=== PATIENT | female | born 1980 | race Caucasian/White ===

== ENCOUNTER 2023-01-28 22:36 | Emergency (ER) | payer MEDICAID, SELFPAY ==
[2023-01-28 22:51] VITALS: BP 166/84; PULSE 79; RESP 16; TEMP 36.8; O2SAT 98; BMI 25.0
--- NOTE | 2023-01-28 22:58 | PC.NURSE ---
Pt presents to ER for UTI like symptoms Pt states she has been taking Azo over the counter because she knows she has a UTI Pt states these symptoms have been going on for 4 days and she now has pain into her kidneys on both sides and blood in her urine Urine sample obtained
--- NOTE | 2023-01-28 23:14 | ED.FEMALEGU1 ---
HPI - Female Genitourinary General Chief complaint: Urogenital-Female Stated complaint: flank pain Time Seen by Provider: 01/28/23 22:58 Source: patient Mode of arrival: walk-in Limitations: no limitations History of Present Illness HPI Narrative: This 42-year-old female with a history of type 1 diabetes presents for evaluation of 2 days of bilateral flank pain with urinary frequency urgency and dysuria. She has been nauseated but has not vomited. She has been taking Tylenol and Motrin and is not certain if she has had any chills or fever. She states she has passed some small kidney stones in the past. Yesterday she noted some blood in her urine. She denies the possibility of because she has an IUD and is not sexually active. She denies any chest pain or shortness of breath. She states her glucose has been in normal range and is currently 126. Related Data Home Medications Medication Instructions Recorded Confirmed atorvastatin 10 mg tablet mg 01/28/23 ibuprofen 800 mg tablet mg 01/28/23 insulin pump cart,automated,BT 01/28/23 01/28/23 (Omnipod 5 G6 Pods (Gen 5) subcutaneous cartridge) lisinopril 5 mg tablet mg 01/28/23 pregabalin 300 mg capsule (Lyrica) 300 mg PO BID 01/28/23 01/28/23 Allergies Allergy/AdvReac Type Severity Reaction Status Date / Time clarithromycin [From Biaxin] Allergy Severe Verified 01/28/23 22:55 Sulfa (Sulfonamide Allergy Severe Verified 01/28/23 22:55 Antibiotics) azithromycin Allergy Verified 01/28/23 22:55 Penicillins Allergy Verified 01/28/23 22:55 Review of Systems ROS Status of ROS 10 or more systems reviewed and unremarkable except as noted in history and below [facility] Social History Smoking status: Current every day smoker Exam Narrative Exam Narrative: Nurses note and vital signs reviewed and patient is not hypoxic. Blood pressure is noted to be elevated at 166/84 General: The patient appears well and in no apparent distress. Patient is resting comfortably on cart. Skin: Warm, dry, no pallor noted. There is no rash noted. Head: Normocephalic, atraumatic Eye: Normal conjunctiva, no drainage, EOMI. PERRL Ears, Nose, Mouth, and Throat: oral mucosa is moist. Nares patent. Mouth without vesicles. Ear canals patent. Tm's without Erythema Cardiovascular: Regular Rate and Rhythm, no murmurs, rubs or gallops, Pulses are brisk and equal bilaterally Respiratory: Patient is in no distress, no accessory muscle use, lungs are clear to auscultation, no wheezing, rales or rhonchi Back: non-tender, no CVA tenderness bilaterally to percussion. GI: Normal bowel sounds, tenderness and fullness over urinary bladder, no rebound, guarding or rigidity Musculoskeletal: The patient has no evidence of calf tenderness, no pitting edema, symmetrical pulses noted bilaterally Neurological: A&O x4, normal speech Psychiatric: Cooperative Constitutional Vital Signs, click to edit/add: Last Vital Signs Temp 98.3 F 01/28/23 22:51 Pulse 79 01/28/23 22:51 Resp 16 01/28/23 22:51 BP 166/84 H 01/28/23 22:51 Pulse Ox 98 01/28/23 22:51 O2 Del Method Room Air 01/28/23 22:51 Course Vital Signs Vital signs: Vital Signs Temperature 98.3 F 01/28/23 22:51 Pulse Rate 79 01/28/23 22:51 Respiratory Rate 16 01/28/23 22:51 Blood Pressure 166/84 H 01/28/23 22:51 Pulse Oximetry 98 01/28/23 22:51 Oxygen Delivery Method Room Air 01/28/23 22:51 Temperature 98.3 F 01/28/23 22:51 Pulse Rate 79 01/28/23 22:51 Respiratory Rate 16 01/28/23 22:51 Blood Pressure 166/84 H 01/28/23 22:51 Pulse Oximetry 98 01/28/23 22:51 Oxygen Delivery Method Room Air 01/28/23 22:51 MDM - Female Genitourinary MDM Narrative Medical decision making narrative: This 42-year-old female who is a type II diabetic presents for evaluation of 2 days of bilateral flank pain with nausea and urinary frequency, urgency dysuria and hematuria yesterday. She states that her sugars have been in the normal range. She is uncertain if she has had a fever because she has been taking Tylenol and Motrin. She has also been taking Azo. Her physical exam is benign. She is afebrile. Her blood pressure was noted to be mildly elevated upon arrival. An IV was placed and she was medicated with IV fluids, Zofran and Cipro. Routine labs are reviewed. She has a normal white count hemoglobin. She has a normal lactic acid. Her urine is orange due to the Azo but does show 10-20 white blood cells per high-power field. She has a normal BUN and creatinine and was given a dose of Toradol for the pain. CT scan of the abdomen and pelvis which is included the body of this report does not show any kidney stones or local inflammation around the kidneys concerning for pyelonephritis. On reevaluation her symptoms are improving and she is tolerating clear liquids without nausea or vomiting. She is clinically nontoxic in appearance and will be discharged home with a prescription for Cipro to use as needed for her urinary tract infection. Due to the fact that she is diabetic and will treat her for a full 7 days. Medical Records Medical records narrative: [place] [address] CT Scan Report Signed Patient: CONNER MACKEY MR#: [id number] : 1980 Acct:[id number] Age/Sex: 42 / F ADM Date: 01/28/23 Loc: ER Attending Dr: Ordering Physician: Blake Nicholson Date of Service: 01/28/23 Procedure(s): CT abdomen pelvis wo con Accession Number(s): [id number] cc: IRENE HUERTA ~ [facility] [place] [address] Patient Name: CONNER MACKEY MRN: [id number] date: 1980 Sex: F Assigned Patient Location: ER Current Patient Location: ER Accession/Order Number: [id number] Exam Date: 01/28/2023 23:59 Report Date: 01/29/2023 00:30 At the request of: BLAKE NICHOLSON Procedure: CT abdomen pelvis wo con EXAMINATION: CT abdomen pelvis wo con HISTORY: kidney stone , bilateral flank pain, abdominal pain, blood in urine COMPARISON: No relevant comparison available. TECHNIQUE: Axial, Coronal, and Sagittal images were obtained without and/or with IV contrast as indicated by examination type. Dose reduction techniques were achieved by using automated exposure control and/or adjustment of mA and/or kV according to patient size and/or use of iterative reconstruction technique. FINDINGS: LUNG BASES: No visible pulmonary or pleural disease. LIVER: No enlargement, atrophy, suspicious density, or significant focal lesion. BILIARY: No dilatation or calcification. PANCREAS: No lesion, fluid collection, or abnormal duct dilatation. SPLEEN: No enlargement or focal lesion. ADRENALS: No mass or enlargement. KIDNEYS: No mass, obstruction, or calcification. BOWEL/MESENTERY: No visible mass, obstruction, or bowel wall thickening. Normal appendix. AORTA/VASCULAR: No aneurysm or dissection. RETROPERITONEUM: No mass or adenopathy. LYMPH NODES: No adenopathy. URINARY BLADDER: No visible focal wall thickening, lesion, or calculus. PELVIC ORGANS: IUD within endometrial cavity. No visible mass. Pelvic organs appropriate for patient age. ABDOMINAL WALL: No mass or hernia. BONES: L2-L3 moderate marked degenerative disc disease with suspected moderate or greater central canal narrowing. OTHER: Negative. CT/CT abdomen pelvis wo con IMPRESSION: 1. No urinary tract calculi or obstructive uropathy. 2. No acute or suspicious abdominal or pelvic findings to account for patient's symptoms. 3. L2-L3 marked degenerative disc disease. Lab Data Labs: Lab Results 01/28/23 01/28/23 01/29/23 Range/Units 23:00 23:23 00:00 WBC 9.2 (4.0-11.0) 10^3/uL RBC 4.03 L (4.20-5.40) 10^6/uL Hgb 13.2 (12.0-16.0) g/dL Hct 40.0 (36.0-48.0) % MCV 99.3 H (81.0-99.0) fL MCH 32.8 (26.7-34.0) pg MCHC 33.0 (29.9-35.2) g/dL RDW 12.1 (11.0-15.0) % Plt Count 262 (150-450) 10^3/uL MPV 11.0 (9.5-13.5) fL Neut % (Auto) 65.7 (43.0-75.0) % Lymph % (Auto) 24.2 (20.5-60.0) % [place] % (Auto) 7.5 (1.7-12.0) % Eos % (Auto) 1.1 (0.9-7.0) % Baso % (Auto) 1.2 (0.2-2.0) % Neut # (Auto) 6.1 (1.4-6.5) 10^3/uL Lymph # (Auto) 2.2 (1.2-3.8) 10^3/uL [place] # (Auto) 0.7 (0.3-0.8) 10^3/uL Eos # (Auto) 0.1 (0.0-0.7) 10^3/uL Baso # (Auto) 0.1 (0.0-0.1) 10^3/uL Abs Immat Gran (auto) 0.03 (0.00-0.03) 10^3/uL Imm/Tot Granulo (auto) 0.3 (0.0-0.5) % Sodium 137 (136-145) mmol/L Potassium 3.3 L (3.5-5.1) mmol/L Chloride 98 (98-107) mmol/L Carbon Dioxide 28.9 (21.0-32.0) mmol/L Anion Gap 13.4 BUN 13.0 (7.0-18.0) mg/dL Creatinine 0.78 (0.55-1.02) mg/dL Est GFR ( Amer) >60 (>=60) Est GFR (Non-Af Amer) >60 (>=60) BUN/Creatinine Ratio 16.7 Glucose 93 (74-106) mg/dL Lactate 1.4 (0.4-2.0) mmol/L Calcium 9.1 (8.5-10.1) mg/dL Total Bilirubin 0.7 (0.2-1.0) mg/dL AST 19 (15-37) U/L ALT 21 (14-59) U/L Alkaline Phosphatase 94 (46-116) U/L Total Protein 8.6 H (6.4-8.2) g/dL Albumin 4.5 (3.4-5.0) g/dL Globulin 4.1 g/dL Albumin/Globulin Ratio 1.1 Urine Color Dk. orange (YELLOW) Urine Clarity Slightly cloudy A (CLEAR) Urine pH 5.0 (5.0-9.0) Ur Specific [place] 1.020 (1.005-1.025) Urine Protein Color interference A (NEG/TRACE) mg/dL Urine Glucose (UA) Color interference A (NEGATIVE) mg/dL Urine Ketones Color interference A (NEGATIVE) mg/dL Urine Occult Blood Color interference A (NEGATIVE) Urine Nitrite Color interference A (NEGATIVE) Urine Bilirubin Color interference A (NEGATIVE) Urine Urobilinogen Color interference A (0.2-1.0) EU/dL Ur Leukocyte Esterase Color interference A (NEGATIVE) Urine RBC 0-2 (0-2) #/HPF Urine WBC 10-20 A (NONE SEEN) #/HPF Ur Squamous Epith Cells Few A (NONE/RARE) #/LPF Urine Crystals None seen (None Seen) #/HPF Urine Bacteria Trace A (NONE SEEN) #/HPF Urine Casts None seen (NONE SEEN) #/LPF Urine Mucus None seen (NONE SEEN) Ur Culture Indicated? Yes Discharge Plan Discharge Chief Complaint: Urogenital-Female Clinical Impression: Urinary tract infection, Bilateral flank pain Patient Disposition: Home, Self-Care Time of Disposition Decision: 00:57 Condition: Good Prescriptions / Home Meds: No Action atorvastatin 10 mg tablet ibuprofen 800 mg tablet lisinopril 5 mg tablet (DME) Omnipod 5 G6 Pods (Gen 5) Cartridge SUBCUT pregabalin [Lyrica] 300 mg capsule 300 mg PO BID Instructions: Urinary Tract Infection in Women (ED), Flank Pain (ED) Stand Alone Forms: Portal Instructions Referrals: IRENE HUERTA [Primary Care Provider] - 1 week Discharge Date/Time: 01/29/23 01:34
[2023-01-28 23:18] LABS: Color Urine DK. ORANGE (YELLOW)
[2023-01-28 23:19] LABS: Bilirubin Urine COLOR INTERFERENCE (NEGATIVE); Glucose Urine UA COLOR INTERFERENCE mg/dL (NEGATIVE); Ketones Urine COLOR INTERFERENCE mg/dL (NEGATIVE); Protein Urine COLOR INTERFERENCE mg/dL (NEG/TRACE)
[2023-01-28 23:20] LABS: Blood Urine COLOR INTERFERENCE (NEGATIVE); Leukocyte Esterase Urine COLOR INTERFERENCE (NEGATIVE); Nitrite Urine COLOR INTERFERENCE (NEGATIVE); Urine Microscopic Indicated YES; Urobilinogen Urine COLOR INTERFERENCE EU/dL (0.2-1.0)
[2023-01-28 23:25] LABS: Bacteria Urine TRACE #/HPF (NONE SEEN); Clarity Urine SLIGHTLY CLOUDY (CLEAR); Crystals Seen? None Seen #/HPF (None Seen); Mucus Urine NONE SEEN (NONE SEEN); RBC Urine 0-2 #/HPF (0-2); Squamous Epithelial Cell Urine FEW #/LPF (NONE/RARE)
[2023-01-28 23:26] LABS: Cast Seen? NONE SEEN #/LPF (NONE SEEN); Urine Culture Indicated YES
[2023-01-28] MEDS: 0.9 % SODIUM CHLORIDE 1,000 ML 1000 ML IV (23:46)
[2023-01-28] MEDS: ONDANSETRON PF 4 MG/2 ML VIAL IV (23:47)
[2023-01-28] MEDS: CIPROFLOXACIN IN 5 % DEXTROSE 400 MG/200 ML PIGGYBACK IV (23:47)
[2023-01-29 00:10] LABS: Alanine Aminotransferase 21 U/L (14-59); Albumin Globulin Ratio 1.1; Albumin Level 4.5 g/dL (3.4-5.0); Alkaline Phosphatase 94 U/L (46-116); Anion Gap 13.4; Aspartate Amino Transferase 19 U/L (15-37); BUN Creatinine Ratio 16.7; Bilirubin Total 0.7 mg/dL (0.2-1.0); Calcium 9.1 mg/dL (8.5-10.1); Carbon Dioxide 28.9 mmol/L (21.0-32.0); Chloride 98 mmol/L (98-107); Estimated GFR (African America >60 (>=60); Estimated GFR (Non-African Ame >60 (>=60); Globulin 4.1 g/dL; Glucose 93 mg/dL (74-106); Potassium 3.3 mmol/L (3.5-5.1); Sodium 137 mmol/L (136-145); Total Protein 8.6 g/dL (6.4-8.2)
[2023-01-29 00:13] LABS: Lactate/Lactic Acid 1.4 mmol/L (0.4-2.0)
[2023-01-29 00:31] LABS: Basophils Absolute Auto 0.1 10^3/uL (0.0-0.1); Basophils Percent Auto 1.2 % (0.2-2.0); Eosinophils Absolute Auto 0.1 10^3/uL (0.0-0.7); Eosinophils Percent Auto 1.1 % (0.9-7.0); Hemoglobin 13.2 g/dL (12.0-16.0); Immature Granulocytes Abs Auto 0.03 10^3/uL (0.00-0.03); Immature Granulocytes Pct Auto 0.3 % (0.0-0.5); Lymphocytes Absolute Auto 2.2 10^3/uL (1.2-3.8); Lymphocytes Percent Auto 24.2 % (20.5-60.0); Mean Corpuscular Hemoglobin 32.8 pg (26.7-34.0); Mean Corpuscular Volume 99.3 fL (81.0-99.0); Monocytes Absolute Auto 0.7 10^3/uL (0.3-0.8); Monocytes Percent Auto 7.5 % (1.7-12.0); Neutrophils Absolute Auto 6.1 10^3/uL (1.4-6.5); Neutrophils Percent Auto 65.7 % (43.0-75.0); Platelet Count 262 10^3/uL (150-450); Red Blood Count 4.03 10^6/uL (4.20-5.40); Red Cell Distribution Width 12.1 % (11.0-15.0); White Blood Count 9.2 10^3/uL (4.0-11.0)
[2023-01-29] MEDS: KETOROLAC TROMETHAMINE 30 MG/ML VIAL IVP (01:23)
== END 2023-01-29 01:34 | disposition home or self-care (01) ==
PROVIDERS: Emergency Provider Emergency Medicine; PCP Internal Medicine
DX: N39.0 Urinary tract infection, site not specified (principal); R10.9 Unspecified abdominal pain; Z87.442 Personal history of urinary calculi; Z97.5 Presence of (intrauterine) contraceptive device; Z79.4 Long term (current) use of insulin; F17.200 Nicotine dependence, unspecified, uncomplicated; M51.36 Other intervertebral disc degeneration, lumbar region; E11.9 Type 2 diabetes mellitus without complications
CPT/HCPCS: 36415; 74176; 80053; 81001; 83605; 85025; 87040; 87086; 87150; 87186; 96374; 96375; 99284

== ENCOUNTER 2023-09-12 14:50 | Emergency (ER) | payer MEDICAID, SELFPAY ==
[2023-09-12 14:55] VITALS: BP 134/76; PULSE 95; TEMP 36.4; O2SAT 98; BMI 26.5
--- NOTE | 2023-09-12 14:59 | XR_ITS ---
The [address] [address] Patient Name: CONNER MACKEY MRN: [id number] date: 1980 Sex: F Assigned Patient Location: ER Current Patient Location: ED.MAIN Accession/Order Number: [id number] Exam Date: 09/12/2023 15:12 Report Date: 09/12/2023 15:31 At the request of: DENNIS MARTINES Procedure: XR foot LT min 3V PROCEDURE: XR foot LT min 3V HISTORY: pain and swelling ; left foot dorsal pain and swelling; no known injury COMPARISON: None. FINDINGS: BONES:No fracture, acute abnormality, or significant arthropathy. SOFT TISSUES:Mild dorsal soft tissue swelling. No radiopaque foreign body. EFFUSION:None visible. OTHER: Negative. XR/XR foot LT min 3V IMPRESSION: 1. Mild soft tissue swelling of uncertain etiology. 2. No acute or suspicious bone abnormality. Electronically authenticated by: VIC YANG Date: 09/12/2023 15:31
--- OUTSIDE RECORDS SUMMARY | 2023-09-12 15:22 | XMS_ITS | CCD ---
Author Organization [facility] Care Team Providers Care Steam Box Tender Name Role Phone SUZI CONNOR Admitting Unavailable SUZI CONNOR Attending Unavailable JEOVANNY GRIFFIN Primary Care Unavailable SUZI CONNOR Consulting Unavailable TAMMI, LILI Admitting Unavailable LILI CADENA Attending Unavailable TAMMI, LILI Consulting Unavailable LILI CADENA Admitting Unavailable LILI CADENA Attending Unavailable JEOVANNY GRIFFIN Primary Care Unavailable ANNE COLEMAN V Consulting Unavailable TAMMI, LILI Consulting Unavailable JEOVANNY GRIFFIN Primary Care Physician [phone] MD Johnnie Sharpe Attending Unavailab le Provider, None Primary Care Unavailable MD Johnnie Sharpe Admitting UnavailMD Johnnie Mullins Admitting Unavailab MD Johnnie Lockwood Attending Unavailab elizabeth Provider, None Primary Care Unavailable SHELLEY Griffin Primary Care Provider BRANDON Fisher Emergency Provider Selvin Fisher Attending Unavailable Selvin Fisher Admitting Unavailable Jeovanny Griffin Primary Care Unavailable Jeovanny Griffin II Primary Care Provider [phone] MAULIK STARR Attending UnavailJEOVANNY Snyder II Primary Care Unavailable Elias ROSA MD, Daniel B Primary Care Provider JEOVANNY GRIFFIN II Primary Care Unavailable JEOVANNY GRIFFIN II Primary Care Unavailable JEOVANNY GRIFFIN II Primary Care Unavailable CINTHIA WALLS Attending Unavailable JEOVANNY GRIFFIN II Primary Care Unavailable JEOVANNY GRIFFIN II Primary Care Unavailable JIMMY PAUL Referring Unavailable VIK CANADA Attending Unavailable TITI CINTHIATONI FRANKS Referring Unavailable GRIFFIN II, JEOVANNY B Primary Care Unavailable DG NAVA Attending Unavailable SELF Referring Unavailable GRIFFIN II, JEOVANNY B Primary Care Unavailable GRIFFIN II, JEOVANNY B Primary Care Unavailable JIMMY PAUL Attending Unavailable Justice, Shadi Attending Unavailable Justice, Shadi Attending Unavailable DO Alma Gallegos Attending Unavailable Justice, Shadi Attending Unavailable Josse Delgado Attending Unavailable Roe Isbell Attending Unavailable Doreece, DO Marquez A Attending Unavailable Allergies Allergy Classification Reported Allergen(s) Allergy Type Date of Onset Reaction(s) Facility (2 sources) Clarithromycin; Translations: [Biaxin] Drug Allergy 07-18-19 13 [facility] Repository (2 sources) Erythromycin Drug Allergy 07-18-19 13 Anaphylaxis [facility] Repository (14 sources) Penicillins; Translations: [penicillins] Drug allergy (disorder) 03-21-19 10 Unknown, Anaphylaxis [facility] Repository (1 source) Sulfonamides (Antibiotic) Drug allergy (disorder) 07-18-19 13 [facility] Repository (20 sources) Clarithromycin; Translations: [clarithromycin] Drug Allergy 03-21-19 10 Anaphylaxis [facility] (20 sources) Erythromycin; Translations: [erythromycin] Drug Allergy 03-21-19 10 Unknown (qualifier value), Vomiting [facility] (9 sources) Sulfonamides (Antibiotic); Translations: [sulfa drugs] Drug allergy Unknown (qualifier value) [facility] (1 source) sulfa drug; Translations: [sulfa drug] Propensity to adverse reactions to drug (disorder) [facility] Repository (20 sources) Sulfonamides (Antibiotic); Translations: [Sulfa (Sulfonamide Antibiotics)] Allergy to substance 03-21-19 10 Anaphylaxis [facility] (1 source) Clarithromycin Drug Allergy 03-16-19 23 [facility] Repository (1 source) Erythromycin Drug Allergy 03-16-19 23 [facility] Repository (1 source) Penicillins Drug allergy (disorder) 03-16-19 23 [facility] Repository (16 sources) Penicillins Propensity to adverse reactions 03-21-19 10 [facility] Medications Current Medications Medication Drug Class(es) Dates Sig (Normalized) Sig (Original) acetaminophen 325 mg / HYDROcodone bitartrate 5 mg oral tablet (8 sources) Opioid Agonist Start: 10-13-2013 [place] 325 mg-5 mg oral tablet 1 tab(s), Oral, q4hr for pain, 15 tab(s), Refill(s) 0 Start Date: 10/13/13 Status: Ordered acetaminophen 325 mg / oxyCODONE hydrochloride 5 mg oral tablet (7 sources) Opioid Agonist Start: 11-25-2022 End: 11-28-2022 Percocet 5 mg-325 mg oral tablet 1 tab(s), Oral, q6hr for 3 day(s), 10 tab(s), Refill(s) 0, [id number], 167.6, cm, 11/25/22 10:15:00 EDT, Height/Length Dosing, 63.5, kg, 11/25/22 10:15:00 EDT, Weight Dosing Start Date: 11/25/22 Stop Date: 11/28/22 Status: Ordered Start: 10-04-2022 acetaminophen- oxycodone 325 mg-5 mg Tab 1 tab(s), Oral, q4hr for pain, 6 tab(s), Refill(s) 0, [id number], 167.6, cm, 10/04/22 22:54:00 EDT, Height/Length Dosing, 63.5, kg, 10/04/22 22:54:00 EDT, Weight Dosing Start Date: 10/04/22 Status: Ordered cephalexin 500 mg oral capsule (2 sources) Cephalosporin Antibacterial Start: 09-25-2021 End: 10-02-2021 take 1 capsule by mouth every twelve hours Keflex 500 mg Cap 500 mg = 1 cap(s), Oral, q12hr, X 7 day(s), # 14 cap(s), Refills(s) 0, Pharmacy: [facility] #[id number], 164, cm, 09/25/21 20:01:00 EDT, Height/Length Dosing, 70, kg, 09/25/21 20:01:00 EDT, Weight Dosing Start Date: 09/25/21 Stop Date: 10/02/21 Status: Ordered clindamycin 300 mg oral capsule (3 sources) Lincosamide Antibacterial Start: 05-20-2023 End: 05-27-2023 take 1 capsule by mouth every eight hours clindamycin 300 mg oral cap 300 mg = 1 cap(s), Oral, q8hr, X 7 day(s), # 21 cap(s), Refills(s) 0, [id number], cm, 05/20/23 21:36:00 EDT, Height/Length Dosing, 78.8, kg, 05/20/23 21:36:00 EDT, Weight Dosing Start Date: 05/20/23 Stop Date: 05/27/23 Status: Ordered Start: 11-25-2022 End: 12-02-2022 clindamycin 150 mg Cap 300 m g = 2 cap(s), Oral, QID, Take two tabs by mouth four times a day for seven days, X 7 day(s), # 56 cap(s), Refills(s) 0, [id number] 167.6, cm, 10/04/22 22:54:00 EDT, Height/Length Dosing, 63.5, kg, 10/04/22 22:54:00 EDT, Weight Dosing Start Date: 11/25/22 Stop Date: 12/02/22 Status: Ordered Start: 09-28-2022 End: 10-05-2022 take 3 capsules by mouth three times daily clindamycin 150 mg Cap 450 mg = 3 cap(s), Oral, TID, X 7 day(s), # 63 cap(s), Refills(s) 0, [id number] 165, cm, 09/28/22 14:31:00 EDT, Height/Length Dosing, 70.8, kg, 09/28/22 14:31:00 EDT, Weight Dosing Start Date: 09/28/22 Stop Date: 10/05/22 Status: Ordered cyclobenzaprine hydrochloride 10 mg oral tablet (9 sources) Muscle Relaxant Start: 02-21-2020 End: 03-16-2022 take 1 tablet by mouth three times daily as needed for muscle spasms cyclobenzaprine 10 mg Tab 10 mg = 1 tab(s), Oral, TID, PRN for spasm, # 30 tab(s), Refills(s) 0, Pharmacy: [facility] #[id number], 165, cm, 02/10/22 12:09:00 EST, Height/Length Dosing, 62, kg, 02/10/22 12:09:00 EST, Weight Dosing Start Date: 02/10/22 Status: Ordered Start: 09-18-2017 End: 11-18-2017 take 10 mg by mouth three times daily Cyclobenzaprine Discontinued 10 MG PO Three times daily September 17, 2017 11:00pm November 18, 2017 9:25pm ethinyl estradiol 0.02 mg / ferrous fumarate 75 mg / norethindrone 1 mg oral tablet (8 sources) Estrogen Start: 10-13-2013 Fe 03/15 oral tablet Refill(s) 0 Start Date: 10/13/13 Status: Ordered folic acid 1 mg oral tablet (8 sources) Start: 10-13-2013 folic acid 1 m g oral tablet Refills(s) 0 Start Date: 10/13/13 Status: Ordered homatropine methylbromide 0.3 mg/ml / HYDROcodone bitartrate 1 mg/ml oral solution (7 sources) Opioid Agonist, Cholinergic Muscarinic Agonist Start: 05-12-2022 take 5 mL by mouth every six hours homatropine-hydr ocodone 1.5 mg-5 mg/5 mL oral syrup 5 mL, Oral, q6hr, 120 mL, Refill(s) 0, [facility] #[id number], 165, cm, 05/12/22 15:13:00 EDT, Height/Length Dosing, 62, kg, 05/12/22 15:13:00 EDT, Weight Dosing Start Date: 05/12/22 Status: Ordered ibuprofen 800 mg oral tablet (20 sources) Nonsteroidal Anti-inflammatory Drug Start: 03-16-2022 take 800 mg by mouth three times daily Ibuprofen Active 800 MG PO Three times daily March 16, 2022 4:31pm Start: 02-10-2022 take 1 tablet by juana th every six hours ibuprofen 600 mg Tab 600 mg = 1 tab(s), Oral, q6hr, # 40 tab(s), Refills(s) 0, Pharmacy: [id number], 165, cm, 02/10/22 12:09:00 EST, Height/Length Dosing, 62, kg, 02/10/22 12:09:00 EST, Weight Dosing Start Date: 02/10/22 Status: Ordered Start: 09-11-2017 End: 03-16-2022 take 600 mg by mouth three times daily Ibuprofen Discontinued 600 MG PO Three times daily September 11, 2017 5:25pm March 16, 2022 3:55pm Start: 04-06-2017 take 1 tablet by juana th every eight hours as needed ibuprofen (MOTRIN) 600 mg tablet Take 1 tablet by mouth every 8 hours as needed for Pain. 12 tablet 0 04/06/2017 Active Comment on above: Take 1 tablet by juana th every 8 hours as needed for Pain. insulin aspart, human 100 unt/ml injectable solution (8 sources) Insulin Analog Start: 10-14-19 NovoLog 100 units/mL subcutaneous solution Refills(s) 0 Start Date: 10/13/13 Status: Ordered Insulin Glargine (Lantus U-100 Insulin) 100 unit/mL solution (1 source) Start: 03-16-19 inject 30 [IU] by subcutaneous injection at bedtime Insulin Glargine (Lantus U-100 Insulin) 100 unit/mL solution Active 30 UNIT SUBCUT Bedtime March 16, 2022 12:00am methocarbamol 750 mg oral tablet (9 sources) Muscle Relaxant Start: 12-22-19 End: 12-25-19 take 1 tablet by mouth three times daily Robaxin-750 oral tablet 1,500 mg = 2 tab(s), Oral, TID, X 3 day(s), # 18 tab(s), Refills(s) 0, Pharmacy: [facility] #[id number], 167.6, cm, 12/21/22 8:05:00 EDT, Height/Length Dosing, 63, kg, 12/21/22 8:05:00 EDT, Weight Dosing Start Date: 12/21/22 Stop Date: 12/24/22 Status: Ordered Start: 08-24-2019 take 1 tablet by juana th at bedtime as needed for pain Robaxin 500 mg Tab See Instructions, PRN Muscle pain, Take i-ii tabs by mouth at bedtime, # 60 tab(s), Refills(s) 0, Pharmacy: [facility]/pharm[facility] #[id number], 165, cm, 08/10/19 13:07:00 EDT, Height/Length Measured, 78, kg, 08/10/19 13:07:00 EDT, Weight Measured Start Date: 08/24/19 Status: Ordered methotrexate 2.5 mg oral tablet (8 sources) Folate Analog Metabolic Inhibitor Start: 10-13-2013 methotrexate 2.5 mg oral tablet Refills(s) 0 Start Date: 10/13/13 Status: Ordered nitrofurantoin, macrocrystals 25 mg / nitrofurantoin, monohydrate 75 mg oral capsule (1 source) Nitrofuran Antibacterial Start: 07-03-2023 End: 07-08-2023 take 1 capsule by mouth twice daily Macrobid 100 mg Cap 100 mg = 1 cap(s), Oral, BID, X 5 day(s), # 10 cap(s), Refills(s) 0, Pharmacy: [facility]/pharm[facility] #[id number], 168, cm, 07/03/23 10:56:00 EDT, Height/Length Dosing, 77.6, kg, 07/03/23 10:56:00 EDT, Weight Dosing Start Date: 07/03/23 Stop Date: 07/08/23 Status: Ordered pregabalin 300 mg oral capsule (20 sources) Start: 09-09-2017 End: 08-07-2023 take 1 capsule by mouth twice daily pregabalin (LYRICA) 300 mg capsule Indications: Diabetic autonomic neuropathy associated with type 1 diabetes mellitus (HCC) Take 1 capsule by mouth two times a day for 90 days. 60 capsule 2 05/09/2023 08/07/2023 Active Start: 10-13-2013 take 1 capsule by mouth once L yrica 300 mg oral capsule 300 mg, Oral, Once, Refills(s) 0 Start Date: 10/13/13 Status: Ordered Comment on above: Take 1 capsule by mo ut twice daily for 360 days. Take 1 capsule by mo uth two times a day for 90 days. Zofran ODT 4 mg Tab-Dis (8 sources) Start: 10-13-2013 take 1 tablet by mouth every eight hours as needed for nausea Zofran ODT 4 mg Tab-Dis 4 mg = 1 tab(s), Oral, q8hr, PRN as needed for nausea/vomiting, # 3 tab(s), Refills(s) 0 Start Date: 10/13/13 Status: Ordered Completed/Discontinued Medications Medication Drug Class(es) Dates Sig (Normalized) Sig (Original) acetaminophen 300 mg / codeine phosphate 30 mg oral tablet (16 sources) Opioid Agonist Start: 04-15-2017 acetaminophen-codein e (TYLENOL-COD #3) 300-30 mg per tablet per Dr. Ramsey, inspection engineer 1 04/15/2017 Active Comment on above: per Dr. Ramsey, podi atrist atorvastatin 10 mg oral tablet (13 sources) HMG-CoA Reductase Inhibitor Start: 07-02-2022 End: 09-30-2022 take 1 tablet by mouth once daily atorvastatin (LIPITOR) 10 mg tablet Indications: Poorly controlled type 1 diabetes mellitus (HCC) Take 1 tablet by mouth once daily. 90 tablet 3 07/02/2022 Active Comment on above: Take 1 tablet by juana th once daily. Blood Glucose Control, Normal soln (13 sources) Start: 07-12-2022 Blood Glucose Control, Normal soln Indications: Poorly controlled type 1 diabetes mellitus (HCC) Use to calibrate meter as directed. 1 Each 2 07/12/2022 Active Comment on above: Use to calibrate met er as directed. Blood-Glucose Meter (13 sources) Start: 07-12-2022 Blood-Glucose Meter Indications: Poorly controlled type 1 diabetes mellitus (HCC) Test Four times a day. Insulin Dep? Yes E10.9 DM 1, E10.65 1 Each 0 07/12/2022 Active Comment on above: Test Four times a da y. Insulin Dep? Yes E10.9 DM 1, E10.65 Blood-Glucose Sensor (DEXCOM G6 SENSOR) candido (12 sources) Start: 10-24-2022 Blood-Glucose Sensor (DEXCOM G6 SENSOR) candido Indications: Type 1 diabetes mellitus with diabetic polyneuropathy (HCC) Use to monitor glucose as directed every 10 days 9 Each 3 10/24/2022 Active Comment on above: Use to monitor gluco se as directed every 10 days Blood-Glucose Transmitter (DEXCOM G6 TRANSMITTER) candido (12 sources) Start: 10-24-2022 Blood-Glucose Transmitter (DEXCOM G6 TRANSMITTER) candido Indications: Type 1 diabetes mellitus with diabetic polyneuropathy (HCC) Use to monitor glucose as directed every 90 days 1 Each 3 10/24/2022 Active Comment on above: Use to monitor gluco se as directed every 90 days cholecalciferol 0.125 mg oral tablet (17 sources) Vitamin D Start: 09-09-2017 End: 03-16-2022 take 1 tablet by mouth once daily Cholecalciferol (Vitamin D3) (Vitamin D3) 5,000 unit Tablet Discontinued 5000 UNIT PO Daily September 08, 2017 11:00pm March 16, 2022 3:55pm Start: 11-11-2012 take 1 capsule by [facility] twice daily at mealtime Cholecalciferol, Vitamin D3, 5,000 unit cap Take 1 capsule by mouth twice daily with meals. 10,000 int. units daily with a meal for 3 months, then 5000 int. units daily. 60 capsule 11 11/11/2012 Active Comment on above: Take 1 capsule by [facility] twice daily with meals. 10,000 int. units daily with a meal for 3 months, then 5000 int. units daily. Cranberry preparation (16 sources) Non-Standardized Food Allergenic Extract, Non-Standardized Plant Allergenic Extract CRANBERRY EXTRACT (CRANBERRY CONCENTRATE ORAL) Take by mouth. 0 Active Comment on above: Take by mouth. Diclofenac (2 sources) Nonsteroidal Anti-inflammatory Drug Start: 8 End: 8 take 75 mg by mouth twice daily Diclofenac Sodium Discontinued 75 MG PO Twice daily September 17, 2017 11:00pm November 18, 2017 9:25pm Start: 09-18-2017 End: 10-06-2018 apply 2 g topically four times daily Diclofenac Sodium Discontinued 2 GM TOPICAL Four times daily September 17, 2017 11:00pm October 06, 2018 8:24pm apply to single elbow, wrist or hand; for hand includes palm/fingers/back of hand fexofenadine hydrochloride 180 mg oral tablet (16 sources) Histamine-1 Receptor Antagonist Start: 06-04-2017 take 1 tablet by mouth once daily fexofenadine (KORIN) 180 mg tablet TAKE 1 TABLET BY MOUTH ONCE DAILY. 30 tablet 06/04/2017 Active Comment on above: TAKE 1 TABLET BY [facility] ONCE DAILY. FLUoxetine 20 mg oral capsule (17 sources) Serotonin Reuptake Inhibitor Start: 09-09-2017 End: 03-16-2022 FLUoxetine (PROZAC) 20 mg capsule fluticasone propionate 0.05 mg/actuat metered dose nasal spray (16 sources) Corticosteroid Start: 03-11-2017 take 2 spray(s) nasal route once daily fluticasone (FLONASE) 50 mcg/actuation nasal spray Use 2 Sprays in each nostril once daily. 1 Bottle 6 03/11/2017 Active Comment on above: Use 2 Sprays in each nostril once daily. glucagon 3 mg nasal powder (13 sources) Antihypoglycemic Agent Start: 10-08-2022 glucagon 3 mg/actuation nasal spray (BAQSIMI) Indications: Poorly controlled type 1 diabetes mellitus (HCC) Use 1 [place] in the nose as needed for low blood sugar. May repeat after 15 minutes using a new device if there is no response. 1 Each 3 10/08/2022 Active Comment on above: Use 1 [place] in the n ose as needed for low blood sugar. May repeat after 15 minutes using a new device if there is no response. glucagon (GLUCAGON EMERGENCY KIT, HUMAN,) 1 mg solr (3 sources) Start: 10-20-2018 glucagon (GLUCAGON EMERGENCY KIT, HUMAN,) 1 mg solr Inject (1)one mg for insulin shock. 3 Each 3 10/20/2018 Active Comment on above: Inject (1)one mg for insulin shock. hydroxychloroquine sulfate 200 mg oral tablet (6 sources) Antimalarial, Antirheumatic Agent Start: 01-01-2017 End: 11-05-2022 take 1 tablet by mouth twice daily, then take 1 tablet by mouth once daily hydroxychloroquine (PLAQUENIL) 200 mg tablet Indications: Rheumatoid arthritis with negative rheumatoid factor, involving unspecified site (HCC) Take 1 tablet by mouth twice daily. except on Sundays, take one tablet (200mg) once daily 60 tablet 5 01/01/2017 11/05/2022 Discontinued Comment on above: Take 1 tablet by juana th twice daily. except on Sundays, take one tablet (200mg) once daily insulin glargine 100 unt/ml injectable solution (17 sources) Insulin Analog Start: 07-02-2022 End: 09-30-2022 insulin glargine (LANTUS) 100 unit/mL injection Indications: Poorly controlled type 1 diabetes mellitus (HCC) , Type 1 diabetes mellitus with diabetic polyneuropathy (HCC) Inject 36 Units subcutaneously daily at bedtime. 33 mL 0 07/02/2022 Active Start: 08-09-2021 End: 07-02-2022 inject 30 [IU] by subcutaneous injection once daily at bedtime insulin glargine (LANTUS) 100 unit/mL injection Indications: Type 1 diabetes mellitus with diabetic polyneuropathy (HCC) Inject 30 Units subcutaneously daily at bedtime. 30 mL 1 06/05/2022 07/02/2022 Discontinued Comment on above: Inject 30 Units subc utaneously daily at bedtime. Inject 36 Units subc utaneously daily at bedtime. insulin lispro 100 unt/ml injectable solution (20 sources) Insulin Analog Start: 11-12-2022 End: 04-28-2023 insulin lispro (HUMALOG U-100 INSULIN) 100 unit/mL injection Uses 66 units daily via insulin pump 60 mL 3 04/28/2023 Active Start: 03-16-2022 inject 1 [IU] by sub cutaneous injection four times daily Insulin Lispro (Humalog U-100 Insulin) 100 unit/mL solution Active 1 UNIT SUBCUT Four times daily March 16, 2022 12:00am sliding scale Start: 08-09-2021 End: 11-12-2022 insulin lispro (HUMALOG U-10 0 INSULIN) 100 unit/mL injection Indications: Type 1 diabetes mellitus with diabetic polyneuropathy (HCC) Uses 60 units daily via insulin pump 30 mL 3 06/05/2022 11/12/2022 Discontinued Comment on above: Uses 60 units daily via insulin pump Uses 66 units daily via insulin pump insulin pump cart,automated,BT (OMNIPOD 5 G6 PODS, GEN 5,) crtg (13 sources) Start: 04-28-2023 insulin pump cart,automated,BT (OMNIPOD 5 G6 PODS, GEN 5,) crtg Indications: Type 1 diabetes mellitus with diabetic polyneuropathy (HCC) APPLY 1 EVERY 72 HOURS 10 Each 5 04/28/2023 Active Start: 02-13-2023 End: 04-28-2023 insulin pump cart,automated, BT (OMNIPOD 5 G6 PODS, GEN 5,) crtg Indications: Type 1 diabetes mellitus with diabetic polyneuropathy (HCC) APPLY ONE ONCE EVERY 3 DAYS 10 Each 1 02/13/2023 04/28/2023 Discontinued Start: 10-24-2022 insulin pump c art,automated,BT (OMNIPOD 5 G6 PODS, GEN 5,) crtg Indications: Type 1 diabetes mellitus with diabetic polyneuropathy (HCC) Use one every 3 days 6 Each 3 10/24/2022 Active Comment on above: Use one every 3 days APPLY ONE ONCE EVERY 3 DAYS APPLY 1 EVERY 72 [address] Insulin Pump-Infus. Set-Meter (1 source) Start: 018 End: 023 Insulin Pump-Infus. Set-Meter Discontinued KIT September 08, 2017 11:00pm March 16, 2022 3:55pm isopropyl alcohol 0.7 ml/ml medicated pad (13 sources) Start: 023 alcohol swabs Indications: Poorly controlled type 1 diabetes mellitus (HCC) Use with blood glucose test 3 times daily. Insulin Dep? Yes. E10.65 400 Each 5 07/12/2022 Active Comment on above: Use with blood gluco se test 3 times daily. Insulin Dep? Yes. E10.65 levothyroxine sodium 0.025 mg oral tablet (8 sources) l-Thyroxine Start: 014 take 1 tablet by mouth once daily levothyroxine 25 mcg (0.025 mg) Tab 25 microgram = 1 tab(s), Oral, Daily, Refills(s) 0 Start Date: 10/13/13 Status: Ordered lisinopril 5 mg oral tablet (13 sources) Angiotensin Converting Enzyme Inhibitor Start: 023 End: 023 take 1 tablet by mouth once daily lisinopril (ZESTRIL) 5 mg tablet Indications: Poorly controlled type 1 diabetes mellitus (HCC) Take 1 tablet by mouth once daily. 90 tablet 3 07/02/2022 Active Comment on above: Take 1 tablet by juana once daily. MULTIVITAMIN CAP (16 sources) Start: 010 MULTIVITAMIN CAP Indications: Joint pain , Diabetes mellitus out of control , Type I (juvenile type) diabetes mellitus with neurological manifestations, uncontrolled(250.63) , Other and unspecified hyperlipidemia Take one(1) capsule daily. 0 03/21/2009 Active Comment on above: Take one(1) capsule daily. naproxen 500 mg oral tablet (20 sources) Nonsteroidal Anti-inflammatory Drug Start: 020 take 1 tablet by mouth twice daily naproxen 500 mg Tab 500 mg = 1 tab(s), Oral, BID, Take one tab by mouth two times a day, # 14 tab(s), Refills(s) 0, Pharmacy: [facility] #[id number], 167.6, cm, 10/04/22 22:54:00 EDT, Height/Length Dosing, 63.5, kg, 10/04/22 22:54:00 EDT, Weight Dosing Start Date: 11/25/22 Status: Ordered omeprazole 20 mg delayed release oral capsule (20 sources) Proton Pump Inhibitor Start: 018 take 1 capsule by mouth once daily omeprazole (PRILOSEC) 20 mg capsule TAKE 1 CAPSULE BY MOUTH ONCE DAILY. 30 capsule 5 06/04/2017 Active Comment on above: Take 1 capsule by mo [facility] once daily. OMNIPOD 5 G6 INTRO KIT, GEN 5, crtg (12 sources) Start: 023 OMNIPOD 5 G6 INTRO KIT, GEN 5, crtg Indications: Type 1 diabetes mellitus with diabetic polyneuropathy (HCC) Inject 1 Each subcutaneously as directed. 1 Each 0 10/24/2022 Active Comment on above: Inject 1 Each subcut aneously as directed. ondansetron 4 mg oral tablet (8 sources) Serotonin-3 Receptor Antagonist Start: 024 take 1 tablet by mouth every six hours as needed for nausea Zofran 4 mg Tab 4 mg = 1 tab(s), Oral, q6hr, PRN Nausea, Take one tab by mouth every six hours as needed for nausea, # 10 tab(s), Refills(s) 0, Pharmacy: [facility]/pharm[facility] #[id number], 167, cm, 06/09/23 11:18:00 EDT, Height/Length Dosing, 80.6, kg, 06/09/23 11:18:00 EDT, Weight Dosing Start Date: 06/09/23 Status: Ordered Start: 09-28-2022 take 1 tablet by juana every six hours ondansetron 4 mg Dis Tab 4 mg = 1 tab(s), Oral, q6hr, # 12 tab(s), Refills(s) 0, Pharmacy: [facility]/pharmacy #[id number], 165, cm, 09/28/22 14:31:00 EDT, Height/Length Dosing, 70.8, kg, 09/28/22 14:31:00 EDT, Weight Dosing Start Date: 09/28/22 Status: Ordered Subcutaneous Insulin Pump (PARADIGM INSULIN PUMP) misc (16 sources) Start: 04-06-2017 Subcutaneous I nsulin Pump (PARADIGM INSULIN PUMP) misc BASAL Pattern 2 - 30.7 T basal q24 BOLUS Midnight 13 2PM 10 ISF Midnight 50 Goal 120-140 1 Each 0 04/06/2017 Active Comment on above: BASAL Pattern 2 - 30.7 T basal q24 BOLUS Midnight 13 2PM 10 ISF Midnight 50 Goal 120-140 thyroid (custodial) 60 mg oral tablet (4 sources) Start: 01-05-2020 End: 07-02-2022 take 1 tablet by mouth once daily ARMOUR THYROID 60 mg Indications: Acquired hypothyroidism Take 1 tablet by mouth once daily. 30 tablet 2 01/05/2020 07/02/2022 Discontinued Start: 09-09-2017 End: 03-16-2022 take 1 tablet by mouth once daily Thyroid (Pork) ([place] Thyroid) 30 mg tablet Discontinued 30 MG PO Daily September 08, 2017 11:00pm March 16, 2022 3:55pm Comment on above: Take 1 tablet by juana once daily. traMADol hydrochloride 50 mg oral tablet (1 source) Opioid Agonist Start: 06-09-2023 End: 06-12-2023 take 1 tablet by mouth every four hours Ultram 50 mg Tab 50 mg, Oral, q4hr, Take one by mouth every four hours, X 3 day(s), # 10 tab(s), Refills(s) 0, Pharmacy: [facility]/pharmacy #[id number], 167, cm, 06/09/23 11:18:00 EDT, Height/Length Dosing, 80.6, kg, 06/09/23 11:18:00 EDT, Weight Dosing Start Date: 06/09/23 Stop Date: 06/12/23 Status: Ordered Problems Active Problems Problem Classification Problem Date Documented Date Episodic/Chronic Abdominal pain (4 sources) Pelvic and perineal pain; Translations: [PELVIC AND PERINEAL PAIN] Onset: 02-21-2020 Diabetes mellitus with complications (20 sources) Type 1 diabetes mellitus; Translations: [Type 1 diabetes mellitus with diabetic polyneuropathy] Onset: 04-05-2017 Chronic Diabetes mellitus without complication (20 sources) Type 2 diabetes mellitus without complications; Translations: [Type 1 diabetes mellitus] Onset: 04-26-2010 10-13-2013 Chronic Diabetes mellitus without complication (2 sources) Presence of insulin pump (external) (internal); Translations: [Hyperglycemia] Onset: 12-31-2019 05-08-2019 Episodic Diseases of mouth; excluding dental (1 source) Lesion of oral mucosa; Translations: [Other lesions of oral mucosa] Onset: 05-20-2023 Episodic Disorders of teeth and jaw (2 sources) Dental caries; Translations: [Dental caries, unspecified] Onset: 10-04-2022 Episodic Headache; including migraine (1 source) Headache; including migraine; Translations: [HEADACHE UNSPECIFIED] Onset: 12-31-2019 Immunizations and screening for infectious disease (1 source) Encounter for screening for human papillomavirus (HPV); Translations: [ENC SCREENING HUMAN PAPILLOMAVIRUS] Onset: 02-21-2020 Episodic Mood disorders (16 sources) Depressive disorder; Translations: [Depression] Onset: 04-26-2010 04-26-2010 Chronic Noninfectious gastroenteritis (1 source) Noninfectious enteritis; Translations: [Noninfective gastroenteritis and colitis, unspecified] Onset: 06-09-2023 Episodic Nutritional deficiencies (16 sources) Vitamin D deficiency; Translations: [Vitamin D deficiency, unspecified] Onset: 04-26-2010 04-26-2010 Chronic Other aftercare (1 source) sizer machine (current) use of insulin; Translations: [FCI CURRENT USE OF INSULIN] Onset: 12-31-2019 Episodic Other connective tissue disease (8 sources) Fibromyositis 10-13-2013 Episodic Other connective tissue disease (1 source) Foot pain; Translations: [Pain in unspecified foot] 10-06-2018 Episodic Other connective tissue disease (1 source) Spasm; Translations: [Other muscle spasm] 02-21-2020 Episodic Other connective tissue disease (1 source) Plantar fascial fibromatosis; Translations: [Plantar fascial fibromatosis] Onset: 06-09-2023 Episodic Other endocrine disorders (17 sources) Hypoglycemia; Translations: [Hypoglycemia, unspecified] Onset: 04-05-2017 02-21-2020 Chronic Other nervous system disorders (16 sources) Bilateral carpal tunnel syndrome; Translations: [Carpal tunnel syndrome, bilateral upper limbs] Onset: 04-17-2011 04-17-2011 Chronic Other non-traumatic joint disorders (1 source) Pain in elbow; Translations: [Pain in unspecified elbow] Onset: 12-21-2022 Episodic Rheumatoid arthritis and related disease (20 sources) Rheumatoid arthritis; Translations: [Rheumatoid arthritis, unspecified] Onset: 11-02-2009 10-13-2013 Chronic Sprains and strains (1 source) Sprain of wrist; Translations: [Unspecified sprain of unspecified wrist, initial encounter] 03-16-2022 Episodic Substance-related disorders (17 sources) Nicotine dependence, cigarettes, uncomplicated; Translations: [Smoker] Onset: 12-31-2019 11-08-2020 Chronic Comment on above: Added secondary to d ocumentation in Social History. Thyroid disorders (20 sources) Hypothyroidism; Translations: [Acquired hypothyroidism] Onset: 02-11-2013 10-13-2013 Chronic Unclassified (1 source) Other specified sprain of right wrist, initial encounter; Translations: [Other specified sprain of right wrist, initial encounter] Onset: 03-16-2022 Unclassified (16 sources) Type 1 diabetes mellitus without complication; Translations: [Diabetes mellitus type 1, uncontrolled, without complications] Onset: 04-10-2015 04-10-2015 Urinary tract infections (2 sources) Urinary tract infectious disease; Translations: [Urinary tract infection, site not specified] Onset: 09-25-2021 Episodic Past or Other Problems Problem Classification Problem Date Documented Date Episodic/Chronic Administrative/social admission (16 sources) Counseling, unspecified; Translations: [Counseling NOS] Onset: 06-11-2012 06-11-2012 Episodic Alcohol-related disorders (17 sources) Alcohol intoxication; Translations: [Alcohol use, unspecified with intoxication, unspecified] Onset: 04-05-2017 05-08-2019 Episodic Blindness and vision defects (20 sources) Other visual disturbances; Translations: [Hypermetropia] Onset: 02-28-2014 02-28-2014 Episodic Fracture of lower limb (16 sources) Stress fracture of left foot; Translations: [Stress fracture, left foot, initial encounter for fracture] Onset: 04-05-2017 04-05-2017 Episodic Fracture of neck of femur (hip) (16 sources) Fracture of bone of hip region; Translations: [Fracture of unspecified part of neck of unspecified femur, initial encounter for closed fracture] Onset: 08-15-2011 02-19-2021 Episodic Other aftercare (16 sources) Patient encounter status; Translations: [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] Onset: 11-02-2009 11-02-2009 Episodic Other aftercare (16 sources) Drug therapy finding; Translations: [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] Onset: 02-28-2014 02-28-2014 Episodic Other aftercare (1 source) Other senior care (current) drug therapy; Translations: [Encounter for long-term (current) use of high-risk medication] Onset: 11-02-2009 Episodic Other connective tissue disease (16 sources) Fibromyalgia; Translations: [Fibromyalgia] Onset: 04-26-2010 04-05-2017 Episodic Other skin disorders (16 sources) Decorative tattoo; Translations: [Other specified disorders of pigmentation] Onset: 04-26-2010 04-26-2010 Episodic Other upper respiratory infections (17 sources) Acute upper respiratory infection; Translations: [Acute upper respiratory infection, unspecified] Onset: 02-04-2011 Episodic Residual codes; unclassified (16 sources) FH: Thyroid disorder; Translations: [Family history of other endocrine, nutritional and metabolic diseases] Onset: 04-26-2010 04-26-2010 Episodic Residual codes; unclassified (16 sources) Postoperative state; Translations: [Other specified postprocedural states] Onset: 11-14-2011 11-14-2011 Episodic Unclassified (1 source) Ankle sprain and strain 12-24-2018 Results Test Name Value Interpretation Reference Range Facility ED Note-Nursingon 07-06-2023 ED Note-Nursing Patient's mother called back regarding prescription sent for strep. She asked that the script be sent to [facility] since it is a 24hr pharmacy. Dr. Gallegos sent script to [facility]. [facility] Comment on above: Other Comment: wrong pt ED Note-Nursing Patient called back regarding urine culture. Advised to stop macrobid and start cipro, which was sent to [facility]. She understood. Normal [facility] C Urineon 07-05-2023 Bacteria identified Cx Nom (U) Microbiology PROCEDURE: Urine Culture [R1] SOURCE: U CleanCatch BODY SITE: COLLECTED DATE/TIME: 07/03/2023 11:29 EDT RECEIVED DATE/TIME: 07/03/2023 12:13 EDT START DATE/TIME: 07/03/2023 12:13 EDT FREE TEXT SOURCE: Danny GIBBS, Josse Delgado DO, Josse Graf FINAL REPORTS Final Report [] Verified Date/Time: 07/05/2023 11:16 EDT >100,000 cfu/ml Klebsiella pneumoniae SUSCEPTIBILITY RESULTS __ LEGEND: S=Susceptible, N/R=Not Reported, Blank=Data not available, or drug not advisable or tested, I=Intermediate, ESBL=Extended spectrum beta-lactamase, R=Resistant, TFG=Thymidine-dependen t strain, CHRISTEN=Beta-lactamase positive, MARCIA=mcg/m;(mg/L), S*=Predicted susceptible interp, R*=Predicted resistant interp Klepne Antibiotic MARCIA Dilutn MARCIA Interp Amikacin <=16 S Ampicillin >16 R Ampicillin/ <=8/4 S Sulbactam Aztreonam <=4 S Cefazolin <=2 S Cefepime <=2 S Cefoxitin 16 I Ceftazidime <=1 S Ceftazidime/ <=8 S Avibactam Ceftriaxone <=1 S Ciprofloxacin <=1 S Ertapenem <=0.5 S Gentamicin <=4 S Levofloxacin <=2 S Meropenem <=1 S Nitrofurantoin 64 I Piperacillin/ <=16 S Tazobactam Tetracycline <=4 S Tigecycline <=2 S Tobramycin <=4 S Trimethoprim/ <=2/38 S Sulfa Performing Locations R1: This test was performed at: [facility], [address] [place] [address], [id number] , [place], [facility] Comment on above: Performed By: #### 2 [id number], [id number], [id number] #### [facility] [address] [place] [id number] Consent for Treatmenton Consent for Treatment [id number] [facility] Discharge Instructionson Discharge Instructions [id number] [facility] ED Clinical Summaryon 2023 ED Clinical Summary [address] [address] ED Clinical Summary Person Information Name: MERY RILEY Reji/[facility] Age: 42 Years : 1980 Sex: Female Language: Nigerien PCP: JEOVANNY GRIFFIN MD Marital Status: Visit Id: Visit Reason: Dysuria; Back pain; POS. UTI Speciality: Acuity: 4 Enc Type: Emergency Med Service: Emergency Arrival: 07/03/2023 10:51:41 Discharge: 07/03/2023 12:05:22 LOS: 000 01:14 Checkin: 07/03/2023 10:51:41 Checkout: 07/03/2023 12:05:22 Dispo Type: Home (Routine DC) EVENTS: Event Name Event Status Request Date/Time Start Date/Time Complete Date/Time Arrive Complete 07/03/2023 10:51:41 07/03/2023 10:51:41 07/03/2023 10:51:41 Document Home Meds Request 07/03/2023 10:51:41 Triage Complete 07/03/2023 10:51:41 07/03/2023 10:56:47 07/03/2023 10:56:47 Bed Assign Complete 07/03/2023 10:52:50 07/03/2023 10:52:50 07/03/2023 10:52:50 Dr Exam Complete 07/03/2023 10:52:50 07/03/2023 11:02:32 07/03/2023 11:02:32 RN Exam Complete 07/03/2023 10:52:50 07/03/2023 11:30:34 07/03/2023 11:30:34 Registration Complete 07/03/2023 10:54:35 07/03/2023 10:54:35 07/03/2023 10:54:35 Reg Complete Request 07/03/2023 10:54:35 Reg Bed Request Complete 07/03/2023 10:54:35 07/03/2023 10:54:35 07/03/2023 10:54:35 Pending Labs Complete 07/03/2023 11:02:12 07/03/2023 11:50:49 Lab Complete 07/03/2023 11:02:12 07/03/2023 11:43:12 Urine Collect Complete 07/03/2023 11:02:12 07/03/2023 11:43:12 Registration Request 07/03/2023 11:02:32 Dr Exam Complete 07/03/2023 11:02:32 07/03/2023 11:02:32 07/03/2023 11:02:32 Pending Labs Collected 07/03/2023 11:50:49 07/03/2023 11:50:49 Lab Collected 07/03/2023 11:50:49 07/03/2023 11:50:49 Discharge Complete 07/03/2023 12:01:17 07/03/2023 12:05:26 07/03/2023 12:05:26 Transfer Complete 07/03/2023 12:05:26 07/03/2023 12:05:26 07/03/2023 12:05:26 ADDRESS: [facility] [address] [facility] [id number] PHYS DOC NOTES: MEDICAL INFORMATION: Prescriptions Given: New Medications [id number], [address] [place], [place] [id number], [phone] nitrofurantoin (Macrobid 100 mg Cap) 1 Capsules By Mouth 2 times a day for 5 Days. Refills: 0. Medications to Continue with No Changes Other Medications acetaminophen-hydrocod one ([place] 325 mg-5 mg oral tablet) 1 Tablets By Mouth every 4 hours as needed for pain. Refills: 0. acetaminophen-oxycodon e (acetaminophen-oxycodo ne 325 mg-5 mg Tab) 1 Tablets By Mouth every 4 hours as needed for pain. Refills: 0. cyclobenzaprine (cyclobenzaprine 10 mg Tab) 1 Tablets By Mouth 3 times a day as needed for spasm. Refills: 0. ethinyl estradiol-norethindron e (Junel Fe 03/15 oral tablet) folic acid (folic acid 1 mg oral tablet) homatropine-hydrocodon e (homatropine-hydrocodo ne 1.5 mg-5 mg/5 mL oral syrup) 5 Milliliter By Mouth every 6 hours. Refills: 0. ibuprofen (ibuprofen 600 mg Tab) 1 Tablets By Mouth every 6 hours. Refills: 0. insulin aspart (NovoLog 100 units/mL subcutaneous solution) levothyroxine (levothyroxine 25 mcg (0.025 mg) Tab) 1 Tablets By Mouth every day. methocarbamol (Robaxin 500 mg Tab) Take i-ii tabs by mouth at bedtime; as needed Muscle pain. Refills: 0. methotrexate (methotrexate 2.5 mg oral tablet) naproxen (Naprosyn 500 mg Tab) 1 Tablets By Mouth 2 times a day as needed for pain. Refills: 0. naproxen (Naprosyn 500 mg Tab) 1 Tablets By Mouth 2 times a day as needed for pain. Refills: 0. naproxen (naproxen 500 mg Tab) 1 Tablets By Mouth 2 times a day. Take one tab by mouth two times a day. Refills: 0. naproxen (naproxen 500 mg Tab) 1 Tablets By Mouth 2 times a day. Take one tab by mouth two times a day. Refills: 0. naproxen (naproxen 500 mg Tab) 1 Tablets By Mouth 2 times a day. Take one tab by mouth two times a day. Refills: 0. ondansetron (ondansetron 4 mg Dis Tab) 1 Tablets By Mouth every 6 hours. Refills: 0. ondansetron (Zofran 4 mg Tab) 1 Tablets By Mouth every 6 hours as needed Nausea. Take one tab by mouth every six hours as needed for nausea. Refills: 0. ondansetron (Zofran ODT 4 mg Tab-Dis) 1 Tablets By Mouth every 8 hours as needed as needed for nausea/vomiting. Refills: 0. pregabalin (Lyrica 300 mg oral capsule) 300 Milligram By Mouth Once. PATIENT EDUCATION INFORMATION: Instructions: Urinary Tract Infection, Adult, [id number] Follow up: With: Address: When: ELIAS JAMES, JEOVANNY Elizabeth, [address] [address] In 3 days 07/06/2023 DIAGNOSIS: 1:Acute cystitis Normal [facility] ED Note-Physicianon 07-03-19 ED Note-Physician Basic Information Time Seen: Jelena LOERA, Imelda Oneil ; Josse Delgado DO 07/03/2023 11:02 Chief Complaint Pt reports bilateral back pain and dysuria. Dysuria and cloudy urine started friday. Strong odor to urine. denies fevers/chills/n/v. History of Present Illness 42-year-old female presents with suprapubic and bilateral lower back pain and dysuria that started 5 days ago. She states that her urine has a strong odor. Denies radiation of pain. Denies fever, n/v/d Review of Systems Review of systems negative unless otherwise stated in HPI Physical Exam Vitals & Measurements T: 36.5 ?C(Oral) HR: 91(Peripheral) RR: 16 BP: 141/85 SpO2: 99% HT: 168 cm WT: 77.6 kg BMI: 27.49 GENERAL: ALERT, NO ACUTE DISTRESS SKIN: WARM, DRY, INTACT; NO CYANOSIS, NO RASH HEAD: NORMOCEPHALIC, ATRAUMATIC ENT: EYE: PERRL, EOMI, NORMAL CONJUNCTIVA, NO DISCHARGE NOSE: NARES PATENT MOUTH: ORAL MUCOSA MOIST THROAT: NO STRIDOR NECK: SUPPLE, TRACHEA MIDLINE, FROM RESPIRATORY: NON-LABORED RESPIRATIONS, SYMMETRICAL EXPANSION ABDOMEN: SOFT, suprapubic tenderness, NORMAL BS, NO ORGANOMEGALY, NON DISTENDED, NO REBOUND TENDERNESS,GUARDING OR PERITONEAL SIGNS EXTREMITIES: FROM X 4 NEUROLOGICAL: A&OX3 SPINE: No CVA tenderness PSYCHIATRIC: COOPERATIVE, APPROPRIATE MOOD AND AFFECT Medical Decision Making UA positive for blood, leukocytes, RBCs, WBCs and bacteria and will be treated for UTI with Macrobid and follow-up family doctor. Previous urine culture reviewed. Afebrile, not tachycardic, not tachypneic, nontoxic-appearing, tolerating p.o. and ambulating at baseline and hemodynamically stable to be discharged home. Educated side effect of medications. Patient is instructed to return for any new or worsening symptoms. Answered all questions. Patient in agreement with treatment. Assessment/Plan 1. Acute cystitis (N30.00: Acute cystitis without hematuria) Ordered: nitrofurantoin, 100 mg = 1 cap(s), Oral, BID, X 5 day(s), # 10 cap(s), Refills(s) 0, Pharmacy: [facility]/pharmacy #[id number], 168, cm, 07/03/23 10:56:00 EDT, Height/Length Dosing, 77.6, kg, 07/03/23 10:56:00 EDT, Weight Dosing Disposition Plan Patient Discharge Condition Stable Discharge Disposition Home Discharge Prescription List Prescriptions Macrobid 100 mg Cap, 100 mg= 1 cap(s), Oral, BID Follow-up With When Contact Information ELIAS JAMES, JEOVANNY Elizabeth, KEREN In 3 days 07/06/2023 EDT [address] [place] [address]- Additional Instructions: Patient Education Urinary Tract Infection, Adult, [id number] Attestation I performed a substantive part of the MDM during the patient?s E/M visit. I personally made or approved the documented management plan and acknowledge its risk of complications. (Independent Interpretation) My (EKG/X-Ray/US/CT) interpretation as above. (Discussion) Management/test interpretation discussed with APC. Problem List/Past Medical History Ongoing Smoker Smoker 26-AUG-2013 12:37:00<$> Historical Adult hypothyroidism Arthritis, rheumatoid DM type 1 (diabetes mellitus, type 1) Fibromyalgia Procedure/Surgical History Internal fixation of femur. Medications Inpatient No active inpatient medications Home acetaminophen-oxycodon e 325 mg-5 mg Tab, 1 tab(s), Oral, q4hr, PRN cyclobenzaprine 10 mg Tab, 10 mg= 1 tab(s), Oral, TID, PRN folic acid 1 mg oral tablet homatropine-hydrocodon e 1.5 mg-5 mg/5 mL oral syrup, 5 mL, Oral, q6hr ibuprofen 600 mg Tab, 600 mg= 1 tab(s), Oral, q6hr Junel Fe 03/15 oral tablet levothyroxine 25 mcg (0.025 mg) Tab, 25 mcg= 1 tab(s), Oral, Daily Lyrica 300 mg oral capsule, 300 mg, Oral, Once Macrobid 100 mg Cap, 100 mg= 1 cap(s), Oral, BID methotrexate 2.5 mg oral tablet Naprosyn 500 mg Tab, 500 mg= 1 tab(s), Oral, BID, PRN Naprosyn 500 mg Tab, 500 mg= 1 tab(s), Oral, BID, PRN naproxen 500 mg Tab, 500 mg= 1 tab(s), Oral, BID naproxen 500 mg Tab, 500 mg= 1 tab(s), Oral, BID naproxen 500 mg Tab, 500 mg= 1 tab(s), Oral, BID [place]fork 325 mg-5 mg oral tablet, 1 tab(s), Oral, q4hr, PRN NovoLog 100 units/mL subcutaneous solution ondansetron 4 mg Dis Tab, 4 mg= 1 tab(s), Oral, q6hr Robaxin 500 mg Tab, See Instructions, PRN Zofran 4 mg Tab, 4 mg= 1 tab(s), Oral, q6hr, PRN Zofran ODT 4 mg Tab-Dis, 4 mg= 1 tab(s), Oral, q8hr, PRN Allergies Biaxin erythromycin (Unknown) penicillins (Unknown) sulfa drugs (Unknown) Social History Alcohol - Denies Alcohol Use, 05/20/2023 Substance Abuse - Denies Substance Abuse, 07/04/2020 Tobacco - Medium Risk, 06/09/2023 Former smoker, quit more than 30 days ago Tobacco Use:., 06/09/2023 Former smoker, quit more than 30 days ago Tobacco Use:. Current vaping or e-cigarette use Smokeless Tobacco Use:. Cigarettes, Vaping, 05/20/2023 10 or more cigarettes (1/2 pack or more)/day in last 30 days Tobacco Use:. Cigarettes, 07/04/2020 4 or less cigarettes(less than 1/4 pack)/day in last 30 days Tobacco Use:., 08/10/2019 Lab Results UA Spe (more content not included)... [facility] Comment on above: Result Comment: Elec tronically Signed By: Imelda Bowles PA-C\.br\Date and Time Signed: 07/03/23 16:03 EDT\.br\Electronically Co-Signed By: Josse Delgado DO\.br\Date and Time Co-Signed: 07/03/23 17:19 EDT ED Patient Education Noteon 07-03-2023 ED Patient Education Note Obstetrics and Gynecology Urinary Tract Infection, Adult A urinary tract infection (UTI) is an infection of any part of the urinary tract. The urinary tract includes: ? The kidneys. ? The ureters. ? The bladder. ? The urethra. These organs make, store, and get rid of pee (urine) in the body. What are the causes? This infection is caused by germs (bacteria) in your genital area. These germs grow and cause swelling (inflammation) of your urinary tract. What increases the risk? The following factors may make you more likely to develop this condition: ? Using a small, thin tube (catheter) to drain pee. ? Not being able to control when you pee or poop (incontinence). ? Being female. If you are female, these things can increase the risk: ? Using these methods to prevent : ? A medicine that kills sperm (spermicide). ? A device that blocks sperm (diaphragm). ? Having low levels of a female hormone (estrogen). ? Being . You are more likely to develop this condition if: ? You have genes that add to your risk. ? You are sexually active. ? You take antibiotic medicines. ? You have trouble peeing because of: ? A prostate that is bigger than normal, if you are male. ? A blockage in the part of your body that drains pee from the bladder. ? A kidney stone. ? A nerve condition that affects your bladder. ? Not getting enough to drink. ? Not peeing often enough. ? You have other conditions, such as: ? Diabetes. ? A weak disease-fighting system (immune system). ? Sickle cell disease. ? Gout. ? Injury of the spine. What are the signs or symptoms? Symptoms of this condition include: ? Needing to pee right away. ? Peeing small amounts often. ? Pain or burning when peeing. ? Blood in the pee. ? Pee that smells bad or not like normal. ? Trouble peeing. ? Pee that is cloudy. ? Fluid coming from the vagina, if you are female. ? Pain in the belly or lower back. Other symptoms include: ? Vomiting. ? Not feeling hungry. ? Feeling mixed up (confused). This may be the first symptom in older adults. ? Being tired and grouchy (irritable). ? A fever. ? Watery poop (diarrhea). How is this treated? ? Taking antibiotic medicine. ? Taking other medicines. ? Drinking enough water. In some cases, you may need to see a specialist. Follow these instructions at home: Medicines ? Take muzy-hkq-axecqhh and prescription medicines only as told by your doctor. ? If you were prescribed an antibiotic medicine, take it as told by your doctor. Do not stop taking it even if you start to feel better. General instructions ? Make sure you: ? Pee until your bladder is empty. ? Do not hold pee for a long time. ? Empty your bladder after sex. ? Wipe from front to back after peeing or pooping if you are a female. Use each tissue one time when you wipe. ? Drink enough fluid to keep your pee pale yellow. ? Keep all follow-up visits. Contact a doctor if: ? You do not get better after 1?2 days. ? Your symptoms go away and then come back. Get help right away if: ? You have very bad back pain. ? You have very bad pain in your lower belly. ? You have a fever. ? You have chills. ? You feeling like you will vomit or you vomit. Summary ? A urinary tract infection (UTI) is an infection of any part of the urinary tract. ? This condition is caused by germs in your genital area. ? There are many risk factors for a UTI. ? Treatment includes antibiotic medicines. ? Drink enough fluid to keep your pee pale yellow. This information is not intended to replace advice given to you by your health care provider. Make sure you discuss any questions you have with your health care provider. Document Revised: 09/22/2020 Document Reviewed: 09/22/2020 Elsevier Patient Education ? 2022 [email or web address] [facility] ED Patient Summaryon 024 ED Patient Summary [place] [id number] Patient Discharge Instructions Person Information Name: MERY RILEY Age: 42 Years Arrival Date: 07/03/2023 10:51:41 Discharge Diagnosis: 1:Acute cystitis Primary Care Physician: JEOVANNY GRIFFIN MD Provider Information Primary Provider: Josse Delgado DO Advanced Surveillance Sensor Officer:None The exam and treatment you received in the Emergency Department were for an urgent problem and are not intended as complete care. It is important that you follow up with a doctor, nurse practitioner, or physician?s quality assistant for ongoing care. If your symptoms become worse or you do not improve as expected and you are unable to reach your usual health care provider, you should return to the Emergency Department. We are available 24 hours a day. MERY RILEY has been given the following list of patient education materials, prescriptions and follow-up instructions: Follow-up Instructions: With: Address: When: JEOVANNY GRIFFIN MD, [address] [address] In 3 days 07/06/2023 In the event that this physician does not participate in your insurance network, please consult with your insurance company to find a nearby participating provider. Patient Education Materials: Urinary Tract Infection, Adult, Deyq-hr-Mkzp A MESSAGE TO ALL PATIENTS REGARDING OPIOIDS PRESCRIPTION OPIOIDS: WHAT YOU NEED TO KNOW Prescription opioids can be used to help relieve azylgmbi-kw-zrqowt pain and are often prescribed following a surgery or injury, or for certain health conditions. These medications can be an important part of the treatment but also come with serious risks. It is important to work with your healthcare provider to make sure you are getting the safest, most effective care. WHAT ARE THE RISKS AND SIDE EFFECTS OF OPIOID USE? Prescription opioids carry serious risks of addiction and overdose, especially with prolonged use. An opioid overdose, often marked by slowed breathing, can cause sudden . The use of prescription opioids can have a number of side effects as well, even when taken as directed: ? Tolerance?meaning you might need to take more of the medication for the same pain relief ? Physical dependence?meaning you have symptoms of withdrawal when a medication is stopped ? Increased sensitivity to pain ? Constipation ? Nausea, vomiting, and dry mouth ? Sleepiness and dizziness ? Confusion ? Depression ? Low levels of testosterone that can result in lower sex drive, energy, and strength ? Itching and sweating RISKS ARE GREATER WITH: ? History of drug misuse, substance use disorder, or overdose ? Mental health conditions (such as depression or anxiety) ? Sleep apnea ? Older age (65 years and older) ? Avoid alcohol while taking prescription opioids. Also, unless specifically advised by your health care provider, medications to avoid include: ? Benzodiazepines (such as Xanax or Valium) ? Muscle relaxants (such as Soma or Flexeril) ? Hypnotics (such as Ambien or Lunesta) ? Other prescription opioids KNOW YOUR OPTIONS Talk to your health care provider about ways to manage your pain that don?t involve prescription opioids. Some of these options may actually work better and have fewer risks and side effects. Options may include: ? Pain relievers such as acetaminophen, ibuprofen, and naproxen ? Some medication that are also used for depression or seizures ? Physical therapy and exercise ? Cognitive behavioral therapy, a psychological, goal-directed approach, in which patients learn how to modify physical, behavioral, and emotional triggers of pain and stress. IF YOU ARE PRESCRIBED OPIOIDS FOR PAIN: ? Never take opioids in greater amounts or more often than prescribed. ? Follow up with your primary health care provider. o Work together to create a plan on how to manage your pain. o Talk about ways to help manage your pain that don?t involve prescription opioids. o Talk about any and all concerns and side effects. ? Help prevent misuse and abuse o Never sell or share prescription opioids. o Never use another person?s prescription opioids. ? Store prescription opioids in a secure place and out of reach of others (this may include visitors, children, friends, and family). ? Safely dispose of unused prescription opioids: Find your community drug take-back program or your pharmacy mail-back program, or flush them down the toilet, following guidance from the Food and Drug Administration (www.fda.gov/Drugs/Res ourcesForYou). ? Visit www.cdc.gov/drugoverdo se to learn about the risks of opioids abuse and overdose. ? If you believe you may be struggling with addiction, tell your health acute care registered nurse and ask for guidance or call [facility]?S National Helpline at 7-386-360-HELP. v Source: [place] Depart (more content not included)... Normal [facility] SEROLOGYOrdered By: Randi Dos Santos on 07-03-2023 HCG.beta subunit (U) [Moles/Vol] Negative Normal [facility] Man Sero U BetaHcg Qualon 07-03-2023 HCG.beta subunit (U) [Moles/Vol] Negative Normal [facility] Comment on above: Performed By: #### 2 979415, [id number], [id number] #### [facility] [address] [place] [address] UA with Cult Rflxon 07-03-19 24 Bacteria Auto Ql (U) 4+ /HPF Abnormal Trace Fish er [facility] Comment on above: Performed By: #### 2 422378, [id number], [id number] #### [facility] [address] [place] [address] Bilirubin Ql (U) Negative Normal Negative [facility] Comment on above: Performed By: #### 2 098206, [id number], 57926661 #### [facility] [address] [place] [address] Clarity (U) Ex.Turbid Abnormal Clear [facility] Comment on above: Performed By: #### 2 140643, [id number], [id number] #### [facility] [address] [place] [address] Color (U) Yellow Normal Yellow [facility] Comment on above: Result Comment: Micr oscopic readings are only performed on those samples that meet specific criteria set forth by [facility]. Performed By: #### 2 934008, [id number], [id number] #### [facility] [address] [place] [address] Epithelial cells.squamous Auto (Urine sed) [#/Area] 3-4 Abnormal 0-2 [facility] Comment on above: Performed By: #### 2 941906, [id number], [id number] #### [facility] [address] [place] [address] Glucose Ql (U) 1+ mg/dL Abnormal Negative [facility] Comment on above: Performed By: #### 2 545890, [id number], [id number] #### [facility] [address] [place] [address] Hemoglobin Auto test strip (U) [Mass/Vol] 1+ mg/dL Abnormal Negative [facility] Comment on above: Performed By: #### 2 722002, [id number], 59562508 #### [facility] [address] [place] [address] Ketones Auto test strip Ql (U) Negative Normal Negative [facility] Comment on above: Performed By: #### 2 405308, [id number], 42195358 #### [facility] [address] [place] [address] Leukocyte clumps Auto (Urine sed) [#/Area] 11-20 Abnormal [facility] Comment on above: Performed By: #### 2 657071, [id number], [id number] #### [facility] [address] [place] [address] Leukocyte esterase Auto test strip Ql (U) 500 Eleanor/uL Abnormal Negative [facility] Comment on above: Performed By: #### 2 603088, [id number], 99411547 #### [facility] [address] [place] [address] Mucus Auto Ql (U) Trace Normal Negative [facility] Comment on above: Performed By: #### 2 043944, [id number], [id number] #### [facility] [address] [place] [address] Nitrite Auto test strip Ql (U) Negative Normal Negative [facility] Comment on above: Performed By: #### 2 989770, [id number], [id number] #### [facility] [address] [place] [address] pH (U) 5.5 [pH] Invalid Interpretation Code 5.0-9.0 [facility] Comment on above: Performed By: #### 2 492332, [id number], 91864782 #### [facility] [address] [place] [address] Protein Ql (U) Trace Abnormal Negative [facility] Comment on above: Performed By: #### 2 037814, [id number], [id number] #### [facility] [address] [place] [address] RBC Ql (U) 4-20 Abnormal 0-3 [facility] Comment on above: Performed By: #### 2 287245, [id number], 90972699 #### [facility] [address] [place], [place] [address] Specific gravity (U) [Rel density] 1.017 Invalid Interpretation Code 1.005-1.030 [facility] Comment on above: Performed By: #### 2 357215, [id number], 70662849 #### [facility] [address] [place] [address] Urobilinogen (U) [Mass/Vol] Negative Normal Negative [facility] Comment on above: Performed By: #### 2 800647, [id number], 61216528 #### [facility] [address] [place] [address] WBC Auto (Urine sed) [#/Area] >75 Abnormal 0-5 [facility] Comment on above: Performed By: #### 2 426602, [id number], 87560982 #### [facility] [address] [place] [address] Type of Urine collection method Clean Catch Normal [facility] Comment on above: Performed By: #### 2 616538, [id number], 35484743 #### [facility] [address] [place] [address] URINALYSISOrdered By: SYSTEM SYSTEM on 07-03-2023 Bacteria Auto Ql (U) 4+ /HPF Invalid Interpretation Code Trace/HPF [facility] UA Auto SS Bilirubin Ql (U) Negative Normal Negativemg/ d L [facility] UA Auto SS Clarity (U) Ex.Turbid *ABN* (07/03/23 11:29 AM) Invalid Interpretation Code Clear [facility] UA Auto SS Color (U) Yellow 1 (07/03/23 11:29 AM) Normal Yellow [facility] UA Auto SS Comment on above: Interpretive Data: M icroscopic readings are only performed on those samples that meet specific criteria set forth by [facility]. Epithelial cells.squamous Auto (Urine sed) [#/Area] 3-4 graded/HPF Invalid Interpretation Code 0-2graded/HP F [facility] UA Auto SS Glucose Ql (U) 1+ mg/dL Invalid Interpretation Code Negativemg/d L [facility] UA Auto SS Hemoglobin Auto test strip (U) [Mass/Vol] 1+ mg/dL Invalid Interpretation Code Negativemg/d L [facility] UA Auto SS Ketones Auto test strip Ql (U) Negative Normal Negativemg/d L [facility] UA Auto SS Leukocyte clumps Auto (Urine sed) [#/Area] 11-20 graded/HPF Invalid Interpretation Code [facility] UA Auto SS Leukocyte esterase Auto test strip Ql (U) 500 Eleanor/uL Eleanor/uL Invalid Interpretation Code NegativeLeu/ uL [facility] UA Auto SS Mucus Auto Ql (U) Trace graded/LPF Normal Negati vegrad ed/LPF [facility] UA Auto SS Nitrite Auto test strip Ql (U) Negative Normal Negativemg/d L [facility] UA Auto SS pH (U) 5.5 *NA* (07/03/23 11:29 AM) Invalid Interpretation Code 5.0 - 9.0 [facility] UA Auto SS Protein Ql (U) Trace mg/dL Invalid Interpretation Code Negativemg/d L [facility] UA Auto SS RBC Ql (U) 4-20 graded/HPF Invalid Interpretation Code 0-3graded/HP F [facility] UA Auto SS Specific gravity (U) [Rel density] 1.017 *NA* (07/03/23 11:29 AM) Invalid Interpretation Code 1.005 - 1.030 [facility] UA Auto SS Urobilinogen (U) [Mass/Vol] Negative Normal Negativemg/d L [facility] UA Auto SS WBC Auto (Urine sed) [#/Area] >75 graded/HPF Invalid Interpretation Code 0-5graded/HP F [facility] UA Auto SS URINALYSISOrdered By: Josse Delgado on 07-03-2023 UA Spec Desc Clean Catch (07/03/23 11:29 AM) Normal [facility] UA Auto SS B hCG Qualon 06-09-2023 Beta HCG ( test) Ql Negative Normal [facility] Comment on above: Performed By: #### 1 6784351, 0384768, 8691212, 01494999, 0599039, 7457787 ####[facility] [address] [place] [address] BMPon 06-09-2023 Anion gap [Moles/Vol] 10 mmol/L Normal 6-16 [facility] Comment on above: Order Comment: Jovi nunez IV and will pull and send labs.. Rn has labels chandler Rojas . [facility] 06/09/2023 11:54:06 EDT Performed By: #### 1 0349252, 2388692, 0875636, 90454642, 5589322, 2484864 ####[facility] [address] [place] [address] Calcium [Mass/Vol] 8.5 mg/dL Low 8.9-11.1 [facility] Comment on above: Order Comment: Jovi nunez IV and will pull and send labs.. Rn has labels chandler Rojas . [facility] 06/09/2023 11:54:06 EDT Performed By: #### 1 5905300, 2663985, 8505034, 15501569, 3058990, 0954674 ####[facility] [address] [place] [address] Chloride [Moles/Vol] 107 mmol/L Normal 101-111 [facility] Comment on above: Order Comment: Jovi nunez IV and will pull and send labs.. Rn has labels chandler Rojas . [facility] 06/09/2023 11:54:06 EDT Performed By: #### 1 6531671, 6290300, 6094575, 73306314, 7565898, 9393797 ####[facility] [address] [place] [address] CO2 [Moles/Vol] 25 mmol/L Normal 21-31 [facility] Comment on above: Order Comment: Rn st arting IV and will pull and send labs.. Rn has labels perb Crystal . [facility] 06/09/2023 11:54:06 EDT Performed By: #### 1 3981243, 0536648, 4538518, 77664356, 4132677, 4926884 ####[facility] [address] [place] [address] Creatinine [Mass/Vol] 0.6 mg/dL Normal 0.5-1.3 [facility] Comment on above: Order Comment: Rn st arting IV and will pull and send labs.. Rn has labels perb [facility] . [facility] 06/09/2023 11:54:06 EDT Performed By: #### 1 2676657, 7551622, 7296399, 45367581, 4338656, 6405204 ####[facility] [address] [place] [address] Glucose [Mass/Vol] 142 mg/dL Normal 55-199 [facility] Comment on above: Order Comment: Rn st arting IV and will pull and send labs.. Rn has labels perb Crystal . [facility] 06/09/2023 11:54:06 EDT Performed By: #### 1 3223956, 1138331, 4814768, 43893715, 7655965, 8134589 ####[facility] [address] [place] [address] Potassium [Moles/Vol] 4.0 mmol/L Normal 3.5-5.3 [facility] Comment on above: Order Comment: Rn st arting IV and will pull and send labs.. Rn has labels perb [facility] . [facility] 06/09/2023 11:54:06 EDT Performed By: #### 1 0535590, 5271431, 5421909, 11720723, 3544327, 9820523 ####[facility] [address] [place] [address] Sodium [Moles/Vol] 138 mmol/L Normal 135-145 [facility] Comment on above: Order Comment: Rn st lilian PLUNKETT and will pull and send labs.. Rn has labels perb [facility] . [facility] 06/09/2023 11:54:06 EDT Performed By: #### 1 3338851, 2958811, 0377602, 65782621, 4725159, 7399739 ####[facility] [address] [place] [address] Urea nitrogen [Mass/Vol] 12 mg/dL Normal 5-21 [facility] Comment on above: Order Comment: Rn st lilian PLUNKETT and will pull and send labs.. Rn has labels perb [facility] . [facility] 06/09/2023 11:54:06 EDT Performed By: #### 1 9456644, 9732062, 5710023, 29701031, 6187591, 0451388 ####[facility] [address] [place] [address] Urea nitrogen/Creatinine [Mass ratio] 20 No Units Normal 10-20 [facility] Comment on above: Order Comment: Rn st lilian PLUNKETT and will pull and send labs.. Rn has labels perb [facility] . [facility] 06/09/2023 11:54:06 EDT Performed By: #### 1 4279863, 1439253, 7796386, 18909398, 1084069, 2552424 ####[facility] [address] [place] [address] CBC w/ Auto Diffon 4 Basophils/100 WBC (Bld) 0.7 % Normal 0.0-2.0 [facility] Comment on above: Performed By: #### 1 7076929, 1089483, 3128242, 91306895, 4302793, 6008271 ####[facility] [address] [place] [address] Basophils/Leukocytes Auto (Bld) [Pure # fraction] 0.0 E9/L Normal 0.0-0.2 [facility] Comment on above: Performed By: #### 1 2578713, 2218782, 5787708, 87531651, 6172530, 8993521 ####[place] [address] [place] [address] Eosinophils (Bld) [#/Vol] 0.2 E9/L Normal 0.0-0.5 [facility] Comment on above: Performed By: #### 1 1502212, 9458162, 2352535, 22009289, 4314961, 9742399 ####[place] [address] [place] [address]657 Eosinophils/100 WBC (Bld) 3.0 % Normal 0.0-8.0 [facility] Comment on above: Performed By: #### 1 5326676, 6397871, 4913353, 14048399, 2020412, 4468596 ####[place] [address] Erythrocyte distribution width (RBC) [Ratio] 13.1 % Normal 10.9-14.2 [facility] Comment on above: Performed By: #### 1 3179140, 1169116, 0296681, 42342645, 6066450, 8788689 ####[place] [address] Hematocrit (Bld) [Volume fraction] 36.9 % Normal 34.0-46.0 [facility] Comment on above: Performed By: #### 1 2505203, 3249195, 8534899, 10482843, 2598416, 4806081 ####[address] [address] Hemoglobin (Bld) [Mass/Vol] 12.4 g/dL Normal 12.0-16.0 [facility] Comment on above: Performed By: #### 1 2687938, 0324028, 7235513, 75576404, 3946352, 2056186 ####[place] [address] Lymphocytes (Bld) [#/Vol] 1.3 E9/L Normal 1.0-4.0 [facility] Comment on above: Performed By: #### 1 2639432, 3461290, 9072975, 99699908, 6863889, 8308632 ####[address] [place] [address] Lymphocytes/100 WBC (Bld) 25.8 % Normal 14.0-50.0 [facility] Comment on above: Performed By: #### 1 3727289, 1258960, 8496727, 09731825, 0648387, 1413533 ####[place] [place] [address] MCH (RBC) [Entitic mass] 31.5 pg Normal 27.0-34.0 [facility] Comment on above: Performed By: #### 1 9006968, 4647841, 4474733, 61705134, 0662083, 0114602 ####[address] [address] MCHC (RBC) [Mass/Vol] 33.5 g/dL Normal 31.4-36.0 [facility] Comment on above: Performed By: #### 1 0845552, 1219336, 4076837, 06297840, 0846353, 8987095 ####[address] [address] MCV (RBC) [Entitic vol] 94.0 fL Normal 80.0-100.0 [facility] Comment on above: Performed By: #### 1 7518886, 3903812, 6012683, 00440587, 9421637, 9712502 ####[address] [place] [address] Monocytes (Bld) [#/Vol] 0.5 E9/L Normal 0.2-1.0 [facility] Comment on above: Performed By: #### 1 9042001, 0765575, 0013579, 12514456, 0489253, 9761977 ####[address] [address] Neutrophils (Bld) [#/Vol] 3.1 E9/L Normal 2.0-7.5 [facility] Comment on above: Performed By: #### 1 4034713, 2125931, 9386377, 52870059, 7486639, 8325468 ####[address] [address] Neutrophils/100 WBC (Bld) 61.4 % Normal 36.0-75.0 [facility] Comment on above: Performed By: #### 1 5453311, 8546986, 3918427, 84377799, 9326655, 9487182 ####[address] [address] Platelet mean volume (Bld) [Entitic vol] 8.8 fL Normal 6.4-10.8 [facility] Comment on above: Performed By: #### 1 6572380, 1967738, 1814619, 86161271, 7406460, 0702117 ####[address] [address] Platelets (Bld) [#/Vol] 238.0 E9/L Normal 150.0-500.0 [facility] Comment on above: Performed By: #### 1 4323373, 1714298, 4577391, 82330072, 1449238, 3883090 ####[address] [address] RBC (Bld) [#/Vol] 3.9 E12/L Low 4.3-5.9 [facility] Comment on above: Performed By: #### 1 5100445, 8595014, 4120341, 16490456, 7138986, 6462764 ####[address] [address] WBC corrected for nucl RBC Auto (Bld) [#/Vol] 5.1 E9/L Normal 4.0-11.0 [facility] Comment on above: Performed By: #### 1 8475852, 0728121, 6084269, 02111077, 9993820, 0044834 ####[facility] [address] [place] [address] CHEMISTRYOrdered By: SYSTEM SYSTEM on 06-09-2023 Albumin [Mass/Vol] 3.9 g/dL Normal 3.3 - 5.0 gm/dL [facility] Albumin/Globulin [Mass ratio] 1.6 {ratio} Normal 1.1 - 2.2 [facility] ALP [Catalytic activity/Vol] 51 [iU]/d Normal 21 - 98 Int._Unit/L [facility] ALT No additional P-5'-P [Catalytic activity/Vol] 10 [iU]/d Normal 6 - 46 Int._Unit/L [facility] Anion gap [Moles/Vol] 10 mmol/L Normal 6 - 16 mEq/L R emisol Chem AST [Catalytic activity/Vol] 11 [iU]/d Normal 5 - 43 Int._Unit/L [facility] Bilirubin [Mass/Vol] 1.0 mg/dL Normal 0.0 - 1 .1 mg/dL [facility] Bilirubin.direct [Mass/Vol] 0.1 mg/dL Normal 0.0 - 0.4 mg/dL [facility] Bilirubin.indirect [Mass or moles/Vol] 0.9 mg/dL Normal 0.1 - 0.9 mg/dL [facility] Calcium [Mass/Vol] 8.5 mg/dL Low 8.9 - 11. 1 mg/dL [facility] Chloride [Moles/Vol] 107 mmol/L Normal 101 - 1 11 mmol/L [facility] CO2 [Moles/Vol] 25 mmol/L Normal 21 - 31 mmol/L [facility] Creatinine [Mass/Vol] 0.6 mg/dL Normal 0.5 - 1.3 mg/dL [facility] eGFR 116 mL/min/1.73 m2 Normal >=59mL/mi n/1 .73 m2 [facility] Globulin (S) [Mass/Vol] 2.4 g/dL Normal 1.4 - 4.0 gm/dL [facility] Glucose [Mass/Vol] 142 mg/dL Normal 55 - 199 mg/dL [facility] Lipase [Catalytic activity/Vol] unit/L Low 13 - 58 unit/L [facility] Potassium [Moles/Vol] 4.0 mmol/L Normal 3.5 - 5.3 mmol/L [facility] Protein [Mass/Vol] 6.3 g/dL Normal 6.0 - 7.8 gm/dL [facility] Sodium [Moles/Vol] 138 mmol/L Normal 135 - 145 mmol/L [facility] Urea nitrogen [Mass/Vol] 12 mg/dL Normal 5 - 21 mg/dL [facility] Urea nitrogen/Creatinine [Mass ratio] 20 mg/mg Normal 10 - 20 [facility] Consent for Treatmenton 05-25 Consent for Treatment [id number] [facility] Discharge Instructionson Discharge Instructions [id number] Normal [facility] ED Clinical Summaryon 2023 ED Clinical Summary [place] [id number] ED Clinical Summary Person Information Name: MERY RILEY Reji/[facility] Age: 42 Years : 1980 Sex: Female Language: Nigerien PCP: JEOVANNY GRIFFIN MD Marital Status: Visit Id: Visit Reason: Foot pain-swelling; Abdominal pain; Vomiting; Diarrhea; VOMITING, HEADACHE, CHILLS, RIGHT FT PAIN Speciality: Acuity: 3 Enc Type: Emergency Med Service: Emergency Arrival: 06/09/2023 11:10:29 Discharge: 06/09/2023 14:16:07 LOS: 000 03:06 Checkin: 06/09/2023 11:10:29 Checkout: 06/09/2023 14:16:07 Dispo Type: Home (Routine DC) EVENTS: Event Name Event Status Request Date/Time Start Date/Time Complete Date/Time Arrive Complete 06/09/2023 11:10:29 06/09/2023 11:10:29 06/09/2023 11:10:29 Document Home Meds Request 06/09/2023 11:10:29 Triage Complete 06/09/2023 11:10:29 06/09/2023 11:18:24 06/09/2023 11:18:24 Bed Assign Complete 06/09/2023 11:23:22 06/09/2023 11:23:22 06/09/2023 11:23:22 Dr Exam Complete 06/09/2023 11:23:22 06/09/2023 11:26:22 06/09/2023 11:26:22 RN Exam Complete 06/09/2023 11:23:22 06/09/2023 12:05:16 06/09/2023 12:05:16 Registration Complete 06/09/2023 11:26:22 06/09/2023 11:38:36 06/09/2023 11:38:36 Reg Complete Request 06/09/2023 11:38:36 Reg Bed Request Complete 06/09/2023 11:38:36 06/09/2023 11:38:36 06/09/2023 11:38:36 Meds Admin Complete 06/09/2023 11:39:17 06/09/2023 12:00:47 Pending Labs Complete 06/09/2023 11:39:17 06/09/2023 13:31:09 Lab Complete 06/09/2023 11:39:17 06/09/2023 12:22:18 X-Ray Complete 06/09/2023 11:39:17 06/09/2023 11:41:52 06/09/2023 12:20:43 Pending Labs Complete 06/09/2023 12:04:20 06/09/2023 12:04:20 06/09/2023 12:22:18 Lab Complete 06/09/2023 12:04:20 06/09/2023 12:04:20 06/09/2023 12:22:18 Pending Labs Complete 06/09/2023 12:06:38 06/09/2023 12:06:38 06/09/2023 12:06:38 Wet Read Complete 06/09/2023 12:20:43 06/09/2023 12:31:20 06/09/2023 12:31:20 Patient Care Complete 06/09/2023 13:38:54 06/09/2023 14:07:50 Discharge Complete 06/09/2023 13:38:56 06/09/2023 14:16:11 06/09/2023 14:16:11 Transfer Complete 06/09/2023 14:16:11 06/09/2023 14:16:11 06/09/2023 14:16:11 ADDRESS: [address] [facility] [id number] PHYS DOC NOTES: MEDICAL INFORMATION: Prescriptions Given: New Medications [facility]/pharmacy #[id number], [address] [place], [place] [id number], [phone] tramadol (Ultram 50 mg Tab) 50 Milligram By Mouth every 4 hours for 3 Days. Take one by mouth every four hours. Refills: 0. Medications to Continue Taking That Have Changed [facility]/pharmacy #[id number], [address] [place], [place] [id number], [phone] START: naproxen (naproxen 500 mg Tab) 1 Tablets By Mouth 2 times a day. Take one tab by mouth two times a day. Refills: 0. START: ondansetron (Zofran 4 mg Tab) 1 Tablets By Mouth every 6 hours as needed Nausea. Take one tab by mouth every six hours as needed for nausea. Refills: 0. Other Medications START: naproxen (Naprosyn 500 mg Tab) 1 Tablets By Mouth 2 times a day as needed for pain. Refills: 0. START: naproxen (Naprosyn 500 mg Tab) 1 Tablets By Mouth 2 times a day as needed for pain. Refills: 0. START: naproxen (naproxen 500 mg Tab) 1 Tablets By Mouth 2 times a day. Take one tab by mouth two times a day. Refills: 0. START: naproxen (naproxen 500 mg Tab) 1 Tablets By Mouth 2 times a day. Take one tab by mouth two times a day. Refills: 0. START: ondansetron (ondansetron 4 mg Dis Tab) 1 Tablets By Mouth every 6 hours. Refills: 0. START: ondansetron (Zofran ODT 4 mg Tab-Dis) 1 Tablets By Mouth every 8 hours as needed as needed for nausea/vomiting. Refills: 0. Medications to Continue with No Changes Other Medications acetaminophen-hydrocod one ([place] 325 mg-5 mg oral tablet) 1 Tablets By Mouth every 4 hours as needed for pain. Refills: 0. acetaminophen-oxycodon e (acetaminophen-oxycodo ne 325 mg-5 mg Tab) 1 Tablets By Mouth every 4 hours as needed for pain. Refills: 0. cyclobenzaprine (cyclobenzaprine 10 mg Tab) 1 Tablets By Mouth 3 times a day as needed for spasm. Refills: 0. ethinyl estradiol-norethindron e (Junel Fe 03/15 oral tablet) folic acid (folic acid 1 mg oral tablet) homatropine-hydrocodon e (homatropine-hydrocodo ne 1.5 mg-5 mg/5 mL oral syrup) 5 Milliliter By Mouth every 6 hours. Refills: 0. ibuprofen (ibuprofen 600 mg Tab) 1 Tablets By Mouth every 6 hours. Refills: 0. insulin aspart (NovoLog 100 units/mL subcutaneous solution) levothyroxine (levothyroxine 25 mcg (0.025 mg) Tab) 1 Tablets By Mouth every day. methocarbamol (Robaxin 500 mg Tab) Take i-ii tabs by mouth at bedtime; as needed Muscle pain. Refills: 0. methotrexate (methotrexate 2.5 mg oral tablet) pregabalin (Lyrica 300 mg oral capsule) 300 Milligram By Mouth Once. PATIENT EDUCATION INFORMATION: Instructions: Follow up: With: Address: When: JEOVANNY GRIFFIN [address] [place] [address] [facility] () In 3 days DIAGNO (more content not included)... Normal [facility] ED Note-Physicianon 06-09-19 ED Note-Physician Basic Information Time Seen: Shadi Rendon DO 06/09/2023 11:26 Chief Complaint c/o diarrhea, vomiting, cough, lower abdominal pain, chills, headache for the past 3 days. pt also complaining of right foot pain that started yesterday morning. has been taking ibuprofen and dayquil with no relief History of Present Illness 42 female presents emergency department with numerous complaints. Patient states over the last 2 to 3 days she has had nausea vomiting diarrhea abdominal pain chills headache and cough. She states that she has tried multiple vpgd-qez-pgeguij medications including DayQuil and Pepto-Bismol without relief of symptoms. She denies any known sick contacts but does state that there was somebody at work that mention that they may have been sick as well. Patient denies any prior abdominal surgeries. She has no urinary symptoms. Secondary complaint is that she has right foot pain. She denies any known injuries but states ever since yesterday morning she cannot put any pressure on the bottom of her right foot. She denies any known injuries has never had this before denies any major injuries or surgeries to that area. No other aggravating or relieving factors no other associated symptoms no other prior treatments or complaints. Family: Reviewed and noncontributory Social: lives at home Review of systems negative unless otherwise specified in the HPI. Physical Exam Vitals & Measurements T: 37.0 ?C(Oral) HR: 81(Peripheral) RR: 18 BP: 146/81 SpO2: 98% HT: 167 cm WT: 80.6 kg BMI: 28.9 General: The patient appears well and in no apparent distress. Patient is resting comfortably on cart. Skin: Warm, dry, no pallor noted. Head: Normocephalic, atraumatic Neck: No JVD Eye: PERRLA, EOMI ENT: Moist mucus membranes Cardiovascular: Regular rate normal peripheral perfusion Respiratory: No respiratory distress no accessory muscle use no obvious audible wheezing Abdominal: No focal tenderness palpation soft nondistended no guarding rebounding or rigidity Musculoskeletal: normal ROM, no deformity, no swelling right lower extremity: I no focal tenderness palpation to the knee tibia fibula ankle or foot. Patient does have some generalized tenderness over the plantar fascia on that right side. Neurological: A&O moves all extremities equal strength and symmetry Psychiatric: Cooperative and appropriate Medical Decision Making Workup in the ER has been reviewed and noted. Workup here is essentially benign. Patient does feel much better after IV fluids and Zofran. She is able to tolerate p.o. challenge discharged home on Zofran for nausea. She does have x-ray of the right foot which was negative as well. Patient does have tenderness at the base of her plantar fascia likely has plantar fasciitis that she is treated with naproxen in addition to Zofran provided with a note for work discharged home and follow-up in the outpatient setting. Assessment/Plan Gastroenteritis (K52.9: Noninfective gastroenteritis and colitis, unspecified) Plantar fasciitis (M72.2: Plantar fascial fibromatosis) Orders: naproxen, 500 mg = 1 tab(s), Oral, BID, Take one tab by mouth two times a day, # 14 tab(s), Refills(s) 0, Pharmacy: [facility]/pharmacy #[id number], 167, cm, 06/09/23 11:18:00 EDT, Height/Length Dosing, 80.6, kg, 06/09/23 11:18:00 EDT, Weight Dosing ondansetron, 4 mg = 2 mL, Injection, IV Push, Once, Stop date 06/09/23 11:38:00 EDT, STAT, Start date 06/09/23 11:38:00 EDT, 06/09/23 11:38:00 EDT ondansetron, 4 mg = 1 tab(s), Oral, q6hr, PRN Nausea, Take one tab by mouth every six hours as needed for nausea, # 10 tab(s), Refills(s) 0, [id number] 167, cm, 06/09/23 11:18:00 EDT, Height/Length Dosing, 80.6, kg, 06/09/23 11:18:00 EDT, Weight... Sodium Chloride 0.9% intravenous solution, 1,000 mL, Soln-IV, IV, Once, Stop date 06/09/23 11:38:00 EDT, STAT, Start date 06/09/23 11:38:00 EDT, Infuse over 61, minute(s) Basic Metabolic Panel Beta hCG Qual CBC w/ Auto Diff eGFR Extra Blue Tube Hepatic Function Panel Lipase Level Post-op Shoe UA with Cult Rflx XR Foot 3+ Views Right Medications Administered Given NS 1000 ml Bolus, 1000 mL, IV ondansetron 4 mg/2 mL Inj, 4 mg, IV Push Disposition Plan Discharge Prescription List Prescriptions naproxen 500 mg Tab, 500 mg= 1 tab(s), Oral, BID Zofran 4 mg Tab, 4 mg= 1 tab(s), Oral, q6hr, PRN Follow-up With When Contact Information JEOVANNY GRIFFIN In [address] [place] [address]- Business (1) Additional Instructions: Problem List/Past Medical History Ongoing Smoker Smoker 26-AUG-2013 12:37:00<$> Historical Adult hypothyroidism Arthritis, rheumatoid DM type 1 (diabetes mellitus, type 1) Fibromyalgia Procedure/Surgical History Internal fixation of femur. Medications Inpatient NS 1000 ml Bolus, 1000 mL, IV, Once ondansetron 4 mg/2 mL Inj, 4 mg= 2 mL, IV Push, Once Home acetaminophen-oxycodon e 325 mg-5 mg Tab, 1 tab(s), Oral, q4hr, PRN (more content not included)... Normal [facility] Comment on above: Result Comment: Elec tronically Signed By: Shadi Rendon DO\.br\Date and Time Signed: 06/09/23 13:39 EDT ED Patient Education Noteon 06-09-2023 ED Patient Education Note Normal [facility] ED Patient Summaryon 024 ED Patient Summary [address] [address] Patient Discharge Instructions Person Information Name: MERY RILEY Age: 42 Years Arrival Date: 06/09/2023 11:10:29 Discharge Diagnosis: Gastroenteritis; Plantar fasciitis Primary Care Physician: JEOVANNY GRIFFIN MD Provider Information Primary Provider: Shadi Rendon DO Advanced Surveillance Sensor Officer:None The exam and treatment you received in the Emergency Department were for an urgent problem and are not intended as complete care. It is important that you follow up with a doctor, nurse practitioner, or physician?s quality assistant for ongoing care. If your symptoms become worse or you do not improve as expected and you are unable to reach your usual health care provider, you should return to the Emergency Department. We are available 24 hours a day. MERY RILEY has been given the following list of patient education materials, prescriptions and follow-up instructions: Follow-up Instructions: With: Address: When: JEOVANNY Vasquez [place], [place] [id number] Business (1) In 3 days In the event that this physician does not participate in your insurance network, please consult with your insurance company to find a nearby participating provider. Patient Education Materials: A MESSAGE TO ALL PATIENTS REGARDING OPIOIDS PRESCRIPTION OPIOIDS: WHAT YOU NEED TO KNOW Prescription opioids can be used to help relieve akanuebw-fe-jcgskf pain and are often prescribed following a surgery or injury, or for certain health conditions. These medications can be an important part of the treatment but also come with serious risks. It is important to work with your healthcare provider to make sure you are getting the safest, most effective care. WHAT ARE THE RISKS AND SIDE EFFECTS OF OPIOID USE? Prescription opioids carry serious risks of addiction and overdose, especially with prolonged use. An opioid overdose, often marked by slowed breathing, can cause sudden . The use of prescription opioids can have a number of side effects as well, even when taken as directed: ? Tolerance?meaning you might need to take more of the medication for the same pain relief ? Physical dependence?meaning you have symptoms of withdrawal when a medication is stopped ? Increased sensitivity to pain ? Constipation ? Nausea, vomiting, and dry mouth ? Sleepiness and dizziness ? Confusion ? Depression ? Low levels of testosterone that can result in lower sex drive, energy, and strength ? Itching and sweating RISKS ARE GREATER WITH: ? History of drug misuse, substance use disorder, or overdose ? Mental health conditions (such as depression or anxiety) ? Sleep apnea ? Older age (65 years and older) ? Avoid alcohol while taking prescription opioids. Also, unless specifically advised by your health care provider, medications to avoid include: ? Benzodiazepines (such as Xanax or Valium) ? Muscle relaxants (such as Soma or Flexeril) ? Hypnotics (such as Ambien or Lunesta) ? Other prescription opioids KNOW YOUR OPTIONS Talk to your health care provider about ways to manage your pain that don?t involve prescription opioids. Some of these options may actually work better and have fewer risks and side effects. Options may include: ? Pain relievers such as acetaminophen, ibuprofen, and naproxen ? Some medication that are also used for depression or seizures ? Physical therapy and exercise ? Cognitive behavioral therapy, a psychological, goal-directed approach, in which patients learn how to modify physical, behavioral, and emotional triggers of pain and stress. IF YOU ARE PRESCRIBED OPIOIDS FOR PAIN: ? Never take opioids in greater amounts or more often than prescribed. ? Follow up with your primary health care provider. o Work together to create a plan on how to manage your pain. o Talk about ways to help manage your pain that don?t involve prescription opioids. o Talk about any and all concerns and side effects. ? Help prevent misuse and abuse o Never sell or share prescription opioids. o Never use another person?s prescription opioids. ? Store prescription opioids in a secure place and out of reach of others (this may include visitors, children, friends, and family). ? Safely dispose of unused prescription opioids: Find your community drug take-back program or your pharmacy mail-back program, or flush them down the toilet, following guidance from the Food and Drug Administration (www.fda.gov/Drugs/Res ourcesForYou). ? Visit www.cdc.gov/drugoverdo se to learn about the risks of opioids abuse and overdose. ? If you believe you may be struggling with addiction, tell your health acute care registered nurse and ask for guidance or call [facility]?S CYBRA Helpline at 4-046-501-CTQW. l Source: US Department of Health and Human Services/Attend.com (more content not included)... Normal [facility] HEMATOLOGYOrdered By: SYSTEM SYSTEM on 06-09-2023 Basophils/100 WBC (Bld) 0.7 % Normal 0.0 - 2.0 % Remisol Heme Basophils/Leukocytes Auto (Bld) [Pure # fraction] 0.0 E9/L Normal 0.0 - 0.2 E9/L Remisol Heme Eosinophils (Bld) [#/Vol] 0.2 E9/L Normal 0.0 - 0.5 E9/L Remisol Heme Eosinophils/100 WBC (Bld) 3.0 % Normal 0.0 - 8.0 % Remisol Heme Erythrocyte distribution width (RBC) [Ratio] 13.1 % Normal 10.9 - 14.2 % Remisol Heme Hematocrit (Bld) [Volume fraction] 36.9 % Normal 34.0 - 46.0 % Remisol Heme Hemoglobin (Bld) [Mass/Vol] 12.4 g/dL Normal 12.0 - 16.0 gm/dL Remisol Heme Lymphocytes (Bld) [#/Vol] 1.3 E9/L Normal 1.0 - 4.0 E9/L Remisol Heme Lymphocytes/100 WBC (Bld) 25.8 % Normal 14.0 - 50.0 % Remisol Heme MCH (RBC) [Entitic mass] 31.5 pg Normal 27.0 - 34.0 pg Remisol Heme MCHC (RBC) [Mass/Vol] 33.5 g/dL Normal 31.4 - 36.0 gm/dL Remisol Heme MCV (RBC) [Entitic vol] 94.0 fL Normal 80.0 - 100.0 fL Remisol Heme Monocytes (Bld) [#/Vol] 0.5 E9/L Normal 0.2 - 1.0 E9/L Remisol Heme Monocytes/100 WBC (Bld) 9.1 % Normal 4.0 - 14.0 % Remisol Heme Neutrophils (Bld) [#/Vol] 3.1 E9/L Normal 2.0 - 7.5 E9/L Remisol Heme Neutrophils/100 WBC (Bld) 61.4 % Normal 36.0 - 75.0 % Remisol Heme Platelet mean volume (Bld) [Entitic vol] 8.8 fL Normal 6.4 - 10.8 fL Remisol Heme Platelets (Bld) [#/Vol] 238.0 E9/L Normal 150.0 - 500.0 E9/L Remisol Heme RBC (Bld) [#/Vol] 3.9 E12/L Low 4.3 - 5.9 E12/L Remisol Heme WBC corrected for nucl RBC Auto (Bld) [#/Vol] 5.1 E9/L Normal 4.0 - 11.0 E9/L Remisol Heme Hep Func Panelon 06-09-2023 Albumin [Mass/Vol] 3.9 g/dL Normal 3.3-5.0 [facility] Comment on above: Performed By: #### 1 [id number], 9444374, 7963167, 81349778, 4920565, 7142116 ####[facility] [address] [place] [address] Albumin/Globulin (S) [Mass conc ratio] 1.6 Normal 1.1-2.2 [facility] Comment on above: Performed By: #### 1 [id number], 6917869, 2151018, 72451509, 9889378, 7657890 ####[facility] [address] [place] [address] ALP [Catalytic activity/Vol] 51 Int._Unit/L Normal 21-98 [facility] Comment on above: Performed By: #### 1 [id number], 8277516, 7365577, 12447343, 1404814, 3214148 ####[address] [place] [address] ALT No additional P-5'-P [Catalytic activity/Vol] 10 Int._Unit/L Normal 6-46 [facility] Comment on above: Performed By: #### 1 5260496, 4692645, 5772995, 27106627, 9109156, 0108379 ####[facility] [address] [place] [address] AST [Catalytic activity/Vol] 11 Int._Unit/L Normal 5-43 [facility] Comment on above: Performed By: #### 1 8923960, 5546959, 9040037, 55051521, 8644166, 4381806 ####[address] [address] Bilirubin [Mass/Vol] 1.0 mg/dL Normal 0.0-1.1 [place] Comment on above: Performed By: #### 1 1715323, 2208313, 0072049, 70443906, 9840131, 3079689 ####[address] [address] Bilirubin.direct [Mass/Vol] 0.1 mg/dL Normal 0.0-0.4 [facility] Comment on above: Performed By: #### 1 4611865, 4551720, 0617492, 69269393, 5807659, 3515852 ####[address] [address] Bilirubin.indirect [Mass or moles/Vol] 0.9 mg/dL Normal 0.1-0.9 [facility] Comment on above: Performed By: #### 1 0709009, 0254002, 7816426, 11141670, 6857522, 7639832 ####[facility] [address] [place] [address] Globulin (S) [Mass/Vol] 2.4 g/dL Normal 1.4-4.0 [facility] Comment on above: Performed By: #### 1 7924011, 0360516, 6057265, 33064843, 6584136, 2407912 ####[facility] [address] [place] [address] Protein [Mass/Vol] 6.3 g/dL Normal 6.0-7.8 [facility] Comment on above: Performed By: #### 1 3635650, 4701838, 1421592, 66809496, 5932747, 3612932 ####[facility] [address] [place] [address] Lipase Levelon 06-09-2023 Lipase [Catalytic activity/Vol] U/L Low 13-58 [facility] Comment on above: Performed By: #### 1 7366377, 1964389, 4476864, 05043299, 2264727, 2893881 ####[facility] [address] [place] [address] Prescriptions/Work Noteson 0 06-09-2023 Prescriptions/Work Notes [id number]. 00TIFF Normal [facility] SEROLOGYOrdered By: Otoniel Wasserman on 06-09-2023 Beta HCG ( test) Ql Negative (06/09/23 12:01 PM) Normal [facility] Man Sero UA with Cult Rflxon 06-09-19 24 Bilirubin Ql (U) Negative Normal Negative [facility] Comment on above: Performed By: #### 4 [id number] ####[facility] [address] [place] [address] Clarity (U) Clear Normal Clear [facility] Comment on above: Performed By: #### 4 [id number] ####[facility] [address] [place] [address] Color (U) Yellow Normal Yellow [facility] Comment on above: Result Comment: Micr oscopic readings are only performed on those samples that meet specific criteria set forth by [facility]. Performed By: #### 4 [id number] ####[facility] [address] [place] [address] Glucose Ql (U) 1+ mg/dL Abnormal Negative [facility] Comment on above: Performed By: #### 4 [id number] ####[address] [address] Hemoglobin Auto test strip (U) [Mass/Vol] Negative Normal Negative [facility] Comment on above: Performed By: #### 4 [id number] ####[address] [address] Ketones Auto test strip Ql (U) Negative Normal Negative [facility] Comment on above: Performed By: #### 4 [id number] ####[address] [address] Leukocyte esterase Auto test strip Ql (U) Negative Normal Negative [facility] Comment on above: Performed By: #### 4 [id number] ####[address] [address] Nitrite Auto test strip Ql (U) Negative Normal Negative [facility] Comment on above: Performed By: #### 4 [id number] ####[address] [address] pH (U) 5.5 [pH] Invalid Interpretation Code 5.0-9.0 [facility] Comment on above: Performed By: #### 4 [id number] ####[address] [address] Protein Ql (U) Negative Normal Negative [facility] Comment on above: Performed By: #### 4 [id number] ####[address] [address] Specific gravity (U) [Rel density] 1.030 Invalid Interpretation Code 1.005-1.030 [facility] Comment on above: Performed By: #### 4 [id number] ####[address] [address] Urobilinogen (U) [Mass/Vol] Negative Normal Negative [facility] Comment on above: Performed By: #### 4 [id number] ####[facility] [address] [place] [address] Type of Urine collection method Clean Catch Normal [facility] Comment on above: Performed By: #### 4 [id number] ####[facility] [address] [place] [address] URINALYSISOrdered By: SYSTEM SYSTEM on 06-09-2023 Bilirubin Ql (U) Negative Normal Negativemg/ d L [facility] UA Auto SS Clarity (U) Clear (06/09/23 12:01 PM) Normal Clear [facility] UA Auto SS Color (U) Yellow 1 (06/09/23 12:01 PM) Normal Yellow [facility] UA Auto SS Comment on above: Interpretive Data: M icroscopic readings are only performed on those samples that meet specific criteria set forth by [facility]. Glucose Ql (U) 1+ mg/dL Invalid Interpretation Code Negativemg/d L [facility] UA Auto SS Hemoglobin Auto test strip (U) [Mass/Vol] Negative Normal Negativemg/d L [facility] UA Auto SS Ketones Auto test strip Ql (U) Negative Normal Negativemg/d L [facility] UA Auto SS Leukocyte esterase Auto test strip Ql (U) Negative Normal NegativeLeu/ uL [facility] UA Auto SS Nitrite Auto test strip Ql (U) Negative Normal Negativemg/d L [facility] UA Auto SS pH (U) 5.5 *NA* (06/09/23 12:01 PM) Invalid Interpretation Code 5.0 - 9.0 [facility] UA Auto SS Protein Ql (U) Negative Normal Negativemg/d L [facility] UA Auto SS Specific gravity (U) [Rel density] 1.030 *NA* (06/09/23 12:01 PM) Invalid Interpretation Code 1.005 - 1.030 [facility] UA Auto SS Urobilinogen (U) [Mass/Vol] Negative Normal Negativemg/d L [facility] UA Auto SS URINALYSISOrdered By: Shadi muller on 06-09-2023 UA Spec Desc Clean Catch (06/09/23 12:01 PM) Normal [facility] UA Auto SS XR Foot 3+ Views Righton XR Foot 3+ Views Right Exam Date/Time: 06/09/2023 12:20 EDT Reason for Exam: Pain, Traumatic Report IMPRESSION: NO DISPLACED FRACTURE OR ACUTE OSSEOUS PROCESS IDENTIFIED. EXAM: XR Foot 3+ Views Right DATE: 06/09/2023 11:56 AM CLINICAL HISTORY: Pain, Traumatic. COMPARISON: None available. TECHNIQUE: AP, lateral, and oblique radiographs of the right foot were obtained. FINDINGS: Mild to moderate osteophytosis of the dorsal talonavicular joint are present. There is no fracture, other significant degenerative changes, dislocation, worrisome bone destruction, radiodense foreign bodies, or other posttraumatic complication identified. Ordering Provider: Shadi Rendon FINAL REPORT Dictated: 06/09/2023 1:01 pm Hugo Lopez MD Signed (Electronic Signature): 06/09/2023 1:01 pm Signed by: Hugo Lopez MD Transcribed by: NIMCO Technologist: MAZIN Technical Comments Radiation Dose: Ka,r in mGy = . DAP = . Normal [facility] eGFRon 06-09-2023 eGFR 116 mL/min/1.73 m2 Normal >=59 [facility] Comment on above: Order Comment: Order added by Discern Expert. Performed By: #### 1 [id number], 9055968, 4423943, 11673414, 7211540, 8879805 ####[facility] [address] [place] [address] Discharge Instructionson Discharge Instructions [id number] [facility] ED Note-Physicianon 05-21-19 24 ED Note-Physician Basic Information Time Seen: Imelda Bowles PA-C 05/20/2023 21:22 Chief Complaint Pt. reports dental pain and headache.. got her teeth removed last march. History of Present Illness 42-year-old female presents with upper gum pain that started yesterday. She had her teeth removed a year ago. Denies fever, difficulty swallowing, drooling, voice change Review of Systems Review of systems negative unless otherwise stated in HPI Physical Exam Vitals & Measurements T: 36.4 ?C(Oral) HR: 71(Peripheral) RR: 21 BP: 160/91 SpO2: 100% HT: 167 cm WT: 78.8 kg BMI: 28.25 GENERAL: ALERT, NO ACUTE DISTRESS SKIN: WARM, DRY, INTACT; NO CYANOSIS, NO RASH HEAD: NORMOCEPHALIC, ATRAUMATIC ENT: EYE: PERRL, EOMI, NORMAL CONJUNCTIVA, NO DISCHARGE, NO NYSTAGMUS NOSE: NARES PATENT MOUTH: ORAL MUCOSA MOIST, no gum swelling or discharge, irritation to the right upper gum, no teeth THROAT: NO STRIDOR NECK: SUPPLE, TRACHEA MIDLINE, FROM RESPIRATORY: NON-LABORED RESPIRATIONS EXTREMITIES: FROM X 4 NEUROLOGICAL: A&OX3 PSYCHIATRIC: COOPERATIVE, APPROPRIATE MOOD AND AFFECT Medical Decision Making Patient be medicated with Toradol and given her first dose of clindamycin here and provided prescription and follow-up with a dentist. Afebrile, not tachycardic, not tachypneic, nontoxic-appearing, tolerating p.o. and ambulating at baseline and hemodynamically stable to be discharged home. Educated side effect of medications. Answered all questions. Patient in agreement with treatment. Assessment/Plan 1. Mouth pain (K13.79: Other lesions of oral mucosa) Ordered: clindamycin, 300 mg = 1 cap(s), Oral, q8hr, X 7 day(s), # 21 cap(s), Refills(s) 0, Pharmacy: [facility]/pharmacy #[id number], 167, cm, 05/20/23 21:36:00 EDT, Height/Length Dosing, 78.8, kg, 05/20/23 21:36:00 EDT, Weight Dosing Orders: clindamycin, 300 mg = 2 cap(s), Cap, Oral, Once, Stop date 05/20/23 21:48:00 EDT, STAT, Start date 05/20/23 21:48:00 EDT, 05/20/23 21:48:00 EDT ketorolac, 15 mg = 1 mL, Injection, IntraMuscular, Once, Stop date 05/20/23 21:48:00 EDT, STAT, Start date 05/20/23 21:48:00 EDT, 05/20/23 21:48:00 EDT Disposition Plan Patient Discharge Condition Stable Discharge Disposition Home Discharge Prescription List Prescriptions clindamycin 300 mg oral cap, 300 mg= 1 cap(s), Oral, q8hr Follow-up With When Contact Information Dental: Jef LOAG [phone] In 3 days 05/23/2023 EDT Additional Instructions: Patient Education Dental Pain, Rpwk-xa-Yduu Attestation I performed a substantive part of the MDM during the patient?s E/M visit. I personally made or approved the documented management plan and acknowledge its risk of complications. (Independent Interpretation) My (EKG/X-Ray/US/CT) interpretation as above. (Discussion) Management/test interpretation discussed with APC. Problem List/Past Medical History Ongoing Smoker Smoker 26-AUG-2013 12:37:00<$> Historical Adult hypothyroidism Arthritis, rheumatoid DM type 1 (diabetes mellitus, type 1) Fibromyalgia Procedure/Surgical History Internal fixation of femur. Medications Inpatient clindamycin 150 mg Cap, 300 mg= 2 cap(s), Oral, Once ketorolac 15 mg/mL Inj, 15 mg= 1 mL, IntraMuscular, Once Home acetaminophen-oxycodon e 325 mg-5 mg Tab, 1 tab(s), Oral, q4hr, PRN clindamycin 300 mg oral cap, 300 mg= 1 cap(s), Oral, q8hr cyclobenzaprine 10 mg Tab, 10 mg= 1 tab(s), Oral, TID, PRN folic acid 1 mg oral tablet homatropine-hydrocodon e 1.5 mg-5 mg/5 mL oral syrup, 5 mL, Oral, q6hr ibuprofen 600 mg Tab, 600 mg= 1 tab(s), Oral, q6hr 03/15 oral tablet levothyroxine 25 mcg (0.025 mg) Tab, 25 mcg= 1 tab(s), Oral, Daily Lyrica 300 mg oral capsule, 300 mg, Oral, Once methotrexate 2.5 mg oral tablet Naprosyn 500 mg Tab, 500 mg= 1 tab(s), Oral, BID, PRN Naprosyn 500 mg Tab, 500 mg= 1 tab(s), Oral, BID, PRN naproxen 500 mg Tab, 500 mg= 1 tab(s), Oral, BID naproxen 500 mg Tab, 500 mg= 1 tab(s), Oral, BID Linefork 325 mg-5 mg oral tablet, 1 tab(s), Oral, q4hr, PRN NovoLog 100 units/mL subcutaneous solution ondansetron 4 mg Dis Tab, 4 mg= 1 tab(s), Oral, q6hr Robaxin 500 mg Tab, See Instructions, PRN Zofran ODT 4 mg Tab-Dis, 4 mg= 1 tab(s), Oral, q8hr, PRN Allergies Biaxin erythromycin (Unknown) penicillins (Unknown) sulfa drugs (Unknown) Social History Alcohol - Denies Alcohol Use, 07/04/2020 Substance Abuse - Denies Substance Abuse, 07/04/2020 Tobacco - High Risk, 10/13/2013 10 or more cigarettes (1/2 pack or more)/day in last 30 days Tobacco Use:. Cigarettes, 07/04/2020 4 or less cigarettes(less than 1/4 pack)/day in last 30 days Tobacco Use:., 08/10/2019 Lab Results No qualifying data available. Diagnostic Results No qualifying data available. [facility] Comment on above: Result Comment: Elec tronically Signed By: Imelda Bowles PA-C\.br\Date and Time Signed: 05/20/23 21:51 EDT\.br\Electronically Co-Signed By: Alma Gallegos DO\.br\Date and Time Co-Signed: 05/20/23 22:15 EDT Consent for Treatmenton 04-25 Consent for Treatment [id number]#[id number] 0TIFF [facility] ED Clinical Summaryon 2023 ED Clinical Summary [address] [address] ED Clinical Summary Person Information Name: MERY RILEY [place] Age: 42 Years : 1980 Sex: Female Language: Nigerien PCP: JEOVANNY GRIFFIN MD Marital Status: Visit Id: Visit Reason: Headache; Dental pain; HEADACHE DENTAL PAIN Speciality: Acuity: 4 Enc Type: Emergency Med Service: Emergency Arrival: 05/20/2023 21:19:58 Discharge: 05/20/2023 21:59:32 LOS: 000 00:40 Checkin: 05/20/2023 21:19:58 Checkout: 05/20/2023 21:59:32 Dispo Type: Home (Routine DC) EVENTS: Event Name Event Status Request Date/Time Start Date/Time Complete Date/Time Arrive Complete 05/20/2023 21:19:58 05/20/2023 21:19:58 05/20/2023 21:19:58 Document Home Meds Request 05/20/2023 21:19:58 Triage Complete 05/20/2023 21:19:58 05/20/2023 21:36:30 05/20/2023 21:36:30 Dr Exam Complete 05/20/2023 21:22:31 05/20/2023 21:22:31 05/20/2023 21:22:31 Registration Complete 05/20/2023 21:22:31 05/20/2023 21:23:34 05/20/2023 21:23:34 Dr Exam Complete 05/20/2023 21:22:53 05/20/2023 21:22:53 05/20/2023 21:22:53 Reg Complete Request 05/20/2023 21:23:34 Reg Bed Request Complete 05/20/2023 21:23:34 05/20/2023 21:23:34 05/20/2023 21:23:34 Bed Assign Complete 05/20/2023 21:39:46 05/20/2023 21:39:46 05/20/2023 21:39:46 RN Exam Complete 05/20/2023 21:39:46 05/20/2023 21:57:10 05/20/2023 21:57:10 Meds Admin Complete 05/20/2023 21:49:05 05/20/2023 21:54:46 Discharge Complete 05/20/2023 21:49:49 05/20/2023 21:59:35 05/20/2023 21:59:35 Transfer Complete 05/20/2023 21:59:35 05/20/2023 21:59:35 05/20/2023 21:59:35 ADDRESS: [facility] [address] [facility] [phone] PHYS DOC NOTES: MEDICAL INFORMATION: Prescriptions Given: New Medications [facility]/pharm[facility] #[id number], [address] [place], [place] [id number], [phone] clindamycin (clindamycin 300 mg oral cap) 1 Capsules By Mouth every 8 hours for 7 Days. Refills: 0. Medications to Continue with No Changes Other Medications acetaminophen-hydrocod one (Linefork 325 mg-5 mg oral tablet) 1 Tablets By Mouth every 4 hours as needed for pain. Refills: 0. acetaminophen-oxycodon e (acetaminophen-oxycodo ne 325 mg-5 mg Tab) 1 Tablets By Mouth every 4 hours as needed for pain. Refills: 0. cyclobenzaprine (cyclobenzaprine 10 mg Tab) 1 Tablets By Mouth 3 times a day as needed for spasm. Refills: 0. ethinyl estradiol-norethindron e (Junel Fe 03/15 oral tablet) folic acid (folic acid 1 mg oral tablet) homatropine-hydrocodon e (homatropine-hydrocodo ne 1.5 mg-5 mg/5 mL oral syrup) 5 Milliliter By Mouth every 6 hours. Refills: 0. ibuprofen (ibuprofen 600 mg Tab) 1 Tablets By Mouth every 6 hours. Refills: 0. insulin aspart (NovoLog 100 units/mL subcutaneous solution) levothyroxine (levothyroxine 25 mcg (0.025 mg) Tab) 1 Tablets By Mouth every day. methocarbamol (Robaxin 500 mg Tab) Take i-ii tabs by mouth at bedtime; as needed Muscle pain. Refills: 0. methotrexate (methotrexate 2.5 mg oral tablet) naproxen (Naprosyn 500 mg Tab) 1 Tablets By Mouth 2 times a day as needed for pain. Refills: 0. naproxen (Naprosyn 500 mg Tab) 1 Tablets By Mouth 2 times a day as needed for pain. Refills: 0. naproxen (naproxen 500 mg Tab) 1 Tablets By Mouth 2 times a day. Take one tab by mouth two times a day. Refills: 0. naproxen (naproxen 500 mg Tab) 1 Tablets By Mouth 2 times a day. Take one tab by mouth two times a day. Refills: 0. ondansetron (ondansetron 4 mg Dis Tab) 1 Tablets By Mouth every 6 hours. Refills: 0. ondansetron (Zofran ODT 4 mg Tab-Dis) 1 Tablets By Mouth every 8 hours as needed as needed for nausea/vomiting. Refills: 0. pregabalin (Lyrica 300 mg oral capsule) 300 Milligram By Mouth Once. PATIENT EDUCATION INFORMATION: Instructions: Dental Pain, Ojsu-rr-Smjy Follow up: With: Address: When: Dental: [facility] [phone] In 3 days 05/23/2023 DIAGNOSIS: 1:Mouth pain Normal [facility] ED Patient Education Noteon 05-20-2023 ED Patient Education Note Dentistry Dental Pain Dental pain is often a sign that something is wrong with your teeth or gums. You can also have pain after a dental treatment. If you have dental pain, it is important to contact your dentist, especially if the cause of the pain is not known. Dental pain may hurt a lot or a little and can be caused by many things, including: ? Tooth decay (cavities or caries). ? Infection. ? The inner part of the tooth being filled with pus (an abscess). ? Injury. ? A crack in the tooth. ? Gums that move back and expose the root of a tooth. ? Gum disease. ? Abnormal grinding or clenching of teeth. ? Not taking good care of your teeth. Sometimes the cause of pain is not known. You may have pain all the time, or it may happen only when you are: ? Chewing. ? Exposed to hot or cold temperatures. ? Eating or drinking foods or drinks that have a lot of sugar in them, such as soda or candy. Follow these instructions at home: Medicines ? Take xzuk-lzr-qsyouly and prescription medicines only as told by your dentist. ? If you were prescribed an antibiotic medicine, take it as told by your dentist. Do not stop taking it even if you start to feel better. Eating and drinking Do not eat foods or drinks that cause you pain. These include: ? Very hot or very cold foods or drinks. ? Sweet or sugary foods or drinks. Managing pain and swelling ? If told, put ice on the painful area of your face. To do this: ? Put ice in a plastic bag. ? Place a towel between your skin and the bag. ? Leave the ice on for 20 minutes, 2?3 times a day. ? Take off the ice if your skin turns bright red. This is very important. If you cannot feel pain, heat, or cold, you have a greater risk of damage to the area. Brushing your teeth ? [place] your teeth twice a day using a fluoride toothpaste. ? Use a toothpaste made for sensitive teeth as told by your dentist. ? Use a soft toothbrush. General instructions ? Floss your teeth at least once a day. ? Do not put heat on the outside of your face. ? Rinse your mouth often with salt water. To make salt water, dissolve ??1 tsp (3?6 g) of salt in 1 cup (237 mL) of warm water. ? Watch your dental pain. Let your dentist know if there are any changes. ? Keep all follow-up visits. Contact a dentist if: ? You have dental pain and you do not know why. ? Medicine does not help your pain. ? Your symptoms get worse. ? You have new symptoms. Get help right away if: ? You cannot open your mouth. ? You are having trouble breathing or swallowing. ? You have a fever. ? Your face, neck, or jaw is swollen. These symptoms may be an emergency. Get help right away. Call your local emergency services (911 in the [place] ? Do not wait to see if the symptoms will go away. ? Do not drive yourself to the hospital. Summary ? Dental pain may be caused by many things, including tooth decay, injury, or infection. In some cases, the cause is not known. ? Dental pain may hurt a lot or very little. You may have pain all the time, or you may have it only when you eat or drink. ? Take cecw-euc-yuiltuv and prescription medicines only as told by your dentist. ? Watch your dental pain for any changes. Let your dentist know if symptoms get worse. This information is not intended to replace advice given to you by your health care provider. Make sure you discuss any questions you have with your health care provider. Document Revised: 11/15/2020 Document Reviewed: 11/15/2020 Elsevier Patient Education ? 2022 [employer] Normal [facility] ED Patient Summaryon 024 ED Patient Summary [place] [id number] Patient Discharge Instructions Person Information Name: MERY RILEY Age: 42 Years Arrival Date: 05/20/2023 21:19:58 Discharge Diagnosis: 1:Mouth pain Primary Care Physician: JEOVANNY GRIFFIN MD Provider Information Primary Provider: Alma Gallegos DO Advanced Surveillance Sensor Officer:None The exam and treatment you received in the Emergency Department were for an urgent problem and are not intended as complete care. It is important that you follow up with a doctor, nurse practitioner, or physician?s quality assistant for ongoing care. If your symptoms become worse or you do not improve as expected and you are unable to reach your usual health care provider, you should return to the Emergency Department. We are available 24 hours a day. MERY RILEY has been given the following list of patient education materials, prescriptions and follow-up instructions: Follow-up Instructions: With: Address: When: Dental: [employer] [phone] In 3 days 05/23/2023 In the event that this physician does not participate in your insurance network, please consult with your insurance company to find a nearby participating provider. Patient Education Materials: Dental Pain, Bkog-tv-Kvdn A MESSAGE TO ALL PATIENTS REGARDING OPIOIDS PRESCRIPTION OPIOIDS: WHAT YOU NEED TO KNOW Prescription opioids can be used to help relieve neueeucp-nt-rxcsie pain and are often prescribed following a surgery or injury, or for certain health conditions. These medications can be an important part of the treatment but also come with serious risks. It is important to work with your healthcare provider to make sure you are getting the safest, most effective care. WHAT ARE THE RISKS AND SIDE EFFECTS OF OPIOID USE? Prescription opioids carry serious risks of addiction and overdose, especially with prolonged use. An opioid overdose, often marked by slowed breathing, can cause sudden . The use of prescription opioids can have a number of side effects as well, even when taken as directed: ? Tolerance?meaning you might need to take more of the medication for the same pain relief ? Physical dependence?meaning you have symptoms of withdrawal when a medication is stopped ? Increased sensitivity to pain ? Constipation ? Nausea, vomiting, and dry mouth ? Sleepiness and dizziness ? Confusion ? Depression ? Low levels of testosterone that can result in lower sex drive, energy, and strength ? Itching and sweating RISKS ARE GREATER WITH: ? History of drug misuse, substance use disorder, or overdose ? Mental health conditions (such as depression or anxiety) ? Sleep apnea ? Older age (65 years and older) ? Avoid alcohol while taking prescription opioids. Also, unless specifically advised by your health care provider, medications to avoid include: ? Benzodiazepines (such as Xanax or Valium) ? Muscle relaxants (such as Soma or Flexeril) ? Hypnotics (such as Ambien or Lunesta) ? Other prescription opioids KNOW YOUR OPTIONS Talk to your health care provider about ways to manage your pain that don?t involve prescription opioids. Some of these options may actually work better and have fewer risks and side effects. Options may include: ? Pain relievers such as acetaminophen, ibuprofen, and naproxen ? Some medication that are also used for depression or seizures ? Physical therapy and exercise ? Cognitive behavioral therapy, a psychological, goal-directed approach, in which patients learn how to modify physical, behavioral, and emotional triggers of pain and stress. IF YOU ARE PRESCRIBED OPIOIDS FOR PAIN: ? Never take opioids in greater amounts or more often than prescribed. ? Follow up with your primary health care provider. o Work together to create a plan on how to manage your pain. o Talk about ways to help manage your pain that don?t involve prescription opioids. o Talk about any and all concerns and side effects. ? Help prevent misuse and abuse o Never sell or share prescription opioids. o Never use another person?s prescription opioids. ? Store prescription opioids in a secure place and out of reach of others (this may include visitors, children, friends, and family). ? Safely dispose of unused prescription opioids: Find your community drug take-back program or your pharmacy mail-back program, or flush them down the toilet, following guidance from the Food and Drug Administration (www.fda.gov/Drugs/Res ourcesForYou). ? Visit www.cdc.gov/drugoverdo se to learn about the risks of opioids abuse and overdose. ? If you believe you may be struggling with addiction, tell your health acute care registered nurse and ask for guidance or call [employer] National Helpline at 3-353-143-HAVF. k Source: [place] Department of Health and Human Services/Center for Disease Contr (more content not included)... Normal [facility] ALBUMIN/CREAT RATIO RND URon 05-08-2023 Albumin DL <= 20 mg/L (U) [Mass/Vol] mg/dL Normal [facility] Comment on above: Order Comment: Speci men Type: URINE SPECIMENOrdering Facility: [facility] Address: [address] [place] [address] Performed By: #### U ACR ####[facility] LABCLIA [id number] [place] [address] [place] Albumin/Creatinine (U) [Mass ratio] <9 Normal <30 [facility] Comment on above: Order Comment: Speci men Type: URINE SPECIMENOrdering Facility: [facility] Address: [address] [place] [address] Result Comment: Adul t Male and Female Nephrotic Criteria: <30 mg/g is considered normal to mildly increased 30-300 mg/g is considered moderately increased >300 mg/g is considered severely increased KDIGO. (2013). KDIGO 2012 Clinical Practice Guideline for the Evaluation and Management of Chronic Kidney Disease. Official Journal of the International Society of Nephrology, 3(1), 1-150. Performed By: #### U ACR ####[facility] LABCLIA [id number] [place] [address] [place] Creatinine (U) [Mass/Vol] 136.8 mg/dL Normal 20.0-300.0 [facility] Comment on above: Order Comment: Speci men Type: URINE SPECIMENOrdering Facility: [facility] Address: [address] [id number] Performed By: #### U ACR ####[facility] LABCLIA [id number] [place] [id number] [place] Comprehensive metabolic 2000 panelon 05-08-2023 Albumin [Mass/Vol] 4.8 g/dL Normal 3.9-4.9 [facility] Comment on above: Order Comment: Speci men Type: BLOOD SPECIMENOrdering Facility: [facility] Address: [address] [place], [place] [id number] Performed By: #### 2 4323-8 ####[facility] LABCLIA [id number] [place] [address] ALP [Catalytic activity/Vol] 70 U/L Normal 34-123 [facility] Comment on above: Order Comment: Speci men Type: BLOOD SPECIMENOrdering Facility: [facility] Address: [address] [place] [address] Performed By: #### 2 4323-8 ####[facility] LABCLIA [id number] [place] [address] ALT [Catalytic activity/Vol] 10 U/L Normal 7-38 [facility] Comment on above: Order Comment: Speci men Type: BLOOD SPECIMENOrdering Facility: [facility] Address: [address] [place] [address] Performed By: #### 2 4323-8 ####[facility] LABCLIA [id number] [place] [address] Anion gap [Moles/Vol] 10 mmol/L Normal 9-18 [facility] Comment on above: Order Comment: Speci men Type: BLOOD SPECIMENOrdering Facility: [facility] Address: [address] [place] [address] Performed By: #### 2 4323-8 ####[facility] LABCLIA [id number] [place] [address] AST [Catalytic activity/Vol] 16 U/L Normal 13-35 [facility] Comment on above: Order Comment: Speci men Type: BLOOD SPECIMENOrdering Facility: [facility] Address: [address] [place], [place] [id number] Performed By: #### 2 4323-8 ####[facility] LABCLIA [id number] [place] [address] Bilirubin [Mass/Vol] 1.7 mg/dL High 0.2-1.3 [facility] Comment on above: Order Comment: Speci men Type: BLOOD SPECIMENOrdering Facility: [facility] Address: [address] [id number] Performed By: #### 2 4323-8 ####[facility] LABCLIA [id number] [place] [address] Calcium [Mass/Vol] 9.7 mg/dL Normal 8.5-10.2 [facility] Comment on above: Order Comment: Speci men Type: BLOOD SPECIMENOrdering Facility: [facility] Address: [address] [place] [address] Performed By: #### 2 4323-8 ####[facility] LABCLIA [id number] [place] [address] Chloride [Moles/Vol] 99 mmol/L Normal 97-105 [facility] Comment on above: Order Comment: Speci men Type: BLOOD SPECIMENOrdering Facility: [facility] Address: [address] [place] [address] Performed By: #### 2 4323-8 ####[facility] LABCLIA [id number] [place] [address] CO2 [Moles/Vol] 26 mmol/L Normal 22-30 [facility] Comment on above: Order Comment: Speci men Type: BLOOD SPECIMENOrdering Facility: [facility] Address: [address] [place], [place] [address] Performed By: #### 2 4323-8 ####[facility] LABCLIA [id number] [place] [address] Creatinine [Mass/Vol] 0.75 mg/dL Normal 0.58-0.96 [facility] Comment on above: Order Comment: Speci men Type: BLOOD SPECIMENOrdering Facility: [facility] Address: [address] [place] [address] Performed By: #### 2 4323-8 ####[facility] LABCLIA [id number] [place] [address] Creatinine and Glomerular filtration rate.predicted panel (S/P/Bld) 103 mL/min/1.73m??? Normal >=60 [facility] Comment on above: Order Comment: Jefry barroso Type: BLOOD SPECIMENOrdering Facility: [facility] Address: [address] [place] [address] Result Comment: Gely mated Glomerular Filtration Rate (eGFR) is calculated using the 2020 CKD-EPI creatinine equation. This equation utilizes serum creatinine, sex, and age as parameters. The creatinine assay has traceable calibration to isotope dilution-mass spectrometry. Refer to KDIGO guidelines for clinical interpretation. In patients with unstable renal function, e.g. those with acute kidney injury, the eGFR may not accurately reflect actual GFR. Performed By: #### 2 4323-8 ####[facility] LABCLIA [id number] [place] [address] Glucose [Mass/Vol] 139 mg/dL High 74-99 [facility] Comment on above: Order Comment: Jefry barroso Type: BLOOD SPECIMENOrdering Facility: [facility] Address: [address] [place] [address] Result Comment: The [place] Diabetes Association (ADA) provides guidance for cutoff values for fasting glucose and random glucose. The ADA defines fasting as no caloric intake for at least 8 hours. Fasting plasma glucose results between 100 to 125 mg/dL indicate increased risk for diabetes (prediabetes). Fasting plasma glucose results greater than or equal to 126 mg/dL meet the criteria for diagnosis of diabetes. In the absence of unequivocal hyperglycemia, results should be confirmed by repeat testing. In a patient with classic symptoms of hyperglycemia or hyperglycemic crisis, random plasma glucose results greater than or equal to 200 mg/dL meet the criteria for diagnosis of diabetes. Reference: Standards of Medical Care in Diabetes 2016, Australian Diabetes Association. Diabetes Care. 2016.39(Suppl 1). Performed By: #### 2 4323-8 ####[facility] LABCLIA [id number] [place] [address] Potassium [Moles/Vol] 4.0 mmol/L Normal 3.7-5.1 [facility] Comment on above: Order Comment: Speci men Type: BLOOD SPECIMENOrdering Facility: [facility] Address: [address] [place] [address] Performed By: #### 2 4323-8 ####[facility] LABCLIA [id number] [place] [address] Protein [Mass/Vol] 7.9 g/dL Normal 6.3-8.0 [facility] Comment on above: Order Comment: Speci men Type: BLOOD SPECIMENOrdering Facility: [facility] Address: [address] [place] [address] Performed By: #### 2 4323-8 ####[facility] LABCLIA [id number] [place] [address] Sodium [Moles/Vol] 135 mmol/L Low 136-144 [facility] Comment on above: Order Comment: Speci men Type: BLOOD SPECIMENOrdering Facility: [facility] Address: [address] [place] [address] Performed By: #### 2 4323-8 ####[facility] LABCLIA [id number] [place] [address] Urea nitrogen [Mass/Vol] 13 mg/dL Normal 7-21 [facility] Comment on above: Order Comment: Speci men Type: BLOOD SPECIMENOrdering Facility: [facility] Address: [address] [place] [address] Performed By: #### 2 4323-8 ####[facility] LABCLIA [id number] [place] [address] Lipid 1996 panelon 4 Cholesterol [Mass/Vol] 171 mg/dL Normal <200 [facility] Comment on above: Order Comment: Speci men Type: BLOOD SPECIMENOrdering Facility: [facility] Address: [address] [place] [address] Result Comment: <200 mg/dL, Desirable 200-239 mg/dL, Borderline high >239 mg/dL, High Performed By: #### 2 4331-1 ####[facility] LABCLIA [id number] [address] [address] [facility] LABCLIA [id number] [place] [address]#### 3016-3 ####[facility] LABCLIA [id number] [address] [address] [place] Cholesterol in HDL [Mass/Vol] 64 mg/dL Normal >39 [facility] Comment on above: Order Comment: Speci men Type: BLOOD SPECIMENOrdering Facility: [facility] Address: [address] [place] [address] Result Comment: 40-5 9 mg/dL, Acceptable >59 mg/dL, High: Negative risk factor for coronary heart disease <40 mg/dL, Low: Positive risk factor for coronary heart disease Performed By: #### 2 4331-1 ####[facility] LABCLIA [id number] [address] LABCLIA [id number] [place] [address]#### 3016-3 ####[facility] LABCLIA [id number] [address] [place] [facility] Cholesterol in LDL [Mass/Vol] 80 mg/dL Normal <100 [facility] Comment on above: Order Comment: Speci men Type: BLOOD SPECIMENOrdering Facility: [facility] Address: [address] [place] [address] Result Comment: <100 mg/dL, Optimal 100-129 mg/dL, Near optimal/above optimal 130-159 mg/dL, Borderline high 160-189 mg/dL, High >189 mg/dL, Very high Secondary prevention optimal LDL Cholesterol levels are recommended to be < 70 mg/dL Performed By: #### 2 4331-1 ####[facility] LABCLIA [id number] [place] [id number] [facility] LABCLIA [id number] [place] [address]#### 3016-3 ####[facility] LABCLIA [id number] [place] [address] [place] Cholesterol in LDL/Cholesterol in HDL [Mass ratio] 1.25 {ratio} Normal <2.54 [facility] Comment on above: Order Comment: Speci men Type: BLOOD SPECIMENOrdering Facility: [facility] Address: [address] [place] [address] Result Comment: Refe randolph: 1. National Cholesterol Education Program ATP III Guideline At-A-Glance Quick Desk Reference: National Heart, Lung, and Blood Allen. National Institutes of Health. 2001: NIH Publication No. 01-3305. 2. An International Atherosclerosis Society position paper: global recommendations for the management of dyslipidemia: executive summary, Atherosclerosis. 2014: 232(2):410-413. Performed By: #### 2 4331-1 ####[facility] LABCLIA [id number] [address] LABCLIA [id number] [place] [id number]#### 3016-3 ####[facility] LABCLIA [id number] [place] [address] [place] Cholesterol in VLDL [Mass/Vol] 27 mg/dL Normal <30 [facility] Comment on above: Order Comment: Speci men Type: BLOOD SPECIMENOrdering Facility: [facility] Address: [address] [place] [address] Performed By: #### 2 4331-1 ####[facility] LABCLIA [id number] [address] LABCLIA [id number] [place] [id number]#### 3016-3 ####[facility] LABCLIA [id number] [place] [address] [place] Cholesterol non HDL [Mass/Vol] 107 mg/dL Normal <130 [facility] Comment on above: Order Comment: Speci men Type: BLOOD SPECIMENOrdering Facility: [facility] Address: [address] [place] [address] Result Comment: <130 mg/dL, Optimal 130-159 mg/dL, Near optimal/above optimal 160-189 mg/dL, Borderline high 190-219 mg/dL, High >219 mg/dL, Very high Secondary prevention optimal non HDL Cholesterol levels are recommended to be <100 mg/dL Performed By: #### 2 4331-1 ####[facility] LABCLIA [id number] [address] LABCLIA [id number] [place] [address]#### 3016-3 ####[facility] LABCLIA [id number] [place] [address] [place] Cholesterol.total/Cho lesterol in HDL [Mass ratio] 2.67 {ratio} Normal <5.10 [facility] Comment on above: Order Comment: Speci men Type: BLOOD SPECIMENOrdering Facility: [facility] Address: [address] [place] [address] Performed By: #### 2 4331-1 ####[facility] LABCLIA [id number] [address] LABCLIA [id number] [place] [address]#### 3016-3 ####[facility] LABCLIA [id number] [place] [id number] [place] FASTING TIME 16 hrs Normal [facility] Comment on above: Order Comment: Speci men Type: BLOOD SPECIMENOrdering Facility: [facility] Address: [address] [place] [address] Performed By: #### 2 4331-1 ####[facility] LABCLIA [id number] [address] LABCLIA [id number] [place] [address]#### 3016-3 ####[facility] LABCLIA [id number] [place] [address] [place] Triglyceride [Mass/Vol] 134 mg/dL Normal <150 [facility] Comment on above: Order Comment: Speci men Type: BLOOD SPECIMENOrdering Facility: [facility] Address: [address] [place] [address] Result Comment: <150 mg/dL, Normal 150-199 mg/dL, Borderline high 200-499 mg/dL, High >499 mg/dL, Very high Performed By: #### 2 4331-1 ####[facility] LABCLIA [id number] [address] LABCLIA [id number] [place] [id number]#### 3016-3 ####[facility] LABCLIA [id number] [place] [address] [place] TSH SerPl-aCncon 05-08-2023 TSH Qn 3.440 m[IU]/L Normal 0.270-4.200 [facility] Comment on above: Order Comment: Speci men Type: BLOOD SPECIMENOrdering Facility: [facility] Address: [address] [place] [address] Result Comment: If t he patient is , TSH reference range varies by gestational period: First Trimester (weeks 9-12): 0.180-2.990 mIU/L Second Trimester: 0.110-3.980 mIU/L Third Trimester: 0.480-4.710 mIU/L Geovanny Upton et al. A Practical Approach for the Verifications and Determination of Site- and Trimester-Specific Reference Intervals for Thyroid Function tests in . Thyroid, 2019:29:3:412-420. Israel E, et al. 2017 Guidelines of the [place] Thyroid Association for the Diagnosis and Management of Thyroid Disease during and the . Thyroid, 2017:27:3:315-389. 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 PMH significant for neuropathy, hypothyroidism (euthyroid without treatment, previously on [place] thyroid). [facility] Last endocrinology visit was with Dr. Walls on 10/08/22. Last HbA1c was 10.1% on 10/08/22. Her carb ratio was changed to Humalog 1 unit per 10 grams of carbs plus correction factor 40 over target 120. She was started on Omnipod 5 insulin pump on 12/03/22. POC HbA1c in office today is 6.0%. She is doing well with the Omnipod 5 pump. Was unable to get insulin pump supplies but could not due to some issue with her insurance, but she is not sure exactly why. Has been off of it since last fall. Last hypoglycemia where someone else had to treat her was in middle of night a couple years ago. Has glucagon injection kit at home. Omnipod 5 Basal 0000 1.05 units/hr Bolus 0000 1 to 11 ISF 34 Target Range 110 Date of Diagnosis: age 9 Last HbA1c: Hemoglobin A1C (%) Date Value 12/24/2019 8.4 07/09/2018 7.8 04/05/2017 7.7 12/19/2016 7.7 01/12/2016 Unable to assay. No specimen received. Hemoglobin A1C (POCT) (%) Date Value 10/08/2022 10.1 06/05/2022 10.4 04/18/2020 8.5 12/21/2019 8.5 04/05/2019 9.7 Complications Microvascular: neuropathy Macrovascular: denies Diabetic Foot and Retinal Eye Exam not Overdue Physical Activity: Regular Diet: Counts Carbs SMBG Summary of Personal CGM Findings: Dates worn: 04/15/23- 04/28/23 CGM Type: Dexcom G6 1- CGM recording is adequate for interpretation. Worn 93.6% of time. 2- Average glucose is 167 mg/dl. 3. 64% time in range 70-180mg/dL 4. Coefficient of variation: 5. Total frequency of hypoglycemia: 2%% with BG<70 * Hypoglycemia patterns: between meals if skipped meal *Nocturnal hypoglycemia was not noted 6- Hyperglycemic episodes 64% with BG>180 * Hyperglycemia Patterns: post prandial Basal/day: 64% Bolus/day: 36% Current DM Related Medications: Current Medications 04/28/2023 DIABETES THERAPIES Medication Dosage Pharm Subclass insulin glargine (LANTUS) 100 unit/mL injection Inject 36 Units subcutaneously daily at bedtime. Insulin Analogs - Long Acting insulin lispro (HUMALOG U-100 INSULIN) 100 unit/mL injection Uses 66 units daily via insulin pump Insulin Analogs - Rapid Acting CARDIOVASCULAR Medication Dosage Pharm Subclass atorvastatin (LIPITOR) 10 mg tablet Take 1 tablet by mouth once daily. Antihyperlipidemic - HMG CoA Reductase Inhibitors (statins) lisinopril (ZESTRIL) 5 mg tablet Take 1 tablet by mouth once daily. GUEVARA Inhibitors OTHER Medication Dosage Pharm Subclass acetaminophen-codeine (TYLENOL-COD #3) 300-30 mg per tablet per Dr. Ramsey, inspection engineer Analgesic Opioid Codeine Combinations alcohol swabs Use with blood glucose test 3 times daily. Insulin Dep? Yes. E10.65 Antiseptic - Alcohols Blood Glucose Control, Normal soln Use to calibrate meter as directed. Medical Supplies and DME - Glucose Monitoring Test Supplies blood sugar diagnostic (ACCU-CHEK GUIDE TEST STRIPS) test strip Use as instructed check glucose at least 4 times daily. Medical Supplies and DME - Blood Glucose Tests blood sugar diagnostic test strip Use with blood glucose test 4 times daily, Insulin Dep? Yes. E10.65 Medical Supplies and DME - Blood Glucose Tests Blood-Glucose Meter Test Four times a day. Insulin Dep? Yes E10.9 DM 1, E10.65 Medical Supplies and DME - Glucose Monitoring Test Supplies Blood-Glucose Sensor (DEXCOM G6 SENSOR) candido Use to monitor glucose as directed every 10 days Medical Supplies and DME - Glucose Monitoring Test Supplies Blood-Glucose Transmitter (DEXCOM G6 TRANSMITTER) candido Use to monitor glucose as directed every 90 days Medical Supplies and DME - Glucose Monitoring Test Supplies Cholecalciferol, Vitamin D3, 5,000 unit cap Take 1 capsule by mouth twice daily with meals. 10,000 int. units daily with a meal for 3 months, then 5000 int. units daily. Vitamins - D Derivatives CRANBERRY EXTRACT (CRANBERRY CONCENTRATE ORAL) Take by mouth. Alternative Therapy - Unclassified fexofenadine (KORIN) 180 mg tablet TAKE 1 TABLET BY MOUTH ONCE DAILY. Antihistamines - 2nd Generation FLUoxetine (PROZAC) 20 mg capsule Antidepressant - Selective Serotonin Reuptake Inhibitors (SSRIs) fluticasone (FLONASE) 50 mcg/actuation nasal spray Use 2 Sprays in each nostril once daily. Nasal Corticosteroids glucagon 3 mg/actuation nasal spray (BAQSIMI) Use 1 [place]lin in (more content not included)... Normal [facility] HEMOGLOBIN A1C (POC)on 04-27 HbA1c (Bld) [Mass fraction] 6.0 % Abnormal 4.3 - 5.6 % [facility] CNPNon 12-23-2022 CNPN Telephone ([facility]) MERY RILEY ([id number]) 1980 F Date Time Provider Department 12/23/22 SERAFIN MICHELLE [facility] During your visit today, we recorded the following information about you: Serafin Michelle, RN 12/23/2022 1:53 PM Signed Insulin Pump Training Post Follow Up Pt started on Omnipod 5 pump on December 03, 2022 Pt able to change infusion site yes Able to verify current pump settings yes Trouble shooting: none Patient concerns: none Comments: pt doing well, has f/u with endo in one week Next follow up scheduled: none Provider follow up scheduled: 12/30/22 Basal rate adjustments- none Leqvsvs-krbs-cfoik adjustments- none Insulin sensitivity factor adjustments- none Allergies As of Date: 12/23/2022 Noted Allergy Reaction BIAXIN (CLARITHROMYCIN) 03/21/2009 Comments: shock ERYTHROMYCIN 03/21/2009 11 - Vomiting PENICILLINS 03/21/2009 Comments: shock SULFA (SULFONAMIDE ANTIBIOTICS) 03/21/2009 Comments: shock Date Reviewed: 11/05/2022 Reviewed by: Vik Canada OD - Fully Assessed Reason for Visit: insulin pump start ffollow up [Other] Prescriptions as of 12/23/2022 - insulin lispro (HUMALOG U-100 INSULIN) 100 unit/mL injection Uses 66 units daily via insulin pump - insulin pump cart,automated,BT (OMNIPOD 5 G6 PODS, GEN 5,) crtg Use one every 3 days - OMNIPOD 5 G6 INTRO KIT, GEN 5, crtg Inject 1 Each subcutaneously as directed. - Blood-Glucose Sensor (DEXCOM G6 SENSOR) candido Use to monitor glucose as directed every 10 days - Blood-Glucose Transmitter (DEXCOM G6 TRANSMITTER) candido Use to monitor glucose as directed every 90 days - glucagon 3 mg/actuation nasal spray (BAQSIMI) Use 1 Hamlin in the nose as needed for low blood sugar. May repeat after 15 minutes using a new device if there is no response. - Blood-Glucose Meter Test Four times a day. Insulin Dep? Yes E10.9 DM 1, E10.65 - blood sugar diagnostic test strip Use with blood glucose test 4 times daily, Insulin Dep? Yes. E10.65 - Lancets lancets Use with blood glucose test 4 times daily. Insulin Dep? Yes. E10.65 - alcohol swabs Use with blood glucose test 3 times daily. Insulin Dep? Yes. E10.65 - Blood Glucose Control, Normal soln Use to calibrate meter as directed. - blood sugar diagnostic (ACCU-CHEK GUIDE TEST STRIPS) test strip Use as instructed check glucose at least 4 times daily. - lisinopril (ZESTRIL) 5 mg tablet Take 1 tablet by mouth once daily. - atorvastatin (LIPITOR) 10 mg tablet Take 1 tablet by mouth once daily. - insulin glargine (LANTUS) 100 unit/mL injection Inject 36 Units subcutaneously daily at bedtime. - insulin syr/ndl U100 half alex (BD INSULIN SYRINGE, HALF UNIT,) 0.3 mL 31 gauge x 5/16 syrg Use 4-6 times daily - pregabalin (LYRICA) 300 mg capsule Take 1 capsule by mouth twice daily for 360 days. - FLUoxetine (PROZAC) 20 mg capsule - fexofenadine (KORIN) 180 mg tablet TAKE 1 TABLET BY MOUTH ONCE DAILY. - omeprazole (PRILOSEC) 20 mg capsule TAKE 1 CAPSULE BY MOUTH ONCE DAILY. - acetaminophen-codeine (TYLENOL-COD #3) 300-30 mg per tablet per Dr. Ramsey, inspection engineer - Subcutaneous Insulin Pump (PARADIGM INSULIN PUMP) misc BASAL Pattern 2 - 30.7 T basal q24 BOLUS Midnight?13 2PM?10 ISF Midnight?50 ??Goal 120-140 - ibuprofen (MOTRIN) 600 mg tablet Take 1 tablet by mouth every 8 hours as needed for Pain. - fluticasone (FLONASE) 50 mcg/actuation nasal spray Use 2 Sprays in each nostril once daily. - omeprazole (PRILOSEC) 20 mg capsule Take 1 capsule by mouth once daily. - CRANBERRY EXTRACT (CRANBERRY CONCENTRATE ORAL) Take by mouth. - Cholecalciferol, Vitamin D3, 5,000 unit cap Take 1 capsule by mouth twice daily with meals. 10,000 int. units daily with a meal for 3 months, then 5000 int. units daily. - MULTIVITAMIN CAP Take one(1) capsule daily. Problem List As Of Date 12/23/2022 Noted Resolved Encounter for Long-Term (Current) Use of High-R*11/02/2009 Rheumatoid arthritis (HCC) [M06.9] 11/02/2009 Fibromyalgia syndrome [M79.7] 04/26/2010 Depression [F32.A] 04/26/2010 Tattoo [L81.8] 04/26/2010 Diabetes mellitus type 1 (HCC) [E10.9] 04/26/2010 Family history of thyroid disease [Z83.49] 04/26/2010 Unspecified vitamin D deficiency [E55.9] 04/26/2010 URI (upper respiratory infection) [J06.9] 02/04/2011 Carpal tunnel syndrome on both sides [G56.03] 04/17/2011 Hip fracture [S72.009A] 08/15/2011 11/26/2011 Post-operative state [Z98.890] 11/14/2011 Hip fracture, right, s/p surgical repair [S72.0*08/15/2011 Counseling NOS [Z71.9] 06/11/2012 Other specified acquired hypothyroidism [E03.8] 02/11/2013 Type 1 diabetes mellitus without retinopathy (H*02/28/2014 Long-term use of Plaquenil [Z79.899] 02/28/2014 Hyperopia with astigmatism - Both Eyes [H52.00,*02/28/2014 Acquired hypothyroid (more content not included)... Normal [facility] Consent for Treatmenton 11-25 Consent for Treatment [id number] 0TIFF [facility] Discharge Instructionson Discharge Instructions [id number] IFF Normal [facility] ED Clinical Summaryon 2022 ED Clinical Summary [address] [address] ED Clinical Summary Person Information Name: MERY RILEY/New_Sky Age: 42 Years : 1980 Sex: Female Language: Nigerien PCP: JEOVANNY GRIFFIN MD Marital Status: Visit Id: Visit Reason: Elbow pain-swelling; LT ELBOW PAIN Speciality: Acuity: 4 Enc Type: Emergency Med Service: Emergency Arrival: 12/21/2022 08:00:06 Discharge: 12/21/2022 08:57:04 LOS: 000 00:57 Checkin: 12/21/2022 08:00:06 Checkout: 12/21/2022 08:57:04 Dispo Type: Home (Routine DC) EVENTS: Event Name Event Status Request Date/Time Start Date/Time Complete Date/Time Arrive Complete 12/21/2022 08:00:06 12/21/2022 08:00:06 12/21/2022 08:00:06 Document Home Meds Request 12/21/2022 08:00:06 Triage Complete 12/21/2022 08:00:06 12/21/2022 08:05:50 12/21/2022 08:05:50 Bed Assign Complete 12/21/2022 08:01:41 12/21/2022 08:01:41 12/21/2022 08:01:41 Dr Exam Complete 12/21/2022 08:01:41 12/21/2022 08:05:37 12/21/2022 08:05:37 RN Exam Complete 12/21/2022 08:01:41 12/21/2022 08:07:05 12/21/2022 08:07:05 Registration Complete 12/21/2022 08:05:37 12/21/2022 08:09:03 12/21/2022 08:09:03 Dr Exam Complete 12/21/2022 08:08:22 12/21/2022 08:08:22 12/21/2022 08:08:22 Reg Complete Request 12/21/2022 08:09:03 Reg Bed Request Complete 12/21/2022 08:09:03 12/21/2022 08:09:03 12/21/2022 08:09:03 X-Ray Complete 12/21/2022 08:12:13 12/21/2022 08:14:15 12/21/2022 08:30:16 Meds Admin Complete 12/21/2022 08:12:13 12/21/2022 08:17:45 Wet Read Complete 12/21/2022 08:30:16 12/21/2022 08:30:48 12/21/2022 08:30:48 Patient Care Complete 12/21/2022 08:46:43 12/21/2022 08:54:56 Discharge Complete 12/21/2022 08:46:54 12/21/2022 08:57:10 12/21/2022 08:57:10 Transfer Complete 12/21/2022 08:57:10 12/21/2022 08:57:10 12/21/2022 08:57:10 ADDRESS: [address] [facility] [id number] PHYS DOC NOTES: MEDICAL INFORMATION: Prescriptions Given: Medications to Continue Taking That Have Changed [facility]/pharmacy #[id number], [address] [place], [place] [id number], [phone] START: methocarbamol (Robaxin-750 oral tablet) 2 Tablets By Mouth 3 times a day for 3 Days. Refills: 0. START: naproxen (Naprosyn 500 mg Tab) 1 Tablets By Mouth 2 times a day as needed for pain. Refills: 0. Other Medications START: methocarbamol (Robaxin 500 mg Tab) Take i-ii tabs by mouth at bedtime; as needed Muscle pain. Refills: 0. START: naproxen (Naprosyn 500 mg Tab) 1 Tablets By Mouth 2 times a day as needed for pain. Refills: 0. START: naproxen (naproxen 500 mg Tab) 1 Tablets By Mouth 2 times a day. Take one tab by mouth two times a day. Refills: 0. START: naproxen (naproxen 500 mg Tab) 1 Tablets By Mouth 2 times a day. Take one tab by mouth two times a day. Refills: 0. Medications to Continue with No Changes Other Medications acetaminophen-hydrocod one ([place] 325 mg-5 mg oral tablet) 1 Tablets By Mouth every 4 hours as needed for pain. Refills: 0. acetaminophen-oxycodon e (acetaminophen-oxycodo ne 325 mg-5 mg Tab) 1 Tablets By Mouth every 4 hours as needed for pain. Refills: 0. cyclobenzaprine (cyclobenzaprine 10 mg Tab) 1 Tablets By Mouth 3 times a day as needed for spasm. Refills: 0. ethinyl estradiol-norethindron e (Junel Fe 03/15 oral tablet) folic acid (folic acid 1 mg oral tablet) homatropine-hydrocodon e (homatropine-hydrocodo ne 1.5 mg-5 mg/5 mL oral syrup) 5 Milliliter By Mouth every 6 hours. Refills: 0. ibuprofen (ibuprofen 600 mg Tab) 1 Tablets By Mouth every 6 hours. Refills: 0. insulin aspart (NovoLog 100 units/mL subcutaneous solution) levothyroxine (levothyroxine 25 mcg (0.025 mg) Tab) 1 Tablets By Mouth every day. methotrexate (methotrexate 2.5 mg oral tablet) ondansetron (ondansetron 4 mg Dis Tab) 1 Tablets By Mouth every 6 hours. Refills: 0. ondansetron (Zofran ODT 4 mg Tab-Dis) 1 Tablets By Mouth every 8 hours as needed as needed for nausea/vomiting. Refills: 0. pregabalin (Lyrica 300 mg oral capsule) 300 Milligram By Mouth Once. PATIENT EDUCATION INFORMATION: Instructions: Musculoskeletal Pain Follow up: With: Address: When: JEOVANNY GRIFFIN [address] [place] [id number] [facility] () In 3 days 12/24/2022 DIAGNOSIS: Pain in elbow Normal [facility] ED Note-Physicianon 12-22-19 ED Note-Physician Basic Information Time Seen: Ross Puga PA-C 12/21/2022 08:05 Chief Complaint Pt states that she thinks she hyperextended her left elbow while she was sleeping last night. History of Present Illness 42-year-old female comes into the ED for evaluation of left elbow pain. The patient states she believes she hyperextended her left elbow as she awoke with severe pain to the area. She points to the lateral aspect as the area of maximal tenderness. She has poor range of motion due to pain. She took some lrzs-src-srqqpea pain medication prior to arrival without much relief. No acute weakness. No paresthesias. No history of problems with his elbow in the past. She does have underlying arthritis and fibromyalgia. Denies any concern for . Review of Systems A 10 point review of systems is negative except as noted above. Medical and Surgical History: Reviewed and noted Social history: Lives at home Tobacco: Denies Physical Exam Vitals & Measurements T: 36.5 ?C(Oral) HR: 85(Peripheral) RR: 19 BP: 118/77 SpO2: 99% HT: 167.64 cm WT: 63 kg BMI: 22.42 Nurses notes and vital signs reviewed and patient is not hypoxic. General: Patient is tearful and appears uncomfortable Skin: Warm, dry. Head: Atraumatic. Neck: No JVD. Eye: Normal conjunctiva. Ears, Nose, Mouth, and Throat: Moist mucous membranes. Cardiovascular: Strong distal pulses. Chest wall: Respiratory: Respirations are nonlabored. Back: Normal range of motion. Musculoskeletal: Diffuse tenderness over the left elbow with poor range of motion. No soft tissue swelling ecchymosis or erythema. Tenderness appears to be maximal along the lateral epicondyle. Gastrointestinal: Urological: Neurological: Awake and alert. No focal deficits. Follows commands. Psychiatric: Cooperative. Medical Decision Making Patient is overall well-appearing on examination. His cardiac work-up is negative. EKG without ischemic changes. Chest x-ray shows no acute findings. PERC 0. Heart 0. He was given Ativan here with some improvement. He is discharged home to follow-up with his PCP. Patient was encouraged to return to the ED if symptoms worsen or change. Assessment/Plan Pain in elbow (M25.529: Pain in unspecified elbow) Orders: acetaminophen-oxycodon e, 1 tab(s), Tab, Oral, Once, Stop date 12/21/22 8:11:00 EDT, STAT, Start date 12/21/22 8:11:00 EDT methocarbamol, 1,500 mg = 2 tab(s), Oral, TID, X 3 day(s), # 18 tab(s), Refills(s) 0, Pharmacy: [facility]/pharmacy #[id number], 167.6, cm, 12/21/22 8:05:00 EDT, Height/Length Dosing, 63, kg, 12/21/22 8:05:00 EDT, Weight Dosing naproxen, 500 mg = 1 tab(s), Oral, BID, PRN for pain, # 20 tab(s), Refills(s) 0, Pharmacy: [facility]/pharmacy #[id number], 167.6, cm, 12/21/22 8:05:00 EDT, Height/Length Dosing, 63, kg, 12/21/22 8:05:00 EDT, Weight Dosing Apply Sling XR Elbow 3+ Views Left Medications Administered Given Percocet 5 mg-325 mg oral tablet, 1 tab(s), Oral Disposition Plan Patient Discharge Condition Disposition: Discharged home Condition: Improved and stable Counseled: Patient and/or family were counseled to workup, results, treatment plan and follow-up recommendations Discharge Prescription List Prescriptions Naprosyn 500 mg Tab, 500 mg= 1 tab(s), Oral, BID, PRN Robaxin-750 oral tablet, 1500 mg= 2 tab(s), Oral, TID Follow-up With When Contact Information JEOVANNY ELIAS In 3 days 12/24/[address] [place] [id number]- [facility] (1) Additional Instructions: Patient Education Musculoskeletal Pain Attestation Patient seen and evaluated by the physician quality assistant. Attending physician was present in the emergency department and supervised care. This visit was performed by both the physician and an APC. I performed all aspects of the MDM as documented. This report was transcribed using voice recognition software. Every effort was made to ensure accuracy, however, inadvertently computerized alkylation operator mistakes may be present. Appropriate healthcare PPE was used in evaluating this patient. The patient was placed in a mask. The healthcare provider was wearing mask, gloves, and utilizing proper hand hygiene. All equipment was properly cleansed. Problem List/Past Medical History Ongoing Smoker Smoker 26-AUG-2013 12:37:00<$> Historical Adult hypothyroidism Arthritis, rheumatoid DM type 1 (diabetes mellitus, type 1) Fibromyalgia Procedure/Surgical History Internal fixation of femur. Medications Inpatient No active inpatient medications Home acetaminophen-oxycodon e 325 mg-5 mg Tab, 1 tab(s), Oral, q4hr, PRN cyclobenzaprine 10 mg Tab, 10 mg= 1 tab(s), Oral, TID, PRN folic acid 1 mg oral tablet homatropine-hydrocodon e 1.5 mg-5 mg/5 mL oral syrup, 5 mL, Oral, q6hr ibuprofen 600 mg Tab, 600 mg= 1 tab(s), Oral, q6hr June03/15 oral tablet levothyroxine 25 mcg (0.025 mg) Tab, 25 mcg= 1 tab(s), Oral, Daily Lyrica 300 mg oral capsule, 300 mg, Oral, Once methotrexate 2.5 mg oral (more content not included)... Normal [facility] Comment on above: Result Comment: Elec tronically Signed By: Ross Puga PA-C\.br\Date and Time Signed: 12/21/22 09:42 EDT\.br\Electronically Co-Signed By: Shadi Rendon DO\.br\Date and Time Co-Signed: 12/21/22 18:35 EDT ED Patient Education Noteon 12-21-2022 ED Patient Education Note Orthopedics Musculoskeletal Pain Musculoskeletal pain refers to aches and pains in your bones, joints, muscles, and the tissues that surround them. This pain can occur in any part of the body. It can last for a short time (acute) or a long time (chronic). A physical exam, lab tests, and imaging studies may be done to find the cause of your musculoskeletal pain. Follow these instructions at home: Lifestyle ? Try to control or lower your stress levels. Stress increases muscle tension and can worsen musculoskeletal pain. It is important to recognize when you are anxious or stressed and learn ways to manage it. This may include: ? Meditation or yoga. ? Cognitive or behavioral therapy. ? Acupuncture or massage therapy. ? You may continue all activities unless the activities cause more pain. When the pain gets better, slowly resume your normal activities. Gradually increase the intensity and duration of your activities or exercise. Managing pain, stiffness, and swelling ? Treatment may include medicines for pain and inflammation that are taken by mouth or applied to the skin. Take oqqq-oxz-qbnlpyb and prescription medicines only as told by your health care provider. ? When your pain is severe, bed rest may be helpful. Lie or sit in any position that is comfortable, but get out of bed and walk around at least every couple of hours. ? If directed, apply heat to the affected area as often as told by your health care provider. Use the heat source that your health care provider recommends, such as a moist heat pack or a heating pad. ? Place a towel between your skin and the heat source. ? Leave the heat on for 20?30 minutes. ? Remove the heat if your skin turns bright red. This is especially important if you are unable to feel pain, heat, or cold. You may have a greater risk of getting burned. ? If directed, put ice on the painful area. To do this: ? Put ice in a plastic bag. ? Place a towel between your skin and the bag. ? Leave the ice on for 20 minutes, 2?3 times a day. ? Remove the ice if your skin turns bright red. This is very important. If you cannot feel pain, heat, or cold, you have a greater risk of damage to the area. General instructions ? Your health care provider may recommend that you see a physical therapist. This person can help you come up with a safe exercise program. ? If told by your health care provider, do physical therapy exercises to improve movement and strength in the affected area. ? Keep all follow-up visits. This is important. This includes any physical therapy visits. Contact a health care provider if: ? Your pain gets worse. ? Medicines do not help ease your pain. ? You cannot use the part of your body that hurts, such as your arm, leg, or neck. ? You have trouble sleeping. ? You have trouble doing your normal activities. Get help right away if: ? You have a new injury and your pain is worse or different. ? You feel numb or you have tingling in the painful area. Summary ? Musculoskeletal pain refers to aches and pains in your bones, joints, muscles, and the tissues that surround them. ? This pain can occur in any part of the body. ? Your health care provider may recommend that you see a physical therapist. This person can help you come up with a safe exercise program. Do any exercises as told by your physical therapist. ? Lower your stress level. Stress can worsen musculoskeletal pain. Ways to lower stress may include meditation, yoga, cognitive or behavioral therapy, acupuncture, and massage therapy. This information is not intended to replace advice given to you by your health care provider. Make sure you discuss any questions you have with your health care provider. Document Revised: 06/15/2020 Document Reviewed: 05/24/2020 Elsevier Patient Education ? [address] [employer] [facility] ED Patient Summaryon 023 ED Patient Summary [place] [id number] Patient Discharge Instructions Person Information Name: MERY RILEY Age: 42 Years Arrival Date: 12/21/2022 08:00:06 Discharge Diagnosis: Pain in elbow Primary Care Physician: ELIAS JAMES, JEOVANNY Elizabeth Provider Information Primary Provider: Shadi Rendon DO Advanced Surveillance Sensor Officer:Ross Puga PA-C The exam and treatment you received in the Emergency Department were for an urgent problem and are not intended as complete care. It is important that you follow up with a doctor, nurse practitioner, or physician?s quality assistant for ongoing care. If your symptoms become worse or you do not improve as expected and you are unable to reach your usual health care provider, you should return to the Emergency Department. We are available 24 hours a day. MERY RILEY has been given the following list of patient education materials, prescriptions and follow-up instructions: Follow-up Instructions: With: Address: When: JEOVANNY GRIFFIN [address] [place] [id number] Business (1) In 3 days 12/24/2022 In the event that this physician does not participate in your insurance network, please consult with your insurance company to find a nearby participating provider. Patient Education Materials: Musculoskeletal Pain A MESSAGE TO ALL PATIENTS REGARDING OPIOIDS PRESCRIPTION OPIOIDS: WHAT YOU NEED TO KNOW Prescription opioids can be used to help relieve kpocncoj-wj-pswrel pain and are often prescribed following a surgery or injury, or for certain health conditions. These medications can be an important part of the treatment but also come with serious risks. It is important to work with your healthcare provider to make sure you are getting the safest, most effective care. WHAT ARE THE RISKS AND SIDE EFFECTS OF OPIOID USE? Prescription opioids carry serious risks of addiction and overdose, especially with prolonged use. An opioid overdose, often marked by slowed breathing, can cause sudden . The use of prescription opioids can have a number of side effects as well, even when taken as directed: ? Tolerance?meaning you might need to take more of the medication for the same pain relief ? Physical dependence?meaning you have symptoms of withdrawal when a medication is stopped ? Increased sensitivity to pain ? Constipation ? Nausea, vomiting, and dry mouth ? Sleepiness and dizziness ? Confusion ? Depression ? Low levels of testosterone that can result in lower sex drive, energy, and strength ? Itching and sweating RISKS ARE GREATER WITH: ? History of drug misuse, substance use disorder, or overdose ? Mental health conditions (such as depression or anxiety) ? Sleep apnea ? Older age (65 years and older) ? Avoid alcohol while taking prescription opioids. Also, unless specifically advised by your health care provider, medications to avoid include: ? Benzodiazepines (such as Xanax or Valium) ? Muscle relaxants (such as Soma or Flexeril) ? Hypnotics (such as Ambien or Lunesta) ? Other prescription opioids KNOW YOUR OPTIONS Talk to your health care provider about ways to manage your pain that don?t involve prescription opioids. Some of these options may actually work better and have fewer risks and side effects. Options may include: ? Pain relievers such as acetaminophen, ibuprofen, and naproxen ? Some medication that are also used for depression or seizures ? Physical therapy and exercise ? Cognitive behavioral therapy, a psychological, goal-directed approach, in which patients learn how to modify physical, behavioral, and emotional triggers of pain and stress. IF YOU ARE PRESCRIBED OPIOIDS FOR PAIN: ? Never take opioids in greater amounts or more often than prescribed. ? Follow up with your primary health care provider. o Work together to create a plan on how to manage your pain. o Talk about ways to help manage your pain that don?t involve prescription opioids. o Talk about any and all concerns and side effects. ? Help prevent misuse and abuse o Never sell or share prescription opioids. o Never use another person?s prescription opioids. ? Store prescription opioids in a secure place and out of reach of others (this may include visitors, children, friends, and family). ? Safely dispose of unused prescription opioids: Find your community drug take-back program or your pharmacy mail-back program, or flush them down the toilet, following guidance from the Food and Drug Administration (www.fda.gov/Drugs/Res ourcesForYou). ? Visit www.cdc.gov/drugoverdo se to learn about the risks of opioids abuse and overdose. ? If you believe you may be struggling with addiction, tell your health acute care registered nurse and ask for guidance or call [facility]?S National Helpline at 6-693-511-EDEK. a Source: [place] Department o (more content not included)... [facility] Prescriptions/Work Noteson 1 Prescriptions/Work Notes [id number] IFF [facility] XR Elbow 3+ Views Lefton XR Elbow 3+ Views Left Exam Date/Time: 12/21/2022 08:30 EDT Reason for Exam: Pain, Non Traumatic Report IMPRESSION: No acute osseous findings. Possible olecranon bursitis. EXAMINATION/TECHNIQUE: XR Elbow 3+ Views Left HISTORY: Hyperextension injury of the left elbow. COMPARISON: None RESULT: No distinct acute fracture. No dislocation. No joint effusion. Joint spaces grossly maintained. Mild soft tissue edema posteriorly, can be seen with olecranon bursitis. No other significant abnormality. Ordering Provider: Ross Puga FINAL REPORT Dictated: 12/21/2022 10:22 am Jeovanny Adam MD Signed (Electronic Signature): 12/21/2022 10:22 am Signed by: Jeovanny Adam MD Transcribed by: DP Technologist: DPR Technical Comments Radiation Dose: Ka,r in mGy = na DAP = na [facility] C[facility] Tele[facility] (SAMEERENED) MERY RILEY ([id number]) 1980 F Date Time Provider Department 12/17/22 SERAFIN MICHELLE During your visit today, we recorded the following information about you: Serafin Michelle, RN 12/17/2022 2:24 PM Signed Insulin Pump Training Post Follow Up Pt started on Omnipod 5 pump on December 03, 2022 Pt able to change infusion site yes Able to verify current pump settings yes Trouble shooting: none Patient concerns: pt states she is getting too much insulin for CHOs so she has not been entering them recently Comments: will lessen CHO ratio Next follow up scheduled: this week Provider follow up scheduled: 12/30/22 Basal rate adjustments- none Exrnkep-nayp-dbbuh adjustments- 12am to 12am from 9 to 11 Insulin sensitivity factor adjustments- none Allergies As of Date: 12/17/2022 Noted Allergy Reaction BIAXIN (CLARITHROMYCIN) 03/21/2009 Comments: shock ERYTHROMYCIN 03/21/2009 11 - Vomiting PENICILLINS 03/21/2009 Comments: shock SULFA (SULFONAMIDE ANTIBIOTICS) 03/21/2009 Comments: shock Date Reviewed: 11/05/2022 Reviewed by: Vik Canada OD - Fully Assessed Reason for Visit: Insulin pump follow up [Other] Prescriptions as of 12/17/2022 - insulin lispro (HUMALOG U-100 INSULIN) 100 unit/mL injection Uses 66 units daily via insulin pump - insulin pump cart,automated,BT (OMNIPOD 5 G6 PODS, GEN 5,) crtg Use one every 3 days - OMNIPOD 5 G6 INTRO KIT, GEN 5, crtg Inject 1 Each subcutaneously as directed. - Blood-Glucose Sensor (DEXCOM G6 SENSOR) candido Use to monitor glucose as directed every 10 days - Blood-Glucose Transmitter (DEXCOM G6 TRANSMITTER) candido Use to monitor glucose as directed every 90 days - glucagon 3 mg/actuation nasal spray (BAQSIMI) Use 1 Hamlin in the nose as needed for low blood sugar. May repeat after 15 minutes using a new device if there is no response. - Blood-Glucose Meter Test Four times a day. Insulin Dep? Yes E10.9 DM 1, E10.65 - blood sugar diagnostic test strip Use with blood glucose test 4 times daily, Insulin Dep? Yes. E10.65 - Lancets lancets Use with blood glucose test 4 times daily. Insulin Dep? Yes. E10.65 - alcohol swabs Use with blood glucose test 3 times daily. Insulin Dep? Yes. E10.65 - Blood Glucose Control, Normal soln Use to calibrate meter as directed. - blood sugar diagnostic (ACCU-CHEK GUIDE TEST STRIPS) test strip Use as instructed check glucose at least 4 times daily. - lisinopril (ZESTRIL) 5 mg tablet Take 1 tablet by mouth once daily. - atorvastatin (LIPITOR) 10 mg tablet Take 1 tablet by mouth once daily. - insulin glargine (LANTUS) 100 unit/mL injection Inject 36 Units subcutaneously daily at bedtime. - insulin syr/ndl U100 half alex (BD INSULIN SYRINGE, HALF UNIT,) 0.3 mL 31 gauge x 5/16 syrg Use 4-6 times daily - pregabalin (LYRICA) 300 mg capsule Take 1 capsule by mouth twice daily for 360 days. - FLUoxetine (PROZAC) 20 mg capsule - fexofenadine (KORIN) 180 mg tablet TAKE 1 TABLET BY MOUTH ONCE DAILY. - omeprazole (PRILOSEC) 20 mg capsule TAKE 1 CAPSULE BY MOUTH ONCE DAILY. - acetaminophen-codeine (TYLENOL-COD #3) 300-30 mg per tablet per Dr. Ramsey, inspection engineer - Subcutaneous Insulin Pump (PARADIGM INSULIN PUMP) misc BASAL Pattern 2 - 30.7 T basal q24 BOLUS Midnight?13 2PM?10 ISF Midnight?50 ??Goal 120-140 - ibuprofen (MOTRIN) 600 mg tablet Take 1 tablet by mouth every 8 hours as needed for Pain. - fluticasone (FLONASE) 50 mcg/actuation nasal spray Use 2 Sprays in each nostril once daily. - omeprazole (PRILOSEC) 20 mg capsule Take 1 capsule by mouth once daily. - CRANBERRY EXTRACT (CRANBERRY CONCENTRATE ORAL) Take by mouth. - Cholecalciferol, Vitamin D3, 5,000 unit cap Take 1 capsule by mouth twice daily with meals. 10,000 int. units daily with a meal for 3 months, then 5000 int. units daily. - MULTIVITAMIN CAP Take one(1) capsule daily. Problem List As Of Date 12/17/2022 Noted Resolved Encounter for Long-Term (Current) Use of High-R*11/02/2009 Rheumatoid arthritis (HCC) [M06.9] 11/02/2009 Fibromyalgia syndrome [M79.7] 04/26/2010 Depression [F32.A] 04/26/2010 Tattoo [L81.8] 04/26/2010 Diabetes mellitus type 1 (HCC) [E10.9] 04/26/2010 Family history of thyroid disease [Z83.49] 04/26/2010 Unspecified vitamin D deficiency [E55.9] 04/26/2010 URI (upper respiratory infection) [J06.9] 02/04/2011 Carpal tunnel syndrome on both sides [G56.03] 04/17/2011 Hip fracture [S72.009A] 08/15/2011 11/26/2011 Post-operative state [Z98.890] 11/14/2011 Hip fracture, right, s/p surgical repair [S72.0*08/15/2011 Counseling NOS [Z71.9] 06/11/2012 Other specified acquired hypothyroidism [E03.8] 02/11/2013 Type 1 diabetes mellitus without retinopathy (H*02/28/2014 Long-term use of Plaquenil [Z79.899] (more content not included)... [facility] ([id number]) 1980 F Date Time Provider Department 12/10/22 SERAFIN MICHELLE During your visit today, we recorded the following information about you: Serafin Michelle, RN 12/10/2022 1:24 PM Signed Insulin Pump Training Post Follow Up Pt started on Omnipod 5 pump on December 03, 2022 Pt able to change infusion site yes Able to verify current pump settings yes Trouble shooting: having trouble with adhesive sticking. Has used pod pals and will be ordering skin tac Patient concerns: none Comments: pt will decrease target BGs from 130 to 110 Next follow up scheduled: this week Provider follow up scheduled: 12/30/22 Basal rate adjustments- none Nwadwuy-ttjn-hosjj adjustments- none Insulin sensitivity factor adjustments- non Allergies As of Date: 12/10/2022 Noted Allergy Reaction BIAXIN (CLARITHROMYCIN) 03/21/2009 Comments: shock ERYTHROMYCIN 03/21/2009 11 - Vomiting PENICILLINS 03/21/2009 Comments: shock SULFA (SULFONAMIDE ANTIBIOTICS) 03/21/2009 Comments: shock Date Reviewed: 11/05/2022 Reviewed by: Vik Canada OD - Fully Assessed Reason for Visit: insulin pump start follow up [Other] Prescriptions as of 12/10/2022 - insulin lispro (HUMALOG U-100 INSULIN) 100 unit/mL injection Uses 66 units daily via insulin pump - insulin pump cart,automated,BT (OMNIPOD 5 G6 PODS, GEN 5,) crtg Use one every 3 days - OMNIPOD 5 G6 INTRO KIT, GEN 5, crtg Inject 1 Each subcutaneously as directed. - Blood-Glucose Sensor (DEXCOM G6 SENSOR) candido Use to monitor glucose as directed every 10 days - Blood-Glucose Transmitter (DEXCOM G6 TRANSMITTER) candido Use to monitor glucose as directed every 90 days - glucagon 3 mg/actuation nasal spray (BAQSIMI) Use 1 Hamlin in the nose as needed for low blood sugar. May repeat after 15 minutes using a new device if there is no response. - Blood-Glucose Meter Test Four times a day. Insulin Dep? Yes E10.9 DM 1, E10.65 - blood sugar diagnostic test strip Use with blood glucose test 4 times daily, Insulin Dep? Yes. E10.65 - Lancets lancets Use with blood glucose test 4 times daily. Insulin Dep? Yes. E10.65 - alcohol swabs Use with blood glucose test 3 times daily. Insulin Dep? Yes. E10.65 - Blood Glucose Control, Normal soln Use to calibrate meter as directed. - blood sugar diagnostic (ACCU-CHEK GUIDE TEST STRIPS) test strip Use as instructed check glucose at least 4 times daily. - lisinopril (ZESTRIL) 5 mg tablet Take 1 tablet by mouth once daily. - atorvastatin (LIPITOR) 10 mg tablet Take 1 tablet by mouth once daily. - insulin glargine (LANTUS) 100 unit/mL injection Inject 36 Units subcutaneously daily at bedtime. - insulin syr/ndl U100 half alex (BD INSULIN SYRINGE, HALF UNIT,) 0.3 mL 31 gauge x 5/16 syrg Use 4-6 times daily - pregabalin (LYRICA) 300 mg capsule Take 1 capsule by mouth twice daily for 360 days. - FLUoxetine (PROZAC) 20 mg capsule - fexofenadine (KORIN) 180 mg tablet TAKE 1 TABLET BY MOUTH ONCE DAILY. - omeprazole (PRILOSEC) 20 mg capsule TAKE 1 CAPSULE BY MOUTH ONCE DAILY. - acetaminophen-codeine (TYLENOL-COD #3) 300-30 mg per tablet per Dr. Ramsey, inspection engineer - Subcutaneous Insulin Pump (PARADIGM INSULIN PUMP) misc BASAL Pattern 2 - 30.7 T basal q24 BOLUS Midnight?13 2PM?10 ISF Midnight?50 ??Goal 120-140 - ibuprofen (MOTRIN) 600 mg tablet Take 1 tablet by mouth every 8 hours as needed for Pain. - fluticasone (FLONASE) 50 mcg/actuation nasal spray Use 2 Sprays in each nostril once daily. - omeprazole (PRILOSEC) 20 mg capsule Take 1 capsule by mouth once daily. - CRANBERRY EXTRACT (CRANBERRY CONCENTRATE ORAL) Take by mouth. - Cholecalciferol, Vitamin D3, 5,000 unit cap Take 1 capsule by mouth twice daily with meals. 10,000 int. units daily with a meal for 3 months, then 5000 int. units daily. - MULTIVITAMIN CAP Take one(1) capsule daily. Problem List As Of Date 12/10/2022 Noted Resolved Encounter for Long-Term (Current) Use of High-R*11/02/2009 Rheumatoid arthritis (HCC) [M06.9] 11/02/2009 Fibromyalgia syndrome [M79.7] 04/26/2010 Depression [F32.A] 04/26/2010 Tattoo [L81.8] 04/26/2010 Diabetes mellitus type 1 (HCC) [E10.9] 04/26/2010 Family history of thyroid disease [Z83.49] 04/26/2010 Unspecified vitamin D deficiency [E55.9] 04/26/2010 URI (upper respiratory infection) [J06.9] 02/04/2011 Carpal tunnel syndrome on both sides [G56.03] 04/17/2011 Hip fracture [S72.009A] 08/15/2011 11/26/2011 Post-operative state [Z98.890] 11/14/2011 Hip fracture, right, s/p surgical repair [S72.0*08/15/2011 Counseling NOS [Z71.9] 06/11/2012 Other specified acquired hypothyroidism [E03.8] 02/11/2013 Type 1 diabetes mellitus without retinopathy (H*02/28/2014 Long-term use of Plaquenil [Z79.899] 02/28/19 (more content not included)... Normal [facility] CNPNon 12-04-2022 CNPN Telephone (ENDOAL) MERY RILEY ([id number]) 1980 F Date Time Provider Department 12/04/22 SERAFIN MICHELLE ENDOPAULA During your visit today, we recorded the following information about you: Serafin Michelle, RN 12/04/2022 11:41 AM Signed Pt calls and states that her Omni Pod fell off even with the pod pal Send pt MyChart message with further information. Allergies As of Date: 12/04/2022 Noted Allergy Reaction BIAXIN (CLARITHROMYCIN) 03/21/2009 Comments: shock ERYTHROMYCIN 03/21/2009 11 - Vomiting PENICILLINS 03/21/2009 Comments: shock SULFA (SULFONAMIDE ANTIBIOTICS) 03/21/2009 Comments: shock Date Reviewed: 11/05/2022 Reviewed by: Vik Canada OD - Fully Assessed Reason for Visit: Insulin pump start follow up [Other] Prescriptions as of 12/04/2022 - acetaminophen-codeine (TYLENOL-COD #3) 300-30 mg per tablet per Dr. Ramsey, inspection engineer - alcohol swabs Use with blood glucose test 3 times daily. Insulin Dep? Yes. E10.65 - atorvastatin (LIPITOR) 10 mg tablet Take 1 tablet by mouth once daily. - Blood Glucose Control, Normal soln Use to calibrate meter as directed. - blood sugar diagnostic (ACCU-CHEK GUIDE TEST STRIPS) test strip Use as instructed check glucose at least 4 times daily. - blood sugar diagnostic test strip Use with blood glucose test 4 times daily, Insulin Dep? Yes. E10.65 - Blood-Glucose Meter Test Four times a day. Insulin Dep? Yes E10.9 DM 1, E10.65 - Blood-Glucose Sensor (DEXCOM G6 SENSOR) candido Use to monitor glucose as directed every 10 days - Blood-Glucose Transmitter (DEXCOM G6 TRANSMITTER) candido Use to monitor glucose as directed every 90 days - Cholecalciferol, Vitamin D3, 5,000 unit cap Take 1 capsule by mouth twice daily with meals. 10,000 int. units daily with a meal for 3 months, then 5000 int. units daily. - CRANBERRY EXTRACT (CRANBERRY CONCENTRATE ORAL) Take by mouth. - fexofenadine (KORIN) 180 mg tablet TAKE 1 TABLET BY MOUTH ONCE DAILY. - FLUoxetine (PROZAC) 20 mg capsule - fluticasone (FLONASE) 50 mcg/actuation nasal spray Use 2 Sprays in each nostril once daily. - glucagon 3 mg/actuation nasal spray (BAQSIMI) Use 1 Hamlin in the nose as needed for low blood sugar. May repeat after 15 minutes using a new device if there is no response. - ibuprofen (MOTRIN) 600 mg tablet Take 1 tablet by mouth every 8 hours as needed for Pain. - insulin glargine (LANTUS) 100 unit/mL injection Inject 36 Units subcutaneously daily at bedtime. - insulin lispro (HUMALOG U-100 INSULIN) 100 unit/mL injection Uses 66 units daily via insulin pump - insulin pump cart,automated,BT (OMNIPOD 5 G6 PODS, GEN 5,) crtg Use one every 3 days - insulin syr/ndl U100 half alex (BD INSULIN SYRINGE, HALF UNIT,) 0.3 mL 31 gauge x 5/16 syrg Use 4-6 times daily - Lancets lancets Use with blood glucose test 4 times daily. Insulin Dep? Yes. E10.65 - lisinopril (ZESTRIL) 5 mg tablet Take 1 tablet by mouth once daily. - MULTIVITAMIN CAP Take one(1) capsule daily. - omeprazole (PRILOSEC) 20 mg capsule Take 1 capsule by mouth once daily. - omeprazole (PRILOSEC) 20 mg capsule TAKE 1 CAPSULE BY MOUTH ONCE DAILY. - OMNIPOD 5 G6 INTRO KIT, GEN 5, crtg Inject 1 Each subcutaneously as directed. - pregabalin (LYRICA) 300 mg capsule Take 1 capsule by mouth twice daily for 360 days. - Subcutaneous Insulin Pump (PARADIGM INSULIN PUMP) misc BASAL Pattern 2 - 30.7 T basal q24 BOLUS Midnight?13 2PM?10 ISF Midnight?50 ??Goal 120-140 Problem List As Of Date 12/04/2022 Noted Resolved Encounter for Long-Term (Current) Use of High-R*11/02/2009 Rheumatoid arthritis (HCC) [M06.9] 11/02/2009 Fibromyalgia syndrome [M79.7] 04/26/2010 Depression [F32.A] 04/26/2010 Tattoo [L81.8] 04/26/2010 Diabetes mellitus type 1 (HCC) [E10.9] 04/26/2010 Family history of thyroid disease [Z83.49] 04/26/2010 Unspecified vitamin D deficiency [E55.9] 04/26/2010 URI (upper respiratory infection) [J06.9] 02/04/2011 Carpal tunnel syndrome on both sides [G56.03] 04/17/2011 Hip fracture [S72.009A] 08/15/2011 11/26/2011 Post-operative state [Z98.890] 11/14/2011 Hip fracture, right, s/p surgical repair [S72.0*08/15/2011 Counseling NOS [Z71.9] 06/11/2012 Other specified acquired hypothyroidism [E03.8] 02/11/2013 Type 1 diabetes mellitus without retinopathy (H*02/28/2014 Long-term use of Plaquenil [Z79.899] 02/28/2014 Hyperopia with astigmatism - Both Eyes [H52.00,*02/28/2014 Acquired hypothyroidism [E03.9] 02/01/2015 Diabetes mellitus type 1, uncontrolled, without*04/10/2015 Hypoglycemia [E16.2] 04/05/2017 Insulin pump titration [Z46.81] 04/05/2017 Alcohol intoxication (HCC) [F10.929] 04/05/2017 Stress fracture of left foot [M84.375A] 04/05/2017 Diabetic autonomic neuropathy associated with t*12/22/2019 Encounter Numb (more content not included)... Normal [facility] CNNURSEon 12-03-2022 CNNURSE Nurse Visit (RIANA) MERY RILEY ([id number]) 1980 F Date Time Provider Department 12/03/22 10:00 AM SERAFIN MICHELLE During your visit today, we recorded the following information about you: Serafin Michelle RN 12/03/2022 11:09 AM Signed Type of visit: In person individual Patient started today on Omnipod 5 insulin pump. Type of training:new to pump If upgrade, patient was previously on the following pump:patient is new to pump Pump programming done today by: patient with educator supervision Insulin information: Last long-acting insulin type, dose, and time: Lantus 32 units 12/02/22 at 10:30 pm Temp basal rate set today:no temp basal set today Temp basal duration set today:no temp basal set today Rapid-acting insulin loaded into pump today: Humalog See phone encounter dated 11/12/22 for pump settings approved by provider and programmed into pump today. Infusion set information: Infusion set insertion done today by:patient with educator supervision Infusion set inserted in right flank Pre-pump training and pump safety information: Patient can demonstrate correct use of a carb ratio:Yes Patient Verbalizes rules regarding when to change infusion set due to hyperglycemia: Yes Patient verbalizes importance of carrying a pump emergency kit:Yes Patient verbalizes back-up plan for pump failure:Yes Handouts provided: Resource Guide Follow-up plan for glucose management given to patient: patient will upload pump for educator review in 24 hours to 3 days day(s) Follow-up plan for education: Follow-up training needed:no follow-up training needed This is a non-billable encounter through [employer] but will be billed to the following pump company: [employer]. This visit note will be communicated to the healthcare provider via access to shared medical record. I spent 60 minutes with this patient today. Serafin Michelle RN Allergies As of Date: 12/03/2022 Noted Allergy Reaction BIAXIN (CLARITHROMYCIN) 03/21/2009 Comments: shock ERYTHROMYCIN 03/21/2009 11 - Vomiting PENICILLINS 03/21/2009 Comments: shock SULFA (SULFONAMIDE ANTIBIOTICS) 03/21/2009 Comments: shock Date Reviewed: 11/05/2022 Reviewed by: Vik Canada OD - Fully Assessed Reason for Visit: Diabetes Self Management Education [1998] Primary Visit Diagnosis:Type 1 diabetes mellitus without retinopathy (HCC) - Both Eyes [E10.9] Prescriptions as of 12/03/2022 - insulin lispro (HUMALOG U-100 INSULIN) 100 unit/mL injection Uses 66 units daily via insulin pump - insulin pump cart,automated,BT (OMNIPOD 5 G6 PODS, GEN 5,) crtg Use one every 3 days - OMNIPOD 5 G6 INTRO KIT, GEN 5, crtg Inject 1 Each subcutaneously as directed. - Blood-Glucose Sensor (DEXCOM G6 SENSOR) candido Use to monitor glucose as directed every 10 days - Blood-Glucose Transmitter (DEXCOM G6 TRANSMITTER) candido Use to monitor glucose as directed every 90 days - glucagon 3 mg/actuation nasal spray (BAQSIMI) Use 1 [place] in the nose as needed for low blood sugar. May repeat after 15 minutes using a new device if there is no response. - Blood-Glucose Meter Test Four times a day. Insulin Dep? Yes E10.9 DM 1, E10.65 - blood sugar diagnostic test strip Use with blood glucose test 4 times daily, Insulin Dep? Yes. E10.65 - Lancets lancets Use with blood glucose test 4 times daily. Insulin Dep? Yes. E10.65 - alcohol swabs Use with blood glucose test 3 times daily. Insulin Dep? Yes. E10.65 - Blood Glucose Control, Normal soln Use to calibrate meter as directed. - blood sugar diagnostic (ACCU-CHEK GUIDE TEST STRIPS) test strip Use as instructed check glucose at least 4 times daily. - lisinopril (ZESTRIL) 5 mg tablet Take 1 tablet by mouth once daily. - atorvastatin (LIPITOR) 10 mg tablet Take 1 tablet by mouth once daily. - insulin glargine (LANTUS) 100 unit/mL injection Inject 36 Units subcutaneously daily at bedtime. - insulin syr/ndl U100 half alex (BD INSULIN SYRINGE, HALF UNIT,) 0.3 mL 31 gauge x 5/16 syrg Use 4-6 times daily - pregabalin (LYRICA) 300 mg capsule Take 1 capsule by mouth twice daily for 360 days. - FLUoxetine (PROZAC) 20 mg capsule - fexofenadine (KORIN) 180 mg tablet TAKE 1 TABLET BY MOUTH ONCE DAILY. - omeprazole (PRILOSEC) 20 mg capsule TAKE 1 CAPSULE BY MOUTH ONCE DAILY. - acetaminophen-codeine (TYLENOL-COD #3) 300-30 mg per tablet per Dr. Ramsey, inspection engineer - Subcutaneous Insulin Pump (PARADIGM INSULIN PUMP) misc BASAL Pattern 2 - 30.7 T basal q24 BOLUS Midnight?13 2PM?10 ISF Midnight?50 ??Goal 120-140 - ibuprofen (MOTRIN) 600 mg tablet Take 1 tablet by mouth every 8 hours as needed for Pain. - fluticasone (FLONASE) 50 mcg/actuation nasal spray Use 2 Sprays in each nostril once daily. - omeprazole (PRILOSEC) 20 mg capsule Take 1 caps (more content not included)... Normal [facility] Consent for Treatmenton 10-0 Consent for Treatment [id number] 0CD:[address] [facility] Discharge Instructionson Discharge Instructions [id number] 00CD:[address] [facility] ED Clinical Summaryon 2022 ED Clinical Summary [address] [address] ED Clinical Summary Person Information Name: MERY RILEY/[place] Age: 42 Years : 1980 Sex: Female Language: Nigerien PCP: JEOVANNY GRIFFIN MD Marital Status: Visit Id: Visit Reason: Dental pain; RIGHT FACIAL AND TEETH PAIN Speciality: Acuity: 4 Enc Type: Emergency Med Service: Emergency Arrival: 11/25/2022 09:58:41 Discharge: 11/25/2022 10:28:35 LOS: 000 00:30 Checkin: 11/25/2022 09:58:41 Checkout: 11/25/2022 10:28:35 Dispo Type: Home (Routine DC) EVENTS: Event Name Event Status Request Date/Time Start Date/Time Complete Date/Time Arrive Complete 11/25/2022 09:58:41 11/25/2022 09:58:41 11/25/2022 09:58:41 Document Home Meds Request 11/25/2022 09:58:41 Triage Complete 11/25/2022 09:58:41 11/25/2022 10:15:40 11/25/2022 10:15:40 Bed Assign Complete 11/25/2022 10:06:25 11/25/2022 10:06:25 11/25/2022 10:06:25 Dr Exam Complete 11/25/2022 10:06:25 11/25/2022 10:06:44 11/25/2022 10:06:44 RN Exam Complete 11/25/2022 10:06:25 11/25/2022 10:32:01 11/25/2022 10:32:01 Registration Complete 11/25/2022 10:06:44 11/25/2022 10:08:44 11/25/2022 10:08:44 Reg Complete Request 11/25/2022 10:08:44 Reg Bed Request Complete 11/25/2022 10:08:45 11/25/2022 10:08:45 11/25/2022 10:08:45 Meds Admin Complete 11/25/2022 10:14:50 11/25/2022 10:29:11 Discharge Complete 11/25/2022 10:15:17 11/25/2022 10:33:48 11/25/2022 10:33:48 Transfer Complete 11/25/2022 10:33:48 11/25/2022 10:33:48 11/25/2022 10:33:48 ADDRESS: [address] [facility] [id number] PHYS DOC NOTES: MEDICAL INFORMATION: Prescriptions Given: New Medications [facility]/pharmacy #[id number], [address], [place] [id number], [phone] clindamycin (clindamycin 150 mg Cap) 2 Capsules By Mouth 4 times a day for 7 Days. Take two tabs by mouth four times a day for seven days. Refills: 0. Medications to Continue Taking That Have Changed [facility]/pharmacy #[id number], [address], [place] [id number], [phone] START: acetaminophen-hydrocod one (Linefork 325 mg-5 mg oral tablet) 1 Tablets By Mouth every 6 hours as needed for pain for 3 Days. Refills: 0. START: naproxen (naproxen 500 mg Tab) 1 Tablets By Mouth 2 times a day. Take one tab by mouth two times a day. Refills: 0. Other Medications START: acetaminophen-hydrocod one (Linefork 325 mg-5 mg oral tablet) 1 Tablets By Mouth every 4 hours as needed for pain. Refills: 0. START: naproxen (Naprosyn 500 mg Tab) 1 Tablets By Mouth 2 times a day as needed for pain. Refills: 0. START: naproxen (naproxen 500 mg Tab) 1 Tablets By Mouth 2 times a day. Take one tab by mouth two times a day. Refills: 0. Medications to Continue with No Changes Other Medications acetaminophen-oxycodon e (acetaminophen-oxycodo ne 325 mg-5 mg Tab) 1 Tablets By Mouth every 4 hours as needed for pain. Refills: 0. cyclobenzaprine (cyclobenzaprine 10 mg Tab) 1 Tablets By Mouth 3 times a day as needed for spasm. Refills: 0. ethinyl estradiol-norethindron e (Junel Fe 03/15 oral tablet) folic acid (folic acid 1 mg oral tablet) homatropine-hydrocodon e (homatropine-hydrocodo ne 1.5 mg-5 mg/5 mL oral syrup) 5 Milliliter By Mouth every 6 hours. Refills: 0. ibuprofen (ibuprofen 600 mg Tab) 1 Tablets By Mouth every 6 hours. Refills: 0. insulin aspart (NovoLog 100 units/mL subcutaneous solution) levothyroxine (levothyroxine 25 mcg (0.025 mg) Tab) 1 Tablets By Mouth every day. methocarbamol (Robaxin 500 mg Tab) Take i-ii tabs by mouth at bedtime; as needed Muscle pain. Refills: 0. methotrexate (methotrexate 2.5 mg oral tablet) ondansetron (ondansetron 4 mg Dis Tab) 1 Tablets By Mouth every 6 hours. Refills: 0. ondansetron (Zofran ODT 4 mg Tab-Dis) 1 Tablets By Mouth every 8 hours as needed as needed for nausea/vomiting. Refills: 0. pregabalin (Lyrica 300 mg oral capsule) 300 Milligram By Mouth Once. PATIENT EDUCATION INFORMATION: Instructions: Follow up: With: Address: When: [place] [address] [facility] () In 3 days 11/28/2022 With: Address: When: Dental: [facility] [phone] In 3 days 11/28/2022 With: Address: When: Dental: [facility] [phone] In 3 days 11/28/2022 DIAGNOSIS: Dental abscess Normal [facility] ED Note-Physicianon 11-26-19 ED Note-Physician Basic Information Time Seen: Shadi Rendon DO 11/25/2022 10:06 Chief Complaint Pt has rt side facial pain. dental pain as well. dentist appointment wed History of Present Illness 42 female presents with right-sided maxillary dental pain. Patient states is developed over the last 24 hours. She was supposed to see the dentist today but there was some type of issue with her scheduling system so she cannot be seen until Friday. Patient has taken ibuprofen and Tylenol about 6 hours prior to arrival. She is tearful in the room due to her pain. She denies any other associated symptoms or complaints. She does complain of some swelling to her face on that side. Physical Exam Vitals & Measurements T: 36.9 ?C(Oral) HR: 110(Peripheral) RR: 20 BP: 162/96 SpO2: 99% HT: 167.64 cm WT: 63.5 kg BMI: 22.6 Vital Signs reviewed and noted. General: Alert, no acute distress, patient resting comfortably Skin: warm, intact, no pallor noted Head: Normocephalic, atraumatic Eye: Normal conjunctiva ENT: Patient does have right-sided maxillary gumline tenderness and swelling just to the lateral side of the midline likely dental abscess. Cardiac: Normal peripheral perfusion Respiratory: No acute distress Musculoskeletal: No deformity, full ROM. Neurological: alert and oriented, normal sensory and motor observed. Psychiatric: Cooperative Medical Decision Making Patient is treated here with medication for pain started on clindamycin given topical analgesia and given additional dental resources to follow-up with in the outpatient setting. Assessment/Plan Dental abscess (K04.7: Periapical abscess without sinus) Ordered: acetaminophen-hydrocod one, 1 tab(s), Oral, q6hr for pain for 3 day(s), 10 tab(s), Refill(s) 0, [id number], 167.6, cm, 10/04/22 22:54:00 EDT, Height/Length Dosing, 63.5, kg, 10/04/22 22:54:00 EDT, Weight Dosing Orders: benzocaine topical, 1 erika, Gel, Topical, Once, Stop date 11/25/22 10:12:00 EDT, STAT, Start date 11/25/22 10:12:00 EDT clindamycin, 300 mg = 2 cap(s), Oral, QID, Take two tabs by mouth four times a day for seven days, X 7 day(s), # 56 cap(s), Refills(s) 0, Pharmacy: [facility]/pharmacy #[id number], 167.6, cm, 10/04/22 22:54:00 EDT, Height/Length Dosing, 63.5, kg, 10/04/22 22:54:00 EDT, Weight... ibuprofen, 600 mg = 1 tab(s), Tab, Oral, Once, Stop date 11/25/22 10:13:00 EDT, STAT, Start date 11/25/22 10:13:00 EDT, 11/25/22 10:13:00 EDT lidocaine topical, 1 erika, Soln-Oral, Topical, Once, Stop date 11/25/22 10:12:00 EDT, STAT, Start date 11/25/22 10:12:00 EDT naproxen, 500 mg = 1 tab(s), Oral, BID, Take one tab by mouth two times a day, # 14 tab(s), Refills(s) 0, Pharmacy: [facility]/pharmacy #[id number], 167.6, cm, 10/04/22 22:54:00 EDT, Height/Length Dosing, 63.5, kg, 10/04/22 22:54:00 EDT, Weight Dosing Disposition Plan Discharge Prescription List Prescriptions clindamycin 150 mg Cap, 300 mg= 2 cap(s), Oral, QID naproxen 500 mg Tab, 500 mg= 1 tab(s), Oral, BID Linefork 325 mg-5 mg oral tablet, 1 tab(s), Oral, q6hr, PRN Follow-up With When Contact Information [facility] [facility] In 3 days 11/28/[address] [place] [id number] [facility] (1) Additional Instructions: Dental: [facility] [phone] In 3 days 11/28/2022 EDT Additional Instructions: Dental: [employer] [phone] In 3 days 11/28/2022 EDT Additional Instructions: Problem List/Past Medical History Ongoing Smoker Smoker 26-AUG-2013 12:37:00<$> Historical Adult hypothyroidism Arthritis, rheumatoid DM type 1 (diabetes mellitus, type 1) Fibromyalgia Procedure/Surgical History Internal fixation of femur. Medications Inpatient Hurricaine 20% mucous membrane gel, 1 erika, Topical, Once ibuprofen 600 mg Tab, 600 mg= 1 tab(s), Oral, Once lidocaine Viscous Top 2% Karina 15 mL, 1 erika, Topical, Once Home acetaminophen-oxycodon e 325 mg-5 mg Tab, 1 tab(s), Oral, q4hr, PRN clindamycin 150 mg Cap, 300 mg= 2 cap(s), Oral, QID cyclobenzaprine 10 mg Tab, 10 mg= 1 tab(s), Oral, TID, PRN folic acid 1 mg oral tablet homatropine-hydrocodon e 1.5 mg-5 mg/5 mL oral syrup, 5 mL, Oral, q6hr ibuprofen 600 mg Tab, 600 mg= 1 tab(s), Oral, q6hr Junel Fe 03/15 oral tablet levothyroxine 25 mcg (0.025 mg) Tab, 25 mcg= 1 tab(s), Oral, Daily Lyrica 300 mg oral capsule, 300 mg, Oral, Once methotrexate 2.5 mg oral tablet Naprosyn 500 mg Tab, 500 mg= 1 tab(s), Oral, BID, PRN naproxen 500 mg Tab, 500 mg= 1 tab(s), Oral, BID naproxen 500 mg Tab, 500 mg= 1 tab(s), Oral, BID Linefork 325 mg-5 mg oral tablet, 1 tab(s), Oral, q4hr, PRN [place] 325 mg-5 mg oral tablet, 1 tab(s), Oral, q6hr, PRN NovoLog 100 units/mL subcutaneous solution ondansetron 4 mg Dis Tab, 4 mg= 1 tab(s), Oral, q6hr Robaxin 500 mg Tab, See Instructions, PRN Zofran ODT 4 mg Tab-Dis, 4 mg= 1 tab(s), Oral, q8hr, PRN Allergies Biaxin erythromycin (Unknown) penicillins (Unknown) sulfa drugs (Unknown) Social History Alcohol - Denie (more content not included)... Normal [facility] Comment on above: Result Comment: Elec tronically Signed By: Shadi Rendon DO\.br\Date and Time Signed: 11/25/22 10:17 EDT ED Patient Education Noteon 11-25-2022 ED Patient Education Note Normal [facility] ED Patient Summaryon 023 ED Patient Summary [address] [place] [address] Patient Discharge Instructions Person Information Name: MERY RILEY Age: 42 Years Arrival Date: 11/25/2022 09:58:41 Discharge Diagnosis: Dental abscess Primary Care Physician: JEOVANNY GRIFFIN MD Provider Information Primary Provider: Shadi Rendon DO Advanced Surveillance Sensor Officer:None The exam and treatment you received in the Emergency Department were for an urgent problem and are not intended as complete care. It is important that you follow up with a doctor, nurse practitioner, or physician?s quality assistant for ongoing care. If your symptoms become worse or you do not improve as expected and you are unable to reach your usual health care provider, you should return to the Emergency Department. We are available 24 hours a day. MERY RILEY has been given the following list of patient education materials, prescriptions and follow-up instructions: Follow-up Instructions: With: Address: When: [facility] [place] [id number] [facility] () In 3 days 11/28/2022 With: Address: When: Dental: [facility] [phone] In 3 days 11/28/2022 With: Address: When: Dental: [facility] [phone] In 3 days 11/28/2022 In the event that this physician does not participate in your insurance network, please consult with your insurance company to find a nearby participating provider. Patient Education Materials: A MESSAGE TO ALL PATIENTS REGARDING OPIOIDS PRESCRIPTION OPIOIDS: WHAT YOU NEED TO KNOW Prescription opioids can be used to help relieve [id number]-[id number] pain and are often prescribed following a surgery or injury, or for certain health conditions. These medications can be an important part of the treatment but also come with serious risks. It is important to work with your healthcare provider to make sure you are getting the safest, most effective care. WHAT ARE THE RISKS AND SIDE EFFECTS OF OPIOID USE? Prescription opioids carry serious risks of addiction and overdose, especially with prolonged use. An opioid overdose, often marked by slowed breathing, can cause sudden . The use of prescription opioids can have a number of side effects as well, even when taken as directed: ? Tolerance?meaning you might need to take more of the medication for the same pain relief ? Physical dependence?meaning you have symptoms of withdrawal when a medication is stopped ? Increased sensitivity to pain ? Constipation ? Nausea, vomiting, and dry mouth ? Sleepiness and dizziness ? Confusion ? Depression ? Low levels of testosterone that can result in lower sex drive, energy, and strength ? Itching and sweating RISKS ARE GREATER WITH: ? History of drug misuse, substance use disorder, or overdose ? Mental health conditions (such as depression or anxiety) ? Sleep apnea ? Older age (65 years and older) ? Avoid alcohol while taking prescription opioids. Also, unless specifically advised by your health care provider, medications to avoid include: ? Benzodiazepines (such as Xanax or Valium) ? Muscle relaxants (such as Soma or Flexeril) ? Hypnotics (such as Ambien or Lunesta) ? Other prescription opioids KNOW YOUR OPTIONS Talk to your health care provider about ways to manage your pain that don?t involve prescription opioids. Some of these options may actually work better and have fewer risks and side effects. Options may include: ? Pain relievers such as acetaminophen, ibuprofen, and naproxen ? Some medication that are also used for depression or seizures ? Physical therapy and exercise ? Cognitive behavioral therapy, a psychological, goal-directed approach, in which patients learn how to modify physical, behavioral, and emotional triggers of pain and stress. IF YOU ARE PRESCRIBED OPIOIDS FOR PAIN: ? Never take opioids in greater amounts or more often than prescribed. ? Follow up with your primary health care provider. o Work together to create a plan on how to manage your pain. o Talk about ways to help manage your pain that don?t involve prescription opioids. o Talk about any and all concerns and side effects. ? Help prevent misuse and abuse o Never sell or share prescription opioids. o Never use another person?s prescription opioids. ? Store prescription opioids in a secure place and out of reach of others (this may include visitors, children, friends, and family). ? Safely dispose of unused prescription opioids: Find your community drug take-back program or your pharmacy mail-back program, or flush them down the toilet, following guidance from the Food and Drug Administration (www.fda.gov/Drugs/Res ourcesForYou). ? Visit www.cdc.gov/drugoverdo se to learn about the risks of opioids abuse and overdose. ? If you believe you may be struggling with addiction, (more content not included)... Normal [facility] CNPNon 11-12-2022 [facility] Telephone (LOENED) MERY RILEY ([id number]) 1980 F Date Time Provider Department 11/12/22 SERAFIN MICHELLE LOENED During your visit today, we recorded the following information about you: Serafin Michelle, RN 11/12/2022 12:16 PM Signed Pre-pump Training Assessment Type of insulin pump to be started: Omnipod 5 Type of training:new to pump If upgrade, previous pump :patient is new to pump Current CGM: No In need of training for CGM: No If Omni Pod 5, Dexcom on Smart Phone: Yes Current insulin therapy : Injection Type/brand of insulin to be used in pump:Humalog Estimated total daily dose (TDD): 66 units Current use of I:C ratio: YES/NO: Yes Current use of correction scale (sliding scale): YES/NO: Yes Current use of Insulin Sensitivity Factor: YES/NO: No Current self-reported weight: 154 lbs Instructed on adjusting insulin prior to pump start: YES/NO: No Do you have trouble identifying symptoms of low blood sugars below 70?: YES/NO: No Have you been diagnosed with hypoglycemia unawareness: YES/NO: No Do you have a prescription for Glucagon: YES/NO: Yes Able to explain pump therapy concepts: Basal/bolus, IOB, I:C ratio, correction factor, duration of insulin action? YES/NO: Yes Able to explain troubleshooting: hypo/hyperglycemia, DKA, site issues, back up supplies? YES/NO: Yes Understanding of AID systems: CGM,automated mode and manual mode? YES/NO: Yes Pre-pump training recommendations/instru ctions: none Orders sent to provider: YES/NO: Yes Orders obtained: YES/NO: No Scheduled insulin pump training date:12/03/22 Serafin Michelle, RN 11/12/2022 12:16 PM Signed This patient has received or will receive an insulin pump. PLEASE RESPOND TO THIS PHONE ENCOUNTER TO CONFIRM THE FOLLOWIN. That the suggested insulin pump start doses below are approved (or make changes as needed). 2. That you authorize the Diabetes Educators to do pump adjustments per the instructions listed after the rates (duration of educator providing adjustments: up to 2 weeks for upgrades, up to 4 weeks for new-to-pump). Helpful reminders to provider: 1. Order vials of insulin (type below) to be used in pump and update quantity per TDD below. 2. Update basal insulin in med list with instructions to be used prn when pump is not functional. 3. Add Insulin Pump Status to problem list. 4. Order the following test strips to be used with the new pump:will continue using current test strips Details: Scheduled insulin pump training date:12/03/22 Pump brand and model being started:Omnipod 5 Type of training:new to pump Type/brand of insulin to be used in pump:Humalog Estimated total daily dose (TDD): 66 units, pre pump 50 units Initial pump settings: Max basal rates: 2 units/hr Basal Rates: 12am-12am 1.05 units/hr Target Glucose: 130 mg/dl Correct Above: 130 mg/dl Insulin to Carb Ratio: 12am-12am 9 g/unit Correction Factor: 12am-12am 34 mg/dl/unit Duration of Active Insulin: 3 hrs Max Bolus: 25 units Insulin pump adjustment instructions for the cider press operator: Basal rate adjustments: If the glucose readings during a fasting state (no food or bolus during testing period or in the 4 hours prior) increase by 30mg/dl during the time segment being tested, then increase the basal rate for that segment by 10%. If the glucose readings during a fasting state (no food or bolus during testing period or in the 4 hours prior) decrease by 30mg/dl during the time segment being tested, then decrease the basal rate for that segment by 10%. Tayvptu-aj-pplv ratio (ICR) adjustments: If the 2-hour postprandial glucose level is >60mg/dl above the pre-meal glucose level (no correction dose at pre-meal), increase the ICR for that meal by 1 gram/unit (for example: an ICR of 1:15 would change to 1:14). If the 2-hour postprandial glucose level is <30mg/dl above the pre-meal glucose level (no correction dose at pre-meal), decrease the ICR for that meal by 2 grams/unit (for example: an ICR of 1:15 would change to 1:17). Insulin sensitivity factor (ISF) adjustments: If the 4-hour post-correction glucose level is above the pre-meal target range (no prandial dose given or food eaten with or after correction dose), increase the ISF used during that time of day by 10% (for example: an ISF of 1:50 would change to 1:45). If the 4-hour post-correction glucose level is below the pre-meal target range (no prandial dose given or food eaten with or after correction dose), decrease the ISF used during that time of day by 20% (for example: an ISF of 1:50 would change to 1:60). BG targets for adjustments are as follows unless otherwise specified: Fasting/pre-meal: 70-130 1-2 hour Post-meal: 100-180 Bedtime: 100-150 Cinthia Walls MD 11/12/2022 12:24 PM Signed I confirm the statements. Humalog vials ordered. Thanks Kishan (more content not included)... Normal [facility] [facility] MERY RI[facility] ([id number]) 1980 F Date Time Provider Department 11/11/22 CINTHIA WALLS ENDOMICHAEL During your visit today, we recorded the following information about you: Xochilt Martin RN 11/11/2022 10:30 AM Signed Serafin This patient has received the Omnipod 5 pump and needs training. Patient is currently on MDI but has been on pump in the past. You are being assigned the training. Please contact patient to schedule training or instruct your PSS team on how to schedule. Please advise patient to bring the following to the pump start once scheduled: 1. Omnipod pump controller/PDM 2. Vial of rapid-acting insulin with at least 200 units in it 3. At least 2 of each of the following items: Omnipod pods Please coordinate the followin. Pre-pump education at your discretion 2. Order for rapid-acting insulin vials 3. Orders for pump rate settings Patient has been added to the pump training spreadsheet, so update as needed. Please respond RANDI if you would prefer this training gets reassigned. Xochilt Cooper Allergies As of Date: 11/11/2022 Noted Allergy Reaction BIAXIN (CLARITHROMYCIN) 03/21/2009 Comments: shock ERYTHROMYCIN 03/21/2009 11 - Vomiting PENICILLINS 03/21/2009 Comments: shock SULFA (SULFONAMIDE ANTIBIOTICS) 03/21/2009 Comments: shock Date Reviewed: 11/05/2022 Reviewed by: Vik Canada OD - Fully Assessed Reason for Visit: Insulin pump start training [Other] Prescriptions as of 11/11/2022 - insulin pump cart,automated,BT (OMNIPOD 5 G6 PODS, GEN 5,) crtg Use one every 3 days - OMNIPOD 5 G6 INTRO KIT, GEN 5, crtg Inject 1 Each subcutaneously as directed. - Blood-Glucose Sensor (DEXCOM G6 SENSOR) candido Use to monitor glucose as directed every 10 days - Blood-Glucose Transmitter (DEXCOM G6 TRANSMITTER) candido Use to monitor glucose as directed every 90 days - glucagon 3 mg/actuation nasal spray (BAQSIMI) Use 1 Hamlin in the nose as needed for low blood sugar. May repeat after 15 minutes using a new device if there is no response. - Blood-Glucose Meter Test Four times a day. Insulin Dep? Yes E10.9 DM 1, E10.65 - blood sugar diagnostic test strip Use with blood glucose test 4 times daily, Insulin Dep? Yes. E10.65 - Lancets lancets Use with blood glucose test 4 times daily. Insulin Dep? Yes. E10.65 - alcohol swabs Use with blood glucose test 3 times daily. Insulin Dep? Yes. E10.65 - Blood Glucose Control, Normal soln Use to calibrate meter as directed. - blood sugar diagnostic (ACCU-CHEK GUIDE TEST STRIPS) test strip Use as instructed check glucose at least 4 times daily. - lisinopril (ZESTRIL) 5 mg tablet Take 1 tablet by mouth once daily. - atorvastatin (LIPITOR) 10 mg tablet Take 1 tablet by mouth once daily. - insulin glargine (LANTUS) 100 unit/mL injection Inject 36 Units subcutaneously daily at bedtime. - insulin syr/ndl U100 half alex (BD INSULIN SYRINGE, HALF UNIT,) 0.3 mL 31 gauge x 5/16 syrg Use 4-6 times daily - insulin lispro (HUMALOG U-100 INSULIN) 100 unit/mL injection Uses 60 units daily via insulin pump - pregabalin (LYRICA) 300 mg capsule Take 1 capsule by mouth twice daily for 360 days. - FLUoxetine (PROZAC) 20 mg capsule - fexofenadine (KORIN) 180 mg tablet TAKE 1 TABLET BY MOUTH ONCE DAILY. - omeprazole (PRILOSEC) 20 mg capsule TAKE 1 CAPSULE BY MOUTH ONCE DAILY. - acetaminophen-codeine (TYLENOL-COD #3) 300-30 mg per tablet per Dr[address] Ramsey, inspection engineer - Subcutaneous Insulin Pump (PARADIGM INSULIN PUMP) misc BASAL Pattern 2 - 30.7 T basal q24 BOLUS Midnight?13 2PM?10 ISF Midnight?50 ??Goal 120-140 - ibuprofen (MOTRIN) 600 mg tablet Take 1 tablet by mouth every 8 hours as needed for Pain. - fluticasone (FLONASE) 50 mcg/actuation nasal spray Use 2 Sprays in each nostril once daily. - omeprazole (PRILOSEC) 20 mg capsule Take 1 capsule by mouth once daily. - CRANBERRY EXTRACT (CRANBERRY CONCENTRATE ORAL) Take by mouth. - Cholecalciferol, Vitamin D3, 5,000 unit cap Take 1 capsule by mouth twice daily with meals. 10,000 int. units daily with a meal for 3 months, then 5000 int. units daily. - MULTIVITAMIN CAP Take one(1) capsule daily. Problem List As Of Date 11/11/2022 Noted Resolved Encounter for Long-Term (Current) Use of High-R*11/02/2009 Rheumatoid arthritis (HCC) [M06.9] 11/02/2009 Fibromyalgia syndrome [M79.7] 04/26/2010 Depression [F32.A] 04/26/2010 Tattoo [L81.8] 04/26/2010 Diabetes mellitus type 1 (HCC) [E10.9] 04/26/2010 Family history of thyroid disease [Z83.49] 04/26/2010 Unspecified vitamin D deficiency [E55.9] 04/26/2010 URI (upper respiratory infection) [J06.9] 02/04/2011 Carpal tunnel syndrome on both sides [G56.03] 04/17/2011 Hip fracture [S72.009A] 08/15/2011 11/26/2011 Post-operative stat (more content not included)... Normal [facility] CNNURSEon 10-24-2022 CNNURSE Nurse Visit (RIANA) MERY RILEY ([id number]) 1980 F Date Time Provider Department 10/24/22 10:00 AM SERAFIN MICHELLE During your visit today, we recorded the following information about you: Serafin Michelle, RN 10/24/2022 12:12 PM Signed DIABETES SELF-MANAGEMENT EDUCATION AND SUPPORT Location: [place] Type of visit: In person individual Types of DSMES: Initial/Comprehensive (add to or update ADA spreadsheet) PATIENT'S MAIN CONCERN TODAY: none Support person present for education today: none Cognitive ability: Alert and oriented Motivation to learn: Interested Learning barriers identified by educator: none Method of instruction: written, verbal, and demonstration INTERVENTIONS/TOPICS COVERED: -Diabetes Pathophysiology: diabetes disease process -Monitoring: CGM type: Dexcom G6, CGM basics AND daily use, and CGM insertion steps -Medications: pt toyerikavalery has the Medtronic 770g and was wearing in auto mode until she started having problems getting supplies. Pt asking for information on Omni Pod 5. Also discussed Tandem. Discussed site selection/rotation and insulin pump instruction: closed loop mode vs manual mode, infusion set types, infusion set rotation, activity mode, and insulin pump terminology: basal, bolus, sensitivity/correction factor, carb ratio, BG target, and ofnisqw-ao-mwkrk/durat ion. Discussed Omni Pod 5 in detail -Physical Activity: impact of exercise on BG -Acute Complications: hypoglycemia s/sx/tx and hyperglycemia s/sx/tx DIABETES ASSESSMENT: Referring Physician: Previous Diabetes Education? Yes, if so when? What are you hoping to gain from this visit? Discuss Omni Pod 5 In your words, what is diabetes? asked/not answered What concerns you about having diabetes? asked/not answered Diabetes History: Type of Diabetes: Type 1 What year were you diagnosed? 1989 Does anyone in your family have diabetes? yes grandmother How do you learn best? listening, observing , and reading Demographics: Highest level of education: asked/not answered Race/Ethnic Origin: asked/not answered Does your culture or buddhism require any of the following: Asked/not answered Do you have problems with: No difficulty seeing/hearing/reading /writing/speaking Occupation: asked/not answered Work hours: asked/not answered Support System: How often does someone help you read hospital materials? never How often does someone help you read your pill bottles? never How often does someone have to help you take care of your diabetes? never Major stressors:asked/not answered How do you manage stress? asked/not answered Do any of the following things get in the way of managing your diabetes? Asked/not answered Health History: Most recent eye exam: Asked/not answered Most recent dental exam:Asked/not answered Most recent foot exam:Asked/not answered How often do you inspect your feet at home? Asked/Not answered Do you use tobacco? No Do you use alcohol? Yes, How much? occasionally In the past 12 months have you had any: Hospital Admissions: Asked/not answered ER Visits: Asked/not answered Primary Care Visits: Asked/not answered What are your general feelings about you overall health? Asked/not answered Medical Issues/Complications: None PAST MEDICAL HISTORY Diagnosis Date Depression Diabetes (HCC) age 9 Fibromyalgia Fracture 06/06/2011 right hip Most recent A1C Lab Results Component Value Date HBA1C 10.1 10/08/2022 HBA1C 10.4 06/05/2022 HBA1C 8.5 04/18/2020 HBA1C 8.4 12/24/2019 HBA1C 7.8 07/09/2018 HBA1C 7.7 04/05/2017 Physical Activity: Do you do a regular exercise? Yes; runs with dog frequently Sick Days: How do you manage your diabetes when you are sick? Asked/not answered Sleep: Do you get at least 7 hrs of sleep most nights? asked/not answered Current Outpatient Medications Medication Sig glucagon 3 mg/actuation nasal spray (BAQSIMI) Use 1 Hamlin in the nose as needed for low blood sugar. May repeat after 15 minutes using a new device if there is no response. Blood-Glucose Meter Test Four times a day. Insulin Dep? Yes E10.9 DM 1, E10.65 blood sugar diagnostic test strip Use with blood glucose test 4 times daily, Insulin Dep? Yes. E10.65 Lancets lancets Use with blood glucose test 4 times daily. Insulin Dep? Yes. E10.65 alcohol swabs Use with blood glucose test 3 times daily. Insulin Dep? Yes. E10.65 Blood Glucose Control, Normal soln Use to calibrate meter as directed. blood sugar diagnostic (ACCU-CHEK GUIDE TEST STRIPS) test strip Use as instructed check glucose at least 4 times daily. lisinopril (ZESTRIL) 5 mg tablet Take 1 tablet by mouth once daily. atorvastatin (LIPITOR) 10 mg tablet Take 1 tablet by mouth once daily. insulin glargine (LANTUS) 100 unit/mL injection Inject 36 Units subcutaneously daily at bedtime. insulin s (more content not included)... Normal [facility] Pam 10-24-2022 LETYN Telephone (LOENED) MERY RILEY ([id number]) 1980 F Date Time Provider Department 10/24/22 CINTHIA WALLS During your visit today, we recorded the following information about you: Serafin Michelle RN 10/24/2022 12:23 PM Signed Pt would like to move forward with Omni Pod 5 Email sent to Lulu Painter Pt will need Dexcom G6 Patient phones requesting refills as follows: Requested Prescriptions Pending Prescriptions Disp Refills insulin pump cart,automated,BT (OMNIPOD 5 G6 PODS, GEN 5,) crtg 6 Each 3 Sig: Use one every 3 days OMNIPOD 5 G6 INTRO KIT, GEN 5, crtg 1 Each 0 Sig: Inject 1 Each subcutaneously as directed. Blood-Glucose Sensor (DEXCOM G6 SENSOR) candido 9 Each 3 Sig: Use to monitor glucose as directed every 10 days Blood-Glucose Transmitter (DEXCOM G6 TRANSMITTER) candido 1 Each 3 Sig: Use to monitor glucose as directed every 90 days Please review and advise. Serafin Michelle, Candice Bear LPN 10/30/2022 6:04 AM Signed Prior Authorization initiated for OmniPod 5 System Augustus Mckenna MA 11/29/2022 2:29 PM Signed Allergies As of Date: 10/24/2022 Noted Allergy Reaction BIAXIN (CLARITHROMYCIN) 03/21/2009 Comments: shock ERYTHROMYCIN 03/21/2009 11 - Vomiting PENICILLINS 03/21/2009 Comments: shock SULFA (SULFONAMIDE ANTIBIOTICS) 03/21/2009 Comments: shock Date Reviewed: 10/08/2022 Reviewed by: Augustus Mckenna MA - Fully Assessed Reason for Visit: omni pod 5 [Other] Primary Visit Diagnosis:Type 1 diabetes mellitus with diabetic polyneuropathy (HCC) [E10.42] Order(s):insulin pump cart,automated,BT (OMNIPOD 5 G6 PODS, GEN 5,) crtgUse one every 3 daysDisp: 6 EachRfl: 3 OMNIPOD 5 G6 INTRO KIT, GEN 5, crtgInject 1 Each subcutaneously as directed.Disp: 1 EachRfl: 0 Blood-Glucose Sensor (DEXCOM G6 SENSOR) deviUse to monitor glucose as directed every 10 daysDisp: 9 EachRfl: 3 Blood-Glucose Transmitter (DEXCOM G6 TRANSMITTER) deviUse to monitor glucose as directed every 90 daysDisp: 1 EachRfl: 3 Prescriptions as of 11/29/2022 - insulin lispro (HUMALOG U-100 INSULIN) 100 unit/mL injection Uses 66 units daily via insulin pump - insulin pump cart,automated,BT (OMNIPOD 5 G6 PODS, GEN 5,) crtg Use one every 3 days - OMNIPOD 5 G6 INTRO KIT, GEN 5, crtg Inject 1 Each subcutaneously as directed. - Blood-Glucose Sensor (DEXCOM G6 SENSOR) candido Use to monitor glucose as directed every 10 days - Blood-Glucose Transmitter (DEXCOM G6 TRANSMITTER) candido Use to monitor glucose as directed every 90 days - glucagon 3 mg/actuation nasal spray (BAQSIMI) Use 1 Hamlin in the nose as needed for low blood sugar. May repeat after 15 minutes using a new device if there is no response. - Blood-Glucose Meter Test Four times a day. Insulin Dep? Yes E10.9 DM 1, E10.65 - blood sugar diagnostic test strip Use with blood glucose test 4 times daily, Insulin Dep? Yes. E10.65 - Lancets lancets Use with blood glucose test 4 times daily. Insulin Dep? Yes. E10.65 - alcohol swabs Use with blood glucose test 3 times daily. Insulin Dep? Yes. E10.65 - Blood Glucose Control, Normal soln Use to calibrate meter as directed. - blood sugar diagnostic (ACCU-CHEK GUIDE TEST STRIPS) test strip Use as instructed check glucose at least 4 times daily. - lisinopril (ZESTRIL) 5 mg tablet Take 1 tablet by mouth once daily. - atorvastatin (LIPITOR) 10 mg tablet Take 1 tablet by mouth once daily. - insulin glargine (LANTUS) 100 unit/mL injection Inject 36 Units subcutaneously daily at bedtime. - insulin syr/ndl U100 half alex (BD INSULIN SYRINGE, HALF UNIT,) 0.3 mL 31 gauge x 5/16 syrg Use 4-6 times daily - pregabalin (LYRICA) 300 mg capsule Take 1 capsule by mouth twice daily for 360 days. - FLUoxetine (PROZAC) 20 mg capsule - fexofenadine (KORIN) 180 mg tablet TAKE 1 TABLET BY MOUTH ONCE DAILY. - omeprazole (PRILOSEC) 20 mg capsule TAKE 1 CAPSULE BY MOUTH ONCE DAILY. - acetaminophen-codeine (TYLENOL-COD #3) 300-[address] mg [address] tablet per [address] Ramsey, inspection engineer - Subcutaneous Insulin Pump (PARADIGM INSULIN PUMP) misc BASAL Pattern 2 - 30.7 T basal q24 BOLUS Midnight?13 2PM?10 ISF Midnight?50 ??Goal 120-140 - ibuprofen (MOTRIN) 600 mg tablet Take 1 tablet by mouth every 8 hours as needed for Pain. - fluticasone (FLONASE) 50 mcg/actuation nasal spray Use 2 Sprays in each nostril once daily. - omeprazole (PRILOSEC) 20 mg capsule Take 1 capsule by mouth once daily. - CRANBERRY EXTRACT (CRANBERRY CONCENTRATE ORAL) Take by mouth. - Cholecalciferol, Vitamin D3, 5,000 unit cap Take 1 capsule by mouth twice daily with meals. 10,000 int. units daily with a meal for 3 months, then 5000 int. units daily. - MULTIVITAMIN CAP Take one(1) capsule daily. Problem List As Of Date 10/24/2022 Noted Resolved Encounter for Flo (more content not included)... Normal [facility] CNOVon 10-08-2022 CNOV Office Visit (ENDOLN ) MERY RILEY ([id number]) 1980 F Date Time Provider Department 10/08/22 10:00 AM CINTHIA WALLS ENDOLN During your visit today, we recorded the following information about you: Pulse Blood pressure Weight Last Period 60/minute 110/60 69.9 kg 09/17/22 Cinthia Walls MD 10/08/2022 10:19 AM Signed 42yo WF with DM1 since age 9, was on Medtronic 770G until 12/15, neuropathy, hypothyroidism (euthyroid without treatment, previously on [place] thyroid), here for f/u Patient checks blood sugar 1-2 times per day due to fluctuating readings. Average BG 274. Range is 32-593 with 7 episodes of hypoglycemia in last 30 days that occur during the morning or night, including severe hypoglycemia of 32 twice (morning and before lunch) and 3 episodes in 40s (morning or afternoon. POC A1C in clinic today (fingerstick) = 10.1% Was unable to get insulin pump supplies but could not due to some issue with her insurance, but she is not sure exactly why. Has been off of it since last fall. Last hypoglycemia where someone else had to treat her was in middle of night a couple years ago. Has glucagon injection kit at home. Started on atorvastatin 10mg daily on 07/02/22. Other significant DM comorbidities: peripheral neuropathy Last saw ophthalmology: 02/12 Current Diabetes Medications, Dosage, Frequency: Lantus 36 units at night Humalog 1 unit per 10 grams carbohydrate, plus correction factor of 40 over target 120 compliance with diet has been ok, counts carbs but misses a meal once every couple weeks exercise: runs with dog frequently Patient has not had hypoglycemia episodes; and was able to treat hypoglycemia by self. The patient experiences hypoglycemia at the following times: see HPI Report of Self Monitoring of Blood Glucose: See HPI Patient reports pain and numbness in the feet. Patient denies chest pain Patient denies sob Patient denies symptoms of a TIA , or claudication All other Review of Systems reviewed and are negative. PAST MEDICAL HISTORY Diagnosis Date Depression Diabetes (HCC) age 9 Fibromyalgia Fracture 06/06/2011 right hip Past Family and Social History reviewed and updated, as needed. Blood-Glucose Meter, Test Four times a day. Insulin Dep? Yes E10.9 DM 1, E10.65, Disp: 1 Each, Rfl: 0 blood sugar diagnostic test strip, Use with blood glucose test 4 times daily, Insulin Dep? Yes. E10.65, Disp: 400 Strip, Rfl: 5 alcohol swabs, Use with blood glucose test 3 times daily. Insulin Dep? Yes. E10.65, Disp: 400 Each, Rfl: 5 Blood Glucose Control, Normal soln, Use to calibrate meter as directed., Disp: 1 Each, Rfl: 2 lisinopril (ZESTRIL) 5 mg tablet, Take 1 tablet by mouth once daily., Disp: 90 tablet, Rfl: 3 atorvastatin (LIPITOR) 10 mg tablet, Take 1 tablet by mouth once daily., Disp: 90 tablet, Rfl: 3 insulin glargine (LANTUS) 100 unit/mL injection, Inject 36 Units subcutaneously daily at bedtime., Disp: 33 mL, Rfl: 0 insulin lispro (HUMALOG U-100 INSULIN) 100 unit/mL injection, Uses 60 units daily via insulin pump, Disp: 30 mL, Rfl: 3 pregabalin (LYRICA) 300 mg capsule, Take 1 capsule by mouth twice daily for 360 days., Disp: 180 capsule, Rfl: 3 Cholecalciferol, Vitamin D3, 5,000 unit cap, Take 1 capsule by mouth twice daily with meals. 10,000 int. units daily with a meal for 3 months, then 5000 int. units daily., Disp: 60 capsule, Rfl: 11 MULTIVITAMIN CAP, Take one(1) capsule daily., Disp: , Rfl: 0 OBJECTIVE: BP 110/60 Pulse 60 Wt 69.9 kg (154 lb) LMP 09/17/2022 BMI 24.86 kg/m? Last 3 Encounter Wt Readings: Date: Wt: 10/08/2022 69.9 kg (154 lb) 06/05/2022 68.7 kg (151 lb 6.4 oz) 05/18/2020 76.2 kg (168 lb) Gen - NAD, comfortable, pleasant, appears anxious HEENT - no acanthosis, no SC/DC fat pads CVS - tachycardic/regular, no murmurs, DP pulses present 2+ b/l Lung - CTAB, no rales Abd - no obese, +BS, no lipohypertrophy, non-tender Derm - no skin breaks or ulcers in feet noted, no foot callus, no dry feet Neuro - plantar surface of feet with intact sensation to monofilament b/l, alert/oriented, no tremor, +brisk UE reflexes MSK - no loss of arch from feet, no LE edema Component Latest Ref Rng AND Units 06/05/2022 06/18/2022 Glucose 74 - 99 mg/dL 118 (H) BUN 7 - 21 mg/dL 7 Creatinine 0.58 - 0.96 mg/dL 0.66 Sodium 136 - 144 mmol/L 142 Potassium 3.7 - 5.1 mmol/L 4.1 Chloride 97 - 105 mmol/L 103 CO2 22 - 30 mmol/L 31 (H) Anion Gap 9 - 18 mmol/L 8 (L) Calcium 8.5 - 10.2 mg/dL 9.3 eGFR >=60 mL/min/1.73mA? 115 Cholesterol, Total <200 mg/dL 200 (H) Triglyceride <150 mg/dL 124 HDL Cholesterol >39 mg/dL 56 Non HDL Cholesterol <130 mg/dL 144 (H) Fasting Time hrs 12 VLDL Cholesterol <30 mg/dL 25 TC:HDL Ratio <5.10 3.57 LDL Cholesterol <100 mg/dL 119 (H) LDL:HDL Ratio <2.54 2.13 Creatinine, Ur Random (more content not included)... Normal [facility] Consent for Treatmenton 09-24 Consent for Treatment [id number] 0CD:[address] [facility] Discharge Instructionson Discharge Instructions [id number] 00CD:[address] [facility] ED Clinical Summaryon 2022 ED Clinical Summary [place] [id number] ED Clinical Summary Person Information Name: MERY RILEY Reji/[facility] Age: 42 Years : 1980 Sex: Female Language: Nigerien PCP: JEOVANNY GRIFFIN MD Marital Status: Visit Id: Visit Reason: Medical screening exam; Dental pain; DENTAL PAIN, HARD TO SWALLOW Speciality: Acuity: 3 Enc Type: Emergency Med Service: Emergency Arrival: 10/04/2022 22:45:42 Discharge: 10/04/2022 23:39:23 LOS: 000 00:54 Checkin: 10/04/2022 22:45:42 Checkout: 10/04/2022 23:39:23 Dispo Type: Home (Routine DC) EVENTS: Event Name Event Status Request Date/Time Start Date/Time Complete Date/Time Arrive Complete 10/04/2022 22:45:42 10/04/2022 22:45:42 10/04/2022 22:45:42 Document Home Meds Request 10/04/2022 22:45:42 Triage Complete 10/04/2022 22:45:42 10/04/2022 22:54:58 10/04/2022 22:54:58 Bed Assign Complete 10/04/2022 22:49:06 10/04/2022 22:49:06 10/04/2022 22:49:06 Dr Exam Complete 10/04/2022 22:49:06 10/04/2022 22:50:38 10/04/2022 22:50:38 RN Exam Complete 10/04/2022 22:49:07 10/04/2022 22:56:58 10/04/2022 22:56:58 Registration Complete 10/04/2022 22:49:22 10/04/2022 22:49:22 10/04/2022 22:49:22 Reg Complete Request 10/04/2022 22:49:22 Reg Bed Request Complete 10/04/2022 22:49:22 10/04/2022 22:49:22 10/04/2022 22:49:22 Registration Request 10/04/2022 22:50:38 Dr Exam Complete 10/04/2022 22:59:40 10/04/2022 22:59:40 10/04/2022 22:59:40 Meds Admin Complete 10/04/2022 23:05:33 10/04/2022 23:23:37 Discharge Complete 10/04/2022 23:07:11 10/04/2022 23:39:33 10/04/2022 23:39:33 Transfer Complete 10/04/2022 23:39:33 10/04/2022 23:39:33 10/04/2022 23:39:33 ADDRESS: [address] [place] [address] [phone] PHYS DOC NOTES: MEDICAL INFORMATION: Prescriptions Given: New Medications [facility]/pharmacy #[id number], [address], [place] [id number], [phone] acetaminophen-oxycodon e (acetaminophen-oxycodo ne 325 mg-5 mg Tab) 1 Tablets By Mouth every 4 hours as needed for pain. Refills: 0. Medications to Continue with No Changes Other Medications acetaminophen-hydrocod one ([place] 325 mg-5 mg oral tablet) 1 Tablets By Mouth every 4 hours as needed for pain. Refills: 0. clindamycin (clindamycin 150 mg Cap) 3 Capsules By Mouth 3 times a day for 7 Days. Refills: 0. cyclobenzaprine (cyclobenzaprine 10 mg Tab) 1 Tablets By Mouth 3 times a day as needed for spasm. Refills: 0. ethinyl estradiol-norethindron e (Junel Fe 03/15 oral tablet) folic acid (folic acid 1 mg oral tablet) homatropine-hydrocodon e (homatropine-hydrocodo ne 1.5 mg-5 mg/5 mL oral syrup) 5 Milliliter By Mouth every 6 hours. Refills: 0. ibuprofen (ibuprofen 600 mg Tab) 1 Tablets By Mouth every 6 hours. Refills: 0. insulin aspart (NovoLog 100 units/mL subcutaneous solution) levothyroxine (levothyroxine 25 mcg (0.025 mg) Tab) 1 Tablets By Mouth every day. methocarbamol (Robaxin 500 mg Tab) Take i-ii tabs by mouth at bedtime; as needed Muscle pain. Refills: 0. methotrexate (methotrexate 2.5 mg oral tablet) naproxen (Naprosyn 500 mg Tab) 1 Tablets By Mouth 2 times a day as needed for pain. Refills: 0. naproxen (naproxen 500 mg Tab) 1 Tablets By Mouth 2 times a day. Take one tab by mouth two times a day. Refills: 0. ondansetron (ondansetron 4 mg Dis Tab) 1 Tablets By Mouth every 6 hours. Refills: 0. ondansetron (Zofran ODT 4 mg Tab-Dis) 1 Tablets By Mouth every 8 hours as needed as needed for nausea/vomiting. Refills: 0. pregabalin (Lyrica 300 mg oral capsule) 300 Milligram By Mouth Once. PATIENT EDUCATION INFORMATION: Instructions: Dental Pain; Dental Caries, Adult Follow up: With: Address: When: JEOVANNY GRIFFIN [address] [place], [place] [id number] [facility] ([employer] In 3 days 10/07/2022 Comments: Call the office of your primary care doctor to arrange for follow-up within the above-stated timeframe. Follow-up with your primary care doctor about this ED visit. You should review your labs, imaging, and diagnoses from this ED visit with your primary care physician. If you were prescribed medications you should discuss possible side-effects and drug interactions with your pharmacist. Call 911 or go to the nearest Emergency Department if you develop any new or worsening symptoms. DIAGNOSIS: Dental caries Normal [facility] ED Note-Physicianon 10-06-19 ED Note-Physician Basic Information Time Seen: Alma Gallegos DO 10/04/2022 22:50 Chief Complaint Pt. presents to the ed with c/o right upper dental pain that started a week and a half ago. pt. was seen and treated on friday and states it's not getting better. Pt. able to swallow secretions and appears to be in no distress at this time. History of Present Illness 42-year-old female presents ED with complaint of ongoing dental pain. Patient was last seen in the ED a week ago by myself at which time she was diagnosed with a dental abscess. Patient has been on clindamycin since that time. Patient does report has been compliant with the clindamycin. Patient is complaining of ongoing pain in the area of her right upper incisor. Patient is denying any ongoing swelling of her gums. Denies any drainage. Patient is able to swallow food and liquids. Patient is complaining of pain which is unbearable, which is keeping her from sleeping. Patient denies any fevers or chills. Patient's been using the topical medication that was given to her in the ED when she was last here without relief. Patient does report that she has follow-up with dentist on Friday. Patient presented to ED requesting something for pain. Review of Systems Full 10 system ROS performed. Pt denies symptoms except as noted above in the HPI. Physical Exam Vitals & Measurements T: 36.6 ?C(Oral) HR: 87(Peripheral) RR: 18 BP: 161/95 SpO2: 99% HT: 167.64 cm WT: 63.5 kg BMI: 22.6 General: Pt is in NAD, nontoxic appearing Skin: Pt skin is warm and dry, no rashes or lesions appreciated HEENT: Atraumatic, normocephalic. Patient with generally poor dentition. Pulmonary: Breathing normally, no respiratory distress Cardiovascular: Peripheral perfusion intact Musculoskeletal: Pt has full ROM Neurological: Pt is alert and oriented. Psychiatric: Pt is cooperative, communicative, appropriately reactive Medical Decision Making Number and Complexity of Problems Differential Diagnosis: [] [facility] Data External documents reviewed: Not applicable My EKG interpretation: Not applicable My CT interpretation: Not applicable My X-ray interpretation: Not applicable My Ultrasound interpretation: Not applicable Decision rules/scores evaluated: Not applicable Discussed with: Not applicable Treatment and Disposition ED Course: Patient resents ED with complaint of ongoing dental pain. I did see this patient last week at which time I diagnosed her with a dental abscess. This does appear to have resolved. Patient does have ongoing poor dentition including multiple dental caries. I did review patient OARRS report, no recent prescriptions for opioid pain medication. Given fact the patient has follow-up at the end of this weekend with a dentist, has a clean OARRS report, has failed with other pain control medications, I do not think is unreasonable to give her a short course of opioid pain medication to see her through until her dental appointment. Patient was instructed that she would not be given any further pain medication from the ED for this complaint. Patient stated understanding. Return precautions discussed. Patient questions answered. Patient discharged home. Shared decision making: As above Code status: Not addressed during this visit Assessment/Plan Dental caries (K02.9: Dental caries, unspecified) Orders: acetaminophen-oxycodon e, 1 EA, Tab, Oral, Once, Stop date 10/04/22 23:05:00 EDT, STAT, Start date 10/04/22 23:05:00 EDT acetaminophen-oxycodon e, 1 tab(s), Oral, q4hr for pain, 6 tab(s), Refill(s) 0, [id number], 167.6, cm, 10/04/22 22:54:00 EDT, Height/Length Dosing, 63.5, kg, 10/04/22 22:54:00 EDT, Weight Dosing Disposition Plan Patient Discharge Condition Stable Discharge Disposition To home Discharge Prescription List Prescriptions acetaminophen-oxycodon e 325 mg-5 mg Tab, 1 tab(s), Oral, q4hr, PRN Follow-up With When Contact Information JEOVANNY GRIFFIN In 3 days 10/07/2022 EDT [address] [place] [address]- Business (1) Additional Instructions: Call the office of your primary care doctor to arrange for follow-up within the above-stated timeframe. Follow-up with your primary care doctor about this ED visit. You should review your labs, imaging, and diagnoses from this ED visit with your primary care physician. If you were prescribed medications you should discuss possible side-effects and drug interactions with your pharmacist. Call 911 or go to the nearest Emergency Department if you develop any new or worsening symptoms. Patient Education Dental Pain Dental Caries, Adult Attestation Patient seen and evaluated by the physician quality assistant. Attending physician was present in the emergency department and supervised care. This visit was performed by both the physician and an APC. I performed all aspects of the MDM as documented. This report was transcribed using voice recognition software. Every effort was made to ensure accuracy, however, inadverte (more content not included)... [facility] Comment on above: Result Comment: Elec tronically Signed By: Eldon Jovel PA-C\.br\Date and Time Signed: 10/04/22 23:19 EDT\.br\Electronically Co-Signed By: Alma Gallegos DO\.br\Date and Time Co-Signed: 10/05/22 00:47 EDT ED Patient Education Noteon 10-05-2022 ED Patient Education Note Dentistry Dental Pain Dental pain is often a sign that something is wrong with your teeth or gums. It is also something that can occur following dental treatment. If you have dental pain, it is important to contact your dental care provider, especially if the cause of the pain has not been determined. Dental pain may be of varying intensity and can be caused by many things, including: ? Tooth decay (cavities or caries). Cavities are caused by bacteria that produce acids that irritate the nerve of your tooth, making it sensitive to air and hot or cold temperatures. This eventually causes discomfort or pain. ? Abscess or infection. Once the bacteria reach the inner part of the tooth (pulp), a bacterial infection (dental abscess) can occur. Pus typically collects at the end of the root of a tooth. ? Injury. ? A crack in the tooth. ? Gum recession exposing the root, and possibly the nerves, of a tooth. ? Gum (periodontal)disease. ? Abnormal grinding or clenching. ? Poor or improper home care. ? An unknown reason (idiopathic). Your pain may be mild or severe. It may occur when you are: ? Chewing. ? Exposed to hot or cold temperatures. ? Eating or drinking sugary foods or beverages, such as soda or candy. Your pain may be constant, or it may come and go without cause. Follow these instructions at home: The following actions may help to lessen any discomfort that you are feeling before or after getting dental care. Medicines ? Take crhi-rkw-fhppaqi and prescription medicines only as told by your dental care provider. ? If you were prescribed an antibiotic medicine, take it as told by your dental care provider. Do not stop taking the antibiotic even if you start to feel better. Eating and drinking Avoid foods or drinks that cause you pain, such as: ? Very hot or very cold foods or drinks. ? Sweet or sugary foods or drinks. Managing pain and swelling ? Ice can sometimes be used to reduce pain and swelling, especially if the pain is following dental treatment. ? If directed, put ice on the painful area of your face. To do this: ? Put ice in a plastic bag. ? Place a towel between your skin and the bag. ? Leave the ice on for 20 minutes, 2?3 times a day. ? Remove the ice if your skin turns bright red. This is very important. If you cannot feel pain, heat, or cold, you have a greater risk of damage to the area. Brushing your teeth ? To keep your mouth and gums healthy, brush your teeth twice a day using a fluoride toothpaste. ? Use a toothpaste made for sensitive teeth as directed by your dental care provider, especially if the root is exposed. ? Always brush your teeth with a soft-bristled toothbrush. This will help prevent irritation to your gums. General instructions ? Floss at least once a day. ? Do not apply heat to the outside of the face. ? Gargle with a mixture of salt and water 3?4 times a day or as needed. To make salt water, completely dissolve ??1 tsp (3?6 g) of salt in 1 cup (237 mL) of warm water. ? Keep all follow-up visits. This is important. Contact a dental care provider if: ? You have any unexplained dental pain. ? Your pain is not controlled with medicines. ? Your symptoms get worse. ? You have new symptoms. Get help right away if: ? You are unable to open your mouth. ? You are having trouble breathing or swallowing. ? You have a fever. ? You notice that your face, neck, or jaw is swollen. These symptoms may represent a serious problem that is an emergency. Do not wait to see if the symptoms will go away. Get medical help right away. Call your local emergency services (911 in the [place] Do not drive yourself to the hospital. Summary ? Dental pain may be caused by many things, including tooth decay and infection. ? Your pain may be mild or severe. ? Take spef-lzh-nzmjoqp and prescription medicines only as told by your dental care provider. ? Watch your dental pain for any changes. Let your dental care provider know if your symptoms get worse. This information is not intended to replace advice given to you by your health care provider. Make sure you discuss any questions you have with your health care provider. Document Revised: 11/15/2020 Document Reviewed: 11/15/2020 [email or web address] Patient Education ? 2022 [employer]. Dental Caries, Adult Dental caries or cavities are areas of decay in the outer layers (enamel and dentin) of your tooth. When you eat or drink sugary foods and liquids, the natural bacteria in your mouth break down those sugars and produce a lot of acids. The acids destroy the protective layer of your tooth, leading to tooth decay. It is important to treat your tooth decay as soon as possible. Untreated dental caries can spread decay and may lead to a painful infection. Keeping your mouth clean (good oral hygiene) by brushing regularly with fluoride toothpa (more content not included)... [facility] ED Patient Summaryon 023 ED Patient Summary [place] [id number] Patient Discharge Instructions Person Information Name: MERY RILEY Age: 42 Years Arrival Date: 10/04/2022 22:45:42 Discharge Diagnosis: Dental caries Primary Care Physician: JEOVANNY GRIFFIN MD Provider Information Primary Provider: Alma Gallegos DO Advanced Surveillance Sensor Officer:Eldon Jovel PA-C The exam and treatment you received in the Emergency Department were for an urgent problem and are not intended as complete care. It is important that you follow up with a doctor, nurse practitioner, or physician?s quality assistant for ongoing care. If your symptoms become worse or you do not improve as expected and you are unable to reach your usual health care provider, you should return to the Emergency Department. We are available 24 hours a day. MERY RILEY has been given the following list of patient education materials, prescriptions and follow-up instructions: Follow-up Instructions: With: Address: When: JEOVANNY GRIFFIN [address] [place] [id number] [employer] In 3 days 10/07/2022 Comments: Call the office of your primary care doctor to arrange for follow-up within the above-stated timeframe. Follow-up with your primary care doctor about this ED visit. You should review your labs, imaging, and diagnoses from this ED visit with your primary care physician. If you were prescribed medications you should discuss possible side-effects and drug interactions with your pharmacist. Call 911 or go to the nearest Emergency Department if you develop any new or worsening symptoms. In the event that this physician does not participate in your insurance network, please consult with your insurance company to find a nearby participating provider. Patient Education Materials: Dental Pain; Dental Caries, Adult A MESSAGE TO ALL PATIENTS REGARDING OPIOIDS PRESCRIPTION OPIOIDS: WHAT YOU NEED TO KNOW Prescription opioids can be used to help relieve cjlkrwma-yu-wtqbit pain and are often prescribed following a surgery or injury, or for certain health conditions. These medications can be an important part of the treatment but also come with serious risks. It is important to work with your healthcare provider to make sure you are getting the safest, most effective care. WHAT ARE THE RISKS AND SIDE EFFECTS OF OPIOID USE? Prescription opioids carry serious risks of addiction and overdose, especially with prolonged use. An opioid overdose, often marked by slowed breathing, can cause sudden . The use of prescription opioids can have a number of side effects as well, even when taken as directed: ? Tolerance?meaning you might need to take more of the medication for the same pain relief ? Physical dependence?meaning you have symptoms of withdrawal when a medication is stopped ? Increased sensitivity to pain ? Constipation ? Nausea, vomiting, and dry mouth ? Sleepiness and dizziness ? Confusion ? Depression ? Low levels of testosterone that can result in lower sex drive, energy, and strength ? Itching and sweating RISKS ARE GREATER WITH: ? History of drug misuse, substance use disorder, or overdose ? Mental health conditions (such as depression or anxiety) ? Sleep apnea ? Older age (65 years and older) ? Avoid alcohol while taking prescription opioids. Also, unless specifically advised by your health care provider, medications to avoid include: ? Benzodiazepines (such as Xanax or Valium) ? Muscle relaxants (such as Soma or Flexeril) ? Hypnotics (such as Ambien or Lunesta) ? Other prescription opioids KNOW YOUR OPTIONS Talk to your health care provider about ways to manage your pain that don?t involve prescription opioids. Some of these options may actually work better and have fewer risks and side effects. Options may include: ? Pain relievers such as acetaminophen, ibuprofen, and naproxen ? Some medication that are also used for depression or seizures ? Physical therapy and exercise ? Cognitive behavioral therapy, a psychological, goal-directed approach, in which patients learn how to modify physical, behavioral, and emotional triggers of pain and stress. IF YOU ARE PRESCRIBED OPIOIDS FOR PAIN: ? Never take opioids in greater amounts or more often than prescribed. ? Follow up with your primary health care provider. o Work together to create a plan on how to manage your pain. o Talk about ways to help manage your pain that don?t involve prescription opioids. o Talk about any and all concerns and side effects. ? Help prevent misuse and abuse o Never sell or share prescription opioids. o Never use another person?s prescription opioids. ? Store prescription opioids in a secure place and out of reach of others (this may include visitors, children, friends, and family). ? Safely dispose of unu (more content not included)... [facility] Prescriptions/Work Noteson 0 10-05-2022 Prescriptions/Work Notes [id number]. 00CD:[address] [facility] ED Note-Physicianon 10-02-19 ED Note-Physician Basic Information Time Seen: Eldon Jovel PA-C 09/28/2022 15:04 Chief Complaint patient c/o front tooth pain d/t infected tooth over past few days. patient states that today the pain has begun to radiate into sinus's causing KELLOGG and nausea/vomiting History of Present Illness 41-year-old female presents ED with complaint of right upper incisor pain as well as fever chills nausea for the last several days. Patient is complaining of pain of the right upper incisor in the apex of this tooth as well as swelling. Patient ports the pain has become worse over the last day and radiates up into her face. Patient also complains of fevers chills. Patient reports that she is tolerating liquids well, but it is painful her to eat solids. Patient does state that she has type 1 diabetes and being unable to eat makes this difficult. Patient does report that her sugars have been well controlled over this time. Review of Systems Full 10 system ROS performed. Pt denies symptoms except as noted above in the HPI. Physical Exam Vitals & Measurements T: 36.7 ?C(Oral) HR: 86(Peripheral) RR: 18 BP: 117/71 SpO2: 98% HT: 165 cm WT: 70.8 kg BMI: 26.01 General: Pt is in NAD, nontoxic appearing Skin: Pt skin is warm and dry, no rashes or lesions appreciated HEENT: Atraumatic, normocephalic. Gomez apical abscess of right upper incisor. Pulmonary: Breathing normally, no respiratory distress Cardiovascular: Peripheral perfusion intact Musculoskeletal: Pt has full ROM Neurological: Pt is alert and oriented. Psychiatric: Pt is cooperative, communicative, appropriately reactive Medical Decision Making Number and Complexity of Problems Differential Diagnosis: [] [facility] Data External documents reviewed: Not applicable My EKG interpretation: Not applicable My CT interpretation: Not applicable My X-ray interpretation: Not applicable My Ultrasound interpretation: Not applicable Decision rules/scores evaluated: Not applicable Discussed with: Not applicable Treatment and Disposition ED Course: Patient presents ED with complaint of dental abscess. Patient is complaining of systemic symptoms including fever chills nausea vomiting. Patient is afebrile, not tachycardic on presentation the ED. Patient does not appear toxic on her presentation. Did give patient Zofran for nausea as well as antibiotic for the abscess. Patient was given follow-up for dentistry [facility]. Return precautions to the ED were discussed. Patient questions answered. Patient discharged home. Shared decision making: As above Code status: Not addressed during this visit Assessment/Plan Dental abscess (K04.7: Periapical abscess without sinus) Orders: clindamycin, 450 mg = 3 cap(s), Cap, Oral, Once, Stop date 09/28/22 16:56:00 EDT, STAT, Start date 09/28/22 16:56:00 EDT, 09/28/22 16:56:00 EDT clindamycin, 450 mg = 3 cap(s), Oral, TID, X 7 day(s), # 63 cap(s), Refills(s) 0, [id number] 165, cm, 09/28/22 14:31:00 EDT, Height/Length Dosing, 70.8, kg, 09/28/22 14:31:00 EDT, Weight Dosing ondansetron, 4 mg = 1 tab(s), Oral, q6hr, # 12 tab(s), Refills(s) 0, [id number], 165, cm, 09/28/22 14:31:00 EDT, Height/Length Dosing, 70.8, kg, 09/28/22 14:31:00 EDT, Weight Dosing ondansetron, 4 mg = 1 tab(s), Tab-Dis, Oral, Once, Stop date 09/28/22 16:56:00 EDT, STAT, Start date 09/28/22 16:56:00 EDT, 09/28/22 16:56:00 EDT Disposition Plan Patient Discharge Condition Stable Discharge Disposition To home Discharge Prescription List Prescriptions clindamycin 150 mg Cap, 450 mg= 3 cap(s), Oral, TID ondansetron 4 mg Dis Tab, 4 mg= 1 tab(s), Oral, q6hr Follow-up With When Contact [facility] [employer] [facility] In 3 days 10/01/2022 EDT [address] [place] [address]- Business (1) Additional Instructions: JEOVANNY GRIFFIN In 3 days [address] [place] [address]- Business (1) Additional Instructions: Patient Education Dental Abscess Dental Pain Attestation Patient seen and evaluated by the physician quality assistant. Attending physician was present in the emergency department and supervised care. This visit was performed by both the physician and an APC. I performed all aspects of the MDM as documented. This report was transcribed using voice recognition software. Every effort was made to ensure accuracy, however, inadvertently computerized alkylation operator mistakes may be present. Appropriate healthcare PPE was used in evaluating this patient. The patient was placed in a mask. The healthcare provider was wearing mask, gloves, and utilizing proper hand hygiene. All equipment was properly cleansed Problem List/Past Medical History Ongoing Smoker Smoker 26-AUG-2013 12:37:00<$> Historical Adult hypothyroidism Arthritis, rheumatoid DM type 1 (diabetes mellitus, type 1) Fibromyalgia Procedure/Surgical History Internal fixation of femur. Medications Inpatient clindamycin 150 mg (more content not included)... [facility] Comment on above: Result Comment: Elec tronically Signed By: Eldon Jovel PA-C\.br\Date and Time Signed: 09/28/22 17:03 EDT\.br\Electronically Co-Signed By: Roe Isbell MD\.br\Date and Time Co-Signed: 10/01/22 13:24 EDT Consent for Treatmenton Consent for Treatment [id number] 0CD:[address] [facility] Discharge Instructionson Discharge Instructions [id number] 00CD:[address] [facility] ED Clinical Summaryon 2022 ED Clinical Summary [place] [id number] ED Clinical Summary Person Information Name: MERY RILEY [facility] Age: 41 Years : 1980 Sex: Female Language: Nigerien PCP: JEOVANNY GRIFFIN MD Marital Status: Visit Id: Visit Reason: Vomiting; Sinus Pain/Congestion; Mouth pain; VOMMITING, HEADACHE, SWEATS Speciality: Acuity: 3 Enc Type: Emergency Med Service: Emergency Arrival: 09/28/2022 14:26:32 Discharge: 09/28/2022 17:14:14 LOS: 000 02:48 Checkin: 09/28/2022 14:26:32 Checkout: 09/28/2022 17:14:14 Dispo Type: Home (Routine DC) EVENTS: Event Name Event Status Request Date/Time Start Date/Time Complete Date/Time Arrive Complete 09/28/2022 14:26:32 09/28/2022 14:26:32 09/28/2022 14:26:32 Document Home Meds Request 09/28/2022 14:26:32 Triage Complete 09/28/2022 14:26:32 09/28/2022 14:31:40 09/28/2022 14:31:40 Registration Complete 09/28/2022 14:30:18 09/28/2022 14:30:18 09/28/2022 14:30:18 Reg Complete Request 09/28/2022 14:30:18 Reg Bed Request Complete 09/28/2022 14:30:18 09/28/2022 14:30:18 09/28/2022 14:30:18 Bed Assign Complete 09/28/2022 14:54:25 09/28/2022 14:54:25 09/28/2022 14:54:25 Dr Exam Complete 09/28/2022 14:54:25 09/28/2022 15:04:24 09/28/2022 15:04:24 RN Exam Complete 09/28/2022 14:54:25 09/28/2022 15:41:38 09/28/2022 15:41:38 Registration Request 09/28/2022 15:04:24 Meds Admin Complete 09/28/2022 16:57:19 09/28/2022 17:06:40 Discharge Complete 09/28/2022 16:59:06 09/28/2022 17:14:21 09/28/2022 17:14:21 Transfer Complete 09/28/2022 17:14:21 09/28/2022 17:14:21 09/28/2022 17:14:21 ADDRESS: [address] [place] [address] [address] [facility] [id number] PHYS DOC NOTES: MEDICAL INFORMATION: Prescriptions Given: New Medications [id number], [address], [place] [phone], [phone] clindamycin (clindamycin 150 mg Cap) 3 Capsules By Mouth 3 times a day for 7 Days. Refills: 0. Medications to Continue Taking That Have Changed [id number], [address], [place] [phone], [phone] START: ondansetron (ondansetron 4 mg Dis Tab) 1 Tablets By Mouth every 6 hours. Refills: 0. Other Medications START: ondansetron (Zofran ODT 4 mg Tab-Dis) 1 Tablets By Mouth every 8 hours as needed as needed for nausea/vomiting. Refills: 0. Medications to Continue with No Changes Other Medications acetaminophen-hydrocod one ([place] 325 mg-5 mg oral tablet) 1 Tablets By Mouth every 4 hours as needed for pain. Refills: 0. cyclobenzaprine (cyclobenzaprine 10 mg Tab) 1 Tablets By Mouth 3 times a day as needed for spasm. Refills: 0. ethinyl estradiol-norethindron e (Junel Fe 03/15 oral tablet) folic acid (folic acid 1 mg oral tablet) homatropine-hydrocodon e (homatropine-hydrocodo ne 1.5 mg-5 mg/5 mL oral syrup) 5 Milliliter By Mouth every 6 hours. Refills: 0. ibuprofen (ibuprofen 600 mg Tab) 1 Tablets By Mouth every 6 hours. Refills: 0. insulin aspart (NovoLog 100 units/mL subcutaneous solution) levothyroxine (levothyroxine 25 mcg (0.025 mg) Tab) 1 Tablets By Mouth every day. methocarbamol (Robaxin 500 mg Tab) Take i-ii tabs by mouth at bedtime; as needed Muscle pain. Refills: 0. methotrexate (methotrexate 2.5 mg oral tablet) naproxen (Naprosyn 500 mg Tab) 1 Tablets By Mouth 2 times a day as needed for pain. Refills: 0. naproxen (naproxen 500 mg Tab) 1 Tablets By Mouth 2 times a day. Take one tab by mouth two times a day. Refills: 0. pregabalin (Lyrica 300 mg oral capsule) 300 Milligram By Mouth Once. PATIENT EDUCATION INFORMATION: Instructions: Dental Abscess; Dental Pain Follow up: With: Address: When: [facility] [phone] In 3 days 10/01/2022 With: Address: When: [facility] [phone] In 3 days 10/01/2022 With: Address: When: Dental: [facility] [phone] In 3 days 10/01/2022 With: Address: When: Dental: [employer] [facility] [phone] In 3 days 10/01/2022 With: Address: When: Dental: [facility] [phone] In 3 days 10/01/2022 With: Address: When: [employer] [facility] [address] [place] [address] Business (1) In 3 days 10/01/2022 With: Address: When: JEOVANNY GRIFFIN [address] [place] [address] [place] [address] Business (1) In 3 days DIAGNOSIS: Dental abscess Normal [facility] ED Patient Education Noteon 09-28-2022 ED Patient Education Note Dentistry Dental Abscess A dental abscess is an infection around a tooth that may involve pain, swelling, and a collection of pus, as well as other symptoms. Treatment is important to help with symptoms and to prevent the infection from spreading. The general types of dental abscesses are: ? Pulpal abscess. This abscess may form from the inner part of the tooth (pulp). ? Periodontal abscess. This abscess may form from the gum. What are the causes? This condition is caused by a bacterial infection in or around the tooth. It may result from: ? Severe tooth decay (cavities). ? Trauma to the tooth, such as a broken or chipped tooth. What increases the risk? This condition is more likely to develop in males. It is also more likely to develop in people who: ? Have cavities. ? Have severe gum disease. ? Eat sugary snacks between meals. ? Use tobacco products. ? Have diabetes. ? Have a weakened disease-fighting system (immune system). ? Do not brush and care for their teeth regularly. What are the signs or symptoms? Mild symptoms of this condition include: ? Tenderness. ? Bad breath. ? Fever. ? A bitter taste in the mouth. ? Pain in and around the infected tooth. Moderate symptoms of this condition include: ? Swollen neck glands. ? Chills. ? Pus drainage. ? Swelling and redness around the infected tooth, in the mouth, or in the face. ? Severe pain in and around the infected tooth. Severe symptoms of this condition include: ? Difficulty swallowing. ? Difficulty opening the mouth. ? Nausea. ? Vomiting. How is this diagnosed? This condition is diagnosed based on: ? Your symptoms and your medical and dental history. ? An examination of the infected tooth. During the exam, your dental care provider may tap on the infected tooth. You may also need to have X-rays taken of the affected area. How is this treated? This condition is treated by getting rid of the infection. This may be done with: ? Antibiotic medicines. These may be used in certain situations. ? Antibacterial mouth rinse. ? Incision and drainage. This procedure is done by making an incision in the abscess to drain out the pus. Removing pus is the first priority in treating an abscess. ? A root canal. This may be performed to save the tooth. Your dental care provider accesses the visible part of your tooth (crown) with a drill and removes any infected pulp. Then the space is filled and sealed off. ? Tooth extraction. The tooth is pulled out if it cannot be saved by other treatment. You may also receive treatment for pain, such as: ? Acetaminophen or NSAIDs. ? Gels that contain a numbing medicine. ? An injection to block the pain near your nerve. Follow these instructions at home: Medicines ? Take fpbc-cjv-tjhukzk and prescription medicines only as told by your dental care provider. ? If you were prescribed an antibiotic, take it as told by your dental care provider. Do not stop taking the antibiotic even if you start to feel better. ? If you were prescribed a gel that contains a numbing medicine, use it exactly as told in the directions. Do not use these gels for children who are younger than 2 years of age. ? Use an antibacterial mouth rinse as told by your dental care provider. General instructions ? Gargle with a mixture of salt and water 3?4 times a day or as needed. To make salt water, completely dissolve ??1 tsp (3?6 g) of salt in 1 cup (237 mL) of warm water. ? Eat a soft diet while your abscess is healing. ? Drink enough fluid to keep your urine pale yellow. ? Do not apply heat to the outside of your mouth. ? Do not use any products that contain nicotine or tobacco. These products include cigarettes, chewing tobacco, and vaping devices, such as e-cigarettes. If you need help quitting, ask your dental care provider. ? Keep all follow-up visits. This is important. How is this prevented? ? Excellent dental home care, which includes brushing your teeth every morning and night with fluoride toothpaste. Floss one time each day. ? Get regularly scheduled dental cleanings. ? Consider having a dental sealant applied on teeth that have deep grooves to prevent cavities. ? Drink fluoridated water regularly. This includes most tap water. Check the label on bottled water to see if it contains fluoride. ? Reduce or eliminate sugary drinks. ? Eat healthy meals and snacks. ? Wear a mouth guard or face shield to protect your teeth while playing sports. Contact a health care provider if: ? Your pain is worse and is not helped by medicine. ? You have swelling. ? You see pus around the tooth. ? You have a fever or chills. Get help right away if: ? Your symptoms suddenly get worse. ? You have a very bad headache. ? You have problems breathing or swallowing. ? You have trouble opening your mouth. ? (more content not included)... Normal [facility] ED Patient Summaryon 023 ED Patient Summary [place] [id number] Patient Discharge Instructions Person Information Name: MERY RILEY Age: 41 Years Arrival Date: 09/28/2022 14:26:32 Discharge Diagnosis: Dental abscess Primary Care Physician: JEOVANNY GRIFFIN MD Provider Information Primary Provider: Advanced Surveillance Sensor Officer:Eldon Jovel PA-C The exam and treatment you received in the Emergency Department were for an urgent problem and are not intended as complete care. It is important that you follow up with a doctor, nurse practitioner, or physician?s quality assistant for ongoing care. If your symptoms become worse or you do not improve as expected and you are unable to reach your usual health care provider, you should return to the Emergency Department. We are available 24 hours a day. MERY RILEY has been given the following list of patient education materials, prescriptions and follow-up instructions: Follow-up Instructions: With: Address: When: [facility] [phone] In 3 days 10/01/2022 With: Address: When: [facility] [phone] In 3 days 10/01/2022 With: Address: When: Dental: [facility] [phone] In 3 days 10/01/2022 With: Address: When: Dental: [facility] [phone] In 3 days 10/01/2022 With: Address: When: Dental: [facility] [phone] In 3 days 10/01/2022 With: Address: When: [employer] [facility] [address] [place] [address] Business (1) In 3 days 10/01/2022 With: Address: When: JEOVANNY GRIFFIN [address] [place] [phone] Business (1) In 3 days In the event that this physician does not participate in your insurance network, please consult with your insurance company to find a nearby participating provider. Patient Education Materials: Dental Abscess; Dental Pain A MESSAGE TO ALL PATIENTS REGARDING OPIOIDS PRESCRIPTION OPIOIDS: WHAT YOU NEED TO KNOW Prescription opioids can be used to help relieve qgqtzntw-vm-menjre pain and are often prescribed following a surgery or injury, or for certain health conditions. These medications can be an important part of the treatment but also come with serious risks. It is important to work with your healthcare provider to make sure you are getting the safest, most effective care. WHAT ARE THE RISKS AND SIDE EFFECTS OF OPIOID USE? Prescription opioids carry serious risks of addiction and overdose, especially with prolonged use. An opioid overdose, often marked by slowed breathing, can cause sudden . The use of prescription opioids can have a number of side effects as well, even when taken as directed: ? Tolerance?meaning you might need to take more of the medication for the same pain relief ? Physical dependence?meaning you have symptoms of withdrawal when a medication is stopped ? Increased sensitivity to pain ? Constipation ? Nausea, vomiting, and dry mouth ? Sleepiness and dizziness ? Confusion ? Depression ? Low levels of testosterone that can result in lower sex drive, energy, and strength ? Itching and sweating RISKS ARE GREATER WITH: ? History of drug misuse, substance use disorder, or overdose ? Mental health conditions (such as depression or anxiety) ? Sleep apnea ? Older age (65 years and older) ? Avoid alcohol while taking prescription opioids. Also, unless specifically advised by your health care provider, medications to avoid include: ? Benzodiazepines (such as Xanax or Valium) ? Muscle relaxants (such as Soma or Flexeril) ? Hypnotics (such as Ambien or Lunesta) ? Other prescription opioids KNOW YOUR OPTIONS Talk to your health care provider about ways to manage your pain that don?t involve prescription opioids. Some of these options may actually work better and have fewer risks and side effects. Options may include: ? Pain relievers such as acetaminophen, ibuprofen, and naproxen ? Some medication that are also used for depression or seizures ? Physical therapy and exercise ? Cognitive behavioral therapy, a psychological, goal-directed approach, in which patients learn how to modify physical, behavioral, and emotional triggers of pain and stress. IF YOU ARE PRESCRIBED OPIOIDS FOR PAIN: ? Never take opioids in greater amounts or more often than prescribed. ? Follow up with your primary health care provider. o Work together to create a plan on how to manage your pain. o Talk about ways to help manage your pain that don?t involve prescription opioids. o Talk about any and all concerns and side effects. ? Help prevent misuse and abuse o Never sell or share prescription opioids. o Never use another person?s prescription opioids. ? Store prescription opioids in a secure place and out of reach of others (this may include visitors, children, friends, and family). ? Safel (more content not included)... [facility] Prescriptions/Work Noteson 0 09-28-2022 Prescriptions/Work Notes [id number]#1. [id number]:127 [facility] Pam 06-19-2022 LETYN Telephone (INTMIN) MERY RILEY ([id number]) 1980 F Date Time Provider Department 06/19/22 JIMMY PAUL During your visit today, we recorded the following information about you: Aileen Felix Pss 06/19/2022 12:48 PM Signed Patient received her lab results via [employer] and would like to go over them. Please advise. Rao Nieves RN 06/19/2022 1:48 PM Signed YOLANDA: 06/05/2022 NOV: 10/08/2022 Labs: 06/18/2022 Rao Nieves RN 06/24/2022 11:12 AM Signed Mcghee: [id number] For test strips Sent to Plan Allergies As of Date: 06/19/2022 Noted Allergy Reaction BIAXIN (CLARITHROMYCIN) 03/21/2009 Comments: shock ERYTHROMYCIN 03/21/2009 11 - Vomiting PENICILLINS 03/21/2009 Comments: shock SULFA (SULFONAMIDE ANTIBIOTICS) 03/21/2009 Comments: shock Date Reviewed: 06/05/2022 Reviewed by: Clark Ortiz Ma - Fully Assessed Reason for Visit: lab clarification [Other] Results [95] Prescriptions as of 06/24/2022 - blood sugar diagnostic (CONTOUR NEXT TEST STRIPS) test strip Use as instructed checks 4 x times daily, variable sugars and insulin pump use - insulin syr/ndl U100 half alex (BD INSULIN SYRINGE, HALF UNIT,) 0.3 mL 31 gauge x 5/16 syrg Use 4-6 times daily - insulin glargine (LANTUS) 100 unit/mL injection Inject 30 Units subcutaneously daily at bedtime. - insulin lispro (HUMALOG U-100 INSULIN) 100 unit/mL injection Uses 60 units daily via insulin pump - ARMOUR THYROID 60 mg Take 1 tablet by mouth once daily. - pregabalin (LYRICA) 300 mg capsule Take 1 capsule by mouth twice daily for 360 days. - FLUoxetine (PROZAC) 20 mg capsule - glucagon (GLUCAGON EMERGENCY KIT, HUMAN,) 1 mg solr Inject (1)one mg for insulin shock. - fexofenadine (KORIN) 180 mg tablet TAKE 1 TABLET BY MOUTH ONCE DAILY. - omeprazole (PRILOSEC) 20 mg capsule TAKE 1 CAPSULE BY MOUTH ONCE DAILY. - acetaminophen-codeine (TYLENOL-COD #3) 300-30 mg per tablet per Dr. Ramsey, inspection engineer - Subcutaneous Insulin Pump (PARADIGM INSULIN PUMP) misc BASAL Pattern 2 - 30.7 T basal q24 BOLUS Midnight?13 2PM?10 ISF Midnight?50 ??Goal 120-140 - ibuprofen (MOTRIN) 600 mg tablet Take 1 tablet by mouth every 8 hours as needed for Pain. - fluticasone (FLONASE) 50 mcg/actuation nasal spray Use 2 Sprays in each nostril once daily. - omeprazole (PRILOSEC) 20 mg capsule Take 1 capsule by mouth once daily. - hydroxychloroquine (PLAQUENIL) 200 mg tablet Take 1 tablet by mouth twice daily. except on Sundays, take one tablet (200mg) once daily - CRANBERRY EXTRACT (CRANBERRY CONCENTRATE ORAL) Take by mouth. - Cholecalciferol, Vitamin D3, 5,000 unit cap Take 1 capsule by mouth twice daily with meals. 10,000 int. units daily with a meal for 3 months, then 5000 int. units daily. - MULTIVITAMIN CAP Take one(1) capsule daily. Problem List As Of Date 06/19/2022 Noted Resolved Encounter for Long-Term (Current) Use of High-R*11/02/2009 Rheumatoid arthritis (HCC) [M06.9] 11/02/2009 Fibromyalgia syndrome [M79.7] 04/26/2010 Depression [F32.A] 04/26/2010 Tattoo [L81.8] 04/26/2010 Diabetes mellitus type 1 (HCC) [E10.9] 04/26/2010 Family history of thyroid disease [Z83.49] 04/26/2010 Unspecified vitamin D deficiency [E55.9] 04/26/2010 URI (upper respiratory infection) [J06.9] 02/04/2011 Carpal tunnel syndrome on both sides [G56.03] 04/17/2011 Hip fracture [S72.009A] 08/15/2011 11/26/2011 Post-operative state [Z98.890] 11/14/2011 Hip fracture, right, s/p surgical repair [S72.0*08/15/2011 Counseling NOS [Z71.9] 06/11/2012 Other specified acquired hypothyroidism [E03.8] 02/11/2013 Type 1 diabetes mellitus without retinopathy (H*02/28/2014 Long-term use of Plaquenil [Z79.899] 02/28/2014 Hyperopia with astigmatism - Both Eyes [H52.00,*02/28/2014 Acquired hypothyroidism [E03.9] 02/01/2015 Diabetes mellitus type 1, uncontrolled, without*04/10/2015 Hypoglycemia [E16.2] 04/05/2017 Insulin pump titration [Z46.81] 04/05/2017 Alcohol intoxication (HCC) [F10.929] 04/05/2017 Stress fracture of left foot [M84.375A] 04/05/2017 Diabetic autonomic neuropathy associated with t*12/22/2019 Encounter Status:Closed by JIMMY PAUL on 06/21/22 Normal [facility] ALBUMIN/CREAT RATIO RND URon 06-18-2022 Albumin DL <= 20 mg/L (U) [Mass/Vol] mg/dL Normal [facility] Comment on above: Order Comment: Speci men Type: URINE SPECIMENOrdering Facility: [facility] Address: [address] [place] [address] Performed By: #### U ACR ####[facility] LABCLIA [id number] [place] [address] [place] Albumin/Creatinine (U) [Mass ratio] <16 Normal <30 [facility] Comment on above: Order Comment: Speci men Type: URINE SPECIMENOrdering Facility: [facility] Address: [address] [place] [address] Result Comment: Adul t Male and Female Nephrotic Criteria: <30 mg/g is considered normal to mildly increased 30-300 mg/g is considered moderately increased >300 mg/g is considered severely increased KDIGO. (2013). KDIGO 2012 Clinical Practice Guideline for the Evaluation and Management of Chronic Kidney Disease. Official Journal of the International Society of Nephrology, 3(1), 1-150. Performed By: #### U ACR ####[facility] LABCLIA [id number] [place] [address] [place] Creatinine (U) [Mass/Vol] 75.0 mg/dL Normal 20.0-300.0 [facility] Comment on above: Order Comment: Speci men Type: URINE SPECIMENOrdering Facility: [facility] Address: [address] [address] Performed By: #### U ACR ####[facility] LABCLIA [id number] [facility] [id number] [address] [place] Basic metabolic 2000 panelon 06-18-2022 Anion gap [Moles/Vol] 8 mmol/L Low 9-18 [facility] Comment on above: Order Comment: Speci men Type: BLOOD SPECIMENOrdering Facility: [facility] Address: [address] [address] Performed By: #### 2 4321-2 ####[facility] LABCLIA [id number] [place] [address] Calcium [Mass/Vol] 9.3 mg/dL Normal 8.5-10.2 [facility] Comment on above: Order Comment: Speci men Type: BLOOD SPECIMENOrdering Facility: [facility] Address: [address] [address] Performed By: #### 2 4321-2 ####[facility] LABCLIA [id number] [place] [address] Chloride [Moles/Vol] 103 mmol/L Normal 97-105 [facility] Comment on above: Order Comment: Speci men Type: BLOOD SPECIMENOrdering Facility: [facility] Address: [address] [address] Performed By: #### 2 4321-2 ####[facility] LABCLIA [id number] [place] [address] CO2 [Moles/Vol] 31 mmol/L High 22-30 [facility] Comment on above: Order Comment: Speci men Type: BLOOD SPECIMENOrdering Facility: [facility] Address: [address] Performed By: #### 2 4321-2 ####[facility] LABCLIA [id number] [place] [address] Creatinine [Mass/Vol] 0.66 mg/dL Normal 0.58-0.96 [facility] Comment on above: Order Comment: Specconi barroso Type: BLOOD SPECIMENOrdering Facility: [facility] Address: [address] [place] [address] Performed By: #### 2 4321-2 ####[facility] LABCLIA [id number] [place] [address] ESTIMATED GLOMERULAR FILTRATION RATE 115 mL/min/1.73m??? Normal >=60 [facility] Comment on above: Order Comment: Erini men Type: BLOOD SPECIMENOrdering Facility: [facility] Address: [address] [place] [address] Result Comment: Gely mated Glomerular Filtration Rate (eGFR) is calculated using the 2020 CKD-EPI creatinine equation. This equation utilizes serum creatinine, sex, and age as parameters. The creatinine assay has traceable calibration to isotope dilution-mass spectrometry. Refer to KDIGO guidelines for clinical interpretation. In patients with unstable renal function, e.g. those with acute kidney injury, the eGFR may not accurately reflect actual GFR. Performed By: #### 2 4321-2 ####[facility] LABCLIA [id number] [place] [address] Glucose [Mass/Vol] 118 mg/dL High 74-99 [facility] Comment on above: Order Comment: Erini chio Type: BLOOD SPECIMENOrdering Facility: [facility] Address: [address] [place] [address] Result Comment: The [place] Diabetes Association (ADA) provides guidance for cutoff values for fasting glucose and random glucose. The ADA defines fasting as no caloric intake for at least 8 hours. Fasting plasma glucose results between 100 to 125 mg/dL indicate increased risk for diabetes (prediabetes). Fasting plasma glucose results greater than or equal to 126 mg/dL meet the criteria for diagnosis of diabetes. In the absence of unequivocal hyperglycemia, results should be confirmed by repeat testing. In a patient with classic symptoms of hyperglycemia or hyperglycemic crisis, random plasma glucose results greater than or equal to 200 mg/dL meet the criteria for diagnosis of diabetes. Reference: Standards of Medical Care in Diabetes 2016, Australian Diabetes Association. Diabetes Care. 2016.39(Suppl 1). Performed By: #### 2 4321-2 ####[facility] LABCLIA [id number] [place] [address] Potassium [Moles/Vol] 4.1 mmol/L Normal 3.7-5.1 [facility] Comment on above: Order Comment: Speci men Type: BLOOD SPECIMENOrdering Facility: [facility] Address: [address] [place] [address] Performed By: #### 2 4321-2 ####[facility] LABCLIA [id number] [place] [address] Sodium [Moles/Vol] 142 mmol/L Normal 136-144 [facility] Comment on above: Order Comment: Speci men Type: BLOOD SPECIMENOrdering Facility: [facility] Address: [address] [address] Performed By: #### 2 4321-2 ####[facility] LABCLIA [id number] [place] [address] Urea nitrogen [Mass/Vol] 7 mg/dL Normal 7-21 [facility] Comment on above: Order Comment: Speci men Type: BLOOD SPECIMENOrdering Facility: [facility] Address: [address] [address] Performed By: #### 2 4321-2 ####[facility] LABCLIA [id number] [place] [address] Lipid 1996 panelon 3 Cholesterol [Mass/Vol] 200 mg/dL High <200 [facility] Comment on above: Order Comment: Speci men Type: BLOOD SPECIMENOrdering Facility: [facility] Address: [address] [place] [address] Result Comment: <200 mg/dL, Desirable 200-239 mg/dL, Borderline high >239 mg/dL, High Performed By: #### 3 016-3, 3024-7 ####[facility] LABCLIA [id number] [place] [address] [place]#### [address]-3 ####[facility] LABCLIA [id number] [address] LABCLIA [id number] [place] [address] Cholesterol in HDL [Mass/Vol] 56 mg/dL Normal >39 [facility] Comment on above: Order Comment: Speci men Type: BLOOD SPECIMENOrdering Facility: [facility] Address: [address] [place] [address] Result Comment: 40-5 9 mg/dL, Acceptable >59 mg/dL, High: Negative risk factor for coronary heart disease <40 mg/dL, Low: Positive risk factor for coronary heart disease Performed By: #### 3 016-3, 3024-7 ####[facility] LABCLIA [id number] [address] [place]#### [address]-2 ####[facility] LABCLIA [id number] [address] LABCLIA [id number] [place] [address] Cholesterol in LDL [Mass/Vol] 119 mg/dL High <100 [facility] Comment on above: Order Comment: Speci men Type: BLOOD SPECIMENOrdering Facility: [facility] Address: [address] [place] [address] Result Comment: <100 mg/dL, Optimal 100-129 mg/dL, Near optimal/above optimal 130-159 mg/dL, Borderline high 160-189 mg/dL, High >189 mg/dL, Very high Secondary prevention optimal LDL Cholesterol levels are recommended to be < 70 mg/dL Performed By: #### 3 016-3, 3024-7 ####[facility] LABCLIA [id number] [address] [place]#### [address]-9 ####[facility] LABCLIA [id number] [address] LABCLIA [id number] [place] [address] Cholesterol in LDL/Cholesterol in HDL [Mass ratio] 2.13 {ratio} Normal <2.54 [facility] Comment on above: Order Comment: Speci men Type: BLOOD SPECIMENOrdering Facility: [facility] Address: [address] [place] [address] Result Comment: Refe rence: 1. National Cholesterol Education Program ATP III Guideline At-A-Glance Quick Desk Reference: National Heart, Lung, and Blood Allen. National Institutes of Health. 2001: NIH Publication No. 01-3305. 2. An International Atherosclerosis Society position paper: global recommendations for the management of dyslipidemia: executive summary, Atherosclerosis. 2014: 232(2):410-413. Performed By: #### 3 , 3023-08 ####[facility] LABCLIA [id number] [address]#### [address]-5 ####[facility] LABCLIA [id number] [address] LABCLIA [id number] [place] [address] Cholesterol in VLDL [Mass/Vol] 25 mg/dL Normal <30 [facility] Comment on above: Order Comment: Speci men Type: BLOOD SPECIMENOrdering Facility: [facility] Address: [address] [place] [address] Performed By: #### 3 016-3, 7 ####[facility] LABCLIA [id number] [address] [address] [place]#### [address]-8 ####[facility] LABCLIA [id number] [address] [address] [facility] LABCLIA [id number] [place] [address] Cholesterol non HDL [Mass/Vol] 144 mg/dL High <130 [facility] Comment on above: Order Comment: Speci men Type: BLOOD SPECIMENOrdering Facility: [facility] Address: [address] [id number] Result Comment: <130 mg/dL, Optimal 130-159 mg/dL, Near optimal/above optimal 160-189 mg/dL, Borderline high 190-219 mg/dL, High >219 mg/dL, Very high Secondary prevention optimal non HDL Cholesterol levels are recommended to be <100 mg/dL Performed By: #### 3 016-3, 7 ####[facility] LABCLIA [id number] [address] [place]#### [id number] ####[facility] LABCLIA [id number] [address] LABCLIA [id number] [place] [address] Cholesterol.total/Cho lesterol in HDL [Mass ratio] 3.57 {ratio} Normal <5.10 [facility] Comment on above: Order Comment: Speci men Type: BLOOD SPECIMENOrdering Facility: [facility] Address: [address] [place] [address] Performed By: #### 3 016-3, 7 ####[facility] LABCLIA [id number] [place] [address] [place]#### [id number] ####[facility] LABCLIA [id number] [address] [facility] LABCLIA [id number] [place] [address] FASTING TIME 12 hrs Normal [facility] Comment on above: Order Comment: Speci men Type: BLOOD SPECIMENOrdering Facility: [facility] Address: [address] [place], [place] [address] Performed By: #### 3 016-3, 3024-7 ####[facility] LABCLIA [id number] [place] [address] [place]#### [id number] ####[facility] LABCLIA [id number] [address] LABCLIA [id number] [place] [address] Triglyceride [Mass/Vol] 124 mg/dL Normal <150 [facility] Comment on above: Order Comment: Speci men Type: BLOOD SPECIMENOrdering Facility: [facility] Address: [address] [place] [address] Result Comment: <150 mg/dL, Normal 150-199 mg/dL, Borderline high 200-499 mg/dL, High >499 mg/dL, Very high Performed By: #### 3 016-3, 3024-7 ####[facility] LABCLIA [id number] [place] [address] [place]#### [id number] ####[facility] LABCLIA [id number] [address] LABCLIA [id number] [place] [id number] T4 Free SerPl-mCncon 06-18- 023 Free T4 [Mass/Vol] 1.3 ng/dL Normal 0.9-1.7 [facility] Comment on above: Order Comment: Speci men Type: BLOOD SPECIMENOrdering Facility: [facility] Address: [address] [place], [place] [id number] Performed By: #### 3 016-3, 3024-7 ####[facility] LABCLIA [id number] [place] [id number] [facility] OF [place]#### [id number] ####[facility] LABCLIA [id number] [address] [address] [facility] LABCLIA [id number] [place] [address] TSH SerPl-aCncon 06-18-2022 TSH Qn 1.760 m[IU]/L Normal 0.270-4.200 [facility] Comment on above: Order Comment: Speci men Type: BLOOD SPECIMENOrdering Facility: [facility] Address: [address] [place], [place] [id number] Result Comment: If t he patient is , TSH reference range varies by gestational period: First Trimester (weeks 9-12): 0.180-2.990 mIU/L Second Trimester: 0.110-3.980 mIU/L Third Trimester: 0.480-4.710 mIU/L Geovanny Upton et al. A Practical Approach for the Verifications and Determination of Site- and Trimester-Specific Reference Intervals for Thyroid Function tests in . Thyroid, 2019:29:3:412-420. Israel Degroot, et al. 2017 Guidelines of the [place] Thyroid Association for the Diagnosis and Management of Thyroid Disease during and the . Thyroid, 2017:27:3:315-389. Performed By: #### 3 016-3, 3024-7 ####[facility] LABCLIA [id number] [address] [address] [place]#### [address]-8 ####[facility] LABIA [id number] [address] [address] [facility] LABCLIA [id number] [place] [address] CNOVon 06-05-2022 CNOV Office Visit (ENDCMN ) MERY RILEY ([id number]) 1980 F Date Time Provider Department 06/05/22 1:00 PM JIMMY PAUL ENDN During your visit today, we recorded the following information about you: Pulse Blood pressure Weight 89/minute 137/68 68.7 kg Jimmy Paul MD 06/05/2022 1:28 PM Addendum Increase Lantus to 34 units, increase by 2 units if BG in AM is> 150 mg/dl. Thank you for choosing the [facility] Department of Endocrinology, Diabetes and Metabolism. Being able to provide excellent health care has allowed us to be # 3 in the country according to [employer]. Did you know that you need to call 48 hours in advance of your scheduled visit, if you are unable to make your appointment? [facility] thanks you for your commitment, because patients not showing to their appointment results in a lost opportunity for patients to receive world class health care at the [facility]. To Cancel an appointment, please choose one of the following: - Call the Appointment Call Center at [phone] - From [facility] [facility], Go to Appointments - Cancel Appts If cancelling, consider your need to reschedule to prevent further delays in your care. To Schedule an appointment, please choose one of the following: - Call the Appointment Call Center at [phone] - From [facility], Go to Appointments - Request an Appt Jimmy Paul MD 06/05/2022 4:20 PM Signed [facility] DIABETES CONSULTATION Referred by: Jeovanny Griffin II, MD CHIEF COMPLAINT T1 DM HISTORY OF PRESENT ILLNESS Age: [age] year old Diagnosed at age 9, using pump since age 11. A1c: 10.4 from June 05, 2022 DIABETES COMPLICATIONS: Microvascular: polyneuropathy Macrovascular : none Past Medical History: Hypothyrodism- has not been on medication for 2 years Depression Fibromyalgia Rheumatoid arthriitis- not on med controolled INTERVAL HISTORY: Had medtronic 770 G , stopped using in Nov 2021, due to insurance issue. Has not been able to get the supplies again. States she was told she needs to monitor her BG for 1 month to get the supplies , however she did not have BG testing strips. She switched her Humalog settings based on her pump settings, however has not been as well controlled as when she was on auto mode. She also reports h/o hypothyroidism in the past but has not been on thyroid meds for 2 years, does not know if she needs it. No symptoms. Has been losing weight. Current Medications: Lantus 30 units at bedtime Humalog approx TDD ~ 30 units. Correction: ISF Takes 1 unit for every 40 mg/dl of BG above 150 I: C 1: 10 Previous Medications: Insulin via medtronic pump Diet/Exercise: has not been eating much in last few months as she has been running high BG Blood Sugar Monitoring: contour next Hypoglycemia: no Diabetes Healthcare Maintenance Retinopathy: Due, last 2 years ago , no DR then Nephropathy: no Peripheral Neuropathy: yes Cardiovascular: no history of [place], stroke or PVD no History of foot ulcers: no Gastroparesis: no OTHER PERTINENT COMORBIDITIES Hypertension: not on meds, controlled usually Dyslipidemia: not on statin REVIEW OF SYSTEMS: Review of Systems Constitutional: Negative for fatigue, night sweats and recent unintentional weight change. HENT: Negative for trouble swallowing, postnasal drip and thyroid pain (lower neck). Eyes: Negative for visual disturbance. Respiratory: Negative for difficulty breathing. Cardiovascular: Negative for chest pain, leg swelling and claudication. Gastrointestinal: Negative for heartburn, nausea, vomiting, abdominal pain, diarrhea and constipation. Genitourinary: Negative. Musculoskeletal: Negative. Skin: Negative for skin color change. Neurological: Negative for dizziness, headaches and numbness. Endo/Heme/Allergies: Negative. MEDICATIONS: Current Outpatient Medications on File Prior to Visit Medication Sig insulin lispro (HUMALOG U-100 INSULIN) 100 unit/mL injection Uses 60 units daily via insulin pump insulin glargine (LANTUS) 100 unit/mL injection Inject 30 Units subcutaneously daily at bedtime. insulin syr/ndl U100 half alex (BD INSULIN SYRINGE HALF UNIT) 0.3 mL 31 gauge x 5/16 syrg Use 4-6 times daily pregabalin (LYRICA) 300 mg capsule Take 1 capsule by mouth twice daily for 360 days. blood sugar diagnostic (CONTOUR NEXT TEST STRIPS) test strip Use as instructed checks 4 x times daily, variable sugars and insulin pump use glucagon (GLUCAGON EMERGENCY KIT, HUMAN,) 1 mg solr Inject (1)one mg for insulin shock. fexofenadine (KORIN) 180 mg tablet TAKE 1 TABLET BY MOUTH ONCE DAILY. acetaminophen-codeine (TYLENOL-COD #3) 300-30 mg per tablet per Dr. Ramsey, inspection engineer Subcutaneous Insulin Pump (PARADIGM INSULIN PUMP) misc BASAL Pattern 2 - 30.7 T ba (more content not included)... Normal [facility] HEMOGLOBIN A1C (POC)on 06-05 HbA1c (Bld) [Mass fraction] 10.4 % Abnormal 4.2 - 5.6 % [facility] MICRO OTHER TESTSOrdered By: Johnnie Lea on 05-12-2022 S. pyogenes Ag IA.rapid Ql (Throat) Negative (05/12/22 4:45 PM) Normal Negative [facility] Man Sero Coding Summaryon 11-02-2021 Coding Summary HTMLBase 64 GjrtrcteOSu1eUt+PGhlYW Q+KJ0IUHWaH60xmPIjjW1Y Y7xAKH3JHPMYCNXOZC2EPP 2luYF5HXutS5PehuAl ZtezgHCqUZ21PVs8AXH7jA hkOVdlmI9htQEwR2w8HtTq RU50lK41IPjrUWLyOkT4Sp ZpbjsgbWFy I6urMvZruTFyOed+PHRhYm xlIHdpZHRoPScxMDAlJyBz yUbzVS1uIu1kTUUjWJBecV xhcHNlOiBj m6thKDKkIZysRY9nwZwdL1 EmaNY7XBOhq2d7Fc82hVN+ QQDxCGH5qGwhHWjen970Py Lmo0krWGN0 zTNvCYoqNPD5L14vz3I6KN TxYKYnDVH3qXQ7uN3hqLnm wgxmE2AeiAMkEnI7GWP1mF GoxY4qvFcs pjcijK5hRpr+S20GRW9UGI PHEA3OZhw2W1NqYqdzzYH+ NN53SDBqJR07yEUvoDQti7 wwbYb2ZnRy LGYtQHF1rWrhILqad2XhIH YnP53lgAWec5O6SJSmmNhu sUJsJbVsgBP2mZ3iUWrwzb jtx5qiozpz Gkxtk3ftbn03zF85J61qOL cgXHGgTTG8DYMnNCTqnFbz rv2mpV1tLf1+AQtnh8ufx0 sirRp6WdKc LNDefaHteRtgYJB9k2RfNe 05O8FnhCoxu0TyHzn2lx35 aFYsu0Y1mUC6XXopPMYohY 0mJTatScQ6 GDTfEyKlgL72gPWpRVloKl 0hkBxwsZerFB8dPWYqqmmg GVIwlI3hOVMyvSUttSxyBP 4wNTBpbjtm l941CsNkXOC3WIVnqLHbL1 MukI6qWdAiFOHnMUKuQ6Sg iPWaBFidK885PBroNkI5FH BlkcTmH3Tf RWXhmZwiIyR2u4E4Ei1Nb5 OykofoYZI3AZooQZJ9GoH1 SgRqJhX9Y0PsLfi4DEAaeW efQY5qC9Oo ILEipaqbeybxnKH9KHTeCZ AawO39sHYrISijTx2ne9I9 g689DJHvKCIwtB19Oq7jyF ogMTBwdCBU fU0hvjbac0hrgrwnJcUeXB AcDKe4DFk3YIJafZwhNsTn QTS6BwU7ZAS0oMAdeA9gwO axnecanS2r Oyc+O54nxD7lIRP9QAO1ro jnCVVxdpRjFD08EF72M8Rc PjwvdGFibGU+PGRpdiBzdH feRX9pQnHw d8lqb4KmWJvjS9QsVGWgNT rjJpd6IMIjYEH0wQE9eB2m HKUcFIqyh6H7tWD9L3Xzdp Rihf9sy7io QDWoJIlnA71poJJdx9V1AR WpkYH0RJYuuSmhEwVscQ98 Oyc+EPJxvDbpi2UjOfbxr2 pxz4kqsEx4 RyUiVTNvwpGsvHgqEGO2r6 CrAz55D80pXPpgTQRuLLJn BFMyIGOauUomzv4zhY7pFr 8+PGNvbCB3 jPL1qN0rTOUbXrN7DDioS6 36MdWszRQtNvbwr4pzl4bf fIl4HxDzOEJkzuWfmLvgSO O2t7ZkQh96 M78zDVxpANOjCKPkBANzQC CqmJqcys8ygP0rAk9+PC9j v1eave07kK17xKY+PHRkIH Q5lHsxOWhm NABmcB2sQUbbGdI8HNLeGe FspH96iVZwKBjbIw8ujRyq cYmrZE7hLMPodkkcf724Ii Ari4nrYKSp fSGaQUoxNJG5S81vh7H4UK MnJMVcAQC7rHL5uX0fqDgq bjogbGVmdDsgdmVydGljYW psQOprN409 IHRvcDsnPlBhdGllbnQgTm DuHFt0A7RkLwu1XHDugNrm YR2pqHTrTNduVd3vhKldzC yzZS8xUGDl cgdpa128KgSzp9lbYIXcfX QnLPiwCRN8E95nk2V5OXHp MOUxAEF7zZK9vM3lmWhgae ogbGVmdDsg vbJfhEfuQOuwOSbhQ726IZ RvcDsnPkJpcnRoIERhdGU6 PO72UO32nNCgi8T4lJE0Y8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 [facility] UA Auto SS Nitrite Ql (U) Negative (09/25/21 9:00 PM) Normal Negative [facility] UA Auto SS pH (U) 6.0 *NA* (09/25/21 9:00 PM) Invalid Interpretation Code 5.0 - 9.0 [facility] UA Auto SS Protein (U) [Mass/Vol] Negative (09/25/21 9:00 PM) Normal Negative [facility] UA Auto SS Specific gravity (U) [Rel density] 1.025 *NA* (09/25/21 9:00 PM) Invalid Interpretation Code 1.005 - 1.030 [facility] UA Auto SS UA Spec Desc Clean Catch (09/25/21 9:00 PM) Normal [facility] UA Auto SS Urobilinogen Qn (U) [id number] {Erick'U}/dL Normal 0.0 - 1.0 EU/dL [facility] UA Auto SS WBC Auto Ql (U) 2+ *ABN* (09/25/21 9:00 PM) Invalid Interpretation Code Negative [facility] UA Auto SS WBC LM.HPF (Urine sed) [#/Area] /[HPF] Invalid Interpretation Code 0-5/HPF [facility] UA Auto SS Coding Summary.on 07-05-2020 Coding Summary. CD:[id number] Gh 0bWw+PGhlYWQ+PI7IRVTmC 80ggKNabS4RA0hSYX7WWJP IOGZZLS6GTP8jdEN7BNjnE 2VybiAv MicdhXSsTH95XDj7AXD3rJ qdZQjqqZ7scBIrS6b7MgBb XE43dN37WCztYZZzWiE8Ti ZpbjsgbWFy K6jtHsYepTUuVsn+PHRhYm xlIHdpZHRoPScxMDAlJyBz pXwtIO3eOx0tJOFsYGSmvW xhcHNlOiBj a0ifYNTyLXeiEX5evOctE8 KwaQG9NOZzm6d4Dq89bDA+ QNJoHYF9fXccQJary234Lk Ros5pcTCH7 eZIlDKetUTS3H79ry8L6YR YmALHoWUU5kDY5tP0yoPxz rielX8HloDLpAxP1DBB9lT JpgQ7jlVan uhvvkF8uUrm+G18MSS6XUO ZTLX4YLbr8B7UdJebkjGB+ PG48DDLwVO50wEXdaAGbf7 aatRd8YpXh GSUbVVL1dBvgIXolh1KnTM OcZ12fvIMbc4K1JRCncBtg cLTpDyZxuLL4gR5tKTfgdm sqo5nyqmcn Sfeym5bihp26pO76H49dRE twJJKfTXM9RQSpSHYghGuz ya8vvE3wWi1+MBkzp4ngd8 aqkUm4XcZr PJPpssPumGqsDFL2i1YoHw 16H1EmuOznm1ScUgh4tv17 vVBwq6B1vNX2WCmpFJZmbL 3fNRsyLaM0 PLAiYzUijJ31cGApPCgwNj 8piQwulOzdNY9hLXBmwjgt ZCCawI5uVTSqfEOhaNvoMB 4wNTBpbjtm a734TyNxNNX8UFJuzCNoY1 SjbG3wIjKqCCCaNUXqS1Nb kYRtVNpkR839YUtqGoK5AU EuyaFnS5Hy KGTxwEvwGcS8g7G3Nz2Qx0 UsymnoWAV5QXroOLF6ZnVr FlXcUbF2N3EbPqd5AIRanU piET0gZ8Ov CIAwtnayuuafsBZ6XSXcUW IvbH22fIAnPNspVn3lr7Q4 p068CABjOKEtyX26Qu4llV ogMTBwdCBU dG6ibheuf2dkeqjkUjVuVN YvQRe2ZYs9TFYvpLitHkKu AFW8NyT6EKD3hONbpL9zcE otjappxA6q Oyc+M67cbR7yISX9YSZ0mj szAEHywdLcQI00SL23L6Vg PjwvdGFibGU+PGRpdiBzdH gpXO6dGaEt s4mzz7BmGNiwQ2HmUNFrWE keWwd5BZJhTJR4dRF0nK0v GHSwMLosi4O1tBF9U1Wqei Fmej1ns7jr KUKfXZnoH94soDFzn7C1KO LgrEA8DZEdmVueLtZeyC61 Oyc+XXMqgRdcs8RuGtflc8 dkh2upyYi1 GsDgNUZmotPbvRytOTK2b4 SyIe01B23uPTavYDMbNQOr NJBdDRHiyAzfvx9bwR3nIh 8+PGNvbCB3 kSY6lR9gGGGoZwK2UZqcE1 61RfZuvEOoVgmmi2cfr8fs gTt9XoYnTVZzdaNmyHtyXI C6w6IwRl77 B54kZRqdPPBkQVVbRUFqCW EbwMisll6ymJ9hPp9+PC9j a7hksz02pB29aYC+PHRkIH M7sGutBJkt DFMazW0rAVlcVkU6VRGrGk MdpE73aDFlAYufWd7gfAie iGylRU7tHHYyoyfgh438To Paa4qqYAUj rAJrVSihBCJ5O75ut9W9JW TsLJJkCTP1zHH2fH2tdJfs bjogbGVmdDsgdmVydGljYW cdFClkW030 IHRvcDsnPlBhdGllbnQgTm NjRKi2E1IiAhk3PWWqmPaw YO7xhTZmEGlwKv8vaAbbxL umUZ8lLRXs lnwst757NvApu5zaOEFnnQ WpOVopJGP0W17ia1F5FEBp SHYcNKC8fDK5jV4hmKyedq ogbGVmdDsg baQppMcaNFypBYteA008EA RvcDsnPkJpcnRoIERhdGU6 BG28ZJ62rXKln5R7vUH0P2 BhZGRpbmct ttgziMD6DZAkLCHccW49Wz 5dsHenHe3pXTUaDUD8JEId eJXsN9NfeL4wTqFtIKOoGA KlA2NvjKVp FVnpO249OUrqKfH3DBDpxw ScL4BkFABnvHyvGaG6k5R8 Ms2CI9W0SO58UE15iYTcw1 L0qPO1U4Pd GQPgpybpnxrlmHY7CVJdGQ JnaK24Zr8esGivNq4pWUQu FLI1UZVmuWXvJ1RdeF9gYh AjMDAwMDAw L4ZdeQPjVEnzY697SVyuWj H3MQGcmqJtO3WuYZUgjSsy XwN9f0U8Fk0YJOy1LK61BX 89zOMsg4W6 nDD2O1YySWNaktzxzvwzgO Z4HUGxYIXuuK19Ue2hgQgs Xh2iIXUxGKI7UVIbhJUaK1 VxbR5cWdGm VHFfEKEtL8DvuNXdKTafV8 54PQakNjG2DJDpbvJvF3Wm KALblZshYuQ2i4V8Gw1EHQ EjZN05QVR9 wOF9OB56BL52C2OuFzyxsJ FibGU+PHRhYmxlIHdpZHRo FYabCSRrQfKwdEyjOH7dSi 9yZGVyLWNv fCiwyGVxPaVhf1bpASXtGQ uuLT2cgTwmR8LwhQS2SDGk y7q6Oc92O43hB3EugUI+PG RrpVC5tMU5 aL8jAlNkYsD3DLhcL095Nt TmcHUkRwdpv9wgn5helLm7 RwD0TAYmlaYvjRvzLCK3t1 LiYw55D03v IHdpZHRoPSIxNSUiIHZhbG bhoa3scQ2eXm5+PGNvbCB3 bKJ3zV6oVwKcSmH1IZyeV6 49InRvcCIv Itjxu9kqs5pukOm6UnSlWP BsclMwyLaiGWW2h6YfHu27 O7SyyGjaz8GfZdb8no02jG Mxo1K1tPI7 V2YvPRNjkqixyQNlkEtvMB 4bGYGyuqnlKWUroW8tUMSi A1m2RqLuXnT9JHilN5Ytnr G1RRPdrNRu EKhvNTD1C93fs8S9RHBdAY FgAMX7qZA6iI7peJbgvakc bGVmdDsgdmVydGljYWwtYW hdB959NHOp gGmxFFMhuD0gSRGssFLgnS umKD1qPBGymztgVtGMGNPJ D1AdWIQZMwTQDV84BA69zD Uqr8U9cRA1 C1VgHKIoznftamxtpFR2KZ QjSUGbrC14kVXsDCcsLt9i y7I2d599FCGtGLExdP41Wl 9udDogMTBw dJKCsX9fydkqd7ggsbtrFq TyRDPdJDq3SEm6RHAdzDyi KnTwAOZ2WgQ0ULC4rVPhcB 1hbGlnbjog qA3kHsh+KFlvQQVvFSi2Fz wvdGQ+ZFNqZAV0yQroKQbe MMYtjY2hATIhX1e6DiCdXg K1SOyoI2Zx ARCrwvdsHb78uT1sTfAvHh R8TLzxB3CbnjH0AKZwkNDw PXtoCUM3W64tk5H0NIHrJU BkHTO1aOK9 aQ7ooOnarardkTFkkMcpky QtgKelEBbdGNxaR714ATYd hNgyYfW4BIvoUUSkLT02AM 85qXRiu5Z9 oDW5J4GpDJKvkgbdzwspsP S0HJUjUWHypD42cYSnBPgl Nx2ne2I8m233YRCjNMDmlK 73Kl3cfYvb YXJjdFAYaE1yfaixx5zcbb cpCcLsOKEhQUs0FMq9UKUk bSqrTnWoKWN9LgL1PAS2gM WgpN3wsJum obpevH8jCua+RmVtYWxlPC 77CA15wBYhz6B3iUJ1X1Gz AUVmnztwficznVE8KZDpZO FzwN58xFWj EPgmQw1mc6P6f567BZYjKU QqaA04Sv2alTpsVGWhfKGK pJ7wupkda8rxityxSdZlJY JgKXg1BBv8 VAVgoFgwFnCdVML0VpH9DN X5kLIlzS9urZwhklsuhF8t Oyc+EG2fqxqunsY4FY57KN 18M4FvPltk dGFibGU+PHRhYmxlIHdpZH GgNYonSAYuZdGizVdoPU4z Rg2wKJGsIOBwoUogjFVvRt Iws5wbLHVz EUldXU0zaMqyZ7BltGK9KN Wue2q2Bv52N59mD3KpmPG+ RWJcoYV6oAZ3sJ6pXzWxOb J2YUufT613 VyRibJMvIsjdr2qzp9mkfS o2FpIsZGCcarFgeOsnWHC6 x1HuUc49U86wIIzuGJNmVH IyMCUiIHZh cUetri8oqY5tMy5+PGNvbC C1qKQ9nZ4iSrPlUtN2EBjg T033AyQbkFLhWgtqN93rA7 JvdXA+PHRy Vcp6ZTUuuJbaHR0hrDNjQV uxEr2mPSR4UxNqWqTmUUsz X2KgQNGfnorbbkiseQC6QL OjUVBfnG08 St4akWrrHg3xCXReFND7FK RjoGAhU2KdqH3vNjBhMSBx ZBRgB2LecFUiIHweQ498TL fwCvM6JXUz gcWiI0GhVUTtnDakBoS0p4 Q3Mb7TbLfnsHNyLC8cZvFb NFv3G2TlLks8WSEgyRynMY 0ncGFkZGlu Wy5gbAlbyWfvZW2fOFRtxm qvo296FmMel0fbDUGklQWt HLwmBXZ5B25cg4G6JNJjBH RuZAO4cMU8 gG1zeDsvtiimnXDpdJnmro KibSwzVPjfSBfhU985JVGc xPlxTmFMJug4R0KpGpl3CH AlfGntLD0u zEKzFSflQj9wiYzhtGhpXC 9mHWXijmhtb281OmZnr0qf KEIbuSFrMPmfMLG4Z18pg6 R7APAfISCa NDC7dWM7aD6ttVydzhfvuE VmdDsgdmVydGljYWwtYWxp N003LDNayZwgHk6SOhk8H3 OgYuu1QJFq hVjwNR7jmSEdSEqtVo7cuN tunEvfPI0zLSIddcuph810 HgGem4dsDQKlrCXlPYqhEG M7N48cb1C3 JIEfVJTrBDE4jIM1uC6xdL lnbjogbGVmdDsgdmVydGlj VHsvOOciP645LXLodQfvPu BheWVyOjwv dGQ+XZ37sg01X8YvViqcQt j5NWPgEDY1mOU8mA5rXWXh NDebl7H8rPQ5D6EzlrYzhk 3ca2kaXGUi ZTog (more content not included)... Normal [facility] Discharge Instructionson Discharge Instructions [id number] [facility] ED Clinical Summaryon 2020 ED Clinical Summary [address] [address] ED Clinical Summary Person Information Name: MERY RILEY/[facility] Age: 39 Years : 1980 Sex: Female Language: Nigerien PCP: JEOVANNY GRIFFIN MD Marital Status: Phone: [phone] Visit Id: Visit Reason: Knee pain-swelling; right knee pain Speciality: Acuity: 4 Enc Type: Emergency Med Service: Emergency Arrival: 07/04/2020 19:41:17 Discharge: 07/04/2020 22:32:29 LOS: 000 02:51 Checkin: 07/04/2020 19:41:17 Checkout: 07/04/2020 22:32:29 Dispo Type: Home (Routine DC) EVENTS: Event Name Event Status Request Date/Time Start Date/Time Complete Date/Time Arrive Complete 07/04/2020 19:41:17 07/04/2020 19:41:17 07/04/2020 19:41:17 Document Home Meds Request 07/04/2020 19:41:17 Triage Complete 07/04/2020 19:41:17 07/04/2020 20:16:37 07/04/2020 20:16:37 Bed Assign Complete 07/04/2020 20:08:34 07/04/2020 20:08:34 07/04/2020 20:08:34 Dr Exam Complete 07/04/2020 20:08:34 07/04/2020 20:09:36 07/04/2020 20:09:36 RN Exam Complete 07/04/2020 20:08:34 07/04/2020 20:23:07 07/04/2020 20:23:07 Registration Complete 07/04/2020 20:09:36 07/04/2020 21:17:45 07/04/2020 21:17:45 X-Ray Complete 07/04/2020 21:12:25 07/04/2020 21:21:28 07/04/2020 21:35:01 Meds Admin Complete 07/04/2020 21:12:25 07/04/2020 21:37:28 Reg Complete Request 07/04/2020 21:17:45 Reg Bed Request Complete 07/04/2020 21:17:45 07/04/2020 21:17:45 07/04/2020 21:17:45 Wet Read Request 07/04/2020 21:35:01 Patient Care Complete 07/04/2020 22:05:18 07/04/2020 22:13:24 Discharge Complete 07/04/2020 22:08:08 07/04/2020 22:32:34 07/04/2020 22:32:34 Transfer Complete 07/04/2020 22:32:34 07/04/2020 22:32:34 07/04/2020 22:32:34 ADDRESS: [address] [place] [address] [address] [facility] [phone] PHYS DOC NOTES: MEDICAL INFORMATION: Prescriptions Given: New Medications Printed Prescriptions naproxen (Naprosyn 500 mg Tab) 1 Tablets By Mouth 2 times a day as needed for pain. Refills: 0. PATIENT EDUCATION INFORMATION: Instructions: Knee Sprain Follow up: With: Address: When: JEOVANNY GRIFFIN [address] [place] [id number] Business (1) In 3 days 07/07/2020 DIAGNOSIS: Right knee sprain Normal [facility] ED Note-Physicianon 07-06-19 ED Note-Physician Basic Information Time Seen: Beto Ball PA-C 07/04/2020 20:09 Chief Complaint pt to ED with c/o R knee pain after her dog knocked her over. no deformity noted. no bruising or swelling per pt. History of Present Illness 39-year-old female presents to the emergency room for evaluation of a right knee injury. The patient states that her leg bent back awkwardly and hyperextended after her large over 100 pound dog hit her in the knee. The patient states she has had pain ever since. The patient has no numbness or tingling. She has a lot of pain with weightbearing. She has no other acute concerns. Review of Systems All Organ systems are reviewed. Pertinent positive and negative findings as mentioned in the HPI Physical Exam Vitals & Measurements T: 36.9 ?C (Oral) HR: 92(Peripheral) RR: 16 BP: 121/76 SpO2: 97% HT: 165 cm HT: 165.0 cm WT: 75.3 kg WT: 75.3 kg BMI: 27.66 Vital signs reviewed and nurse's notes. The patient is not hypoxic. General: Alert, no acute distress, patient resting comfortably Skin: warm, intact, no pallor noted Head: Normocephalic, atraumatic Eye: Normal conjunctiva Respiratory: No acute distress Musculoskeletal: No evidence of deformity to the R knee. There is a minimal amount of swelling. There is no ecchymosis. No erythema or warmth noted. DP and PT pulses are intact 2+. Normal sensation, normal capillary refill less than 2 seconds. There is no cyanosis or mottling noted. The patient has tenderness to bilateral lateral and medial aspect of the right knee. The patient has no laxity with varus or valgus stressing. The patient has negative anterior drawer and Joana testing. The patient was able to flex and extend although with pain. Patient was able to extend leg off the cart without difficulty. No tenderness noted to the 5th MT, midfoot, ankle or proximal fibular area. There is no pain with calcaneal squeeze, achilles tendon is intact and no defect is palpated. The patient has no pelvic instability. The patient has no shortening or rotation noted to the bilateral lower extremities. Neurological: alert and orient x4, normal sensory and motor observed. Psychiatric: Cooperative Medical Decision Making Negative x-rays here on visit to the emergency room read by physician quality assistant. Patient placed in Guevara wrap and fitted with crutches. She will ice and elevate, take meds as prescribed and follow-up with primary care as needed. Patient understands the results and has no questions about the results or treatment plan. Assessment/Plan Right knee sprain (S83.91XA: Sprain of unspecified site of right knee, initial encounter) Orders: acetaminophen-oxycodon e, 1 tab(s), Tab, Oral, Once, Stop date 07/04/20 21:10:00 EDT, STAT, Start date 07/04/20 21:10:00 EDT naproxen, 500 mg = 1 tab(s), Oral, BID, PRN for pain, # 20 tab(s), Refills(s) 0 Crutches XR Knee Complete 4+ Views Right Medications Administered Given Percocet 325 mg-5 mg Tab, 1 tab(s), Oral Disposition Plan Patient Discharge Condition Stable Discharge Disposition Discharged home. Discharge Prescription List Prescriptions Naprosyn 500 mg Tab, 500 mg= 1 tab(s), Oral, BID, PRN Follow-up With When Contact Information JEOVANNY GRIFFIN In 3 days 07/07/2020 EDT [address] [place] [address]- Business (1) Additional Instructions: Patient Education Knee Sprain Attestation The patient's care was supervised by Dr. Rasheed including history, physical, medical decision making, and disposition. Teaching-Supervisory Addendum-Brief I participated in the following activities of this patients care: the medical history. I personally performed: supervision of the patient's care, the medical history, the physical exam, the medical decision making. The case was discussed with: the physician quality assistant, Beto Ball PA-C. Evaluation and management service: I agree with the evaluation and management decisions made in this patient's care. Results interpretation: I agree with the study interpretation in this patient's care, I agree with the documentation of the study interpretation. Problem List/Past Medical History Ongoing Smoker Historical No qualifying data Medications Inpatient No active inpatient medications Home Naprosyn 500 mg Tab, 500 mg= 1 tab(s), Oral, BID, PRN Allergies erythromycin (Unknown) penicillins (Unknown) sulfa drugs (Unknown) Social History Alcohol - Denies Alcohol Use, 07/04/2020 Substance Abuse - Denies Substance Abuse, 07/04/2020 Tobacco 10 or more cigarettes (1/2 pack or more)/day in last 30 days Tobacco Use:. Cigarettes, 07/04/2020 Lab Results No qualifying data available. Diagnostic Results No qualifying data available. Normal [facility] Comment on above: Result Comment: Elec tronically Signed By: Lizzy LOERA, Beto Pierre\.br\Date and Time Signed: 07/04/20 23:10 EDT\.br\Electronically Co-Signed By: Kathya JAMES, Jerry\.br\Date and Time Co-Signed: 07/05/20 02:49 EDT ED Patient Education Noteon 07-05-2020 ED Patient Education Note Knee Sprain A knee sprain is a tear in one of the strong, fibrous tissues that connect the bones (ligaments) in your knee. The severity of the sprain depends on how much of the ligament is torn. The tear can be either partial or complete. CAUSES Often, sprains are a result of a fall or injury. The force of the impact causes the fibers of your ligament to stretch too much. This excess tension causes the fibers of your ligament to tear. SIGNS AND SYMPTOMS You may have some loss of motion in your knee. Other symptoms include: ? Bruising. ? Pain in the knee area. ? Tenderness of the knee to the touch. ? Swelling. DIAGNOSIS To diagnose a knee sprain, your health care provider will physically examine your knee. Your health care provider may also suggest an X-ray exam of your knee to make sure no bones are broken. TREATMENT If your ligament is only partially torn, treatment usually involves keeping the knee in a fixed position (immobilization) or bracing your knee for activities that require movement for several weeks. To do this, your health care provider will apply a bandage, cast, or splint to keep your knee from moving and to support your knee during movement until it heals. For a partially torn ligament, the healing process usually takes 4?6 weeks. If your ligament is completely torn, depending on which ligament it is, you may need surgery to reconnect the ligament to the bone or reconstruct it. After surgery, a cast or splint may be applied and will need to stay on your knee for 4?6 weeks while your ligament heals. HOME CARE INSTRUCTIONS ? Keep your injured knee elevated to decrease swelling. ? To ease pain and swelling, apply ice to the injured area: ? Put ice in a plastic bag. ? Place a towel between your skin and the bag. ? Leave the ice on for 20 minutes, 2?3 times a day. ? Only take medicine for pain as directed by your health care provider. ? Do not leave your knee unprotected until pain and stiffness go away (usually 4?6 weeks). ? If you have a cast or splint, do not allow it to get wet. If you have been instructed not to remove it, cover it with a plastic bag when you shower or bathe. Do not swim. ? Your health care provider may suggest exercises for you to do during your recovery to prevent or limit permanent weakness and stiffness. SEEK IMMEDIATE MEDICAL CARE IF: ? Your cast or splint becomes damaged. ? Your pain becomes worse. ? You have significant pain, swelling, or numbness below the cast or splint. MAKE SURE YOU: ? Understand these instructions. ? Will watch your condition. ? Will get help right away if you are not doing well or get worse. Document Released: 02/10/2006 Document Revised: 12/01/2013 Document Reviewed: 09/22/2013 ExitCare? Patient Information ?2015 [employer]. This information is not intended to replace advice given to you by your health care provider. Make sure you discuss any questions you have with your health care provider. Normal [facility] ED Patient Summaryon 021 ED Patient Summary [address] [address] Patient Discharge Instructions Person Information Name: MERY RILEY Age: 39 Years Arrival Date: 07/04/2020 19:41:17 Discharge Diagnosis: Right knee sprain Primary Care Physician: JEOVANNY GRIFFIN MD Provider Information Primary Provider: Advanced Surveillance Sensor Officer:Beto Ball PA-C The exam and treatment you received in the Emergency Department were for an urgent problem and are not intended as complete care. It is important that you follow up with a doctor, nurse practitioner, or physician?s quality assistant for ongoing care. If your symptoms become worse or you do not improve as expected and you are unable to reach your usual health care provider, you should return to the Emergency Department. We are available 24 hours a day. MERY RILEY has been given the following list of patient education materials, prescriptions and follow-up instructions: Follow-up Instructions: With: Address: When: JEOVANNY GRIFFIN [address] [place] [id number] Business (1) In 3 days 07/07/2020 In the event that this physician does not participate in your insurance network, please consult with your insurance company to find a nearby participating provider. Patient Education Materials: Knee Sprain A MESSAGE TO ALL PATIENTS REGARDING OPIOIDS PRESCRIPTION OPIOIDS: WHAT YOU NEED TO KNOW Prescription opioids can be used to help relieve ichpuvcz-nx-egwnol pain and are often prescribed following a surgery or injury, or for certain health conditions. These medications can be an important part of the treatment but also come with serious risks. It is important to work with your healthcare provider to make sure you are getting the safest, most effective care. WHAT ARE THE RISKS AND SIDE EFFECTS OF OPIOID USE? Prescription opioids carry serious risks of addiction and overdose, especially with prolonged use. An opioid overdose, often marked by slowed breathing, can cause sudden . The use of prescription opioids can have a number of side effects as well, even when taken as directed: ? Tolerance?meaning you might need to take more of the medication for the same pain relief ? Physical dependence?meaning you have symptoms of withdrawal when a medication is stopped ? Increased sensitivity to pain ? Constipation ? Nausea, vomiting, and dry mouth ? Sleepiness and dizziness ? Confusion ? Depression ? Low levels of testosterone that can result in lower sex drive, energy, and strength ? Itching and sweating RISKS ARE GREATER WITH: ? History of drug misuse, substance use disorder, or overdose ? Mental health conditions (such as depression or anxiety) ? Sleep apnea ? Older age (65 years and older) ? Avoid alcohol while taking prescription opioids. Also, unless specifically advised by your health care provider, medications to avoid include: ? Benzodiazepines (such as Xanax or Valium) ? Muscle relaxants (such as Soma or Flexeril) ? Hypnotics (such as Ambien or Lunesta) ? Other prescription opioids KNOW YOUR OPTIONS Talk to your health care provider about ways to manage your pain that don?t involve prescription opioids. Some of these options may actually work better and have fewer risks and side effects. Options may include: ? Pain relievers such as acetaminophen, ibuprofen, and naproxen ? Some medication that are also used for depression or seizures ? Physical therapy and exercise ? Cognitive behavioral therapy, a psychological, goal-directed approach, in which patients learn how to modify physical, behavioral, and emotional triggers of pain and stress. IF YOU ARE PRESCRIBED OPIOIDS FOR PAIN: ? Never take opioids in greater amounts or more often than prescribed. ? Follow up with your primary health care provider. o Work together to create a plan on how to manage your pain. o Talk about ways to help manage your pain that don?t involve prescription opioids. o Talk about any and all concerns and side effects. ? Help prevent misuse and abuse o Never sell or share prescription opioids. o Never use another person?s prescription opioids. ? Store prescription opioids in a secure place and out of reach of others (this may include visitors, children, friends, and family). ? Safely dispose of unused prescription opioids: Find your community drug take-back program or your pharmacy mail-back program, or flush them down the toilet, following guidance from the Food and Drug Administration (www.fda.gov/Drugs/Res ourcesForYou). ? Visit www.cdc.gov/drugoverdo se to learn about the risks of opioids abuse and overdose. ? If you believe you may be struggling with addiction, tell your health acute care registered nurse and ask for guidance or call SAMHSA?S National Helpline at 7-340-273-UMDG. v Source: [place] Department of Health and Human Services/Attend.com (more content not included)... Normal [facility] XR Knee Complete 4+ Views Kyle chinchilla 07-05-2020 XR Knee Complete 4+ Views Right Exam Date/Time: 07/04/2020 21:35 EDT Reason for Exam: Pain, Traumatic Report IMPRESSION: NEGATIVE RIGHT KNEE. CLINICAL HISTORY: Pain, Traumatic. Right knee pain. COMMENT: 4 views. The bones of the right knee appear normal without evidence of fracture or dislocation. Of incidental note, there are linear growth arrest lines in the proximal tibia, of no current clinical significance. FINAL REPORT Dictated: 07/05/2020 10:45 am Sin Jasmine M.D. Signed (Electronic Signature): 07/05/2020 10:45 am Signed by: Sin Jasmine M.D. Transcribed by: NIMCO Technologist: DILLON Normal [facility] Consent for Treatmenton 06-24 Consent for Treatment [id number] [id number] 0CD:[id number] [facility] CBC AUTO DIFFon 02-21-2020 Basophils (Bld) [#/Vol] 0.1 103/ul Normal 0.0-0.1 [facility] Comment on above: Performed By: #### C BC ####[facility] [address] [place], [place] [address]Pnztji [place] Basophils/100 WBC (Bld) 0.9 % Normal 0.2-2.0 [facility] Comment on above: Performed By: #### C BC ####[facility] [address] [place], [place] [address]Xbelno [place] Eosinophils (Bld) [#/Vol] 0.1 103/ul Normal 0.0-0.7 [facility] Comment on above: Performed By: #### C BC ####[facility] [address] [place], [place] [address]Txgjpx [place] Eosinophils/100 WBC (Bld) 1.3 % Normal 0.9-7.0 [facility] Comment on above: Performed By: #### C BC ####[facility] [address] [place], [place] [address]Cfmhzy [place] Erythrocyte distribution width (RBC) [Ratio] 12.5 % Normal 11.0-15.0 [facility] Comment on above: Performed By: #### C BC ####[facility] [address] [place], [place] [address]Kusvph [place] Hematocrit (Bld) [Volume fraction] 42.6 % Normal 36.0-48.0 [facility] Comment on above: Performed By: #### C BC ####[facility] [address] [place] [id number] [place] Hemoglobin (Bld) [Mass/Vol] 14.1 g/dL Normal 12.0-16.0 [facility] Comment on above: Performed By: #### C BC ####[facility] [address] [place] IG # 0.03 10e3/ul Normal 0.00-0.03 [facility] Comment on above: Performed By: #### C BC ####[facility] [address] [place] [address] [place] IG % 0.3 % Normal 0.0-0.5 [facility] Comment on above: Performed By: #### C BC ####[facility] [address] [place] [address] [place] Lymphocytes (Bld) [#/Vol] 1.4 103/ul Normal 1.2-3.8 [facility] Comment on above: Performed By: #### C BC ####[facility] [address] [place] [address] [place] Lymphocytes/100 WBC (Bld) 14.8 % Critically low 20.5-60.0 [facility] Comment on above: Performed By: #### C BC ####[facility] [address] [place] [address] [place] MANUAL DIFF REQ NO Normal [facility] Comment on above: Performed By: #### C BC ####[facility] [address] [place] [id number] [place] MCH (RBC) [Entitic mass] 32.0 pg Normal 26.7-34.0 [facility] Comment on above: Performed By: #### C BC ####[facility] [address] [place] [address] [place] MCHC (RBC) [Mass/Vol] 33.1 g/dL Normal 29.9-35.2 [facility] Comment on above: Performed By: #### C BC ####[facility] [address] [place], [place] [address]Lsifwp [place] MCV (RBC) [Entitic vol] 96.8 fL Normal 81.0-99.0 [facility] Comment on above: Performed By: #### C BC ####[facility] [address] [place], [place] [address]Ojuqeo [place] Monocytes (Bld) [#/Vol] 0.7 103/ul Normal 0.3-0.8 [facility] Comment on above: Performed By: #### C BC ####[facility] [address] [place], [place] [address]Xmckar [place] Monocytes/100 WBC (Bld) 6.8 % Normal 1.7-12.0 [facility] Comment on above: Performed By: #### C BC ####[facility] [address] [place], [place] [address]Boalyu [place] Neutrophils (Bld) [#/Vol] 7.2 103/ul Critically high 1.4-6.5 [facility] Comment on above: Performed By: #### C BC ####[facility] [address] [place] [address]Mldzts [place] Neutrophils/100 WBC (Bld) 75.9 % Critically high 43.0-75.0 [facility] Comment on above: Performed By: #### C BC ####[facility] [address] [place], [place] [address]Xzwmgd [place] Platelet mean volume (Bld) [Entitic vol] 10.6 fL Normal 9.5-13.5 [facility] Comment on above: Performed By: #### C BC ####[facility] [address] [place], [place] [address]Pjwlhu [place] Platelets (Bld) [#/Vol] 251 103/ul Normal 150-450 [facility] Comment on above: Performed By: #### C BC ####[facility] [address] [place], [place] [address]Awddos [place] RBC (Bld) [#/Vol] 4.40 106/ul Normal 4.20-5.[address] [facility] Comment on above: Performed By: #### C BC ####[facility] [address] [place], [place] [address]AjwdxhDwayne Koenig WBC (Bld) [#/Vol] 9.5 103/ul Normal 4.0-11.0 [facility] Comment on above: Performed By: #### C BC ####[facility] [address] [place], [place] [address]Uqbvmd Karen FREE T4on 02-21-2020 Free T4 [Mass/Vol] 0.91 ng/dL Normal 0.78-2.[address] [facility] Comment on above: Performed By: #### F T4 #### [facility] [address] [place] [id number] Dwayne Koenig PREG QUANT HCGon 02-21-2020 HCG QUANT <1.00 Normal [facility] Comment on above: Performed By: #### T YONI, PREGQNT #### [facility] [address] [place] [id number] Dwayne Koenig HCG RANGE SEE BELOW Normal [facility] Comment on above: Result Comment: 5-50 0-1 WEEK 40-300 1-2 WEEKS 100-1,000 2-3 WEEKS 500-6,000 3-4 WEEKS 5,000-200,000 1-2 MONTHS 10,000-100,000 2-3 MONTHS 3,000-50,000 2ND TRIMESTER 1,000-50,000 3RD TRIMESTER Performed By: #### T SH, PREGQNT #### [facility] [address] [place] [id number] Dwayne Koenig TSHon 02-21-2020 TSH Qn 1.221 uIU/mL Normal 0.470-4.680 [facility] Comment on above: Performed By: #### T YONI, PREGQNT #### [facility] [address] [place] [id number] D[place] TSH Qn SEE BELOW Normal [facility] Comment on above: Result Comment: <0.3 4 UIU/ml HYPERTHYROID 0.34-5.60 UIU/ml EUTHYROID >5.60 UIU/ml HYPOTHYROID Performed By: #### T SH, PREGQNT #### [facility] [address] [place] [address] D[place] UA RANDOM W/MICROSCOPICon Bacteria LM.HPF (Urine sed) [#/Area] TRACE Abnormal NONE SEEN [facility] Comment on above: Performed By: #### U AMIC #### [facility] [address] [place] [address] D[place] Bilirubin [Mass/Vol] Negative Normal NEGATIVE [facility] Comment on above: Performed By: #### U AMIC #### [facility] [address] [place] [address] [place] BLOOD Negative Normal NEGATIVE [facility] Comment on above: Performed By: #### U AMIC #### [facility] [address] [place] [address] [place] CAST NONE SEEN Normal NONE SEEN [facility] Comment on above: Performed By: #### U AMIC #### [facility] [address] [place] [address] [place] Clarity (U) CLEAR Normal CLEAR [facility] Comment on above: Performed By: #### U AMIC #### [facility] [address] [place] [address] [place] Color (U) LT. YELLOW Normal YELLOW [facility] Comment on above: Performed By: #### U AMIC #### [facility] [address] [place] [address] D[place] Crystals LM Nom (Urine sed) NONE SEEN Normal NONE SEEN [facility] Comment on above: Performed By: #### U AMIC #### [facility] [address] [place], [place] [id number] D[place]ne [place] Epithelial cells LM.HPF (Urine sed) [#/Area] RARE Normal NONE SEEN /RARE [facility] Comment on above: Performed By: #### U AMIC #### [facility] [address] [place] [address] Dwayne [place] Glucose [Mass/Vol] >1000 Abnormal NEGATIVE [facility] Comment on above: Performed By: #### U AMIC #### [facility] [address] [place] [id number] Dwayne [place] Ketones Ql (U) Negative Normal NEGATIVE [facility] Comment on above: Performed By: #### U AMIC #### [facility] [address] [place], [place] [id number] Dwayne [place] MUCOUS NONE SEEN Normal NONE SEEN [facility] Comment on above: Performed By: #### U AMIC #### [facility] [address] [place], [place] [id number] Dwayne [place] Nitrite Ql (U) Negative Normal NEGATIVE [facility] Comment on above: Performed By: #### U AMIC #### [facility] [address] [place] [address] Dwayne [place] pH (Bld) 7.0 Normal 5-9 [facility] Comment on above: Performed By: #### U AMIC #### [facility] [address] [place] [address] Dwayne [place] Protein [Mass/Vol] Negative Normal NEGATIVE/ TRACE [facility] Comment on above: Performed By: #### U AMIC #### [facility] [address] [place], [place] [id number] Dwayne [place] RBC (Bld) [#/Vol] 0-2 Normal 0-2 [facility] Comment on above: Performed By: #### U AMIC #### [facility] [address] [place], [place] [id number] Dwayne [place] SPEC GRAVITY 1.010 Normal 1.005-<=1.02 5 [facility] Comment on above: Performed By: #### U AMIC #### [facility] [address] [place], [place] [id number] Dwayne [place] Urobilinogen Qn (U) 0.2 EU/dl Normal 0.2 - 1.0 [facility] Comment on above: Performed By: #### U AMIC #### [facility] [address] [place], [place] [id number] Dwayne [place] WBC (Bld) [#/Vol] NONE SEEN Normal NONE SEEN [facility] Comment on above: Performed By: #### U AMIC #### [facility] [address] [place] [id number] Dwayne Koenig WBC (Bld) [#/Vol] Negative Normal NEGATIVE [facility] Comment on above: Performed By: #### U AMIC #### [facility] [address] [place], [place] [address] Dwaynemonica Koenig US PELVIS AND TRANSVAGon US PELVIS AND TRANSVAG EXAMINATION: US PELVIS AND TRANSVAG HISTORY: Pelvic and perineal pain COMPARISON: 01/14/2017 FINDINGS: Transabdominal and transvaginal images The uterus is normal in size, contour and echotexture with no focal myometrial mass. The uterus measures 7.0 x 3.0 x 3.7 cm. An IUD is identified, normally positioned within the endometrial cavity. The endometrium measures up to 5.2 mm, normal. The ovaries are normal in size, contour and echotexture. The right ovary measures 3.5 x 2.5 x 2.7 cm. Identified the right ovary is an area of anechoic echogenicity measuring 1.3 x 0.9 x 1.1 cm, simple cyst versus a follicle. Normal resistive index of 0.63. The left ovary measures 2.7 x 1.3 x 2.7 cm. Normal resistive index of 0.66 IMPRESSION: Normal exam Electronically authenticated by: ANNE COLEMAN Date: 2020-02-21 15:45 Normal [facility] PAP ACOG PANEL 2: 30 to 65on 02-15-2020 Age Gdln ACOG Testing 30-65 Normal [facility] Comment on above: Performed By: #### [id number] #### [facility] [address] [place], [place] [id number] Dwayne Koenig DIAGNOSIS: Comment Normal [facility] Comment on above: Result Comment: NEGA TIVE FOR INTRAEPITHELIAL LESION OR MALIGNANCY. CELLULAR CHANGES ASSOCIATED WITH INFLAMMATION ARE PRESENT. THIS SPECIMEN WAS RESCREENED PART OF OUR INTEGRITY MANAGER PROGRAM. Performed at: WB Performed By: #### [id number] #### [facility] [address] [place], [place] [id number] Dwayne Koenig HPV Aptima Negative Normal Negative [facility] Comment on above: Result Comment: This test was developed and its performance characteristics determined by [facility]. It has not been cleared or approved by the Food and Drug Administration. This nucleic acid amplification test detects fourteen high-risk HPV types (16,18,31,33,35,39,45,51,52,56,58,59,66,68) without differentiation. Performed at: =G Performed By: #### [id number] #### [facility] [address] [place] [address] Dwayne Koenig Methodology: Comment Normal [facility] Comment on above: Result Comment: This liquid based SurePath(R) pap test was screened with the assistance of an image guided system. Performed at: WB Performed By: #### [id number] #### [facility] [address] [place] [address] Dwayne Koenig Note: Comment Normal [facility] Comment on above: Result Comment: The Pap smear is a screening test designed to aid in the detection of premalignant and malignant conditions of the uterine cervix. It is not a diagnostic procedure and should not be used as the sole means of detecting cervical cancer. Both false-positive and false-negative reports do occur. . Performed at: WB Performed By: #### [id number] #### [facility] [address] [place] [address] Dwayne Koenig Performed by: Comment Normal [facility] [facility] Comment on above: Result Comment: Ivan Clay Plastic Manager (ASCP) Performed at: WB Performed By: #### [id number] #### [facility] [address] [place] [address] Dwayne Koenig QC reviewed by: Comment Normal [facility] Comment on above: Result Comment: Beatriz Castillo, Plastic Manager (ASCP) Performed at: WB Performed By: #### [id number] #### [facility] [address] [place] [address] Dwayne Koenig Specimen adequacy: Comment Normal [facility] Comment on above: Result Comment: Sati sfactory for evaluation. Endocervical and/or squamous metaplastic cells (endocervical component) are present. Performed at: WB Performed By: #### [id number] #### [facility] [address] [place], [place] [id number] Dwayne Liberty . . Normal [facility] Comment on above: Result Comment: Perf ormed at: WB Performed By: #### [id number] #### [facility] [address] [place], [place] [id number] Dwayne Liberty CBC AUTO DIFFon 12-29-2019 Basophils (Bld) [#/Vol] 0.1 103/ul Normal 0.0-0.1 [facility] Comment on above: Performed By: #### C BC #### [facility] [address] [place] [address] Dwayne Liberty Basophils/100 WBC (Bld) 0.9 % Normal 0.2-2.0 [facility] Comment on above: Performed By: #### C BC #### [facility] [address] [place] [address] Dwayne Liberty Eosinophils (Bld) [#/Vol] 0.1 103/ul Normal 0.0-0.7 [facility] Comment on above: Performed By: #### C BC #### [facility] [address] [place] [address] Dwayne Liberty Eosinophils/100 WBC (Bld) 1.7 % Normal 0.9-7.0 [facility] Comment on above: Performed By: #### C BC #### [facility] [address] [place], [place] [id number] Dwayne Liberty Erythrocyte distribution width (RBC) [Ratio] 11.9 % Normal 11.0-15.0 [facility] Comment on above: Performed By: #### C BC #### [facility] [address] [place], [place] [id number] Dwayne Liberty Hematocrit (Bld) [Volume fraction] 41.7 % Normal 36.0-48.0 [facility] Comment on above: Performed By: #### C BC #### [facility] [address] [place], [place] [id number] Dwayne Liberty Hemoglobin (Bld) [Mass/Vol] 13.9 g/dL Normal 12.0-16.0 [facility] Comment on above: Performed By: #### C BC #### [facility] [address] [place], [place] [id number] Dwayne Liberty IG # 0.02 10e3/ul Normal 0.00-0.03 [facility] Comment on above: Performed By: #### C BC #### [facility] [address] [place] [address] Dwayne Liberty IG % 0.3 % Normal 0.0-0.5 [facility] Comment on above: Performed By: #### C BC #### [facility] [address] [place] [address] Dwayne Liberty Lymphocytes (Bld) [#/Vol] 1.6 103/ul Normal 1.2-3.8 [facility] Comment on above: Performed By: #### C BC #### [facility] [address] [place] [address] Dwayne Liberty Lymphocytes/100 WBC (Bld) 20.8 % Normal 20.5-60.0 [facility] Comment on above: Performed By: #### C BC #### [facility] [address] [place], [place] [id number] Dwaynemonica Koenig MANUAL DIFF REQ NO Normal [facility] Comment on above: Performed By: #### C BC #### [facility] [address] [place], [place] [id number] Dwayne Liberty MCH (RBC) [Entitic mass] 31.9 pg Normal 26.7-34.0 [facility] Comment on above: Performed By: #### C BC #### [facility] [address] [place] [address] Dwayne Liberty MCHC (RBC) [Mass/Vol] 33.3 g/dL Normal 29.9-35.2 [facility] Comment on above: Performed By: #### C BC #### [facility] [address] [place] [address] Dwayne Liberty MCV (RBC) [Entitic vol] 95.6 fL Normal 81.0-99.0 [facility] Comment on above: Performed By: #### C BC #### [facility] [address] [place], [place] [address] Dwayne Liberty Monocytes (Bld) [#/Vol] 0.6 103/ul Normal 0.3-0.8 [facility] Comment on above: Performed By: #### C BC #### [facility] [address] [place], [place] [address] Dwayne Liberty Monocytes/100 WBC (Bld) 8.3 % Normal 1.7-12.0 [facility] Comment on above: Performed By: #### C BC #### [facility] [address] [place] [address] Dwayne Liberty Neutrophils (Bld) [#/Vol] 5.1 103/ul Normal 1.4-6.5 [facility] Comment on above: Performed By: #### C BC #### [facility] [address] [place], [place] [id number] Dwayne Liberty Neutrophils/100 WBC (Bld) 68.0 % Normal 43.0-75.0 [facility] Comment on above: Performed By: #### C BC #### [facility] [address] [place], [place] [id number] Dwayne Liberty Platelet mean volume (Bld) [Entitic vol] 10.8 fL Normal 9.5-13.5 [facility] Comment on above: Performed By: #### C BC #### [facility] [address] [place], [place] [id number] Dwayne Liberty Platelets (Bld) [#/Vol] 249 103/ul Normal 150-450 [facility] Comment on above: Performed By: #### C BC #### [facility] [address] [place] [address] Dwayne Liberty RBC (Bld) [#/Vol] 4.36 106/ul Normal 4.20-5.40 [facility] Comment on above: Performed By: #### C BC #### [facility] [address] [place] [address] Dwayne Liberty WBC (Bld) [#/Vol] 7.6 103/ul Normal 4.0-11.0 [facility] Comment on above: Performed By: #### C BC #### [facility] [address] [place], [place] [id number] Dwayne Liberty POINT OF CARE GLUCOSEon Glucose [Mass/Vol] 100 mg/dL Normal 74-[address] [facility] Comment on above: Performed By: #### P OCGLUC #### [facility] [address] [place], [place] [id number] Dwayne Liberty PROF CHEM 8 (BAS METB)on Anion gap [Moles/Vol] 5.7 mmol/L Normal [facility] Comment on above: Performed By: #### B CONCEPCIÓN, TSH #### [facility] [address] [place] [address] Dwayne Liberty Calcium [Mass/Vol] 9.1 mg/dL Normal 8.4-10.[address] [facility] Comment on above: Performed By: #### B CONCEPCIÓN, TSH #### [facility] [address] [place] [address] Dwayne Liberty Chloride [Moles/Vol] 104 mmol/L Normal 98-107 [facility] Comment on above: Performed By: #### B CONCEPCIÓN, TSH #### [facility] [address] [place] [address] Dwayne Liberty CO2 [Moles/Vol] 31.3 mmol/L Critically high 22.0-30.0 [facility] Comment on above: Performed By: #### B CONCEPCIÓN, TSH #### [facility] [address] [place] [address] Dwayne Liberty Creatinine [Mass/Vol] 0.63 mg/dL Normal 0.52-1.04 [facility] Comment on above: Performed By: #### B CONCEPCIÓN, TSH #### [facility] [address] [place], [place] [id number] Dwayne Liberty EGFR-AF MALIAN >60 Normal >=60 [facility] Comment on above: Performed By: #### B CONCEPCIÓN, TSH #### [facility] [address] [place], [place] [id number] Dwayne Liberty EGFR-NON AF MALIAN >60 Normal >=60 [facility] Comment on above: Performed By: #### B MP, TSH #### [facility] [address] [place] [id number] Dwayne Liberty Glucose [Mass/Vol] 96 mg/dL Normal 74-106 [facility] Comment on above: Performed By: #### B MP, TSH #### [facility] [address] [place] [id number] Dwayne Liberty Potassium [Moles/Vol] 4.0 mmol/L Normal 3.4-5.0 [facility] Comment on above: Performed By: #### B MP, TSH #### [facility] [address] [place] [address] Dwayne Liberty Sodium [Moles/Vol] 137 mmol/L Normal 137-[address] [facility] Comment on above: Performed By: #### B MP, TSH #### [facility] [address] [place] [address] Dwayne Liberty Urea nitrogen [Mass/Vol] 9.0 mg/dL Normal 7.0-17.0 [facility] Comment on above: Performed By: #### B MP, TSH #### [facility] [address] [place] [address] Dwayne Liberty Urea nitrogen/Creatinine [Mass ratio] 14.3 mg/mg Normal [facility] Comment on above: Performed By: #### B MP, TSH #### [facility] [address] [place] [id number] Dwayne Liberty TSHon 12-29-2019 TSH Qn SEE BELOW Normal [facility] Comment on above: Result Comment: <0.3 4 UIU/ml HYPERTHYROID 0.34-5.60 UIU/ml EUTHYROID >5.60 UIU/ml HYPOTHYROID Performed By: #### B MP, TSH #### [facility] [address] [place] [address] Dwayne Liberty TSH Qn 1.532 uIU/mL Normal 0.470-4.680 [facility] Comment on above: Performed By: #### B MP, TSH #### [facility] [address] [place] [address] Dwayne Koenig Consenton 08-13-2019 Consent [id number]:[id number] [facility] CNPRona 08-12-2017 CNPN Telephone (FVPRAD) MERY RILEY ( ) 1980 [facility] Serviceste Time Provider Department08/12/17 ESTEFANIA ROJAS ([facility]) FVPRAD During your visit today, we recorded the following information about you:Estefania Rojas APRN.LETY 08/12/2017 10:21 AM SignedThyroid labs are within normal limits.Start taking 30 mg [place] thyroid daily, except for Sundays when you will take60 mg.Candice Martino LPN 08/12/2017 11:51 AM SignedLeft message on machine to call the office.Karli Marcus 08/14/2017 11:28 AM SignedPatient returned call, given message below, voiced understanding. Patientstates she needs a letter written to her employer stating that she needs havesnacks at work for her blood sugar, yesterday she was told she was not allowedto have snacks so her blood sugar was running in the 40's. Patient states itshould say that she needs to eat every 2 hours to keep her blood surgar up.Please call patient and advise at [phone]. Please fax to [phone]: Eva Higginbotham.Estefania Rojas APRN.LETY 08/18/2017 2:15 PM SignedPlease refer to letter that was given to patient on 05/02/17. It can be printedand faxed.ThanksCandice Martino LPN 08/18/2017 2:45 PM SignedLetter printed and faxed to Eva Higginbotham as Radha Schroeder Psr 08/20/2017 4:37 PM SignedPatient calling in regards to below and states she gave the wrong fax number porsche. She is asking for the letter to be refaxed to [phone]. Pleaseadvise.Candice Gabby Martino MUD TEMPERER 08/21/2017 8:44 AM SignedLetter refaxed to new nbr provided below, confirmation received.Stephonjessica Berger Psr 08/21/2017 4:48 PM SignedCallie Durand [phone] from patients place of employment LuwcoRequesting a return call in regards to the letter dated 05/02/17Candice Martino LPN 08/22/2017 10:44 AM SignedLeft message on machine to call the office.Please inform the patient that the office has received a call from [employer] asking for a more specific letter stating list of type of snacks sheneeds to keep with her at work. Please forward call to Candice Thorne [phone] Martino LPN 08/22/2017 2:02 PM SignedSpoke to pt, she is aware that a new letter was requested with specific snacksto be kept with patient during work.Please advise and fax to Callie Higginbotham [phone] Martino LPN 08/25/2017 3:50 PM SignedCopy of letter faxed to Callie Higginbotham anf mailed to patientAllergies As of Date: 08/12/2017 Noted Allergy ReactionBIAXIN (CLARITHROMYCIN) 03/21/2009 Comments: shockERYTHROMYCIN 03/21/2009 11 - VomitingPENICILLINS 03/21/2009 Comments: shockSULFA (SULFONAMIDE ANTIBIOTICS) 03/21/2009 Comments: shockDate Reviewed: 08/08/2017Reviewed by: Estefania (Pigment Weigher) Devin - Fully AssessedRedonovan for Visit: Results [95]Prescriptions as of 08/12/2017 Sig: PREGABALIN 300 MG CAPSULE Take 1 capsule by mouth twice* INSULIN LISPRO (U-100) 100 UN* Uses 60 units daily via insul* ARMOUR THYROID 30 MG TABLET Take one pill every day, exce* FEXOFENADINE 180 MG TABLET TAKE 1 TABLET BY MOUTH ONCE D* OMEPRAZOLE 20 MG CAPSULE,SERG* TAKE 1 CAPSULE BY MOUTH ONCE * ACETAMINOPHEN 300 MG-CODEINE * per Dr. Ramsey, inspection engineer SUBCUTANEOUS INSULIN PUMP BASALPattern 2 - 30.7 T bas* IBUPROFEN 600 MG TABLET Take 1 tablet by mouth every * FLUTICASONE 50 MCG/ACTUATION * Use 2 Sprays in each nostril * OMEPRAZOLE 20 MG CAPSULE,SERG* Take 1 capsule by mouth once * HYDROXYCHLOROQUINE 200 MG TAB* Take 1 tablet by mouth twice * GLUCAGON (HUMAN RECOMBINANT) * Inject (1)one mg for insulin * CRANBERRY CONCENTRATE ORAL Take by mouth. CHOLECALCIFEROL (VITAMIN D3) * Take 1 capsule by mouth twice* BLOOD SUGAR DIAGNOSTIC STRIPS Use as instructed checks 4 x * * MULTIVITAMIN CAPSULE Take one(1) capsule daily.Problem List As Of Date 08/12/2017 Noted Resolved Encounter for Long-Term (Current) Use of High-R*INVALID FOR* Rheumatoid arthritis (HCC) [M06.9] INVALID FOR* Priority: E More... Fibromyalgia syndrome [M79.7] INVALID FOR* Priority: E More... Depression [F32.9] INVALID FOR* Tattoo [L81.8] INVALID FOR* Diabetes mellitus type 1 (HCC) [E10.9] INVALID FOR* Priority: B More... Family history of thyroid disease [Z83.49] INVALID FOR* Unspecified vitamin D deficiency [E55.9] INVALID FOR* URI (upper respiratory infection) [J06.9] INVALID FOR* Carpal tunnel syndrome on both sides [G56.03] INVALID FOR* Hip fracture [S72.009A] INVALID FOR*11/26/2011 Post-operative state [Z98.890] INVALID FOR* Hip fracture, right, s/p surgical repair [S72.0*INVALID FOR* More... 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 Diabetes mellitus type 1, uncontrolled, without*INVALID FOR* Hypoglycemia [E16.2] INVALID FOR* Priority: A More... Healthcare maintenance [Z00.00] INVALID FOR* More... Alcohol intoxication (HCC) [F10.929] INVALID FOR* Priority: C More... Stress fracture of left foot [M84.375A] INVALID FOR* Priority: D More...Letter Mele Riley MRN: Estefania Rojas APRN.CNP[address], [address]Wyjmf: [phone]: [phone] 2017TO WHOM IT MAY CONCERN:RE: Mery RileyDOB: 1980Dear or ,This is to certify that Mery Riley is under my care for type 1 diabetes.In order to prevent and or treat low blood sugar, Mery may need to havesnacks available to her at all times. Attached please find an extensive listof suggested snack items from the [facility].Sincerely yours,Estefania Rojas APRN.[facility]?Snack Ideas (15 grams of carbohydrate and 1 ounce protein)150 calories or less?? [place] (1 slice bread, 1-2 slices turkey or lean meat), lettuce, tomato,1 tsp light mayonnaise?2 slices light or reduced-calorie bread, 1 Tbsp peanut butter?? cup blueberries, raspberries, or blackberries, 1 slice string cheese(choose a low fat cheese with 3 grams fat or less per slice)?? cup fresh pineapple with ? cup low fat cottage cheese?5-6 crackers with ? cup tuna salad or tuna kit?3 cups popcorn (try light version or ? mini bag popcorn)?1 small piece fruit (one that you can tuck in your palm), 10 nuts (try uvh691 calorie packs of nuts to limit the portion size since these are high incalories)?1 small granola bar ([employer]eter[employer] makes smaller granola bar or Special K bar),10 nuts (try using the 100 calorie snack nut packs to limit the portion)?Protein Cereal Bar (such as a [facility] Kayo technology Protein Bar)?Low Calorie Protein Shake (EAS Advantage Carb Control), 1 small apple,orange, peach, pear (one that you can tuck in your palm)?Hungarian Yogurt (has 20 grams of carb, 2 ounces of lean protein) or 6 ounce light yogurt?1/3 cup hummus with celery sticks and baby carrots?? Low Carb Light Wrap (1-2 slices lean meat), lettuce, tomato, 1 tsp lightItalian dressing (There are many options which are both high in fiber and lowin calories?100 calories or less per wrap)Snack ideas - 12-15 grams of carbohydrate or (1) carbohydrate servingOne small appleEight animal crackersFour medium fresh apricots or seven dried halves1/2 of a banana rolled with 2-tablespoons Grape Nuts cereal1 cup cubed cantaloupeTwelve Roxane cherries1/2 cup comer mein noodlesTwo sugar-free fudgesicklesThree repjmimyfry42 Goldfish (adds 1 fat exchange)Three tressa crackers (2 1/2-inch square)1/2 low-fat granola bar15 grapesThree Dali Doones (adds 1 fat exchange)1One small nectarine1 cup skim milkOne small orangeOne small peachThree peanut butter sandwich crackers (adds 1 fat exchange)One small pearTwo small plums24 oyster crackers3 cups popcorn (popped by hot air, or low-fat microwave)Three dried pitted prunes2 tablespoons raisinsTwo rice cakes (4 diameter)Seven Ritz crackers (adds 1 fat exchange)Six saltine crackersOne Zack Grahams (adds 1 fat exchange)Six Vanilla Wafers (adds 1 fat exchange)12 Original Wheat Thins (adds 1 fat exchange)13 Reduced-fat Wheat Thins (adds 1/2 fat exchange) Status:Closed by CANDICE MARTINO LPN on 08/18/17 [facility] OCT MACULA CIRRUS OU (BOTH E YES) [facility] Vital Signs Date Time Vital Sign Value Performing Clinician Facility 07-03-2023 10:53-0400 Body temperature 97.7 [degF] Josse Delgado [facility] 07-03-2023 10:53-0400 Diastolic blood pressure 85 mm[Hg] Josse Delgado [facility] 07-03-2023 10:53-0400 Heart rate 91 /min Josse Delgado [facility] 07-03-2023 10:53-0400 Respiratory rate 16 /min Josse Delgado [facility] 07-03-2023 10:53-0400 SaO2% (BldA) [Mass fraction] 99 % Josse Delgado [facility] 07-03-2023 10:53-0400 Systolic blood pressure 141 mm[Hg] Josse Delgado [facility] 06-09-2023 11:14-0400 Body temperature 98.6 [degF] Shadi Rendon [facility] 06-09-2023 11:14-0400 Diastolic blood pressure 81 mm[Hg] Shadi Rendon [facility] 06-09-2023 11:14-0400 Heart rate 81 /min Shadi Rendon [facility] 06-09-2023 11:14-0400 Respiratory rate 18 /min Shadi Rendon [facility] 06-09-2023 11:14-0400 SaO2% (BldA) [Mass fraction] 98 % Shadi Rendon [facility] 06-09-2023 11:14-0400 Systolic blood pressure 146 mm[Hg] Shadi Rendon [facility] 05-20-2023 21:31-0400 Body temperature 97.52 [degF] Alma Gallegos [facility] 05-20-2023 21:31-0400 Diastolic blood pressure 91 mm[Hg] Alma Gallegos [facility] 05-20-2023 21:31-0400 Heart rate 71 /min Beronican Domairaen [facility] 05-20-2023 21:31-0400 Respiratory rate 21 /min Alma Gabrielen [facility] 05-20-2023 21:31-0400 SaO2% (BldA) [Mass fraction] 100 % Alma Gallegos [facility] 05-20-2023 21:31-0400 Systolic blood pressure 160 mm[Hg] Alma Gallegos [facility] 04-28-2023 10:39-0500 Body weight 78.3 kg Dg Susanne VZA Work Phone: [facility] 12-21-2022 08:02-0400 Body temperature 97.7 [degF] Shadi Rendon [facility] 12-21-2022 08:02-0400 Diastolic blood pressure 77 mm[Hg] Shadi Segale [facility] 12-21-2022 08:02-0400 Heart rate 85 /min Shadi Segale [facility] 12-21-2022 08:02-0400 Respiratory rate 19 /min Shadi Segale [facility] 12-21-2022 08:02-0400 SaO2% (BldA) [Mass fraction] 99 % Shadi Justice [facility] 12-21-2022 08:02-0400 Systolic blood pressure 118 mm[Hg] Shadi Justice [facility] 11-25-2022 10:07-0400 Body temperature 98.42 [degF] Shadi Rendon [facility] 11-25-2022 10:07-0400 Diastolic blood pressure 96 mm[Hg] Shadi Rendon [facility] 11-25-2022 10:07-0400 Heart rate 110 /min Shadi Rendon [facility] 11-25-2022 10:07-0400 Respiratory rate 20 /min Shadi Rendon [facility] 11-25-2022 10:07-0400 SaO2% (BldA) [Mass fraction] 99 % Shadi Rendon [facility] 11-25-2022 10:07-0400 Systolic blood pressure 162 mm[Hg] Shadi Rendon [facility] 10-04-2022 22:46-0400 Body temperature 97.88 [degF] Greyylinn Dokken [facility] 10-04-2022 22:46-0400 Diastolic blood pressure 95 mm[Hg] Greyylinn Dokken [facility] 10-04-2022 22:46-0400 Heart rate 87 /min Greyylinn Dokken [facility] 10-04-2022 22:46-0400 Respiratory rate 18 /min Greyylinn Dokken [facility] 10-04-2022 22:46-0400 SaO2% (BldA) [Mass fraction] 99 % Kaylinn Dokken [facility] 10-04-2022 22:46-0400 Systolic blood pressure 161 mm[Hg] Greyylinn Dokken [facility] 06-05-2022 12:47-0400 Body weight 68.67 kg Jimmy Paul MD Work Phone: [facility] 06-05-2022 12:47-0400 Diastolic blood pressure 68 mm[Hg] Jimmy Paul MD Work Phone: [facility] 06-05-2022 12:47-0400 Heart rate 89 /min Jimmy Paul MD Work Phone: [facility] 06-05-2022 12:47-0400 Systolic blood pressure 137 mm[Hg] Jimmy Paul MD Work Phone: [facility] 05-12-2022 15:10-0400 Body temperature 98.24 [degF] [facility] 05-12-2022 15:10-0400 Diastolic blood pressure 80 mm[Hg] [facility] 05-12-2022 15:10-0400 Heart rate 82 /min [facility] 05-12-2022 15:10-0400 Respiratory rate 18 /min [facility] 05-12-2022 15:10-0400 SaO2% (BldA) [Mass fraction] 99 % [facility] 05-12-2022 15:10-0400 Systolic blood pressure 126 mm[Hg] [facility] 03-16-2022 15:57-0500 Body temperature 98.3 [degF] II Jeovanny Griffin Work Phone: [facility] 03-16-2022 15:57-0500 Diastolic blood pressure 78 mm[Hg] II Jeovanny Griffin Work Phone: [facility] 03-16-2022 15:57-0500 Heart rate 96 /min II Jeovanny Griffin Work Phone: [facility] 03-16-2022 15:57-0500 Respiratory rate 18 /min II Jeovanny Griffin Work Phone: [facility] 03-16-2022 15:57-0500 SaO2% (BldA) [Mass fraction] 99 % II Jeovanny Griffin Work Phone: [facility] 03-16-2022 15:57-0500 Systolic blood pressure 152 mm[Hg] II Jeovanny Griffin Work Phone: [facility] 03-16-2022 15:54-0500 Body height 165.1 cm II Jeovanny Griffin Work Phone: [facility] 03-16-2022 15:54-0500 Body weight 63.5 kg II Jeovanny Griffin Work Phone: [facility] 09-25-2021 23:14-0400 Diastolic blood pressure 78 mm[Hg] Abdulaziz Chinedu [facility] 09-25-2021 23:14-0400 Heart rate 70 /min Abdulaziz Chinedu [facility] 09-25-2021 23:14-0400 Mean blood pressure 88 mm[Hg] Abdulaziz Chinedu [facility] 09-25-2021 23:14-0400 SaO2% (BldA) [Mass fraction] 99 % Abdulaziz Chinedu [facility] 09-25-2021 23:14-0400 Systolic blood pressure 108 mm[Hg] Abdulaziz Chinedu [facility] 09-25-2021 23:00-0400 Body temperature 98.24 [degF] Abdulaziz Chinedu [facility] 09-25-2021 22:00-0400 Body temperature 98.6 [degF] Abdulaziz Chinedu [facility] 09-25-2021 22:00-0400 Diastolic blood pressure 74 mm[Hg] Abdulaziz Chinedu [facility] 09-25-2021 22:00-0400 Heart rate 73 /min Abdulaziz Chinedu [facility] 09-25-2021 22:00-0400 SaO2% (BldA) [Mass fraction] 98 % Abdulaziz Chinedu [facility] 09-25-2021 22:00-0400 Systolic blood pressure 117 mm[Hg] Abdulaziz Chinedu [facility] 09-25-2021 21:00-0400 Diastolic blood pressure 68 mm[Hg] Abdulaziz Chinedu [facility] 09-25-2021 21:00-0400 Heart rate 72 /min Abdulaziz Chinedu [facility] 09-25-2021 21:00-0400 Mean blood pressure 87 mm[Hg] Abdulaziz Chinedu [facility] 09-25-2021 21:00-0400 Respiratory rate 18 /min Abdulaziz Chinedu [facility] 09-25-2021 21:00-0400 Systolic blood pressure 125 mm[Hg] Abdulaziz Chinedu [facility] 09-25-2021 20:00-0400 Respiratory rate 17 /min Abdulaziz Chinedu [facility] 09-25-2021 19:58-0400 Heart rate 70 /min Abdulaziz Chinedu [facility] 09-25-2021 19:58-0400 Respiratory rate 16 /min Abdulaziz Chinedu [facility] Encounters Encounter Date Encounter Type Care Provider Facility Start: 07-03-2023 End: 07-03-2023 Emergency department patient visit Josse Delgado Facility:[facility] Start: 07-03-2023 End: 07-03-2023 Emergency department patient visit Josse Delgado [facility] Start: 06-09-2023 End: 06-09-2023 Emergency department patient visit Shadi Rendon Facility:[facility] Start: 06-09-2023 End: 06-09-2023 Emergency department patient visit Shadi Rendon [facility] Start: 05-20-2023 End: 05-20-2023 Emergency department patient visit DO Alma Gallegos Facility:[facility] Start: 05-20-2023 End: 05-20-2023 Emergency department patient visit Alma Gallegos [facility] Start: 05-08-2023 End: 05-08-2023 Refill Estefania Rojas APRN.LEAD PASTOR Work Phone: Endocrinology [place] Comment on above: Refill Request Start: 04-28-2023 End: 04-28-2023 ambulatory [facility] Facility:[facility] Start: 04-28-2023 End: 04-28-2023 Patient encounter procedure Dg Nava SHOOTING GALLERY OPERATOR.LEAD PASTOR Work Phone: Endocrinology Comment on above: Acquired hypothyroid ism (Primary Dx); Type 1 diabetes mellitus with diabetic polyneuropathy (HCC); Rahul's disease Start: 04-26-2023 Refill Sukhi david APRN.LEAD PASTOR Work Phone: Endocrinology Comment on above: Refill Request Start: 12-23-2022 Telephone encounter Serafin barbosa RN Work Phone: Diabetic Education [facility] Comment on above: insulin pump start f follow up Start: 12-21-2022 End: 12-21-2022 Emergency department patient visit Shadi Rendon Facility:[facility] Start: 12-21-2022 End: 12-21-2022 Emergency department patient visit Shadi Rendon [facility] Start: 12-17-2022 Telephone encounter Serafin barbosa RN Work Phone: Endocrinology Comment on above: Insulin pump follow up Start: 12-10-2022 Telephone encounter Serafin barbosa RN Work Phone: Endocrinology Comment on above: insulin pump start f ollow up Start: 12-04-2022 Telephone encounter Serafin barbosa RN Work Phone: Endocrinology Comment on above: Insulin pump start f ollow up Start: 12-03-2022 End: 12-03-2022 ambulatory JEOVANNY GRIFFIN II Facility:[facility] Start: 12-03-2022 End: 12-03-2022 Nursing evaluation of patient and report Serafin Michelle RN Work Phone: Endocrinology Comment on above: Type 1 diabetes lizzeth itus without retinopathy (HCC) - Both Eyes (Primary Dx) Start: 11-25-2022 End: 11-25-2022 Emergency department patient visit Shadi Rendon Facility:[facility] Start: 11-25-2022 End: 11-25-2022 Emergency department patient visit Shadi Segale [facility] Start: 11-12-2022 Telephone encounter Serafin barbosa RN Work Phone: Endocrinology Comment on above: Omni pod 5 orders Start: 11-11-2022 Telephone encounter Cinthia Walls MD Work Phone: Endocrinology Comment on above: Insulin pump start t raining Start: 11-05-2022 End: 11-05-2022 ambulatory VIK CANADA Facility:[facility] Start: 11-05-2022 End: 11-05-2022 Patient encounter procedure Vik Canada OD Work Phone: Ophthalmology Comment on above: Type 1 diabetes lizzeth itus without retinopathy (HCC) (Primary Dx); Hyperopia of both eyes with astigmatism and presbyopia Start: 10-24-2022 Telephone encounter Cinthia Walls MD Work Phone: Endocrinology Comment on above: omni pod 5 Start: 10-24-2022 End: 10-24-2022 ambulatory JEOVANNY GRIFFIN II Facility:[facility] Start: 10-24-2022 End: 10-24-2022 Nursing evaluation of patient and report Serafin Michelle RN Work Phone: Endocrinology Comment on above: Diabetic autonomic n europathy associated with type 1 diabetes mellitus (HCC) (Primary Dx) Start: 10-08-2022 End: 10-08-2022 ambulatory CINTHIA TINY WALLS Facility:[facility] Start: 10-05-2022 End: 10-05-2022 Emergency department patient visit DO Alma Gallegos Facility:[facility] Start: 10-04-2022 End: 10-04-2022 Emergency department patient visit Greydell Zeina Nery [facility] Start: 09-28-2022 End: 09-28-2022 Emergency department patient visit Roe Isbell Facility:[facility] Start: 07-02-2022 End: 07-02-2022 ambulatory Maulik Starr SHOOTING GALLERY OPERATOR.LEAD PASTOR Work Phone: Endocrinology Comment on above: Poorly controlled ty pe 1 diabetes mellitus (HCC) (Primary Dx); Type 1 diabetes mellitus with diabetic polyneuropathy (HCC); Acquired hypothyroidism Start: 07-02-2022 End: 07-02-2022 Telemedicine consultation with patient Maulik Starr SHOOTING GALLERY OPERATOR.LEAD PASTOR Work Phone: [place] [phone] Start: 06-19-2022 Telephone encounter Jimmy nguyen MD Work Phone: Internal Medicine [place] Comment on above: lab clarification; R esults Start: 06-18-2022 End: 06-18-2022 ambulatory JEOVANNY GRIFFIN II Facility:[facility] Start: 06-05-2022 End: 06-05-2022 ambulatory JEOVANNY GRIFFIN II Facility:[facility] Start: 06-05-2022 End: 06-05-2022 Patient encounter procedure Jimmy Paul MD Work Phone: Endocrinology Comment on above: Type 1 diabetes lizzeth itus without complication (HCC) (Primary Dx); Acquired hypothyroidism; Type 1 diabetes mellitus with diabetic polyneuropathy (HCC) Start: 05-12-2022 End: 05-12-2022 Emergency department patient visit Keyur Perales [facility] Start: 03-16-2022 End: 03-16-2022 Emergency department patient visit Selvin Fisher Facility:[facility] Start: 03-16-2022 End: 03-16-2022 Emergency department patient visit SHELLEY Griffin Work Phone: [facility] Work Phone: Start: 10-16-2021 End: 10-16-2021 Emergency department patient visit MD Johnnie Sharpe Facility:[facility] Start: 10-16-2021 End: 10-16-2021 ambulatory MD Johnnie Sharpe Facility:[facility] Start: 09-25-2021 End: 09-25-2021 Emergency department patient visit Abdulaziz Che [facility] Start: 02-21-2020 Encounter for gynecological examination (general) (routine) without abnormal findings [facility] Start: 02-21-2020 End: 02-22-2020 Patient encounter procedure [facility] Facility:[facility] Start: 02-08-2020 End: 02-08-2020 Patient encounter procedure [facility] Facility: Start: 12-29-2019 End: 12-29-2019 Patient encounter procedure SUZI CONNOR Facility: Encounter for gynecological examination (general) (routine) without abnormal findings [facility] Procedures Date Procedure Procedure Detail Performing Clinician Start: 04-28-2023 Hemoglobin A1c/Hemoglobin.total in Blood Dg Nava APRN.LEAD PASTOR Work Phone: Start: 11-05-2022 Computerized ophthal marcia imaging retina Vik Canada OD Work Phone: Start: 06-05-2022 Hemoglobin A1c/Hemoglobin.total in Blood Jimmy Paul MD Work Phone: Internal fixation of femur N oah Chinedu Plan of Treatment Date Care Activity Detail Author Start: 09-12-2027 Urine microalbumin profile DTaP,Tdap,Td Vaccine (2 - Td or Tdap) [facility] Start: 05-07-2024 Hepatitis B screening Urine Al bumin:Creatinine Ratio [facility] Start: 05-07-2024 Hepatitis B surface antibody level LDL Cholesterol [facility] Start: 04-27-2024 Diabetic foot examination Diabetic Foot Exam [facility] Start: 11-06-2023 Glaucoma screening Dilated Retinal E xam [facility] Start: 11-06-2023 Hepatitis C antibody , confirmatory test Dilated Retinal Exam [facility] Start: 10-29-2023 Hemoglobin A1c measurement HbA1C [facility] Start: 06-19-2023 Hepatitis B screening URINE AL BUMIN:CREATININE RATIO [facility] Start: 06-19-2023 Hepatitis B surface antibody level LDL CHOLESTEROL [facility] Start: 04-29-2023 End: 07-29-2023 Comprehensive metabolic 2000 panel - Serum or Plasma COMP METABOLIC PANEL Lab Routine Type 1 diabetes mellitus with diabetic polyneuropathy (HCC) Expected: 04/29/2023, Expires: 07/29/2023 [facility] Work Phone: Comment on above: Expected: 04/29/2023 , Expires: 07/29/2023 Start: 04-28-2023 End: 07-28-2023 ALBUMIN/CREAT RATIO RND UR ALBUMIN/CREAT RATIO RND UR Lab Routine Type 1 diabetes mellitus with diabetic polyneuropathy (HCC) Expected: 04/28/2023, Expires: 07/28/2023 [facility] Work Phone: Comment on above: Expected: 04/28/2023 , Expires: 07/28/2023 Start: 04-28-2023 End: 07-28-2023 Lipid 1996 panel - Serum or Plasma LIPID PANEL BASIC Lab Routine Type 1 diabetes mellitus with diabetic polyneuropathy (HCC) Expected: 04/28/2023, Expires: 07/28/2023 [facility] Work Phone: Comment on above: Expected: 04/28/2023 , Expires: 07/28/2023 Start: 04-28-2023 End: 07-28-2023 Thyrotropin [Units/volume] in Serum or Plasma TSH BLD Lab Routine Acquired hypothyroidism Rahul's disease Expected: 04/28/2023, Expires: 07/28/2023 [facility] Work Phone: Comment on above: Expected: 04/28/2023 , Expires: 07/28/2023 Start: 01-08-2023 Hemoglobin A1c/Hemoglobin.total in Blood HBA1C [facility] Start: 10-25-2022 Covid-19 Vaccine () Covid-19 Vaccine () [facility] Start: 10-25-2022 Influenza vaccination C [facility] Start: 2022 Mammography [facility] Start: 2022 Screening for malign ant neoplasm of breast Mammogram Screening [facility] Start: 09-04-2022 Hemoglobin A1c/Hemoglobin.total in Blood HBA1C [facility] Start: 06-05-2022 End: 08-05-2022 ALBUMIN/CREAT RATIO RND UR ALBUMIN/CREAT RATIO RND UR Lab Routine Type 1 diabetes mellitus without complication (HCC) Expected: 06/05/2022, Expires: 08/05/2022 [facility] Work Phone: Comment on above: Expected: 06/05/2022 , Expires: 08/05/2022 Start: 06-05-2022 End: 08-05-2022 Basic metabolic 2000 panel - Serum or Plasma BASIC METABOLIC PNL Lab Routine Type 1 diabetes mellitus without complication (HCC) Expected: 06/05/2022, Expires: 08/05/2022 [facility] Work Phone: Comment on above: Expected: 06/05/2022 , Expires: 08/05/2022 Start: 06-05-2022 End: 08-05-2022 Lipid 1996 panel - Serum or Plasma LIPID PANEL BASIC Lab Routine Type 1 diabetes mellitus without complication (HCC) Expected: 06/05/2022, Expires: 08/05/2022 [facility] Work Phone: Comment on above: Expected: 06/05/2022 , Expires: 08/05/2022 Start: 06-05-2022 End: 08-05-2022 Thyrotropin [Units/volume] in Serum or Plasma TSH BLD Lab Routine Acquired hypothyroidism Expected: 06/05/2022, Expires: 08/05/2022 [facility] Work Phone: Comment on above: Expected: 06/05/2022 , Expires: 08/05/2022 Start: 06-05-2022 End: 08-05-2022 Thyroxine (T4) free [Mass/volume] in Serum or Plasma T4 FREE/FREE THYROX Lab Routine Acquired hypothyroidism Expected: 06/05/2022, Expires: 08/05/2022 [facility] Work Phone: Comment on above: Expected: 06/05/2022 , Expires: 08/05/2022 Start: 12-13-2021 HPV TESTING HPV TESTING [facility] Start: 12-13-2021 Screening for malign ant neoplasm of cervix HPV Testing [facility] Start: 12-03-2021 PAP TESTING PAP TESTING [facility] Start: 12-03-2021 Screening for malign ant neoplasm of cervix Pap Testing [facility] Start: 12-23-2020 Hepatitis B screening URINE AL BUMIN:CREATININE RATIO [facility] Start: 12-23-2020 Hepatitis B surface antibody level LDL CHOLESTEROL [facility] Start: 04-05-2018 3 comp foot exam completed DIABETIC FOOT EXAM [facility] Start: 03-27-2017 Hepatitis C antibody , confirmatory test DILATED RETINAL EXAM [facility] Start: 03-20-2012 PNEUMOCOCCAL (2 - PCV) PNEUMOCOCCAL (2 - PCV) [facility] Start: 03-20-2012 Pneumococcal vaccination [facility] Start: 2001 Hepatitis B Vaccine (1 of 3 - 19+ 3-dose series) Hepatitis B Vaccine (1 of 3 - 19+ 3-dose series) [facility] Start: 2001 Urine microalbumin profile [facility] Start: 2000 ANNUAL PCP TEAM RECYCLE COORDINATOR EMILIANO DISEASE VISIT ANNUAL PCP TEAM CHRONIC DISEASE VISIT [facility] Start: 2000 HIV SCREENING HIV SCREENING [facility] Start: 2000 HIV screening HIV Screening [facility] Start: 04-01-1983 COVID-19 VACCINE (#1) COVID-19 VACCI NE (#1) [facility] Start: 1982 HEPATITIS B (1 of 3 - 3-dose series) HEPATITIS B (1 of 3 - 3-dose series) [facility] Start: 1982 Hepatitis B Vaccine (1 of 3 - 3-dose series) Hepatitis B Vaccine (1 of 3 - 3-dose series) [facility] Patient Education Wrist Sprain (DC) [facility] Work Phone: Patient referral [facility] Work Phone: [facility] Immunizations Immunization Date Immunization Notes Care Provider Fa colleen 09-11-2017 tetanus toxoid, redu andrez diphtheria toxoid, and acellular pertussis vaccine, adsorbed II Jeovanny Griffin Work Phone: [facility] 12-19-2016 influenza virus vacc ine, unspecified formulation Vik aCnada OD Work Phone: [facility] 03-20-2011 pneumococcal polysaccharide vaccine, 23 valent Jimmy Paul MD Work Phone: [facility] Payers Date Payer Category Payer Medicaid MEDICAID [facility] MEDICAID [id number] 2022-Present [phone] [address] [place] [address] Medicaid [id number] 2022 Private Health Insurance HUMANA [employer] MEDICAID [facility] [id number] 2022-Present [address] [address] [place] [address] Medicaid [id number] 2022 Self-pay [id number] 2021 Medicaid [id number] 1982 Unknown [id number]. 593 1982 Unknown [id number]. 593 1982 Unknown [id number]. 593 1982 Unknown [id number]. 718 1982 Unknown [id number] [id number]. 718 1982 Unknown [id number] [id number]. 727 1982 Unknown [id number]. 727 1982 Unknown [id number] [id number]. 727 1982 Unknown [id number]. 727 1982 Unknown [id number]. 727 1982 Unknown [id number] [id number]. 727 1982 Unknown [id number] [id number]. 727 1959 Unknown [id number] Unknown [facility] [id number] Unknown [id number] 531 Worker's Compensation [employer] [place] [id number] Social History Date Type Detail Facility Start: 07-04-2020 Tobacco smoking status Heavy t obacco smoker (finding) [facility] Comment on above: pt states 1 ppd Start: 07-02-2022 End: 10-08-2022 Sex Assigned At Female [facility] Start: 03-16-2022 Tobacco smoking stat us NHIS Smoker (finding) [facility] Start: 1980 Sex Assigned At Female F [facility] Start: 07-07-2014 End: 06-09-2023 Tobacco smoking status NHIS Ex-smoker [facility] Work Phone: Comment on above: quit smoking 9 month s ago History of tobacco use Cigarette Smoker C [facility] Work Phone: Start: 07-07-2014 End: 07-02-2022 Cigarettes smoked current (pack per day) - Reported 1 [facility] Start: 07-07-2014 End: 10-08-2022 Tobacco use and exposure Former smokeless tobacco user [facility] Work Phone: End: 06-27-2014 History of tobacco use User of smokeless tobacco [facility] Work Phone: Start: 05-18-2020 End: 04-28-2023 Alcohol intake Current drinker of alcohol (finding) [facility] Start: 04-05-2017 [facility] Start: 1980 Sex Assigned At Not on file C [facility] National Score (1-10 0), lower number is lower risk 62 [facility] Medical Equipment Procedure Code Equipment Code Equipment Original Text Equipment Identifier Dates Blade Im Nail Gl d 95mm 11mm - [id number] Start: 08-20-2011 Comment on above: Description: Helical blade 95mm Screw Bn 5mm 38m m Nlex Ti Dist - [id number] Start: 08-20-2011 Comment on above: Description: Locking screw 38mm Start: 12-21-2019 End: 07-02-2022 Comment on above: Use as instructed ch ecks 4 x times daily, variable sugars and insulin pump use Use 4-6 times daily Use as instructed ch jarocho glucose at least 4 times daily. Use with blood gluco se test 4 times daily, Insulin Dep? Yes. E10.65 Use with blood gluco se test 4 times daily. Insulin Dep? Yes. E10.65 Nail 10mm 17cm Troch Im 130d - [id number] Start: 08-20-2011 Comment on above: Description: TI ALANA TROCH FIXATION NAIL 170MM Functional Status Date Assessment Result Facility 07-03-2023 Functional Status N/A [facility] 06-09-2023 Functional Status N/A [facility] 05-20-2023 Functional Status N/A [facility] 12-21-2022 Functional Status N/A [facility] 11-25-2022 Functional Status N/A [facility] 10-04-2022 Functional Status N/A [facility] 05-12-2022 Functional Status N/A [facility] 09-25-2021 Functional Status N/A [facility] Clinical Notes 08-15-2011 to 07-03-2023 Note Date & Type Note Facility 07-03-2023 Hospital Discharg e instructions Patient Education 07/03/2023 12:00:20 Urinary Tract Infection, Adult, [id number] Urinary Tract Infection, Adult A urinary tract infection (UTI) is an infection of any part of the urinary tract. The urinary tract includes: The kidneys. The ureters. The bladder. The urethra. These organs make, store, and get rid of pee (urine) in the body. What are the causes? This infection is caused by germs (bacteria) in your genital area. These germs grow and cause swelling (inflammation) of your urinary tract. What increases the risk? The following factors may make you more likely to develop this condition: Using a small, thin tube (catheter) to drain pee. Not being able to control when you pee or poop (incontinence). Being female. If you are female, these things can increase the risk: ?Using these methods to prevent : ?A medicine that kills sperm (spermicide). ?A device that blocks sperm (diaphragm). ?Having low levels of a female hormone (estrogen). ?Being . You are more likely to develop this condition if: You have genes that add to your risk. You are sexually active. You take antibiotic medicines. You have trouble peeing because of: ?A prostate that is bigger than normal, if you are male. ?A blockage in the part of your body that drains pee from the bladder. ?A kidney stone. ?A nerve condition that affects your bladder. ?Not getting enough to drink. ?Not peeing often enough. You have other conditions, such as: ?Diabetes. ?A weak disease-fighting system (immune system). ?Sickle cell disease. ?Gout. ?Injury of the spine. What are the signs or symptoms? Symptoms of this condition include: Needing to pee right away. Peeing small amounts often. Pain or burning when peeing. Blood in the pee. Pee that smells bad or not like normal. Trouble peeing. Pee that is cloudy. Fluid coming from the vagina, if you are female. Pain in the belly or lower back. Other symptoms include: Vomiting. Not feeling hungry. Feeling mixed up (confused). This may be the first symptom in older adults. Being tired and grouchy (irritable). A fever. Watery poop (diarrhea). How is this treated? Taking antibiotic medicine. Taking other medicines. Drinking enough water. In some cases, you may need to see a specialist. Follow these instructions at home: Medicines Take [id number] and prescription medicines only as told by your doctor. If you were prescribed an antibiotic medicine, take it as told by your doctor. Do not stop taking it even if you start to feel better. General instructions Make sure you: ?Pee until your bladder is empty. ?Do not hold pee for a long time. ?Empty your bladder after sex. ?Wipe from front to back after peeing or pooping if you are a female. Use each tissue one time when you wipe. Drink enough fluid to keep your pee pale yellow. Keep all follow-up visits. Contact a doctor if: You do not get better after 1 2 days. Your symptoms go away and then come back. Get help right away if: You have very bad back pain. You have very bad pain in your lower belly. You have a fever. You have chills. You feeling like you will vomit or you vomit. Summary A urinary tract infection (UTI) is an infection of any part of the urinary tract. This condition is caused by germs in your genital area. There are many risk factors for a UTI. Treatment includes antibiotic medicines. Drink enough fluid to keep your pee pale yellow. This information is not intended to replace advice given to you by your health care provider. Make sure you discuss any questions you have with your health care provider. Document Revised: 09/22/2020 Document Reviewed: 09/22/2020 [email or web address] Patient Education 2022 [employer]. Follow Up Care 07/03/2023 10:52:31 With:ELIAS JAMES, JEOVANNY Elizabeth, [facility] Address: [facility] [place] [id number]- When:07/06/2023 [facility] 07-03-2023 Evaluation + Plan note Extrac yolette from: Title:ED Note Author:Imelda Bowles PA-C Date :07/03/23 1. Acute cystitis (N30.00: A cute cystitis without hematuria) Ordered: nitrofurantoin, 100 mg = 1 cap(s), Oral, BID, X 5 day(s), # 10 cap(s), Refills(s) 0, Pharmacy: [id number], 168, cm, 07/03/23 10:56:00 EDT, Height/Length Dosing, 77.6, kg, 07/03/23 10:56:00 EDT, Weight Dosing Diagnostic Tests Pending * Urine Culture 07/03/23 [facility]04-15-2024 Evaluation + Plan noteExtracted from: Title:ED Note Author:Shadi Rendon DO Date:05/25 07/17 Gastroenteritis (K52.9: Steph nfective gastroenteritis and colitis, unspecified) Plantar fasciitis (M72.2: Plantar fascial fibromatosis) Orders: naproxen, 500 mg = 1 tab(s), Oral, BID, Take one tab by mouth two times a day, # 14 tab(s), Refills(s) 0, Pharmacy: [id number], 167, cm, 06/09/23 11:18:00 EDT, Height/Length Dosing, 80.6, kg, 06/09/23 11:18:00 EDT, Weight Dosing ondansetron, 4 mg = 2 mL, Injection, IV Push, Once, Stop date 06/09/23 11:38:00 EDT, STAT, Start date 06/09/23 11:38:00 EDT, 06/09/23 11:38:00 EDT ondansetron, 4 mg = 1 tab(s), Oral, q6hr, PRN Nausea, Take one tab by mouth every six hours as needed for nausea, # 10 tab(s), Refills(s) 0, Pharmacy: [facility]/pharmacy #[id number], 167, cm, 06/09/23 11:18:00 EDT, Height/Length Dosing, 80.6, kg, 06/09/23 11:18:00 EDT, Weight... Sodium Chloride 0.9% intravenous solution, 1,000 mL, Soln-IV, IV, Once, Stop date 06/09/23 11:38:00 EDT, STAT, Start date 06/09/23 11:38:00 EDT, Infuse over 61, minute(s) Basic Metabolic Panel Beta hCG Qual CBC w/ Auto Diff eGFR Extra Blue Tube Hepatic Function Panel Lipase Level Post-op Shoe UA with Cult Rflx XR Foot 3+ Views Right [facility]04-15-2024 Hospital Discharge instructions Follow Up Care 06/09/2023 11:11:38 With:JEOVANNY GRIFFIN Address: [address] [place] [address] Business (1) When:Within 3 Day(s) [facility]03-26-2024 Hospital Discharge instructions Patient Education 05/20/2023 21:49:20 Dental Pain, Enyo-nv-Dqsp Dental Pain Dental pain is often a sign that something is wrong with your teeth or gums. You can also have painafter a dental treatment. If you have dental pain, it is important to contact your dentist, especially if the cause of the pain is not known. Dental pain may hurt a lot or a little and can be caused by many things, including: Tooth decay (cavities or caries). Infection. The inner part of the tooth being filled with pus (an abscess). Injury. A crack in the tooth. Gums that move back and expose the root of a tooth. Gum disease. Abnormal grinding or clenching of teeth. Not taking good care of your teeth. Sometimes the cause of pain is not known. You may have pain all the time, or it may happen only when you are: Chewing. Exposed to hot or cold temperatures. Eating or drinking foods or drinks that have a lot of sugar in them, such as soda or candy. Follow these instructions at home: Medicines Take dbve-qvy-yprlxbn and prescription medicines only as told by your dentist. If you were prescribed an antibiotic medicine, take it as told by your dentist. Do not stop taking it even if you start to feel better. Eating and drinking Do not eat foods or drinks that cause you pain. These include: Very hot or very cold foods or drinks. Sweet or sugary foods or drinks. Managing pain and swelling If told, put ice on the painful area of your face. To do this: ?Put ice in a plastic bag. ?Place a towel between your skin and the bag. ?Leave the ice on for 20 minutes, 2 3 times a day. ?Take off the ice if your skin turns bright red. This is very important. If you cannot feel pain, heat, or cold, you have a greater risk of damage to the area. Brushing your teeth [place] your teeth twice a day using a fluoride toothpaste. Use a toothpaste made for sensitive teeth as told by your dentist. Use a soft toothbrush. General instructions Floss your teeth at least once a day. Do not put heat on the outside of your face. Rinse your mouth often with salt water. To make salt water, dissolve 1 tsp (3 6 g) of salt in 1 cup(237 mL) of warm water. Watch your dental pain. Let your dentist know if there are any changes. Keep all follow-up visits. Contact a dentist if: You have dental pain and you do not know why. Medicine does not help your pain. Your symptoms get worse. You have new symptoms. Get help right away if: You cannot open your mouth. You are having trouble breathing or swallowing. You have a fever. Your face, neck, or jaw is swollen. These symptoms may be an emergency. Get help right away. Call your local emergency services ([address] [place] Do not wait to see if the symptoms will go away. Do not drive yourself to the hospital. Summary Dental pain may be caused by many things, including tooth decay, injury, or infection. In some cases, the cause is not known. Dental pain may hurt a lot or very little. You may have pain all the time, or you may have it only when you eat or drink. Take nuse-giq-bfchfxq and prescription medicines only as told by your dentist. Watch your dental pain for any changes. Let your dentist know if symptoms get worse. This information is not intended to replace advice given to you by your health care provider. Make sure you discuss any questions you have with your health care provider. Document Revised: 11/15/2020 Document Reviewed: 11/15/2020 [email or web address] Patient Education 2022 [employer]. Follow Up Care 05/20/2023 21:21:41 With:Dental: [facility] [phone] Address:Unknown When:05/23/2023 [facility]03-26-2024 Evaluation + Plan noteExtracted from: Title:ED Note Author:Imelda Bowles PA-C Date :05/20/23 1. Mouth pain (K13.79: Other lesions of oral mucosa) Ordered: clindamycin, 300 mg = 1 cap(s), Oral, q8hr, X 7 day(s), # 21 cap(s), Refills(s) 0, Pharmacy: [facility]/pharmacy #[id number], 167, cm, 05/20/23 21:36:00 EDT, Height/Length Dosing, 78.8, kg, 05/20/23 21:36:00 EDT, Weight Dosing Orders: clindamycin, 300 mg = 2 cap(s), Cap, Oral, Once, Stop date 05/20/23 21:48:00 EDT, STAT, Start date 05/20/23 21:48:00 EDT, 05/20/23 21:48:00 EDT ketorolac, 15 mg = 1 mL, Injection, IntraMuscular, Once, Stop date 05/20/23 21:48:00 EDT, STAT, Start date 05/20/23 21:48:00 EDT, 05/20/23 21:48:00 EDT [facility]03-14-2024 Miscellaneous Notes* Telephone Encounter - Winsome Heard OCCA - 05/08/2023 2:57 PM EDT Reque Patient comment: The pharmacy said this one wasn't sent in. I'm in a lot of nerve pain. ster: Patient Patients last Endocrinology visit occurred 04/28/23. Follow-up evaluation has been established Upcoming Endocrinology Appointments - Next 365 Days Visit Type Date Time Department EST ALEKSANDRA PATIENT 10/29/2023 10:20 AM ENDO [facility] . Requested Prescriptions Pending Prescriptions Disp Refills pregabalin (LYRICA) 300 mg capsule 180 capsule 3 Sig: Take 1 capsule by mouth two times a day for 360 days. If patient is due for an appointment please route to provider for refill consideration and also to the endo scheduling pool. PSS NOTE: Patient needs scheduled appointment [facility] NoteHNO ID: [id number] Author: DG NAVA APRN.LEAD PASTOR Service: ? Author Type: Nurse Practitioner Type: Progress Notes Filed: 05/05/2023 12:39 Note Text: Endocrinology Follow-up History of Present Illness Mery Riley is a 42 year old female presents today for follow up of DM Type 1. PMH significant for neuropathy, hypothyroidism (euthyroid without treatment, previously on [place] thyroid). She was on [employer] until November 2021. Last endocrinology visit was with Dr. Walls on 10/08/22. Last HbA1c was 10.1% on 10/08/22. Her carb ratio was changed to Humalog 1 unit per 10 grams of carbs plus correction factor 40 over target 120. She was started on Omnipod 5 insulin pump on 12/03/22. POC HbA1c in office today is 6.0%. She is doing well with the Omnipod 5 pump. Was unable to get insulin pump supplies but could not due to some issue with her insurance, but she is not sure exactly why. Has been off of it since last fall. Last hypoglycemia where someone else had to treat her was in middle of night a couple years ago. Has glucagon injection kit at home. Omnipod 5 Basal 0000 1.05 units/hr Bolus 0000 1 to 11 ISF 34 Target Range 110 Date of Diagnosis: age 9 Last HbA1c: Hemoglobin A1C (%) Date Value 12/24/2019 8.4 07/09/2018 7.8 04/05/2017 7.7 12/19/2016 7.7 01/12/2016 Unable to assay. No specimen received. Hemoglobin A1C (POCT) (%) Date Value 10/08/2022 10.1 06/05/2022 10.4 04/18/2020 8.5 12/21/2019 8.5 04/05/2019 9.7 Complications Microvascular: neuropathy Macrovascular: denies Diabetic Foot and Retinal Eye Exam not Overdue Physical Activity: Regular Diet: Counts Carbs SMBG Summary of Personal CGM Findings: Dates worn: 04/15/23- 04/28/23 CGM Type: Dexcom G6 1- CGM recording is adequate for interpretation. Worn 93.6% of time. 2- Average glucose is 167 mg/dl. 3. 64% time in range 70-180mg/dL 4. Coefficient of variation: 5. Total frequency of hypoglycemia: 2%% with BG<70 * Hypoglycemia patterns: between meals if skipped meal *Nocturnal hypoglycemia was not noted 6- Hyperglycemic episodes 64% with BG>180 * Hyperglycemia Patterns: post prandial Basal/day: 64% Bolus/day: 36% Current DM Related Medications: Current Medications 04/28/2023 DIABETES THERAPIES Medication Dosage Pharm Subclass insulin glargine (LANTUS) 100 unit/mL injection Inject 36 Units subcutaneously daily at bedtime. Insulin Analogs - Long Acting insulin lispro (HUMALOG U-100 INSULIN) 100 unit/mL injection Uses 66 units daily via insulin pump Insulin Analogs - Rapid Acting CARDIOVASCULAR Medication Dosage Pharm Subclass atorvastatin (LIPITOR) 10 mg tablet Take 1 tablet by mouth once daily. Antihyperlipidemic - HMG CoA Reductase Inhibitors (statins) lisinopril (ZESTRIL) 5 mg tablet Take 1 tablet by mouth once daily. GUEVARA Inhibitors OTHER Medication Dosage Pharm Subclass acetaminophen-codeine (TYLENOL-COD #3) 300-30 mg per tablet per Dr. Ramsey, inspection engineer Analgesic Opioid Codeine Combinations alcohol swabs Use with blood glucose test 3 times daily. Insulin Dep? Yes. E10.65 Antiseptic - Alcohols Blood Glucose Control, Normal soln Use to calibrate meter as directed. Medical Supplies and DME - Glucose Monitoring Test Supplies blood sugar diagnostic (ACCU-CHEK GUIDE TEST STRIPS) test strip Use as instructed check glucose at least 4 times daily. Medical Supplies and DME - Blood Glucose Tests blood sugar diagnostic test strip Use with blood glucose test 4 times daily, Insulin Dep? Yes. E10.65 Medical Supplies and DME - Blood Glucose Tests Blood-Glucose Meter Test Four times a day. Insulin Dep? Yes E10.9 DM 1, E10.65 Medical Supplies and DME - Glucose Monitoring Test Supplies Blood-Glucose Sensor (DEXCOM G6 SENSOR) candido Use to monitor glucose as directed every 10 days Medical Supplies and DME - Glucose Monitoring Test Supplies Blood-Glucose Transmitter (DEXCOM G6 TRANSMITTER) candido Use to monitor glucose as directed every 90 days Medical Supplies and DME - Glucose Monitoring Test Supplies Cholecalciferol, Vitamin D3, 5,000 unit cap Take 1 capsule by mouth twice daily with meals. 10,000 int. units daily with a meal for 3 months, then 5000 int. units daily. Vitamins - D Derivatives CRANBERRY EXTRACT (CRANBERRY CONCENTRATE ORAL) Take by mouth. Alternative Therapy - Unclassified fexofenadine (KORIN) 180 mg tablet TAKE 1 TABLET BY MOUTH ONCE DAILY. Antihistamines - 2nd Generation FLUoxetine (PROZAC) 20 mg capsule Antidepressant - Selective Serotonin Reuptake Inhibitors (SSRIs) fluticasone (FLONASE) 50 mcg/actuation nasal spray Use 2 Sprays in each nostril once daily. Nasal Corticosteroids glucagon 3 mg/actuation nasal spray (BAQSIMI) Use 1 [place] in the nose as needed for low blood sugar. May repeat after 15 minutes using a new device if there is no response. Agents to treat Hypoglycemia (Hyperglycemics) ibuprofen (MOTRIN) 600 mg tablet Take 1 tab (more content not included)... [facility]03-04-2024 History of Present illness Narrative* Dg Nava, BRANDON.LEAD PASTOR - 04/28/2023 10:50 AM EST Endocrinology Follow-up History of Present Illness Mery Riley is a 42 year old female presents today for follow up of DM Type 1. PMH significant for neuropathy, hypothyroidism (euthyroid without treatment, previously on [place] thyroid). [facility] Last endocrinology visit was with Dr. Walls on 10/08/22. Last HbA1c was 10.1% on 10/08/22. Her carb ratio was changed to Humalog 1 unit per 10 grams of carbs plus correction factor 40 over target 120. She was started on Omnipod 5 insulin pump on 12/03/22. POC HbA1c in office today is 6.0%. She is doing well with the Omnipod 5 pump. Was unable to get insulin pump supplies but could not due to some issue with her insurance, but sheis not sure exactly why. Has been off of it since last fall. Last hypoglycemia where someone else had to treat her was in middle of night a couple years ago. Has glucagon injection kit at home. Omnipod 5 Basal 0000 1.05 units/hr Bolus 0000 1 to 11 ISF 34 Target Range 110 Date of Diagnosis: age 9 Last HbA1c: Hemoglobin A1C (%) Date Value 12/24/2019 8.4 07/09/2018 7.8 04/05/2017 7.7 12/19/2016 7.7 01/12/2016 Unable to assay. No specimen received. Hemoglobin A1C (POCT) (%) Date Value 10/08/2022 10.1 06/05/2022 10.4 04/18/2020 8.5 12/21/2019 8.5 04/05/2019 9.7 Complications Microvascular: neuropathy Macrovascular: denies Diabetic Foot and Retinal Eye Exam not Overdue Physical Activity: Regular Diet: Counts Carbs SMBG Summary of Personal CGM Findings: Dates worn: 04/15/23- 04/28/23 CGM Type: Dexcom G6 1- CGM recording is adequate for interpretation. Worn 93.6% of time. 2- Average glucose is 167 mg/dl. 3. 64% time in range 70-180mg/dL 4. Coefficient of variation: 5. Total frequency of hypoglycemia: 2%% with BG<70 * Hypoglycemia patterns: between meals if skipped meal *Nocturnal hypoglycemia was not noted 6- Hyperglycemic episodes 64% with BG>180 * Hyperglycemia Patterns: post prandial Basal/day: 64% Bolus/day: 36% Current DM Related Medications: Current Medications 04/28/2023 DIABETES THERAPIES Medication Dosage Pharm Subclass insulin glargine (LANTUS) 100 unit/mL injection Inject 36 Units subcutaneously daily at bedtime. Insulin Analogs - Long Acting insulin lispro (HUMALOG U-100 INSULIN) 100 unit/mL injection Uses 66 units daily via insulin pump Insulin Analogs - Rapid Acting CARDIOVASCULAR Medication Dosage Pharm Subclass atorvastatin (LIPITOR) 10 mg tablet Take 1 tablet by mouth once daily. Antihyperlipidemic - HMG CoAReductase Inhibitors (statins) lisinopril (ZESTRIL) 5 mg tablet Take 1 tablet by mouth once daily. GUEVARA Inhibitors OTHER Medication Dosage Pharm Subclass acetaminophen-codeine (TYLENOL-COD #3) 300-30 mg per tablet per Dr. Ramsey, inspection engineer Analgesic Opioid Codeine Combinations alcohol swabs Use with blood glucose test 3 times daily. Insulin Dep? Yes. E10.65 Antiseptic - Alcohols Blood Glucose Control, Normal soln Use to calibrate meter as directed. Medical Supplies and DME - Glucose Monitoring Test Supplies blood sugar diagnostic (ACCU-CHEK GUIDE TEST STRIPS) test strip Use as instructed check glucose at least 4 times daily. Medical Supplies and DME - Blood Glucose Tests blood sugar diagnostic test strip Use with blood glucose test 4 times daily, Insulin Dep? Yes. E10.65 Medical Supplies and DME - Blood Glucose Tests Blood-Glucose Meter Test Four times a day. Insulin Dep? Yes E10.9 DM 1, E10.65 Medical Supplies andDME - Glucose Monitoring Test Supplies Blood-Glucose Sensor (DEXCOM G6 SENSOR) candido Use to monitor glucose as directed every 10 days Medical Supplies and DME - Glucose Monitoring Test Supplies Blood-Glucose Transmitter (DEXCOM G6 TRANSMITTER) candido Use to monitor glucose as directed every 90 days Medical Supplies and DME - Glucose Monitoring Test Supplies Cholecalciferol, Vitamin D3, 5,000 unit cap Take 1 capsule by mouth twice daily with meals. 10,000 int. units daily with a meal for 3 months, then 5000 int. units daily. Vitamins - D Derivatives CRANBERRY EXTRACT (CRANBERRY CONCENTRATE ORAL) Take by mouth. Alternative Therapy - Unclassified fexofenadine (KORIN) 180 mg tablet TAKE 1 TABLET BY MOUTH ONCE DAILY. Antihistamines - 2nd Generation FLUoxetine (PROZAC) 20 mg capsule Antidepressant - Selective Serotonin Reuptake Inhibitors (SSRIs) fluticasone (FLONASE) 50 mcg/actuation nasal spray Use 2 Sprays in each nostril once daily. Nasal Corticosteroids glucagon 3 mg/actuation nasal spray (BAQSIMI) Use 1 [place] in the nose as needed for low blood sugar. May repeat after 15 minutes using a new device if there is no response. Agents to treat Hypoglycemia (Hyperglycemics) ibuprofen (MOTRIN) 600 mg tablet Take 1 tablet by mouth every 8 hours as needed for Pain. NSAID Analgesics (ROSALES Non-Specific) - Propionic Acid Derivatives insulin pump cart,automated,BT (OMNIPOD 5 G6 PODS, GEN 5,) crtg APPLY ONE ONCE EVERY 3 DAYS [employer], FDB Superset insulin syr/ndl U100 half alex (BD INSULIN SYRINGE, HALF UNIT,) 0.3 mL 31 gauge x 5/16 syrg Use 4-6 times daily Medical Supplies and DME - Insulin [place]- Syringes and Admin Supplies Lancets lancets Use with blood glucose test 4 times daily. Insulin Dep? Yes. E10.65 Medical Supplies and DME - Glucose Monitoring Test Supplies MULTIVITAMIN CAP Take one(1) capsule daily. Multivitamins omeprazole (PRILOSEC) 20 mg capsule Take 1 capsule by mouth once daily. Gastric Acid Secretion Waiter/Waitress Second Class - Proton Pump Inhibitors (PPIs) omeprazole (PRILOSEC) 20 mg capsule TAKE 1 CAPSULE BY MOUTH ONCE DAILY. Gastric Acid Secretion Waiter/Waitress Second Class - Proton Pump Inhibitors (PPIs) OMNIPOD 5 G6 INTRO KIT, GEN 5, crtg Inject 1 Each subcutaneously as directed. Medical Supply, FDB Superset pregabalin (LYRICA) 300 mg capsule Take 1 capsule by mouth twice daily for 360 days. Anticonvulsant- FAY Analogs Subcutaneous Insulin Pump (PARADIGM INSULIN PUMP) misc BASAL Pattern 2 - 30.7 T basal q24 BOLUS Midnight 13 2PM 10 ISF Midnight 50 Goal 120-140 Medical Supply, FDB Superset Past History, Medications, Allergies PAST MEDICAL HISTORY Diagnosis Date Depression Diabetes (HCC) age 9 Fibromyalgia Fracture 06/06/2011 right hip PAST SURGICAL HISTORY Procedure Laterality Date NONE PAST SURGICAL HISTORY OF 08/20/2011 cephalomedullary nailing of the hip, right ALLERGIES Allergen Reactions Biaxin [Clarithromy* shock Erythromycin Vomiting Penicillins shock Sulfa (Sulfonamide * shock FAMILY HISTORY Problem Relation Age of Onset Arthritis Mother Headache Mother Thyroid Mother Thyroid Father Arthritis Father Diabetes Paternal Grandmother DM2 Social History Tobacco Use Smoking status: Former Packs/day: 1.00 Years: 9.00 Additional pack years: 0.00 Total pack years: 9.00 Types: Cigarettes Smokeless tobacco: Former Quit date: 06/27/2014 Substance Use Topics Alcohol use: Yes Alcohol/week: 4.0 standard drinks of alcohol Types: 4 Cans of Beer (12oz) per week Comment: occas Drug use: No Review of Systems GENERAL: No weight loss, malaise or fevers RESPIRATORY: Negative for cough, hemoptysis, wheezing, COPD, dyspnea or shortness of breath CARDIOVASCULAR: Negative for chest pain, leg swelling, hypertension, CHF or palpitations GI: No nausea, vomiting, or diarrhea ENDOCRINE: Negative for cold or heat intolerance, polyuria, polydipsia and goiter Feet: No problems NEUROLOGIC:Negative for focal numbness or weakness, headaches and dizziness or syncope. Physical examination Wt 78.3 kg (172 lb 9.9 oz) LMP 09/17/2022 BMI 27.86 kg/m General appearance: Well appearing, alert, in no acute distress, well-hydrated, well nourished. Skin: Skin color, texture, turgor normal, no suspicious rashes or lesions HEART: normal rate LUNGS: unlabored, normal respiratory rate EXTREMITIES No deformities, No skin discoloration and No edema NEURO: Speech normal, mental status intact, no tremor noted. Previous Laboratory Results LABS Glucose (mg/dL) Date Value 06/18/2022 118 12/24/2019 Duplicate request 12/24/2019 215 07/09/2018 175 Potassium (mmol/L) Date Value 06/18/2022 4.1 12/24/2019 Duplicate request Sodium (mmol/L) Date Value 06/18/2022 142 12/24/2019 Duplicate request 12/24/2019 138 07/09/2018 137 Chloride (mmol/L) Date Value 06/18/2022 103 12/24/2019 Duplicate request 12/24/2019 104 07/09/2018 103 CO2 (mmol/L) Date Value 06/18/2022 31 12/24/2019 Duplicate request 12/24/2019 25 07/09/2018 28 Creatinine (mg/dL) Date Value 06/18/2022 0.66 12/24/2019 Duplicate request 12/24/2019 0.59 07/09/2018 0.77 BUN (mg/dL) Date Value 06/18/2022 7 12/24/2019 Duplicate request 12/24/2019 10 07/09/2018 15 Anion Gap (mmol/L) Date Value 06/18/2022 8 12/24/2019 Duplicate request 12/24/2019 9 07/09/2018 6 Calcium (mg/dL) Date Value 12/24/2019 Duplicate request 12/24/2019 9.0 07/09/2018 8.7 Calcium, Total (mg/dL) Date Value 06/18/2022 9.3 eGFR- (no units) Date Value 12/24/2019 Duplicate request 12/24/2019 >60 07/09/2018 >60 eGFR-All Other Races (.) Date Value 12/24/2019 Duplicate request 12/24/2019 >60 07/09/2018 >60 Estimated Glomerular Filtration Rate (mL/min/1.73m ) Date Value 06/18/2022 115 ALT (U/L) Date Value 12/24/2019 Duplicate request 12/24/2019 16 07/09/2018 9 TSH Date Value Ref Range Status 06/18/2022 1.760 0.270 - 4.200 mIU/L Final Comment: If the patient is , TSH reference range varies by gestational period: First Trimester (weeks 9-12): 0.180-2.990 mIU/L Second Trimester: 0.110-3.980 mIU/L Third Trimester: 0.480-4.710 mIU/L Geovanny Upton et al. A Practical Approach for the Verifications and Determination of Site- and Trimester-Specific Reference Intervals for Thyroid Function tests in . Thyroid, 2019:29:3:412-420.Israel Degroot et al. 2017 Guidelines of the [place] Thyroid Association for the Diagnosis and Management of Thyroid Disease during and the . Thyroid, 2017:27:3:315-389. 04/18/2020 1.430 0.270 - 4.200 uU/mL Final Comment: If the patient is , TSH reference range varies by gestational period: First Trimester (weeks 9-12): 0.180-2.990 mcIU/mL Second Trimester: 0.110-3.980 mcIU/mL Third Trimester: 0.480-4.710 mcIU/mL Geovanny Upton et al. A Practical Approach for the Verifications and Determination of Site- and Trimester-Specific Reference Intervals for Thyroid Function tests in . Thyroid, 2019:29:3:412-420. Israel Degroot et al. 2017 Guidelines of the [place] Thy[employer] for the Diagnosis and Management of Thyroid Disease during and the . Thyroid, 2017:27:3:315-389. 12/24/2019 1.050 0.270 - 4.200 uU/mL Final Comment: If the patient is , TSH reference range varies by gestational period: First Trimester (weeks 9-12): 0.180-2.990 mcIU/mL Second Trimester: 0.110-3.980 mcIU/mL Third Trimester: 0.480-4.710 mcIU/mL Geovanny Upton et al. A Practical Approach for the Verifications and Determination of Site- and Trimester-Specific Reference Intervals for Thyroid Function tests in . Thyroid, 2019:29:3:412-420. Israel Degroot, et al. 2017 Guidelines of the [place] Thyroid Association for the Diagnosis and Management of Thyroid Disease during and the . Thyroid, 2017:27:3:315-389. 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 POC HbA1c in office today is 6.0%. Patient is tolerating Omnipod 5 well and has been complaint with treatment plan. A1c has improved significantly since starting the Omnipod 5 pump. Plan to continue current pump settings. Will obtain updated labs. Patient is agreeable with this plan. RECOMMENDATIONS: 1. Glycemic control: Target HbA1C is less than 7.0% per ADA guidelines. --Patient is at target on current regimen. Plan: Continue current pump settings Obtain labs Follow up in 6 months We reviewed glucose targets as: Fasting 80-130, before meals 100-130, and bedtime 100-150 mg/dL. Call the office with blood sugars less than 70 The patient was reminded to check their blood glucose as directed and to record the data in a logbook. This patient was advised to bring their logbook to each office visit. I recommended at least 150minutes per week of moderate physical activity, such as walking and to reduce carbohydrates and overall caloric intake. 2. Hypertension/BP control: BP goal for patients with diabetes is 130/80. -- This patient is at target on their current regimen. 3. Lipids: Target LDL cholesterol in patients with diabetes is less than 100, less than 70 if patient has overt CVD. Several studies have shown cardiovascular benefits of statin therapy in all patients with diabetes over age 40 with at least 1 CVD risk factor. Cholesterol, Total Date Value Ref Range Status 06/18/2022 200 (H) <200 mg/dL Final Comment: <200 mg/dL, Desirable 200-239 mg/dL, Borderline high >239 mg/dL, High HDL Cholesterol Date Value Ref Range Status 06/18/2022 56 >39 mg/dL Final Comment: 40-59 mg/dL, Acceptable >59 mg/dL, High: Negative risk factor for coronary heart disease <40 mg/dL, Low: Positive risk factor for coronary heart disease LDL Cholesterol Date Value Ref Range Status 06/18/2022 119 (H) <100 mg/dL Final Comment: <100 mg/dL, Optimal 100-129 mg/dL, Near optimal/above optimal 130-159 mg/dL, Borderline high 160-189 mg/dL, High >189 mg/dL, Very high Secondary prevention optimal LDL Cholesterol levels are recommended to be < 70 mg/dL Triglyceride Date Value Ref Range Status 06/18/2022 124 <150 mg/dL Final Comment: <150 mg/dL, Normal 150-199 mg/dL, Borderline high 200-499 mg/dL, High >499 mg/dL, Very high -- This patient is not up to date on lipid testing and fasting lipid profile was ordered today. 4. Nephropathy screening: Annual measurement of urine albumin excretion is recommended in patients with diabetes. Albumin/Creat Ratio (mg/g) Date Value 06/18/2022 <16 12/24/2019 Not calculated Protein, Urine (mg/dL) Date Value 11/11/2012 Negative Creatinine, Ur Random (UCRR) (mg/dL) Date Value 06/18/2022 75.0 12/24/2019 116.9 -- This patient is not up to date on microalbumin screening and this was ordered today. 5. Ophthalmology: Annual dilated eye exams are recommended for patients with type 1 and type 2 diabetes. -- This patient is up to date with their annual eye exam and has no history of retinopathy. -- Last seen 11/05/22 Patient to continue to follow up with his PCP and with other consultants regarding his other medical problems. Any part of this document that has been added/copied & pasted from other documents has been reviewed for accuracy and updated as appropriate at the time of the patient encounter I spent a total of 35 minutes on the date of the service which included preparing to see the patient, mztl-rx-cnwx patient care, completing clinical documentation, obtaining and/or reviewing separately obtained history, performing a medically appropriate examination, counseling and educating the pat ient/family/caregiver, ordering medications, tests, or procedures, independently interpreting results (not separately reported), and communicating results to the patient/family/caregiver. Dg Nava APRN.LEAD PASTOR (Signed electronically to expedite mailing) documented in this encounterKet[facility]03-04-2024 Miscellaneous Notes* Telephone Encounter - Cristal Martinez MA - 04/28/2023 8:37 AM EST Requester: Pharmacy Patients last Endocrinology visit occurred 10-08-22. Follow-up evaluation has been established Upcoming Endocrinology Appointments - Next 365 Days Visit Type Date Time Department [facility] 04/28/2023 10:50 AM ENDO [facility] . Requested Prescriptions Pending Prescriptions Disp Refills insulin pump cart,automated,BT (OMNIPOD 5 G6 PODS, GEN 5,) crtg [Pharmacy Med Name: OMNIPOD GEN 5 G6 PODS(5PK) MIS] 10 Each 0 Sig: APPLY 1 EVERY 72 HOURS If patient is due for an appointment please route to provider for refill consideration and also to the endo scheduling pool. PSS NOTE: Patient needs scheduled appointment No documented in this encounterKettering [facility]10-30-2023 Miscellaneous Notes* Telephone Encounter - Serafin Michelle RN - 12/23/2022 1:49 PM EDT Images from the original note were not included. Insulin Pump Training Post Follow Up Pt started on Omnipod 5 pump on December 03, 2022 Pt able to change infusion site yes Able to verify current pump settings yes Trouble shooting: none Patient concerns: none Comments: pt doing well, has f/u with endo in one week Next follow up scheduled: none Provider follow up scheduled: 12/30/22 Basal rate adjustments- none Defgytf-tstr-jiegz adjustments- none Insulin sensitivity factor adjustments- none documented in this encounterKettering [facility]10-28-2023 Evaluation + Plan note Extracted from: Title:ED Note Author:Edd LOERA, Ross Solomon te:12/21/22 Pain in elbow (M25.529: Pain in unspecified elbow) Orders: acetaminophen-oxycodone, 1 tab(s), Tab, Oral, Once, Stop date 12/21/22 8:11:00 EDT, STAT, Start date 12/21/22 8:11:00 EDT methocarbamol, 1,500 mg = 2 tab(s), Oral, TID, X 3 day(s), # 18 tab(s), Refills(s) 0, Pharmacy: [facility]/pharmacy #[id number], 167.6, cm, 12/21/22 8:05:00 EDT, Height/Length Dosing, 63, kg, 12/21/22 8:05:00 EDT, Weight Dosing naproxen, 500 mg = 1 tab(s), Oral, BID, PRN for pain, # 20 tab(s), Refills(s) 0, Pharmacy: [facility]/pharmacy #[id number], 167.6, cm, 12/21/22 8:05:00 EDT, Height/Length Dosing, 63, kg, 12/21/22 8:05:00 EDT, Weight Dosing Apply Sling XR Elbow 3+ Views Left [facility]10-28-2023 Hospital Discharge instructions Patient Education 12/21/2022 08:57:11 Musculoskeletal Pain Musculoskeletal Pain Musculoskeletal pain refers to aches and pains in your bones, joints, muscles, and the tissues thatsurround them. This pain can occur in any part of the body. It can last for a short time (acute) ora long time (chronic). A physical exam, lab tests, and imaging studies may be done to find the cause of your musculoskeletal pain. Follow these instructions at home: Lifestyle Try to control or lower your stress levels. Stress increases muscle tension and can worsen musculoskeletal pain. It is important to recognize when you are anxious or stressed and learn ways to manageit. This may include: ?Meditation or yoga. ?Cognitive or behavioral therapy. ?Acupuncture or massage therapy. You may continue all activities unless the activities cause more pain. When the pain gets better, slowly resume your normal activities. Gradually increase the intensity and duration of your activities or exercise. Managing pain, stiffness, and swelling Treatment may include medicines for pain and inflammation that are taken by mouth or applied to theskin. Take ubds-fpn-npmvdal and prescription medicines only as told by your health care provider. When your pain is severe, bed rest may be helpful. Lie or sit in any position that is comfortable, but get out of bed and walk around at least every couple of hours. If directed, apply heat to the affected area as often as told by your health care provider. Use theheat source that your health care provider recommends, such as a moist heat pack or a heating pad. ?Place a towel between your skin and the heat source. ?Leave the heat on for 20 30 minutes. ?Remove the heat if your skin turns bright red. This is especially important if you are unable to feel pain, heat, or cold. You may have a greater risk of getting burned. If directed, put ice on the painful area. To do this: ?Put ice in a plastic bag. ?Place a towel between your skin and the bag. ?Leave the ice on for 20 minutes, 2 3 times a day. ?Remove the ice if your skin turns bright red. This is very important. If you cannot feel pain, heat, or cold, you have a greater risk of damage to the area. General instructions Your health care provider may recommend that you see a physical therapist. This person can help youcome up with a safe exercise program. If told by your health care provider, do physical therapy exercises to improve movement and strength in the affected area. Keep all follow-up visits. This is important. This includes any physical therapy visits. Contact a health care provider if: Your pain gets worse. Medicines do not help ease your pain. You cannot use the part of your body that hurts, such as your arm, leg, or neck. You have trouble sleeping. You have trouble doing your normal activities. Get help right away if: You have a new injury and your pain is worse or different. You feel numb or you have tingling in the painful area. Summary Musculoskeletal pain refers to aches and pains in your bones, joints, muscles, and the tissues thatsurround them. This pain can occur in any part of the body. Your health care provider may recommend that you see a physical therapist. This person can help youcome up with a safe exercise program. Do any exercises as told by your physical therapist. Lower your stress level. Stress can worsen musculoskeletal pain. Ways to lower stress may include meditation, yoga, cognitive or behavioral therapy, acupuncture, and massage therapy. This information is not intended to replace advice given to you by your health care provider. Make sure you discuss any questions you have with your health care provider. Document Revised: 06/15/2020 Document Reviewed: 05/24/2020 [email or web address] Patient Education 2022 [employer]. Follow Up Care 12/21/2022 08:01:02 With:JEOVANNY GRIFFIN Address: [address] [place] [address] [place] [address] Business (1) When:12/24/2022 08:46:51 [facility]10-24-2023 Miscellaneous Notes* Telephone Encounter - Serafin Michelle RN - 12/17/2022 2:19 PM EDT Images from the original note were not included. Insulin Pump Training Post Follow Up Pt started on Omnipod 5 pump on December 03, 2022 Pt able to change infusion site yes Able to verify current pump settings yes Trouble shooting: none Patient concerns: pt states she is getting too much insulin for CHOs so she has not been entering them recently Comments: will lessen CHO ratio Next follow up scheduled: this week Provider follow up scheduled: 12/30/22 Basal rate adjustments- none Cjdyemf-bsqj-lhota adjustments- 12am to 12am from 9 to 11 Insulin sensitivity factor adjustments- none documented in this encounterKettering [facility]10-17-2023 Miscellaneous Notes* Telephone Encounter - Serafin Michelle RN - 12/10/2022 1:18 PM EDT Images from the original note were not included. Insulin Pump Training Post Follow Up Pt started on Omnipod 5 pump on December 03, 2022 Pt able to change infusion site yes Able to verify current pump settings yes Trouble shooting: having trouble with adhesive sticking. Has used pod pals and will be ordering skin tac Patient concerns: none Comments: pt will decrease target BGs from 130 to 110 Next follow up scheduled: this week Provider follow up scheduled: 12/30/22 Basal rate adjustments- none Ofkmkpa-yfjb-zptts adjustments- none Insulin sensitivity factor adjustments- non documented in this encounterKet[facility]10-11-2023 Miscellaneous Notes* Telephone Encounter - Serafin Michelle RN - 12/04/2022 9:26 AM EDT Pt calls and states that her Omni Pod fell off even with the pod pal Send pt [employer]t message with further information. documented in this encounterKettering [facility]10-10-2023 NoteHNO ID: [id number] Author: Serafin Michelle RN Service: ? Author Type: Registered Nurse Type: Progress Notes Filed: 12/03/2022 11:09 AM Note Text: Type of visit: In person individual Patient started today on Omnipod 5 insulin pump. Type of training:new to pump If upgrade, patient was previously on the following pump:patient is new to pump Pump programming done today by: patient with educator supervision Insulin information: Last long-acting insulin type, dose, and time: Lantus 32 units 12/02/22 at 10:30 pm Temp basal rate set today:no temp basal set today Temp basal duration set today:no temp basal set today Rapid-acting insulin loaded into pump today: Humalog See phone encounter dated 11/12/22 for pump settings approved by provider and programmed into pump today. Infusion set information: Infusion set insertion done today by:patient with educator supervision Infusion set inserted in right flank Pre-pump training and pump safety information: Patient can demonstrate correct use of a carb ratio:Yes Patient Verbalizes rules regarding when to change infusion set due to hyperglycemia: Yes Patient verbalizes importance of carrying a pump emergency kit:Yes Patient verbalizes back-up plan for pump failure:Yes Handouts provided: Resource Guide Follow-up plan for glucose management given to patient: patient will upload pump for educator review in 24 hours to 3 days day(s) Follow-up plan for education: Follow-up training needed:no follow-up training needed This is a non-billable encounter through [employer] but will be billed to the following pump company: [employer]. This visit note will be communicated to the healthcare provider via access to shared medical record. I spent 60 minutes with this patient today. Serafin Michelle RNUniversity [facility]als [facility]10-10-[facility] History of Present illness Narrative* Serafin Michelle RN - 12/03/2022 9:59 AM EDT Type of visit: In person individual Patient started today on Omnipod 5 insulin pump. Type of training:new to pump If upgrade, patient was previously on the following pump:patient is new to pump Pump programming done today by: patient with educator supervision Insulin information: Last long-acting insulin type, dose, and time: Lantus 32 units 12/02/22 at 10:30 pm Temp basal rate set today:no temp basal set today Temp basal duration set today:no temp basal set today Rapid-acting insulin loaded into pump today: Humalog See phone encounter dated 11/12/22 for pump settings approved by provider and programmed into pump today. Infusion set information: Infusion set insertion done today by:patient with educator supervision Infusion set inserted in right flank Pre-pump training and pump safety information: Patient can demonstrate correct use of a carb ratio:Yes Patient Verbalizes rules regarding when to change infusion set due to hyperglycemia: Yes Patient verbalizes importance of carrying a pump emergency kit:Yes Patient verbalizes back-up plan for pump failure:Yes Handouts provided: Resource Guide Follow-up plan for glucose management given to patient: patient will upload pump for educator review in 24 hours to 3 days day(s) Follow-up plan for education: Follow-up training needed:no follow-up training needed This is a non-billable encounter through [employer] but will be billed to the following pump company: [employer]. This visit note will be communicated to the healthcare provider via access to shared medical record. I spent 60 minutes with this patient today. Serafin Michelle RN documented in this encounterKettering [facility]10-02-2023 Evaluation + Plan note Extracted from: Title:ED Note Author:Shadi Rendon DO Date:11/25/22 Dental abscess (K04.7: Peria pical abscess without sinus) Ordered: acetaminophen-hydrocodone, 1 tab(s), Oral, q6hr for pain for 3 day(s), 10 tab(s), Refill(s) 0, [facility]/pharmacy #[id number], 167.6, cm, 10/04/22 22:54:00 EDT, Height/Length Dosing, 63.5, kg, 10/04/22 22:54:00 EDT, Weight Dosing Orders: benzocaine topical, 1 erika, Gel, Topical, Once, Stop date 11/25/22 10:12:00 EDT, STAT, Start date 11/25/22 10:12:00 EDT clindamycin, 300 mg = 2 cap(s), Oral, QID, Take two tabs by mouth four times a day for seven days, X 7 day(s), # 56 cap(s), Refills(s) 0, Pharmacy: [facility]/pharmacy #[id number], 167.6, cm, 10/04/22 22:54:00 EDT, Height/Length Dosing, 63.5, kg, 10/04/22 22:54:00 EDT, Weight... ibuprofen, 600 mg = 1 tab(s), Tab, Oral, Once, Stop date 11/25/22 10:13:00 EDT, STAT, Start date 11/25/22 10:13:00 EDT, 11/25/22 10:13:00 EDT lidocaine topical, 1 erika, Soln-Oral, Topical, Once, Stop date 11/25/22 10:12:00 EDT, STAT, Start date 11/25/22 10:12:00 EDT naproxen, 500 mg = 1 tab(s), Oral, BID, Take one tab by mouth two times a day, # 14 tab(s), Refills(s) 0, Pharmacy: [facility]/pharmacy #[id number], 167.6, cm, 10/04/22 22:54:00 EDT, Height/Length Dosing, 63.5, kg, 10/04/22 22:54:00 EDT, Weight Dosing [facility]10-02-2023 Hospital Discharge instructions Follow Up Care 11/25/2022 09:59:56 With:[employer] Address: [place] [address]- Business (1) When:11/28/2022 10:15:36 With:Dental: [facility] [phone] Address:Unknown When:11/28/2022 10:15:25 With:Dental: [facility] [phone] Address:Unknown When:11/28/2022 10:15:24 [facility]09-19-2023 Miscellaneous Notes* Telephone Encounter - Cinthia Walls MD - 11/12/2022 12:21 PM EDT I confirm the statements. Humalog vials ordered. Thanks * Telephone Encounter - Serafin Michelle RN - 11/12/2022 12:11 PM EDT This patient has received or will receive an insulin pump. PLEASE RESPOND TO THIS PHONE ENCOUNTER TO CONFIRM THE FOLLOWIN. That the suggested insulin pump start doses below are approved (or make changes as needed). 2. That you authorize the Diabetes Educators to do pump adjustments per the instructions listed after the rates (duration of educator providing adjustments: up to 2 weeks for upgrades, up to 4 weeks for new-to-pump). Helpful reminders to provider: 1. Order vials of insulin (type below) to be used in pump and update quantity per TDD below. 2. Update basal insulin in med list with instructions to be used prn when pump is not functional. 3. Add Insulin Pump Status to problem list. 4. Order the following test strips to be used with the new pump:will continue using current test strips Details: Scheduled insulin pump training date:12/03/22 Pump brand and model being started:Omnipod 5 Type of training:new to pump Type/brand of insulin to be used in pump:Humalog Estimated total daily dose (TDD): 66 units, pre pump 50 units Initial pump settings: Max basal rates: 2 units/hr Basal Rates: 12am-12am 1.05 units/hr Target Glucose: 130 mg/dl Correct Above: 130 mg/dl Insulin to Carb Ratio: 12am-12am 9 g/unit Correction Factor: 12am-12am 34 mg/dl/unit Duration of Active Insulin: 3 hrs Max Bolus: 25 units Insulin pump adjustment instructions for the cider press operator: Basal rate adjustments: If the glucose readings during a fasting state (no food or bolus during testing period or in the 4 hours prior) increase by 30mg/dl during the time segment being tested, then increase the basal rate for that segment by 10%. If the glucose readings during a fasting state (no food or bolus during testing period or in the 4 hours prior) decrease by 30mg/dl during the time segment being tested, then decrease the basal rate for that segment by 10%. Lhxnbzm-ra-pvvr ratio (ICR) adjustments: If the 2-hour postprandial glucose level is >60mg/dl above the pre-meal glucose level (no correction dose at pre-meal), increase the ICR for that meal by 1 gram/unit (for example: an ICR of 1:15 would change to 1:14). If the 2-hour postprandial glucose level is <30mg/dl above the pre-meal glucose level (no correction dose at pre-meal), decrease the ICR for that meal by 2 grams/unit (for example: an ICR of 1:15 would change to 1:17). Insulin sensitivity factor (ISF) adjustments: If the 4-hour post-correction glucose level is above the pre-meal target range (no prandial dose given or food eaten with or after correction dose), increase the ISF used during that time of day by 10% (for example: an ISF of 1:50 would change to 1:45). If the 4-hour post-correction glucose level is below the pre-meal target range (no prandial dose given or food eaten with or after correction dose), decrease the ISF used during that time of day by 20% (for example: an ISF of 1:50 would change to 1:60). BG targets for adjustments are as follows unless otherwise specified: Fasting/pre-meal: 70-130 1-2 hour Post-meal: 100-180 Bedtime: 100-150 * Telephone Encounter - Serafin Michelle RN - 11/12/2022 12:01 PM EDT Pre-pump Training Assessment Type of insulin pump to be started: Omnipod 5 Type of training:new to pump If upgrade, previous pump :patient is new to pump Current CGM: No In need of training for CGM: No If Omni Pod 5, Dexcom on Smart Phone: Yes Current insulin therapy : Injection Type/brand of insulin to be used in pump:Humalog Estimated total daily dose (TDD): 66 units Current use of I:C ratio: YES/NO: Yes Current use of correction scale (sliding scale): YES/NO: Yes Current use of Insulin Sensitivity Factor: YES/NO: No Current self-reported weight: 154 lbs Instructed on adjusting insulin prior to pump start: YES/NO: No Do you have trouble identifying symptoms of low blood sugars below 70?: YES/NO: No Have you been diagnosed with hypoglycemia unawareness: YES/NO: No Do you have a prescription for Glucagon: YES/NO: Yes Able to explain pump therapy concepts: Basal/bolus, IOB, I:C ratio, correction factor, duration of insulin action? YES/NO: Yes Able to explain troubleshooting: hypo/hyperglycemia, DKA, site issues, back up supplies? YES/NO: Yes Understanding of AID systems: CGM,automated mode and manual mode? YES/NO: Yes Pre-pump training recommendations/instructions: none Orders sent to provider: YES/NO: Yes Orders obtained: YES/NO: No Scheduled insulin pump training date:12/03/22 documented in this encounterKettering [facility]09-18-2023 Miscellaneous Notes* Telephone Encounter - Xochilt Martin RN - 11/11/2022 10:27 AM EDT Radha Kinsey patient has received the Omnipod 5 pump and needs training. Patient is currently on MDI but has been on pump in the past. You are being assigned the training. Please contact patient to schedule training or instruct your PSS team on how to schedule. Please advise patient to bring the following to the pump start once scheduled: 1. Omnipod pump controller/PDM 2. Vial of rapid-acting insulin with at least 200 units in it 3. At least 2 of each of the following items: Omnipod pods Please coordinate the followin. Pre-pump education at your discretion 2. Order for rapid-acting insulin vials 3. Orders for pump rate settings Patient has been added to the pump training spreadsheet, so update as needed. Please respond RANDI if you would prefer this training gets reassigned. Xochilt Cooper documented in this encounterKettering Health [facility]09-12-2023 NoteHNO ID: [id number] Author: Vik Canada OD Service: ? Author Type: DUST COLLECTOR OPERATOR Type: Progress Notes Filed: 11/05/2022 10:13 AM Note Text: Encounter Diagnosis ICD-10-CM 1. Type 1 diabetes mellitus without retinopathy (HCC) E10.9 2. Hyperopia of both eyes with astigmatism and presbyopia H52.03 H52.203 H52.4 Plan: It is important to have good glucose control in order to reduce the risks of vision loss from diabetes. Regular eye examinations are necessary to monitor for these changes. Call the office immediately if vision changes are noticed. New glasses prescription given. Return to clinic 1 year full Diabetes Mellitus exam.[facility] 11-05-2022 History of Present illness Narrative* Vik Canada, OD - 11/05/2022 10:12 AM EDT Encounter Diagnosis ICD-10-CM 1. Type 1 diabetes mellitus without retinopathy (HCC) E10.9 2. Hyperopia of both eyes with astigmatism and presbyopia H52.03 H52.203 H52.4 Plan: It is important to have good glucose control in order to reduce the risks of vision loss fromdiabetes. Regular eye examinations are necessary to monitor for these changes. Call the office immediately if vision changes are noticed. New glasses prescription given. Return to clinic 1 year full Diabetes Mellitus exam. [facility] Miscellaneous Notes* Telephone Encounter - Serafin Michelle RN - 10/24/2022 12:17 PM EDT Pt would like to move forward with Omni Pod 5 Email sent to [facility] Pt will need Dexcom G6 Patient phones requesting refills as follows: Requested Prescriptions Pending Prescriptions Disp Refills insulin pump cart,automated,BT (OMNIPOD 5 G6 PODS, GEN 5,) crtg 6 Each 3 Sig: Use one every 3 days OMNIPOD 5 G6 INTRO KIT, GEN 5, crtg 1 Each 0 Sig: Inject 1 Each subcutaneously as directed. Blood-Glucose Sensor (DEXCOM G6 SENSOR) candido 9 Each 3 Sig: Use to monitor glucose as directed every 10 days Blood-Glucose Transmitter (DEXCOM G6 TRANSMITTER) candido 1 Each 3 Sig: Use to monitor glucose as directed every 90 days Please review and advise. Serafin Michelle RN documented in this encounterK[facility]23 NoteHNO ID: [id number] Author: Serafin Michelle RN Service: ? Author Type: Registered Nurse Type: Progress Notes Filed: 10/24/2022 12:12 PM Note Text: DIABETES SELF-MANAGEMENT EDUCATION AND SUPPORT Location: [place] Type of visit: In person individual Types of DSMES: Initial/Comprehensive (add to or update ADA spreadsheet) PATIENT'S MAIN CONCERN TODAY: none Support person present for education today: none Cognitive ability: Alert and oriented Motivation to learn: Interested Learning barriers identified by educator: none Method of instruction: written, verbal, and demonstration INTERVENTIONS/TOPICS COVERED: -Diabetes Pathophysiology: diabetes disease process -Monitoring: CGM type: Dexcom G6, CGM basics AND daily use, and CGM insertion steps -Medications: pt brant has the Medtronic 770g and was wearing in auto mode until she started having problems getting supplies. Pt asking for information on Omni Pod 5. Also discussed Tandem. Discussed site selection/rotation and insulin pump instruction: closed loop mode vs manual mode, infusion set types, infusion set rotation, activity mode, and insulin pump terminology: basal, bolus, sensitivity/correction factor, carb ratio, BG target, and yucmzam-it-mjiwe/duration. Discussed Omni Pod 5 in detail -Physical Activity: impact of exercise on BG -Acute Complications: hypoglycemia s/sx/tx and hyperglycemia s/sx/tx DIABETES ASSESSMENT: Referring Physician: Previous Diabetes Education? Yes, if so when? What are you hoping to gain from this visit? Discuss Omni Pod 5 In your words, what is diabetes? asked/not answered What concerns you about having diabetes? asked/not answered Diabetes History: Type of Diabetes: Type 1 What year were you diagnosed? 1989 Does anyone in your family have diabetes? yes grandmother How do you learn best? listening, observing , and reading Demographics: Highest level of education: asked/not answered Race/Ethnic Origin: asked/not answered Does your culture or buddhism require any of the following: Asked/not answered Do you have problems with: No difficulty seeing/hearing/reading/writing/speaking Occupation: asked/not answered Work hours: asked/not answered Support System: How often does someone help you read hospital materials? never How often does someone help you read your pill bottles? never How often does someone have to help you take care of your diabetes? never Major stressors:asked/not answered How do you manage stress? asked/not answered Do any of the following things get in the way of managing your diabetes? Asked/not answered Health History: Most recent eye exam: Asked/not answered Most recent dental exam:Asked/not answered Most recent foot exam:Asked/not answered How often do you inspect your feet at home? Asked/Not answered Do you use tobacco? No Do you use alcohol? Yes, How much? occasionally In the past 12 months have you had any: Hospital Admissions: Asked/not answered ER Visits: Asked/not answered Primary Care Visits: Asked/not answered What are your general feelings about you overall health? Asked/not answered Medical Issues/Complications: None PAST MEDICAL HISTORY Diagnosis Date Depression Diabetes (HCC) age 9 Fibromyalgia Fracture 06/06/2011 right hip Most recent A1C Lab Results Component Value Date HBA1C 10.1 10/08/2022 HBA1C 10.4 06/05/2022 HBA1C 8.5 04/18/2020 HBA1C 8.4 12/24/2019 HBA1C 7.8 07/09/2018 HBA1C 7.7 04/05/2017 Physical Activity: Do you do a regular exercise? Yes; runs with dog frequently Sick Days: How do you manage your diabetes when you are sick? Asked/not answered Sleep: Do you get at least 7 hrs of sleep most nights? asked/not answered Current Outpatient Medications Medication Sig glucagon 3 mg/actuation nasal spray (BAQSIMI) Use 1 Hamlin in the nose as needed for low blood sugar. May repeat after 15 minutes using a new device if there is no response. Blood-Glucose Meter Test Four times a day. Insulin Dep? Yes E10.9 DM 1, E10.65 blood sugar diagnostic test strip Use with blood glucose test 4 times daily, Insulin Dep? Yes. E10.65 Lancets lancets Use with blood glucose test 4 times daily. Insulin Dep? Yes. E10.65 alcohol swabs Use with blood glucose test 3 times daily. Insulin Dep? Yes. E10.65 Blood Glucose Control, Normal soln Use to calibrate meter as directed. blood sugar diagnostic (ACCU-CHEK GUIDE TEST STRIPS) test strip Use as instructed check glucose at least 4 times daily. lisinopril (ZESTRIL) 5 mg tablet Take 1 tablet by mouth once daily. atorvastatin (LIPITOR) 10 mg tablet Take 1 tablet by mouth once daily. insulin glargine (LANTUS) 100 unit/mL injection Inject 36 Units subcutaneously daily at bedtime. insulin syr/ndl U100 half alex (BD INSULIN SYRINGE, HALF UNIT,) 0.3 mL 31 gauge x 5/16 syrg Use 4-6 times daily insulin lispro (HUMALOG U-100 INSULIN) 100 unit/mL injection Uses 6 (more content not included)...[facility] History of Present illness Narrative* Serafin Michelle RN - 10/24/2022 10:03 AM EDT DIABETES SELF-MANAGEMENT EDUCATION AND SUPPORT Location: [place] Type of visit: In person individual Types of DSMES: Initial/Comprehensive (add to or update ADA spreadsheet) PATIENT'S MAIN CONCERN TODAY: none Support person present for education today: none Cognitive ability: Alert and oriented Motivation to learn: Interested Learning barriers identified by educator: none Method of instruction: written, verbal, and demonstration INTERVENTIONS/TOPICS COVERED: -Diabetes Pathophysiology: diabetes disease process -Monitoring: CGM type: Dexcom G6, CGM basics & daily use, and CGM insertion steps -Medications: ronni guo has the Medtronic 770g and was wearing in auto mode until she started having problems getting supplies. Pt asking for information on Omni Pod 5. Also discussed Tandem. Discussed site selection/rotation and insulin pump instruction: closed loop mode vs manual mode, infusionset types, infusion set rotation, activity mode, and insulin pump terminology: basal, bolus, sensiti vity/correction factor, carb ratio, BG target, and vwhcofc-ln-uwwaq/duration. Discussed Omni Pod 5 in detail -Physical Activity: impact of exercise on BG -Acute Complications: hypoglycemia s/sx/tx and hyperglycemia s/sx/tx DIABETES ASSESSMENT: Referring Physician: Previous Diabetes Education? Yes, if so when? What are you hoping to gain from this visit? Discuss Omni Pod 5 In your words, what is diabetes? asked/not answered What concerns you about having diabetes? asked/not answered Diabetes History: Type of Diabetes: Type 1 What year were you diagnosed? 1990 Does anyone in your family have diabetes? yes grandmother How do you learn best? listening, observing , and reading Demographics: Highest level of education: asked/not answered Race/Ethnic Origin: asked/not answered Does your culture or buddhism require any of the following: Asked/not answered Do you have problems with: No difficulty seeing/hearing/reading/writing/speaking Occupation: asked/not answered Work hours: asked/not answered Support System: How often does someone help you read hospital materials? never How often does someone help you read your pill bottles? never How often does someone have to help you take care of your diabetes? never Major stressors:asked/not answered How do you manage stress? asked/not answered Do any of the following things get in the way of managing your diabetes? Asked/not answered Health History: Most recent eye exam: Asked/not answered Most recent dental exam:Asked/not answered Most recent foot exam:Asked/not answered How often do you inspect your feet at home? Asked/Not answered Do you use tobacco? No Do you use alcohol? Yes, How much? occasionally In the past 12 months have you had any: Hospital Admissions: Asked/not answered ER Visits: Asked/not answered Primary Care Visits: Asked/not answered What are your general feelings about you overall health? Asked/not answered Medical Issues/Complications: None PAST MEDICAL HISTORY Diagnosis Date Depression Diabetes (HCC) age 9 Fibromyalgia Fracture 06/06/2011 right hip Most recent A1C Lab Results Component Value Date HBA1C 10.1 10/08/2022 HBA1C 10.4 06/05/2022 HBA1C 8.5 04/18/2020 HBA1C 8.4 12/24/2019 HBA1C 7.8 07/09/2018 HBA1C 7.7 04/05/2017 Physical Activity: Do you do a regular exercise? Yes; runs with dog frequently Sick Days: How do you manage your diabetes when you are sick? Asked/not answered Sleep: Do you get at least 7 hrs of sleep most nights? asked/not answered Current Outpatient Medications Medication Sig glucagon 3 mg/actuation nasal spray (BAQSIMI) Use 1 Hamlin in the nose as needed for low blood sugar. May repeat after 15 minutes using a new device if there is no response. Blood-Glucose Meter Test Four times a day. Insulin Dep? Yes E10.9 DM 1, E10.65 blood sugar diagnostic test strip Use with blood glucose test 4 times daily, Insulin Dep? Yes. E10.65 Lancets lancets Use with blood glucose test 4 times daily. Insulin Dep? Yes. E10.65 alcohol swabs Use with blood glucose test 3 times daily. Insulin Dep? Yes. E10.65 Blood Glucose Control, Normal soln Use to calibrate meter as directed. blood sugar diagnostic (ACCU-CHEK GUIDE TEST STRIPS) test strip Use as instructed check glucose at least 4 times daily. lisinopril (ZESTRIL) 5 mg tablet Take 1 tablet by mouth once daily. atorvastatin (LIPITOR) 10 mg tablet Take 1 tablet by mouth once daily. insulin glargine (LANTUS) 100 unit/mL injection Inject 36 Units subcutaneously daily at bedtime. insulin syr/ndl U100 half alex (BD INSULIN SYRINGE, HALF UNIT,) 0.3 mL 31 gauge x 5/16 syrg Use 4-6 times daily insulin lispro (HUMALOG U-100 INSULIN) 100 unit/mL injection Uses 60 units daily via insulin pump pregabalin (LYRICA) 300 mg capsule Take 1 capsule by mouth twice daily for 360 days. FLUoxetine (PROZAC) 20 mg capsule (Patient not taking: Reported on 06/05/2022) fexofenadine (KORIN) 180 mg tablet TAKE 1 TABLET BY MOUTH ONCE DAILY. (Patient not taking: Reported on 10/08/2022) omeprazole (PRILOSEC) 20 mg capsule TAKE 1 CAPSULE BY MOUTH ONCE DAILY. (Patient not taking: Reported on 06/05/2022) acetaminophen-codeine (TYLENOL-COD #3) 300-30 mg per tablet per Dr. Ramsey, inspection engineer (Patient not taking: Reported on 10/08/2022) Subcutaneous Insulin Pump (PARADIGM INSULIN PUMP) misc BASAL Pattern 2 - 30.7 T basal q24 BOLUS Midnight 13 2PM 10 ISF Midnight 50 Goal 120-140 ibuprofen (MOTRIN) 600 mg tablet Take 1 tablet by mouth every 8 hours as needed for Pain. fluticasone (FLONASE) 50 mcg/actuation nasal spray Use 2 Sprays in each nostril once daily. (Patient not taking: Reported on 10/08/2022) omeprazole (PRILOSEC) 20 mg capsule Take 1 capsule by mouth once daily. (Patient not taking: Reported on 06/05/2022) hydroxychloroquine (PLAQUENIL) 200 mg tablet Take 1 tablet by mouth twice daily. except on Sundays,take one tablet (200mg) once daily (Patient not taking: Reported on 06/05/2022) CRANBERRY EXTRACT (CRANBERRY CONCENTRATE ORAL) Take by mouth. (Patient not taking: Reported on 06/05/2022) Cholecalciferol, Vitamin D3, 5,000 unit cap Take 1 capsule by mouth twice daily with meals. 10,000 int. units daily with a meal for 3 months, then 5000 int. units daily. MULTIVITAMIN CAP Take one(1) capsule daily. No current facility-administered medications for this visit. Medications for Diabetes: Name of Medication Dose When taken How often missed lantus 86 Once per day Humalog 25 total daily Injections Technique: Do you take insulin or a medication you inject for your diabetes? Yes;then if so answer the following questions: How do you inject your medicine Pen Where are your injections done? Stomach/abdomen Who prepares your syringes, pen, or pump infusion set? Self Who gives you injections or changes your pump sites? Me Where do you throw away your needles? Trash Blood Sugar Monitoring: Do you have a blood sugar monitor? Yes; Management of Low Blood Sugar: What has been your lowest blood sugar in the last month? 30, hard to wake up when sleeping What are your symptoms of lows?Shaky, Sweaty, Dizzy/lightheaded, and none How do you treat lows? Juice and tressa crackers Do you drive? yes Management of High Blood Sugar: What has been you highest blood sugar in the last month? asked/not answered What are your symptoms of highs? Asked/not answered How do you treat your highs? Take correction Meal Planning: Are you currently following any meal plan? Carb counting Reproductive Status (Females): Have you reached menopause? Asked/not answered EDUCATION HANDOUTS: Omni Pod 5 flyer and on boarding information LEARNING RESPONSE: Diabetes pathophysiology: Demonstrated understanding/competency today or at previous visit Healthy eating: Demonstrated understanding/competency today or at previous visit Being active: Demonstrated understanding/competency today or at previous visit Taking medications: Demonstrated understanding/competency today or at previous visit Monitoring glucose: Demonstrated understanding/competency today or at previous visit Acute complications: Demonstrated understanding/competency today or at previous visit Chronic complications: Not assessed at the visit Healthy coping: Not assessed at the visit Diabetes distress and support: Not assessed at the visit PATIENT SELECTED THE FOLLOWING GOALS: -Other goal: restart insulin pump therapy 4: I'm ready to start now POSSIBLE FUTURE TOPICS: 1. The following topics were not assessed due to time limitations, but should be assessed at the next visit: all areas were assessed today or within the last 12 months. 2. The following topics should be taught or reinforced at the next visit: insulin pump training. DIABETES EDUCATION PLAN: Individual follow-up once has insulin pump Time Spent (Minutes): 60 This visit note will be communicated to the healthcare provider via access to shared medical record. SIGNATURE: Serafin Michelle RN PATIENT NAME: Mery Riley DATE: October 24, 2022 TIME: 10:04 AM PAGER: documented in this [facility] NoteHNO ID: [id number] Author: Cinthia Walls MD Service: ? Author Type: Physician Type: Progress Notes Filed: 10/08/2022 10:19 AM Note Text: 42yo WF with DM1 since age 9, was on Medtronic 770G until 12/15, neuropathy, hypothyroidism (euthyroid without treatment, previously on [place] thyroid), here for f/u Patient checks blood sugar 1-2 times per day due to fluctuating readings. Average BG 274. Range is 32-593 with 7 episodes of hypoglycemia in last 30 days that occur during the morning or night, including severe hypoglycemia of 32 twice (morning and before lunch) and 3 episodes in 40s (morning or afternoon. POC A1C in clinic today (fingerstick) = 10.1% Was unable to get insulin pump supplies but could not due to some issue with her insurance, but she is not sure exactly why. Has been off of it since last fall. Last hypoglycemia where someone else had to treat her was in middle of night a couple years ago. Has glucagon injection kit at home. Started on atorvastatin 10mg daily on 07/02/22. Other significant DM comorbidities: peripheral neuropathy Last saw ophthalmology: 02/12 Current Diabetes Medications, Dosage, Frequency: Lantus 36 units at night Humalog 1 unit per 10 grams carbohydrate, plus correction factor of 40 over target 120 compliance with diet has been ok, counts carbs but misses a meal once every couple weeks exercise: runs with dog frequently Patient has not had hypoglycemia episodes; and was able to treat hypoglycemia by self. The patient experiences hypoglycemia at the following times: see HPI Report of Self Monitoring of Blood Glucose: See HPI Patient reports pain and numbness in the feet. Patient denies chest pain Patient denies sob Patient denies symptoms of a TIA , or claudication All other Review of Systems reviewed and are negative. PAST MEDICAL HISTORY Diagnosis Date Depression Diabetes (HCC) age 9 Fibromyalgia Fracture 06/06/2011 right hip Past Family and Social History reviewed and updated, as needed. Blood-Glucose Meter, Test Four times a day. Insulin Dep? Yes E10.9 DM 1, E10.65, Disp: 1 Each, Rfl: 0 blood sugar diagnostic test strip, Use with blood glucose test 4 times daily, Insulin Dep? Yes. E10.65, Disp: 400 Strip, Rfl: 5 alcohol swabs, Use with blood glucose test 3 times daily. Insulin Dep? Yes. E10.65, Disp: 400 Each, Rfl: 5 Blood Glucose Control, Normal soln, Use to calibrate meter as directed., Disp: 1 Each, Rfl: 2 lisinopril (ZESTRIL) 5 mg tablet, Take 1 tablet by mouth once daily., Disp: 90 tablet, Rfl: 3 atorvastatin (LIPITOR) 10 mg tablet, Take 1 tablet by mouth once daily., Disp: 90 tablet, Rfl: 3 insulin glargine (LANTUS) 100 unit/mL injection, Inject 36 Units subcutaneously daily at bedtime., Disp: 33 mL, Rfl: 0 insulin lispro (HUMALOG U-100 INSULIN) 100 unit/mL injection, Uses 60 units daily via insulin pump, Disp: 30 mL, Rfl: 3 pregabalin (LYRICA) 300 mg capsule, Take 1 capsule by mouth twice daily for 360 days., Disp: 180 capsule, Rfl: 3 Cholecalciferol, Vitamin D3, 5,000 unit cap, Take 1 capsule by mouth twice daily with meals. 10,000 int. units daily with a meal for 3 months, then 5000 int. units daily., Disp: 60 capsule, Rfl: 11 MULTIVITAMIN CAP, Take one(1) capsule daily., Disp: , Rfl: 0 OBJECTIVE: BP 110/60 Pulse 60 Wt 69.9 kg (154 lb) LMP 09/17/2022 BMI 24.86 kg/m? Last 3 Encounter Wt Readings: Date: Wt: 10/08/2022 69.9 kg (154 lb) 06/05/2022 68.7 kg (151 lb 6.4 oz) 05/18/2020 76.2 kg (168 lb) Gen - NAD, comfortable, pleasant, appears anxious HEENT - no acanthosis, no SC/DC fat pads CVS - tachycardic/regular, no murmurs, DP pulses present 2+ b/l Lung - CTAB, no rales Abd - no obese, +BS, no lipohypertrophy, non-tender Derm - no skin breaks or ulcers in feet noted, no foot callus, no dry feet Neuro - plantar surface of feet with intact sensation to monofilament b/l, alert/oriented, no tremor, +brisk UE reflexes MSK - no loss of arch from feet, no LE edema Component Latest Ref Rng AND Units 06/05/2022 06/18/2022 Glucose 74 - 99 mg/dL 118 (H) BUN 7 - 21 mg/dL 7 Creatinine 0.58 - 0.96 mg/dL 0.66 Sodium 136 - 144 mmol/L 142 Potassium 3.7 - 5.1 mmol/L 4.1 Chloride 97 - 105 mmol/L 103 CO2 22 - 30 mmol/L 31 (H) Anion Gap 9 - 18 mmol/L 8 (L) Calcium 8.5 - 10.2 mg/dL 9.3 eGFR >=60 mL/min/1.73mA? 115 Cholesterol, Total <200 mg/dL 200 (H) Triglyceride <150 mg/dL 124 HDL Cholesterol >39 mg/dL 56 Non HDL Cholesterol <130 mg/dL 144 (H) Fasting Time hrs 12 VLDL Cholesterol <30 mg/dL 25 TC:HDL Ratio <5.10 3.57 LDL Cholesterol <100 mg/dL 119 (H) LDL:HDL Ratio <2.54 2.13 Creatinine, Ur Random (UCRR) 20.0 - 300.0 mg/dL 75.0 Albumin, Urine Random mg/L <12.0 Albumin/Creat Ratio <30 mg/g <16 Hemoglobin A1C (POCT) 4.2 - 5.6 % 10.4 (A) TSH 0.270 - 4.200 mIU/L 1.760 Free T4 0.9 - 1.7 ng/dL 1.3 Mery was seen today for diabetes. Diagnoses and all orders (more content not included)...[facility]08-12-2023 Hospital Discharge instructions Patient Education 10/04/2022 23:07:15 Dental Pain Dental Pain Dental pain is often a sign that something is wrong with your teeth or gums. It is also something that can occur following dental treatment. If you have dental pain, it is important to contact your dental care provider, especially if the cause of the pain has not been determined. Dental pain may beof varying intensity and can be caused by many things, including: Tooth decay (cavities or caries). Cavities are caused by bacteria that produce acids that irritate the nerve of your tooth, making it sensitive to air and hot or cold temperatures. This eventually causes discomfort or pain. Abscess or infection. Once the bacteria reach the inner part of the tooth (pulp), a bacterial infection (dental abscess) can occur. Pus typically collects at the end of the root of a tooth. Injury. A crack in the tooth. Gum recession exposing the root, and possibly the nerves, of a tooth. Gum (periodontal)disease. Abnormal grinding or clenching. Poor or improper home care. An unknown reason (idiopathic). Your pain may be mild or severe. It may occur when you are: Chewing. Exposed to hot or cold temperatures. Eating or drinking sugary foods or beverages, such as soda or candy. Your pain may be constant, or it may come and go without cause. Follow these instructions at home: The following actions may help to lessen any discomfort that you are feeling before or after getting dental care. Medicines Take ihcm-eyl-sucyjrw and prescription medicines only as told by your dental care provider. If you were prescribed an antibiotic medicine, take it as told by your dental care provider. Do notstop taking the antibiotic even if you start to feel better. Eating and drinking Avoid foods or drinks that cause you pain, such as: Very hot or very cold foods or drinks. Sweet or sugary foods or drinks. Managing pain and swelling Ice can sometimes be used to reduce pain and swelling, especially if the pain is following dental treatment. If directed, put ice on the painful area of your face. To do this: ?Put ice in a plastic bag. ?Place a towel between your skin and the bag. ?Leave the ice on for 20 minutes, 2 3 times a day. ?Remove the ice if your skin turns bright red. This is very important. If you cannot feel pain, heat, or cold, you have a greater risk of damage to the area. Brushing your teeth To keep your mouth and gums healthy, brush your teeth twice a day using a fluoride toothpaste. Use a toothpaste made for sensitive teeth as directed by your dental care provider, especially if the root is exposed. Always brush your teeth with a soft-bristled toothbrush. This will help prevent irritation to your gums. General instructions Floss at least once a day. Do not apply heat to the outside of the face. Gargle with a mixture of salt and water 3 4 times a day or as needed. To make salt water, completely dissolve 1 tsp (3 6 g) of salt in 1 cup (237 mL) of warm water. Keep all follow-up visits. This is important. Contact a dental care provider if: You have any unexplained dental pain. Your pain is not controlled with medicines. Your symptoms get worse. You have new symptoms. Get help right away if: You are unable to open your mouth. You are having trouble breathing or swallowing. You have a fever. You notice that your face, neck, or jaw is swollen. These symptoms may represent a serious problem that is an emergency. Do not wait to see if the symptoms will go away. Get medical help right away. Call your local emergency services (911 in the [place] Do not drive yourself to the hospital. Summary Dental pain may be caused by many things, including tooth decay and infection. Your pain may be mild or severe. Take vbaa-ggi-nksqind and prescription medicines only as told by your dental care provider. Watch your dental pain for any changes. Let your dental care provider know if your symptoms get worse. This information is not intended to replace advice given to you by your health care provider. Make sure you discuss any questions you have with your health care provider. Document Revised: 11/15/2020 Document Reviewed: 11/15/2020 [email or web address] Patient Education 2022 [employer]. 10/04/2022 23:07:15 Dental Caries, Adult Dental Caries, Adult Dental caries or cavities are areas of decay in the outer layers (enamel and dentin) of your tooth.When you eat or drink sugary foods and liquids, the natural bacteria in your mouth break down thosesugars and produce a lot of acids. The acids destroy the protective layer of your tooth, leading totooth decay. It is important to treat your tooth decay as soon as possible. Untreated dental caries can spread decay and may lead to a painful infection. Keeping your mouth clean (good oral hygiene) by brushing regularly with fluoride toothpaste, flossing, and getting regular dental checkups can help reduce thebacteria and prevent dental caries. What are the causes? Dental caries are caused by the acid that is produced when bacteria in your mouth break down sugaryfoods and liquids. What increases the risk? This condition is more likely to develop in people who: Drink a lot of sugary liquids, including alcoholic drinks, such as champagne. Eat a lot of sweets and carbohydrates. Drink water that is not treated with fluoride. Have poor oral hygiene. Have deep grooves in their teeth. Take certain medicines that decrease saliva. What are the signs or symptoms? Symptoms of dental caries include: White, brown, or black spots on the teeth. Pain as the decay progresses. Swelling or bleeding in the gums. How is this diagnosed? This condition may be diagnosed based on: Your signs and symptoms. Oral exams. This includes probing the hardness of the tooth with an instrument called a dental explorer. Dental X-rays to look for dental caries between teeth. This is also used to confirm the diagnosis. Sometimes special lights, dyes, or probes, which use electrical conductivity or laser reflection, can assist in finding dental caries. How is this treated? Treatment for dental caries usually involves a procedure to remove the decay and restore the tooth.Restoring the tooth using a filling can be done in the dentist's office. More complex restorations can be created in a lab. Follow these instructions at home: Practice good oral hygiene. This keeps your mouth and gums healthy. Use a fluoride-containing toothpaste to brush your teeth twice a day. Floss once a day. If your dental caries have caused an infection, you may be given an antibiotic medicine. Take it astold by your dentist. Do not stop taking the antibiotic even if you start to feel better. Keep all follow-up visits as told by your dentist. This is important. ?Follow-up visits include regular cleanings. You will be told how often this needs to be done. How is this prevented? To prevent dental caries: [place] your teeth every morning and night with fluoride toothpaste. Floss your teeth once a day. Get regular dental cleanings. If told by your dentist, wash your mouth with prescription mouthwash (chlorhexidine) and apply topical fluoride to your teeth. Drink water that has fluoride added to it. Drink water instead of sugary drinks. Eat healthy meals and snacks. If prescribed by your dentist, have additional in-office fluoride treatments and sealants placed onyour teeth. Contact a health care provider if: You have symptoms of tooth decay. Summary Dental caries or cavities are areas of decay in the outer layers of your tooth. It is important to treat your tooth decay as soon as possible. This condition is caused by the acid that is produced when bacteria in your mouth break down sugaryfoods and liquids. To prevent this condition, practice good oral hygiene. This keeps your mouth and gums healthy by brushing and flossing. Use fluoride toothpaste. Take an antibiotic to treat an infection, if told by your dentist. Do not stop taking the antibiotic even if your condition gets better. Have regular dental cleanings and keep all follow-up visits. This information is not intended to replace advice given to you by your health care provider. Make sure you discuss any questions you have with your health care provider. Document Revised: 01/28/2020 Document Reviewed: 01/28/2020 [email or web address] Patient Education 2022 [employer] Follow Up Care 10/04/2022 22:46:54 With:JEOVANNY ELIAS Address: [address] [place] [address] Naren Fried [address] Business (1) When:10/07/2022 Comments:Call the office of your primary care doctor to arrange for follow-up within the above-stated timeframe. Follow-up with your primary care doctor about this ED visit. You should review your labs, imaging, and diagnoses from this ED visit with your primary care physician. If you were prescribed medications you should discuss possible side-effects and drug interactions with your pharmacist. Call 911 or go to the nearest Emergency Department if you develop any new or worsening symptoms. [facility]08-11-2023 Evaluation + Plan noteExtracted from: Title:ED Note Author:Eldon Jovel PA-C e:10/04/22 Dental caries (K02.9: Dental caries, unspecified) Orders: acetaminophen-oxycodone, 1 EA, Tab, Oral, Once, Stop date 10/04/22 23:05:00 EDT, STAT, Start date 10/04/22 23:05:00 EDT acetaminophen-oxycodone, 1 tab(s), Oral, q4hr for pain, 6 tab(s), Refill(s) 0, [facility]/pharmacy #[id number], 167.6, cm, 10/04/22 22:54:00 EDT, Height/Length Dosing, 63.5, kg, 10/04/22 22:54:00 EDT, Weight Dosing [facility]05-19-2023 NoteHNO ID: [id number] Author: Maulik Starr APRN.[facility] Service: ? Author Type: Nurse Practitioner Type: Progress Notes Filed: 07/12/2022 9:08 AM Note Text: Per letter dept of medicaid has denied Accu-check guide strips; she has accu-check guide meter. Will order new meter and new strips due to denial. Maulik Starr APRN.[facility] Endocrinology AND Metabolism [facility] [address] Office [facility]05-09-2023 NoteHNO ID: [id number] Author: Maulik Starr APRN.[facility] Service: ? Author Type: Nurse Practitioner Type: Progress Notes Filed: 07/02/2022 1:54 PM Note Text: [facility] DIABETES FOLLOW UP VISIT PATIENT IS NEW TO ME TODAY THIS IS A VIRTUAL VISIT I have communicated my name and active licensure. The patient's identity and physical location were verified at the time of this visit. Either the patient or their legal inventory representative has been informed of the risks and benefits of -- and alternatives to -- treatment through a remote evaluation and consents to proceed with the evaluation remotely. History of Present Illness Some elements in the HPI were copied from previous endocrinology note and have been updated as appropriate today. YOLANDA with Dr. Paul on 06/05/2022 At previous visit New Regimen: Lantus 22 units at night Humalog 1 unit per 10 grams carbohydrate, plus correction factor of 40 from midnight-2pm and 50 from 2pm-midnight Change correction to 1 unit per 60 gram carbohydrate while at work Acquired hypothyroidism -TFTs normal, continue [place] Thyroid 60 mg daily Mery Riley is a 41 year old female presents today for follow up of DM Type 1. Had medtronic 770 G , stopped using in Nov 2021, due to insurance issue. --Minimed 770 G was originally gotten 2 years ago Gets equipment through Medtronic website Concerns/ Chief Complaint: Unable to get supplies per patient, needs PA for insurance coverage. Also tells me that insurance is refusing to cover Minimed insulin pump supplies until she checks glucose on own with fingerstick for one month? ? Diabetes mellitus education: 4 years ago Date of Diagnosis: 1987, 9 years old, pump since age 13 Last HbA1c: Hemoglobin A1C (%) Date Value 12/24/2019 8.4 07/09/2018 7.8 04/05/2017 7.7 12/19/2016 7.7 01/12/2016 Unable to assay. No specimen received. Hemoglobin A1C (POCT) (%) Date Value 06/05/2022 10.4 04/18/2020 8.5 12/21/2019 8.5 04/05/2019 9.7 10/20/2018 9.3 Also known pertinent history of: Hypothyrodism- has not been on medication for 2 years, Depression , Fibromyalgia , Rheumatoid arthriitis- not on med controlled. 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 Neuropathy:yes, peripheral Macrovascular: no Gastroparesis: no Statin Use: no GUEVARA/ARB Use: no Obesity: No weight taken, BMI not calculated due to virtual visit Health Maintenance Topics Topic Date Due DILATED RETINAL EXAM 03/27/2017 DIABETIC FOOT EXAM 04/05/2018 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, 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, 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 Current Medications 07/01/2022 DIABETES THERAPIES Medication Dosage Pharm Subclass insulin glargine (LANTUS) 100 unit/mL injection Inject 30 Units subcutaneously daily at bedtime. Insulin Analogs - Long Acting insulin lispro (HUMALOG U-100 INSULIN) 100 unit/mL injection Uses 60 units daily via insulin pump Insulin Analogs - Rapid Acting OTHER Medication Dosage Pharm Subclass acetaminophen-codeine (TYLENOL-COD #3) 300-30 mg per tablet per Dr[address] Ramsey, inspection engineer Analgesic Opioid Codeine Combinations ARMOUR THYROID 60 mg Take 1 tablet by mouth once daily. Thyroid Hormones - Animal Source (Porcine) blood sugar diagnostic (CONTOUR NEXT TEST STRIPS) test strip Use as instructed checks 4 x times daily, variable sugars and insulin pump use Medical Supplies and DME - Blood Glucose Tests Cholecalciferol, Vitamin D3, 5,000 unit cap Take 1 capsule by mouth twice daily with meals. 10,000 int. units daily with a meal for 3 months, then 5000 int. units daily. Vitamins - D Derivatives CRANBERRY EXTRACT (CRANBERRY CONCENTRATE ORAL) Take by mouth. Alternative Therapy - Unclassified fexofenadine (KORIN) 180 mg tablet TAKE 1 TABLET BY MOUTH ONCE DAILY. Antihistamines - 2nd Generation FLUoxetine (PROZAC) 20 mg capsule Antidepressant - Selective Serotonin Reuptake Inhibitors (SSRIs) fluticasone (FLONASE) 50 mcg/actuation nasal spray Use 2 Sprays in each nostril once daily. [place] (more content not included)...[facility] 07-02-2022 History of Present illness Narrative* Maulik Starr, SHOOTING GALLERY OPERATOR.LEAD PASTOR - 07/02/2022 1:00 PM EDT Images from the original note were not included. [facility] DIABET[facility] FOLLOW UP VISIT PATIENT IS NEW TO ME TODAY THIS IS A VIRTUAL VISIT I have communicated my name and active licensure. The patient's identity and physical location wereverified at the time of this visit. Either the patient or their legal inventory representative has been informed of the risks and benefits of -- and alternatives to -- treatment through a remote evaluation andconsents to proceed with the evaluation remotely. History of Present Illness Some elements in the HPI were copied from previous endocrinology note and have been updated as appropriate today. YOLANDA with Dr. Paul on 06/05/2022 At previous visit New Regimen: Lantus 22 units at night Humalog 1 unit per 10 grams carbohydrate, plus correction factor of 40 from midnight-2pm and 50 from 2pm-midnight Change correction to 1 unit per 60 gram carbohydrate while at work Acquired hypothyroidism -TFTs normal, continue [place] Thyroid 60 mg daily Mery Riley is a 41 year old female presents today for follow up of DM Type 1. Had medtronic 770 G , stopped using in Nov 2021, due to insurance issue. --Minimed 770 G was originally gotten 2 years ago Gets equipment through Medtronic website Concerns/ Chief Complaint: Unable to get supplies per patient, needs PA for insurance coverage. Also tells me that insurance is refusing to cover Minimed insulin pump supplies until she checks glucose on own with fingerstick for one month? ? Diabetes mellitus education: 4 years ago Date of Diagnosis: 1987, 9 years old, pump since age 13 Last HbA1c: Hemoglobin A1C (%) Date Value 12/24/2019 8.4 07/09/2018 7.8 04/05/2017 7.7 12/19/2016 7.7 01/12/2016 Unable to assay. No specimen received. Hemoglobin A1C (POCT) (%) Date Value 06/05/2022 10.4 04/18/2020 8.5 12/21/2019 8.5 04/05/2019 9.7 10/20/2018 9.3 Also known pertinent history of: Hypothyrodism- has not been on medication for 2 years, Depression , Fibromyalgia , Rheumatoid arthriitis- not on med controlled. 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 Neuropathy:yes, peripheral Macrovascular: no Gastroparesis: no Statin Use: no GUEVARA/ARB Use: no Obesity: No weight taken, BMI not calculated due to virtual visit Health Maintenance Topics Topic Date Due DILATED RETINAL EXAM 03/27/2017 DIABETIC FOOT EXAM 04/05/2018 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, 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, 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 Current Medications 07/01/2022 DIABETES THERAPIES Medication Dosage Pharm Subclass insulin glargine (LANTUS) 100 unit/mL injection Inject 30 Units subcutaneously daily at bedtime. Insulin Analogs - Long Acting insulin lispro (HUMALOG U-100 INSULIN) 100 unit/mL injection Uses 60 units daily via insulin pump Insulin Analogs - Rapid Acting OTHER Medication Dosage Pharm Subclass acetaminophen-codeine (TYLENOL-COD #3) 300-30 mg per tablet per Dr[address] Ramsey, inspection engineer Analgesic Opioid Codeine Combinations ARMOUR THYROID 60 mg Take 1 tablet by mouth once daily. Thyroid Hormones - Animal Source (Porcine) blood sugar diagnostic (CONTOUR NEXT TEST STRIPS) test strip Use as instructed checks 4 x times daily, variable sugars and insulin pump use Medical Supplies and DME - Blood Glucose Tests Cholecalciferol, Vitamin D3, 5,000 unit cap Take 1 capsule by mouth twice daily with meals. 10,000 int. units daily with a meal for 3 months, then 5000 int. units daily. Vitamins - D Derivatives CRANBERRY EXTRACT (CRANBERRY CONCENTRATE ORAL) Take by mouth. Alternative Therapy - Unclassified fexofenadine (KORIN) 180 mg tablet TAKE 1 TABLET BY MOUTH ONCE DAILY. Antihistamines - 2nd Generation FLUoxetine (PROZAC) 20 mg capsule Antidepressant - Selective Serotonin Reuptake Inhibitors (SSRIs) fluticasone (FLONASE) 50 mcg/actuation nasal spray Use 2 Sprays in each nostril once daily. Nasal Corticosteroids glucagon (GLUCAGON EMERGENCY KIT, HUMAN,) 1 mg solr Inject (1)one mg for insulin shock. hydroxychloroquine (PLAQUENIL) 200 mg tablet Take 1 tablet by mouth twice daily. except on Sundays,take one tablet (200mg) once daily Antimalarials ibuprofen (MOTRIN) 600 mg tablet Take 1 tablet by mouth every 8 hours as needed for Pain. NSAID Analgesics (ROSALES Non-Specific) - Propionic Acid Derivatives insulin syr/ndl U100 half alex (BD INSULIN SYRINGE, HALF UNIT,) 0.3 mL 31 gauge x 5/16 syrg Use 4-6 times daily Medical Supplies and DME - Insulin [place]- Syringes and Admin Supplies MULTIVITAMIN CAP Take one(1) capsule daily. Multivitamins omeprazole (PRILOSEC) 20 mg capsule Take 1 capsule by mouth once daily. Gastric Acid Secretion Waiter/Waitress Second Class - Proton Pump Inhibitors (PPIs) omeprazole (PRILOSEC) 20 mg capsule TAKE 1 CAPSULE BY MOUTH ONCE DAILY. Gastric Acid Secretion Waiter/Waitress Second Class - Proton Pump Inhibitors (PPIs) pregabalin (LYRICA) 300 mg capsule Take 1 capsule by mouth twice daily for 360 days. Anticonvulsant- FAY Analogs Subcutaneous Insulin Pump (PARADIGM INSULIN PUMP) misc BASAL Pattern 2 - 30.7 T basal q24 BOLUS Midnight 13 2PM 10 ISF Midnight 50 Goal 120-140 Medical Supply, FDB Superset Past History, Medications, Allergies PAST MEDICAL HISTORY Diagnosis Date Depression Diabetes (HCC) age 9 Fibromyalgia Fracture 06/06/2011 right hip PAST SURGICAL HISTORY Procedure Laterality Date NONE PAST SURGICAL HISTORY OF 08/20/2011 cephalomedullary nailing of the hip, right ALLERGIES Allergen Reactions Biaxin [Clarithromy* shock Erythromycin Vomiting Penicillins shock Sulfa (Sulfonamide * shock FAMILY HISTORY Problem Relation Age of Onset Arthritis Mother Headache Mother Thyroid Mother Thyroid Father Arthritis Father Diabetes Paternal Grandmother DM2 Social History Tobacco Use Smoking status: Former Packs/day: 1.00 Years: 9.00 Pack years: 9.00 Types: Cigarettes Smokeless tobacco: Former Quit date: 06/27/2014 Substance Use Topics Alcohol use: Yes Alcohol/week: 10.0 standard drinks Types: 4 Cans of Beer (12oz) per week Comment: occas Drug use: No Review of Systems GENERAL: No weight loss, malaise or fevers RESPIRATORY: Negative for cough, hemoptysis, wheezing, COPD, dyspnea or shortness of breath CARDIOVASCULAR: Negative for chest pain, leg swelling, hypertension, CHF or palpitations GI: No nausea, vomiting, or diarrhea ENDOCRINE: Negative for cold or heat intolerance, polyuria, polydipsia and goiter Feet: Numbness and tingling NEUROLOGIC:Negative for focal numbness or weakness, headaches and dizziness or syncope. Physical examination Limited due to virtual visit LMP 03/31/2017 General appearance: Well appearing, alert, in no acute distress, well-hydrated, well nourished. NEURO: Speech normal, mental status intact, no tremor noted. Previous Laboratory Results LABS Glucose (mg/dL) Date Value 06/18/2022 118 12/24/2019 Duplicate request 12/24/2019 215 07/09/2018 175 Potassium (mmol/L) Date Value 06/18/2022 4.1 12/24/2019 Duplicate request Sodium (mmol/L) Date Value 06/18/2022 142 12/24/2019 Duplicate request 12/24/2019 138 07/09/2018 137 Chloride (mmol/L) Date Value 06/18/2022 103 12/24/2019 Duplicate request 12/24/2019 104 07/09/2018 103 CO2 (mmol/L) Date Value 06/18/2022 31 12/24/2019 Duplicate request 12/24/2019 25 07/09/2018 28 Creatinine (mg/dL) Date Value 06/18/2022 0.66 12/24/2019 Duplicate request 12/24/2019 0.59 07/09/2018 0.77 BUN (mg/dL) Date Value 06/18/2022 7 12/24/2019 Duplicate request 12/24/2019 10 07/09/2018 15 Anion Gap (mmol/L) Date Value 06/18/2022 8 12/24/2019 Duplicate request 12/24/2019 9 07/09/2018 6 Calcium (mg/dL) Date Value 12/24/2019 Duplicate request 12/24/2019 9.0 07/09/2018 8.7 Calcium, Total (mg/dL) Date Value 06/18/2022 9.3 eGFR- (no units) Date Value 12/24/2019 Duplicate request 12/24/2019 >60 07/09/2018 >60 eGFR-All Other Races (.) Date Value 12/24/2019 Duplicate request 12/24/2019 >60 07/09/2018 >60 Estimated Glomerular Filtration Rate (mL/min/1.73m ) Date Value 06/18/2022 115 ALT (U/L) Date Value 12/24/2019 Duplicate request 12/24/2019 16 07/09/2018 9 Cholesterol, Total Date Value Ref Range Status 06/18/2022 200 (H) <200 mg/dL Final Comment: <200 mg/dL, Desirable 200-239 mg/dL, Borderline high >239 mg/dL, High HDL Cholesterol Date Value Ref Range Status 06/18/2022 56 >39 mg/dL Final Comment: 40-59 mg/dL, Acceptable >59 mg/dL, High: Negative risk factor for coronary heart disease <40 mg/dL, Low: Positive risk factor for coronary heart disease LDL Cholesterol Date Value Ref Range Status 06/18/2022 119 (H) <100 mg/dL Final Comment: <100 mg/dL, Optimal 100-129 mg/dL, Near optimal/above optimal 130-159 mg/dL, Borderline high 160-189 mg/dL, High >189 mg/dL, Very high Secondary prevention optimal LDL Cholesterol levels are recommended to be < 70 mg/dL Triglyceride Date Value Ref Range Status 06/18/2022 124 <150 mg/dL Final Comment: <150 mg/dL, Normal 150-199 mg/dL, Borderline high 200-499 mg/dL, High >499 mg/dL, Very high TSH Date Value Ref Range Status 06/18/2022 1.760 0.270 - 4.200 mIU/L Final Comment: If the patient is , TSH reference range varies by gestational period: First Trimester (weeks 9-12): 0.180-2.990 mIU/L Second Trimester: 0.110-3.980 mIU/L Third Trimester: 0.480-4.710 mIU/L Geovanny Upton et al. A Practical Approach for the Verifications and Determination of Site- and Trimester-Specific Reference Intervals for Thyroid Function tests in . Thyroid, 2019:29:3:412-420.Israel Degroot et al. 2017 Guidelines of the [place] Thyroid Association for the Diagnosis and Management of Thyroid Disease during and the . Thyroid, 2017:27:3:315-389. 04/18/2020 1.430 0.270 - 4.200 uU/mL Final Comment: If the patient is , TSH reference range varies by gestational period: First Trimester (weeks 9-12): 0.180-2.990 mcIU/mL Second Trimester: 0.110-3.980 mcIU/mL Third Trimester: 0.480-4.710 mcIU/mL Geovanny Upton et al. A Practical Approach for the Verifications and Determination of Site- and Trimester-Specific Reference Intervals for Thyroid Function tests in . Thyroid, 2019:29:3:412-420. Israel Degroot et al. 2017 Guidelines of the [place] Thyroid Association for the Diagnosis and Management of Thyroid Disease during and the . Thyroid, 2017:27:3:315-389. 12/24/2019 1.050 0.270 - 4.200 uU/mL Final Comment: If the patient is , TSH reference range varies by gestational period: First Trimester (weeks 9-12): 0.180-2.990 mcIU/mL Second Trimester: 0.110-3.980 mcIU/mL Third Trimester: 0.480-4.710 mcIU/mL Geovanny Upton et al. A Practical Approach for the Verifications and Determination of Site- and Trimester-Specific Reference Intervals for Thyroid Function tests in . Thyroid, 2019:29:3:412-420. Israel Degroot et al. 2017 Guidelines of the [place] Thyroid Association for the Diagnosis and Management of Thyroid Disease during and the . Thyroid, 2017:27:3:315-389. Free T4 Date Value Ref Range Status 06/18/2022 1.3 0.9 - 1.7 ng/dL Final 04/18/2020 1.1 0.9 - 1.7 ng/dL Final 12/24/2019 1.0 0.9 - 1.7 ng/dL Final Albumin/Creat Ratio (mg/g) Date Value 06/18/2022 <16 12/24/2019 Not calculated Protein, Urine (mg/dL) Date Value 11/11/2012 Negative Creatinine, Ur Random (UCRR) (mg/dL) Date Value 06/18/2022 75.0 12/24/2019 116.9 Impression/Recommendations IMPRESSION Mery Riley is a 41 year old here for evaluation of DM Type 1 with complications. (E10.65) Poorly controlled type 1 diabetes mellitus (HCC) (primary encounter diagnosis) (E10.42) Type 1 diabetes mellitus with diabetic polyneuropathy (HCC) (E03.9) Acquired hypothyroidism RECOMMENDATIONS: 1. Glycemic control: Per ADA Guidelines a target HgbA1C is less than 7.0 % without hypoglycemia. Most recently your HgbA1C is not at target - Blood sugars reported are improved since last visit - She has been increasing her insulin Q3 days as recommended at previous visit for target fasting glucose of 100-140, and currently at 36 units. - She feels that her I:C ratio and new correctional scale has been working well - Her primary complaint is not being able to check glucose more often due to not able to get testing strips. - New meter test strips have been ordered today, and patient instructed to call office with any issues Plan: Continue Lantus 36 units once daily Increase by 2 units every 3 days as needed if fasting glucose >140 Do not increase past 40 units Continue Humalog Insulin Carb ratio of 1:10g Continue Correctional scale of 1 units for every 40 greater than 120 Please call or fax office with any additional documentation needed in order to get pump supplies Follow up with Dr. Walls as scheduled in September The patient was reminded to check their blood glucose as directed and to record the data in a logbook. This patient was advised to bring their logbook to each office visit. I recommended at least 150minutes per week of moderate physical activity, such as walking and to reduce carbohydrates and overall caloric intake. Thyroid -- Patient reports no [place] thyroid or thyroid medication of any kind for past 2-3 years -- TSH and FT4 currently stable and gaving no acute symtoms -- Plan to continue no thyroid replacement at this time and will reevaluate at follow up for stabilization 2. Hypertension/BP control: BP goal for patients with diabetes is 130/80. -- No VS taken due to virtual visit 3. Lipids: Target LDL cholesterol in patients with diabetes is less than 100, less than 70 if patient has overt CVD. Several studies have shown cardiovascular benefits of statin therapy in all patients with diabetes over age 40 with at least 1 CVD risk factor. -- This patient is not at target on current statin regimen. -- Start Atorvastatin 10 mg once daily 4. Nephropathy screening: Annual measurement of urine albumin excretion is recommended in patients with diabetes. -- This patient does not have microalbuminuria and is not on GUEVARA-I or ARB therapy. -- Will start Lisinopril 5 mg once daily at this time for kidney protection 5. Ophthalmology: Annual dilated eye exams are recommended for patients with type 1 and type 2 diabetes. -- This patient is not up to date with their annual eye exam and was referred to an ophthalmologistat this visit. Patient to continue to follow up with his PCP and with other consultants regarding his other medical problems. Any part of this document that has been added/copied & pasted from other documents has been reviewed for accuracy and updated as appropriate at the time of the patient encounter I spent a total of 45 minutes on the date of the service which included preparing to see the patient, [id number] patient care, completing clinical documentation, obtaining and/or reviewing separately obtained history, performing a medically appropriate examination, counseling and educating the pat ient/family/caregiver, and ordering medications, tests, or procedures. Maulik Starr APRN.LETY documented in this [facility] Miscellaneous Notes* Telephone Encounter - Rao Nieves RN - 06/19/2022 1:47 PM EDT YOLANDA: 06/05/2022 NOV: 10/08/2022 Labs: 06/18/2022 * Telephone Encounter - Aileen Cecile Felix Pss - 06/19/2022 12:47 PM EDT Patient received her lab results via [employer] and would like to go over them. Please advise. documented in this encounterK[facility]04-12-2023 NoteHNO ID: [id number] Author: Jimmy Paul MD Service: ? Author Type: Physician Type: Progress Notes Filed: 06/05/2022 4:20 PM Note Text: [facility] Referred by: Jeovanny Griffin II, MD CHIEF COMPLAINT T1 DM HISTORY OF PRESENT ILLNESS Age: [age] year old Diagnosed at age 9, using pump since age 11. A1c: 10.4 from June 05, 2022 DIABETES COMPLICATIONS: Microvascular: polyneuropathy Macrovascular : none Past Medical History: Hypothyrodism- has not been on medication for 2 years Depression Fibromyalgia Rheumatoid arthriitis- not on med controolled INTERVAL HISTORY: Had medtronic 770 G , stopped using in Nov 2021, due to insurance issue. Has not been able to get the supplies again. States she was told she needs to monitor her BG for 1 month to get the supplies , however she did not have BG testing strips. She switched her Humalog settings based on her pump settings, however has not been as well controlled as when she was on auto mode. She also reports h/o hypothyroidism in the past but has not been on thyroid meds for 2 years, does not know if she needs it. No symptoms. Has been losing weight. Current Medications: Lantus 30 units at bedtime Humalog approx TDD ~ 30 units. Correction: ISF Takes 1 unit for every 40 mg/dl of BG above 150 I: C 1: 10 Previous Medications: Insulin via medtronic pump Diet/Exercise: has not been eating much in last few months as she has been running high BG Blood Sugar Monitoring: contour next Hypoglycemia: no Diabetes Healthcare Maintenance Retinopathy: Due, last 2 years ago , no DR then Nephropathy: no Peripheral Neuropathy: yes Cardiovascular: no history of [place], stroke or PVD no History of foot ulcers: no Gastroparesis: no OTHER PERTINENT COMORBIDITIES Hypertension: not on meds, controlled usually Dyslipidemia: not on statin REVIEW OF SYSTEMS: Review of Systems Constitutional: Negative for fatigue, night sweats and recent unintentional weight change. HENT: Negative for trouble swallowing, postnasal drip and thyroid pain (lower neck). Eyes: Negative for visual disturbance. Respiratory: Negative for difficulty breathing. Cardiovascular: Negative for chest pain, leg swelling and claudication. Gastrointestinal: Negative for heartburn, nausea, vomiting, abdominal pain, diarrhea and constipation. Genitourinary: Negative. Musculoskeletal: Negative. Skin: Negative for skin color change. Neurological: Negative for dizziness, headaches and numbness. Endo/Heme/Allergies: Negative. MEDICATIONS: Current Outpatient Medications on File Prior to Visit Medication Sig insulin lispro (HUMALOG U-100 INSULIN) 100 unit/mL injection Uses 60 units daily via insulin pump insulin glargine (LANTUS) 100 unit/mL injection Inject 30 Units subcutaneously daily at bedtime. insulin syr/ndl U100 half alex (BD INSULIN SYRINGE HALF UNIT) 0.3 mL 31 gauge x 5/16 syrg Use 4-6 times daily pregabalin (LYRICA) 300 mg capsule Take 1 capsule by mouth twice daily for 360 days. blood sugar diagnostic (CONTOUR NEXT TEST STRIPS) test strip Use as instructed checks 4 x times daily, variable sugars and insulin pump use glucagon (GLUCAGON EMERGENCY KIT, HUMAN,) 1 mg solr Inject (1)one mg for insulin shock. fexofenadine (KORIN) 180 mg tablet TAKE 1 TABLET BY MOUTH ONCE DAILY. acetaminophen-codeine (TYLENOL-COD #3) 300-30 mg per tablet per Dr. Ramsey, inspection engineer Subcutaneous Insulin Pump (PARADIGM INSULIN PUMP) [facility] Pattern 2 - 30.7 T basal q24 BOLUS Midnight 13 2PM 10 ISF Midnight 50 Goal 120-140 ibuprofen (MOTRIN) 600 mg tablet Take 1 tablet by mouth every 8 hours as needed for Pain. fluticasone (FLONASE) 50 mcg/actuation nasal spray Use 2 Sprays in each nostril once daily. Cholecalciferol, Vitamin D3, 5,000 unit cap Take 1 capsule by mouth twice daily with meals. 10,000 int. units daily with a meal for 3 months, then 5000 int. units daily. MULTIVITAMIN CAP Take one(1) capsule daily. ARMOUR THYROID 60 mg Take 1 tablet by mouth once daily. (Patient not taking: Reported on 06/05/2022) FLUoxetine (PROZAC) 20 mg capsule (Patient not taking: Reported on 06/05/2022) omeprazole (PRILOSEC) 20 mg capsule TAKE 1 CAPSULE BY MOUTH ONCE DAILY. (Patient not taking: Reported on 06/05/2022) omeprazole (PRILOSEC) 20 mg capsule Take 1 capsule by mouth once daily. (Patient not taking: Reported on 06/05/2022) hydroxychloroquine (PLAQUENIL) 200 mg tablet Take 1 tablet by mouth twice daily. except on Sundays, take one tablet (200mg) once daily (Patient not taking: Reported on 06/05/2022) CRANBERRY EXTRACT (CRANBERRY CONCENTRATE ORAL) Take by mouth. (Patient not taking: Reported on 06/05/2022) No current facility-administered medications on file prior to visit. ALLERGIES: ALLERGIES Allergen Reactions Biaxin [Clarithromy* shock Erythromycin Vomiting Penicillins stefan (more content not included)...[facility]04-12-[facility] History of Present illness Narrative* Jimmy Paul MD - 06/05/2022 1:10 PM EDT Images from the original note were not included. [facility] Referred by: Jeovanny Griffin II, MD CHIEF COMPLAINT T1 DM HISTORY OF PRESENT ILLNESS Age: [age] year old Diagnosed at age 9, using pump since age 11. A1c: 10.4 from June 05, 2022 DIABETES COMPLICATIONS: Microvascular: polyneuropathy Macrovascular : none Past Medical History: Hypothyrodism- has not been on medication for 2 years Depression Fibromyalgia Rheumatoid arthriitis- not on med controolled INTERVAL HISTORY: Had medtronic 770 G , stopped using in Nov 2021, due to insurance issue. Has not been able to get the supplies again. States she was told she needs to monitor her BG for 1 month to get the supplies , however she did not have BG testing strips. She switched her Humalog settings based on her pump settings, however has not been as well controlled as when she was on auto mode. She also reports h/o hypothyroidism in the past but has not been on thyroid meds for 2 years, does not know if she needs it. No symptoms. Has been losing weight. Current Medications: Lantus 30 units at bedtime Humalog approx TDD ~ 30 units. Correction: ISF Takes 1 unit for every 40 mg/dl of BG above 150 I: C 1: 10 Previous Medications: Insulin via medtronic pump Diet/Exercise: has not been eating much in last few months as she has been running high BG Blood Sugar Monitoring: contour next Hypoglycemia: no Diabetes Healthcare Maintenance Retinopathy: Due, last 2 years ago , no DR then Nephropathy: no Peripheral Neuropathy: yes Cardiovascular: no history of [place], stroke or PVD no History of foot ulcers: no Gastroparesis: no OTHER PERTINENT COMORBIDITIES Hypertension: not on meds, controlled usually Dyslipidemia: not on statin REVIEW OF SYSTEMS: Review of Systems Constitutional: Negative for fatigue, night sweats and recent unintentional weight change. HENT: Negative for trouble swallowing, postnasal drip and thyroid pain (lower neck). Eyes: Negative for visual disturbance. Respiratory: Negative for difficulty breathing. Cardiovascular: Negative for chest pain, leg swelling and claudication. Gastrointestinal: Negative for heartburn, nausea, vomiting, abdominal pain, diarrhea and constipation. Genitourinary: Negative. Musculoskeletal: Negative. Skin: Negative for skin color change. Neurological: Negative for dizziness, headaches and numbness. Endo/Heme/Allergies: Negative. MEDICATIONS: Current Outpatient Medications on File Prior to Visit Medication Sig insulin lispro (HUMALOG U-100 INSULIN) 100 unit/mL injection Uses 60 units daily via insulin pump insulin glargine (LANTUS) 100 unit/mL injection Inject 30 Units subcutaneously daily at bedtime. insulin syr/ndl U100 half alex (BD INSULIN SYRINGE HALF UNIT) 0.3 mL 31 gauge x 5/16 syrg Use 4-6 times daily pregabalin (LYRICA) 300 mg capsule Take 1 capsule by mouth twice daily for 360 days. blood sugar diagnostic (CONTOUR NEXT TEST STRIPS) test strip Use as instructed checks 4 x times daily, variable sugars and insulin pump use glucagon (GLUCAGON EMERGENCY KIT, HUMAN,) 1 mg solr Inject (1)one mg for insulin shock. fexofenadine (KORIN) 180 mg tablet TAKE 1 TABLET BY MOUTH ONCE DAILY. acetaminophen-codeine (TYLENOL-COD #3) 300-30 mg per tablet per Dr[address] Ramsey, inspection engineer Subcutaneous Insulin Pump (PARADIGM INSULIN PUMP) misc BASAL Pattern 2 - 30.7 T basal q24 BOLUS Midnight 13 2PM 10 ISF Midnight 50 Goal 120-140 ibuprofen (MOTRIN) 600 mg tablet Take 1 tablet by mouth every 8 hours as needed for Pain. fluticasone (FLONASE) 50 mcg/actuation nasal spray Use 2 Sprays in each nostril once daily. Cholecalciferol, Vitamin D3, 5,000 unit cap Take 1 capsule by mouth twice daily with meals. 10,000 int. units daily with a meal for 3 months, then 5000 int. units daily. MULTIVITAMIN CAP Take one(1) capsule daily. ARMOUR THYROID 60 mg Take 1 tablet by mouth once daily. (Patient not taking: Reported on 06/05/2022) FLUoxetine (PROZAC) 20 mg capsule (Patient not taking: Reported on 06/05/2022) omeprazole (PRILOSEC) 20 mg capsule TAKE 1 CAPSULE BY MOUTH ONCE DAILY. (Patient not taking: Reported on 06/05/2022) omeprazole (PRILOSEC) 20 mg capsule Take 1 capsule by mouth once daily. (Patient not taking: Reported on 06/05/2022) hydroxychloroquine (PLAQUENIL) 200 mg tablet Take 1 tablet by mouth twice daily. except on Sundays,take one tablet (200mg) once daily (Patient not taking: Reported on 06/05/2022) CRANBERRY EXTRACT (CRANBERRY CONCENTRATE ORAL) Take by mouth. (Patient not taking: Reported on 06/05/2022) No current facility-administered medications on file prior to visit. ALLERGIES: ALLERGIES Allergen Reactions Biaxin [Clarithromy* shock Erythromycin Vomiting Penicillins shock Sulfa (Sulfonamide * shock PAST MEDICAL AND SURGICAL HISTORY: PAST MEDICAL HISTORY Diagnosis Date Depression Diabetes (HCC) age 9 Fibromyalgia Fracture 06/06/2011 right hip PERTINENT FAMILY HISTORY: FAMILY HISTORY Problem Relation Age of Onset Arthritis Mother Headache Mother Thyroid Mother Thyroid Father Arthritis Father Diabetes Paternal Grandmother DM2 SOCIAL HISTORY: Social History Tobacco Use Smoking status: Former Packs/day: 1.00 Years: 9.00 Pack years: 9.00 Types: Cigarettes Smokeless tobacco: Former Quit date: 06/27/2014 Substance Use Topics Alcohol use: Yes Alcohol/week: 10.0 standard drinks Types: 4 Cans of Beer (12oz) per week Comment: occas Drug use: No PHYSICAL EXAM: Mery Riley is a 41 year old year old female who looks her stated age. Vital Signs @VSAMB@ @VSEDD@ BP 137/68 Pulse 89 Wt 68.7 kg (151 lb 6.4 oz) LMP 03/31/2017 BMI 24.44 kg/m2 General: no acute distress, feeling well Neurologic: alert and oriented to time, space and place Head and Neck: thyroid is palpable, no nodules appreciated. No lymphadenopathy. Heart: regular rate and rhythm, no murmurs, rubs or gallops Chest: Clear to auscultation bilaterally. Abdomen: no pain on palpation. I didn t appreciate any visceromegalies Back: no kyphosis, no pain on palpation Gait: is preserved. Balance is preserved Ext: no cyanosis, no clubbing, no edema Skin: no obvious ulcer or skin breakdown. Psychiatry: pleasant, conversant, cooperative. Good insight and judgment. LABORATORY REVIEW: All pertinent laboratory results were reviewed. Please see HPI for further details. ASSESSMENT AND PLAN: (E10.9) Type 1 diabetes mellitus without complication (HCC) (primary encounter diagnosis) Comment: poorly controlled. Did well on the pump and will need to be restarted on the pump. Recommendations: 1. A1C goal is around 7 and blood sugars around 100 to 140s. -- Patient to increase lantus to 34 units and increase by 2 units if BG > 150 mg /dl in the morning -- c/w humalog current dosing , IC: 1 : 10 gm and ISF 1: 40 for BG > 150 mg/dl -- Record BG levels 2-3 times a day for a month - contact provided for medtronic to reinstate the pump -- Check HgA1C, fasting lipid panel, Urine for albumin/creatinine ratio and CMP today. -- Discussed diabetic education issues of senior care diabetic complications, hypoglycemic symptoms, hyperglycemic symptoms, diet, medications- side effects and need for compliance, importance of exercise, use and side effects of insulin and importance of annual examinations with Opthalmology with patient. -- Hypoglycemia protocol reviewed. -- Check blood glucose prior to driving. 2. Annual eye exam 3. Annual evaluation for microalbuminuria 4. Recommend podiatry evaluation at yearly. 5 BP goal <130/80. 6. Continue current meds for dyslipidemia.LDL goal <100. 6. Diet/exercise discussed including lifesetyle intervention with optimization of nutrition and physical activity # Hypothyroidism History: Recheck TSH and FT4 to evaluate the need for starting thyroid replacement. Follow up in 1 month(s), With Beronica All questions answered today. I spent a total of 55 minutes on the date of the service which included preparing to see the patient, [id number] patient care, completing clinical documentation, obtaining and/or reviewing separately obtained history, performing a medically appropriate examination, counseling and educating the pat ient/family/caregiver, ordering medications, tests, or procedures, and communicating with other HCPs (not separately reported). Jimmy Paul MD [facility] documented in this encounterK[facility]04-12-2023 Instructions* Patient Instructions* Jimmy Paul MD - 06/05/2022 12:45 PM EDT Increase Lantus to 34 units, increase by 2 units if BG in AM is> 150 mg/dl. Thank you for choosing the [facility] Department of Endocrinology, Diabetes and Metabolism. Being able to provide excellent health care has allowed us to be # 3 in the country according to [employer]. Did you know that you need to call 48 hours in advance of your scheduled visit, if you are unable to make your appointment? [facility] thanks you for your commitment, because patients not showing to their appointment results in a lost opportunity for patients to receive world class health care at the [facility]. To Cancel an appointment, please choose one of the following: - Call the Appointment Call Center at [phone] - From [employer], Go to Appointments - Cancel Appts If cancelling, consider your need to reschedule to prevent further delays in your care. To Schedule an appointment, please choose one of the following: - Call the Appointment Call Center at [phone] - From [employer], Go to Appointments - Request an Appt documented in this encounterK[facility]03-19-2023 Hospital Discharge instructions Patient Education 05/12/2022 18:52:36 Upper Respiratory Infection, Adult Upper Respiratory Infection, Adult An upper respiratory infection (URI) is a common viral infection of the nose, throat, and upper airpassages that lead to the lungs. The most common type of URI is the common cold. URIs usually get better on their own, without medical treatment. What are the causes? A URI is caused by a virus. You may catch a virus by: Breathing in droplets from an infected person's cough or sneeze. Touching something that has been exposed to the virus (contaminated) and then touching your mouth, nose, or eyes. What increases the risk? You are more likely to get a URI if: You are very young or very old. It is chucky or winter. You have close contact with others, such as at a daycare, school, or health care facility. You smoke. You have long-term (chronic) heart or lung disease. You have a weakened disease-fighting (immune) system. You have nasal allergies or asthma. You are experiencing a lot of stress. You work in an area that has poor air circulation. You have poor nutrition. What are the signs or symptoms? A URI usually involves some of the following symptoms: Runny or stuffy (congested) nose. Sneezing. Cough. Sore throat. Headache. Fatigue. Fever. Loss of appetite. Pain in your forehead, behind your eyes, and over your cheekbones (sinus pain). Muscle aches. Redness or irritation of the eyes. Pressure in the ears or face. How is this diagnosed? This condition may be diagnosed based on your medical history and symptoms, and a physical exam. Your health care provider may use a cotton swab to take a mucus sample from your nose (nasal swab). This sample can be tested to determine what virus is causing the illness. How is this treated? URIs usually get better on their own within 7 10 days. You can take steps at home to relieve your symptoms. Medicines cannot cure URIs, but your health care provider may recommend certain medicines to help relieve symptoms, such as: Lsau-ids-tyvpurm cold medicines. Cough suppressants. Coughing is a type of defense against infection that helps to clear the respiratory system, so take these medicines only as recommended by your health care provider. Fever-reducing medicines. Follow these instructions at home: Activity Rest as needed. If you have a fever, stay home from work or school until your fever is gone or until your health care provider says you are no longer contagious. Your health care provider may have you wear a face mask to prevent your infection from spreading. Relieving symptoms Gargle with a salt-water mixture 3 4 times a day or as needed. To make a salt- water mixture, completely dissolve 1 tsp of salt in 1 cup of warm water. Use a cool-mist humidifier to add moisture to the air. This can help you breathe more easily. Eating and drinking Drink enough fluid to keep your urine pale yellow. Eat soups and other clear broths. General instructions Take ngai-inf-btkgtsf and prescription medicines only as told by your health care provider. These include cold medicines, fever reducers, and cough suppressants. Do not use any products that contain nicotine or tobacco, such as cigarettes and e-cigarettes. If you need help quitting, ask your health care provider. Stay away from secondhand smoke. Stay up to date on all immunizations, including the yearly (annual) flu vaccine. Keep all follow-up visits as told by your health care provider. This is important. How to prevent the spread of infection to others URIs can be passed from person to person (are contagious). To prevent the infection from spreading: ?Wash your hands often with soap and water. If soap and water are not available, use hand geodesist. ?Avoid touching your mouth, face, eyes, or nose. ?Cough or sneeze into a tissue or your sleeve or elbow instead of into your hand or into the air. Contact a health care provider if: You are getting worse instead of better. You have a fever or chills. Your mucus is brown or red. You have yellow or brown discharge coming from your nose. You have pain in your face, especially when you bend forward. You have swollen neck glands. You have pain while swallowing. You have white areas in the back of your throat. Get help right away if: You have shortness of breath that gets worse. You have severe or persistent: ?Headache. ?Ear pain. ?Sinus pain. ?Chest pain. You have chronic lung disease along with any of the following: ?Wheezing. ?Prolonged cough. ?Coughing up blood. ?A change in your usual mucus. You have a stiff neck. You have changes in your: ?Vision. ?Hearing. ?Thinking. ?Mood. Summary An upper respiratory infection (URI) is a common infection of the nose, throat, and upper air passages that lead to the lungs. A URI is caused by a virus. URIs usually get better on their own within 7 10 days. Medicines cannot cure URIs, but your health care provider may recommend certain medicines to help relieve symptoms. This information is not intended to replace advice given to you by your health care provider. Make sure you discuss any questions you have with your health care provider. Document Released: 08/06/2001 Document Revised: 02/18/2019 Document Reviewed: 09/26/2017 [email or web address] Patient Education [facility] Follow Up Care 05/12/2022 15:00:47 With:JEOVANNY GRIFFIN Address: [address] [place] [address] [place] [address]- Business (1) When:05/15/2022 18:29:20 Comments:Return to the emergency room if your symptoms get worse or any new symptoms [facility]03-19-2023 Evaluation + Plan noteExtracted from: Title:ED Note Author:Diaz Yates, Keyur Solomon te:05/12/22 1. Upper respiratory infecti on (J06.9: Acute upper respiratory infection, unspecified) Orders: homatropine-hydrocodone, 5 mL, Oral, q6hr, 120 mL, Refill(s) 0, [facility]/pharmacy #[id number], 165, cm, 05/12/22 15:13:00 EDT, Height/Length Dosing, 62, kg, 05/12/22 15:13:00 EDT, Weight Dosing ibuprofen, 600 mg = 1 tab(s), Tab, Oral, Once, Stop date 05/12/22 15:39:00 EDT, STAT, Start date 05/12/22 15:39:00 EDT, 05/12/22 15:39:00 EDT Group A Strep by PCR Rapid Strep w/rfx XR Chest 2 Views [facility]08-23-2022 NoteEducation Materials Orthopedics Rib Contusion A rib contusion is a deep bruise on the rib area. Contusions are the result of a blunt trauma that causes bleeding and injury to the tissues under the skin. A rib contusion may involve bruising of the ribs and of the skin and muscles in the area. The skin over the contusion may turn blue, purple, or yellow. Minor injuries result in a painless contusion. More severe contusions may be painful and swollen for a few weeks. What are the causes? This condition is usually caused by a hard, direct hit to an area of the body. This often occurs while playing contact sports. What are the signs or symptoms? Symptoms of this condition include: ? Swelling and redness of the injured area. ? Discoloration of the injured area. ? Tenderness and soreness of the injured area. ? Pain with or without movement. ? Pain when breathing in. How is this diagnosed? This condition may be diagnosed based on: ? Your symptoms and medical history. ? A physical exam. ? Imaging tests?such as an X-ray, CT scan, or MRI?to determine if there were internal injuries or broken bones (fractures). How is this treated? This condition may be treated with: ? Rest. This is often the best treatment for a rib contusion. ? Ice packs. This reduces swelling and inflammation. ? Deep-breathing exercises. These may be recommended to reduce the risk for lung collapse and pneumonia. ? Medicines. Ebgb-rwu-ssrqrwa or prescription medicines may be given to control pain. ? Injection of a numbing medicine around the nerve near your injury (nerve block). Follow these instructions at home: Medicines ? Take nbwu-ylt-zyidnhf and prescription medicines only as told by your health care provider. ? Ask your health care provider if the medicine prescribed to you: ? Requires you to avoid driving or using machinery. ? Can cause constipation. You may need to take these actions to prevent or treat constipation: ? Drink enough fluid to keep your urine pale yellow. ? Take dpwv-sls-fzhcgwf or prescription medicines. ? Eat foods that are high in fiber, such as beans, whole grains, and fresh fruits and vegetables. ? Limit foods that are high in fat and processed sugars, such as fried or sweet foods. Managing pain, stiffness, and swelling If directed, put ice on the injured area. To do this: ? Put ice in a plastic bag. ? Place a towel between your skin and the bag. ? Leave the ice on for 20 minutes, 2?3 times a day. ? Remove the ice if your skin turns bright red. This is very important. If you cannot feel pain, heat, or cold, you have a greater risk of damage to the area. Activity ? Rest the injured area. ? Avoid strenuous activity and any activities or movements that cause pain. Be careful during activities, and avoid bumping the injured area. ? Do not lift anything that is heavier than 5 lb (2.3 kg), or the limit that you are told, until your health care provider says that it is safe. General instructions ? Do not use any products that contain nicotine or tobacco, such as cigarettes, e-cigarettes, and chewing tobacco. These can delay healing. If you need help quitting, ask your health care provider. ? Do deep-breathing exercises as told by your health care provider. ? If you were given an incentive spirometer, use it every 1?2 hours while you are awake, or as recommended by your health care provider. This device measures how well you are filling your lungs with each breath. ? Keep all follow-up visits. This is important. Contact a health care provider if you have: ? Increased bruising or swelling. ? Pain that is not controlled with treatment. ? A fever. Get help right away if you: ? Have difficulty breathing or shortness of breath. ? Develop a continual cough, or you cough up thick or bloody mucus from your lungs (sputum). ? Feel nauseous or you vomit. ? Have pain in your abdomen. These symptoms may represent a serious problem that is an emergency. Do not wait to see if the symptoms will go away. Get medical help right away. Call your local emergency services (911 in the [place] Do not drive yourself to the hospital. Summary ? A rib contusion is a deep bruise on your rib area. Contusions are the result of a blunt trauma that causes bleeding and injury to the tissues under the skin. ? The skin over the contusion may turn blue, purple, or yellow. Minor injuries may cause a painlesscontusion. More severe contusions may be painful and swollen for a few weeks. ? Rest the injured area. Avoid strenuous activity and any activities or movements that cause pain. This information is not intended to replace advice given to you by your health care provider. Make sure you discuss any questions you have with your health care provider. Document Revised: 05/17/2020 Document Reviewed: 05/17/2020 [employer] Patient Education ? 2021 [employer].[id number] Hospital Discharge instructions Patient Education 09/26/2021 00:11:11 Urinary Tract Infection, Adult Urinary Tract Infection, Adult A urinary tract infection (UTI) is an infection of any part of the urinary tract. The urinary tractincludes the kidneys, ureters, bladder, and urethra. These organs make, store, and get rid of urinein the body. Your health care provider may use other names to describe the infection. An upper UTI affects the ureters and kidneys (pyelonephritis). A lower UTI affects the bladder (cystitis) and urethra (urethritis). What are the causes? Most urinary tract infections are caused by bacteria in your genital area, around the entrance to your urinary tract (urethra). These bacteria grow and cause inflammation of your urinary tract. What increases the risk? You are more likely to develop this condition if: You have a urinary catheter that stays in place (indwelling). You are not able to control when you urinate or have a bowel movement (you have incontinence). You are female and you: ?Use a spermicide or diaphragm for control. ?Have low estrogen levels. ?Are . You have certain genes that increase your risk (genetics). You are sexually active. You take antibiotic medicines. You have a condition that causes your flow of urine to slow down, such as: ?An enlarged prostate, if you are male. ?Blockage in your urethra (stricture). ?A kidney stone. ?A nerve condition that affects your bladder control (neurogenic bladder). ?Not getting enough to drink, or not urinating often. You have certain medical conditions, such as: ?Diabetes. ?A weak disease-fighting system (immunesystem). ?Sickle cell disease. ?Gout. ?Spinal cord injury. What are the signs or symptoms? Symptoms of this condition include: Needing to urinate right away (urgently). Frequent urination or passing small amounts of urine frequently. Pain or burning with urination. Blood in the urine. Urine that smells bad or unusual. Trouble urinating. Cloudy urine. Vaginal discharge, if you are female. Pain in the abdomen or the lower back. You may also have: Vomiting or a decreased appetite. Confusion. Irritability or tiredness. A fever. Diarrhea. The first symptom in older adults may be confusion. In some cases, they may not have any symptoms until the infection has worsened. How is this diagnosed? This condition is diagnosed based on your medical history and a physical exam. You may also have other tests, including: Urine tests. Blood tests. Tests for sexually transmitted infections (STIs). If you have had more than one UTI, a cystoscopy or imaging studies may be done to determine the cause of the infections. How is this treated? Treatment for this condition includes: Antibiotic medicine. Kpqa-sos-tkqvlfg medicines to treat discomfort. Drinking enough water to stay hydrated. If you have frequent infections or have other conditions such as a kidney stone, you may need to see a health care provider who specializes in the urinary tract (urologist). In rare cases, urinary tract infections can cause sepsis. Sepsis is a life- threatening condition that occurs when the body responds to an infection. Sepsis is treated in the hospital with IV antibiotics, fluids, and other medicines. Follow these instructions at home: Medicines Take cjja-uca-dslioou and prescription medicines only as told by your health care provider. If you were prescribed an antibiotic medicine, take it as told by your health care provider. Do notstop using the antibiotic even if you start to feel better. General instructions Make sure you: ?Empty your bladder often and completely. Do not hold urine for long periods of time. ?Empty your bladder after sex. ?Wipe from front to back after a bowel movement if you are female. Use each tissue one time when you wipe. Drink enough fluid to keep your urine pale yellow. Keep all follow-up visits as told by your health care provider. This is important. Contact a health care provider if: Your symptoms do not get better after 1 2 days. Your symptoms go away and then return. Get help right away if you have: Severe pain in your back or your lower abdomen. A fever. Nausea or vomiting. Summary A urinary tract infection (UTI) is an infection of any part of the urinary tract, which includes the kidneys, ureters, bladder, and urethra. Most urinary tract infections are caused by bacteria in your genital area, around the entrance to your urinary tract (urethra). Treatment for this condition often includes antibiotic medicines. If you were prescribed an antibiotic medicine, take it as told by your health care provider. Do notstop using the antibiotic even if you start to feel better. Keep all follow-up visits as told by your health care provider. This is important. This information is not intended to replace advice given to you by your health care provider. Make sure you discuss any questions you have with your health care provider. Document Released: 11/20/2005 Document Revised: 01/28/2019 Document Reviewed: 08/20/2018 [email or web address] Patient Education 2020 [employer]. Follow Up Care 09/25/2021 19:50:29 With:JEOVANNY GRIFFIN Address: [place] [address]- Business (1) When:Within 3 Day(s) [facility]08-02-2022 Evaluation + Plan noteExtracted from: Title:ED Note Author:Abdulaziz Che DO Date :09/25/21 Acute UTI (N39.0: Urinary tr act infection, site not specified) Orders: ceftriaxone + Sodium Chloride 0.9% intravenous solution 50 mL, 1,000 mg = 1 EA, IV Piggyback, Once, Stop date 09/25/21 22:04:00 EDT, STAT, Start date 09/25/21 22:04:00 EDT, 100 mL/hr, Infuse over 30 minute(s), 09/25/21 22:04:00 EDT cephalexin, 500 mg = 1 cap(s), Oral, q12hr, X 7 day(s), # 14 cap(s), Refills(s) 0, Pharmacy: [facility]/pharmacy #[id number], 164, cm, 09/25/21 20:01:00 EDT, Height/Length Dosing, 70, kg, 09/25/21 20:01:00 EDT, Weight Dosing ketorolac, 15 mg = 1 mL, Injection, IV Push, Once, Stop date 09/25/21 21:13:00 EDT, STAT, Start date 09/25/21 21:13:00 EDT, 09/25/21 21:13:00 EDT ondansetron, 4 mg = 2 mL, Injection, IV Push, Once, Stop date 09/25/21 21:13:00 EDT, STAT, Start date 09/25/21 21:13:00 EDT, 09/25/21 21:13:00 EDT Sodium Chloride 0.9% intravenous solution, 1,000 mL, Soln-IV, IV, Once, Stop date 09/25/21 21:13:00 EDT, STAT, Start date 09/25/21 21:13:00 EDT, mL/hr, Infuse over 61, minute(s) Automated Diff Basic Metabolic Panel CBC w/ Auto Diff CT Abdomen/Pelvis w/o Contrast eGFR Hepatic Function Panel Lipase Level U Beta Hcg Qual UA With Cult Reflex Urine Culture Diagnostic Tests Pending * Urine Culture 09/25/21 [facility]06-21-2012 History of Past illness Narrative* Problem Noted Date Resolved Date Hip fracture 08/15/2011 11/26/2011 documented as of this encounter (statuses as of 06/06/2022) [facility] History of Past illness Narrative* Problem Noted Date Resolved Date Hip fracture 08/15/2011 11/26/2011 documented as of this encounter (statuses as of 06/21/2022) [facility] History of Past illness Narrative* Problem Noted Date Resolved Date Hip fracture 08/15/2011 11/26/2011 documented as of this encounter (statuses as of 07/02/2022) [facility] History of Past illness Narrative* Problem Noted Date Diagnosed Date Resolved Date Hip fracture 08/15/2011 11/26/2011 documented as of this encounter (statuses as of 10/24/2022) [facility] History of Past illness Narrative* Problem Noted Date Diagnosed Date Resolved Date Hip fracture 08/15/2011 11/26/2011 documented as of this encounter (statuses as of 10/24/2022) [facility] History of Past illness Narrative* Problem Noted Date Diagnosed Date Resolved Date Hip fracture 08/15/2011 11/26/2011 documented as of this encounter (statuses as of 11/05/2022) [facility] History of Past illness Narrative* Problem Noted Date Diagnosed Date Resolved Date Hip fracture 08/15/2011 11/26/2011 documented as of this encounter (statuses as of 11/11/2022) [facility] History of Past illness Narrative* Problem Noted Date Diagnosed Date Resolved Date Hip fracture 08/15/2011 11/26/2011 documented as of this encounter (statuses as of 11/12/2022) [facility] History of Past illness Narrative* Problem Noted Date Diagnosed Date Resolved Date Hip fracture 08/15/2011 11/26/2011 documented as of this encounter (statuses as of 12/03/2022) [address]21-2012 History of Past illness Narrative* Problem Noted Date Diagnosed Date Resolved Date Hip fracture 08/15/2011 11/26/2011 documented as of this encounter (statuses as of 12/04/2022) [address]21-2012 History of Past illness Narrative* Problem Noted Date Diagnosed Date Resolved Date Hip fracture 08/15/2011 11/26/2011 documented as of this encounter (statuses as of 12/10/2022) [address]21-2012 History of Past illness Narrative* Problem Noted Date Diagnosed Date Resolved Date Hip fracture 08/15/2011 11/26/2011 documented as of this encounter (statuses as of 12/17/2022) [address]21-2012 History of Past illness Narrative* Problem Noted Date Diagnosed Date Resolved Date Hip fracture 08/15/2011 11/26/2011 documented as of this encounter (statuses as of 12/24/2022) [address]21-2012 History of Past illness Narrative* Problem Noted Date Diagnosed Date Resolved Date Hip fracture 08/15/2011 11/26/2011 documented as of this encounter (statuses as of 04/28/2023) [address]21-2012 History of Past illness Narrative* Problem Noted Date Diagnosed Date Resolved Date Hip fracture 08/15/2011 11/26/2011 documented as of this encounter (statuses as of 04/28/2023) [address]21-2012 History of Past illness Narrative* Problem Noted Date Diagnosed Date Resolved Date Hip fracture 08/15/2011 11/26/2011 documented as of this encounter (statuses as of 05/09/2023) [facility] note[facility] information availableBet[facility] Work Phone: Evaluation note* Diagnosis Type 1 diabetes mellitus without complication (HCC)- Primary Type I (juvenile type) diabetes mellitus without mention of complication, not stated as uncontrolled Acquired hypothyroidism Unspecified hypothyroidism Type 1 diabetes mellitus with diabetic polyneuropathy (HCC) Type I (juvenile type) diabetes mellitus with neurological manifestations, not stated as uncontrolled [facility] Diagnosis Poorly controlled type 1 diabetes mellitus (HCC)- Primary Type I (juvenile type) diabetes mellitus without mention of complication, not stated as uncontrolled Type 1 diabetes mellitus with diabetic polyneuropathy (HCC) Type I (juvenile type) diabetes mellitus with neurological manifestations, not stated as uncontrolled Acquired hypothyroidism Unspecified hypothyroidism [facility]* Diagnosis Diabetic autonomic neuropathy associated with type 1 diabetes mellitus (HCC)- Primary [facility] Diagnosis Type 1 diabetes mellitus with diabetic polyneuropathy (HCC)- Primary Type I (juvenile type) diabetes mellitus with neurological manifestations, not stated as uncontrolled [facility] Diagnosis Type 1 diabetes mellitus without retinopathy (HCC)- Primary Type I (juvenile type) diabetes mellitus without mention of complication, not stated as uncontrolled Hyperopia of both eyes with astigmatism and presbyopia [facility] Diagnosis Type 1 diabetes mellitus with diabetic polyneuropathy (HCC) Type I (juvenile type) diabetes mellitus with neurological manifestations, not stated as uncontrolled documented in this encounter [facility] note* Diagnosis Type 1 diabetes mellitus without retinopathy (HCC) - Both Eyes- Primary Type I (juvenile type) diabetes mellitus without mention of complication, not stated as uncontrolled [facility] Diagnosis Acquired hypothyroidism- Primary Unspecified hypothyroidism Type 1 diabetes mellitus with diabetic polyneuropathy (HCC) Type I (juvenile type) diabetes mellitus with neurological manifestations, not stated as uncontrolled Rahul's disease Chronic lymphocytic thyroiditis [facility] Diagnosis Type 1 diabetes mellitus with diabetic polyneuropathy (HCC) Type I (juvenile type) diabetes mellitus with neurological manifestations, not stated as uncontrolled documented in this encounter [facility] note* Diagnosis Diabetic autonomic neuropathy associated with type 1 diabetes mellitus (HCC) documented in this encounter [facility] course Narrative No data available for this section [facility] No data available for this section [facility] Summary Purpose Family History No Family History Records Found Relationship Condition Age at Onset Recorded Date/T monica Not Specified No pertinent family history Unknown Advance Directives No Advanced Directives Records Found Advance Directive Response Recorded Date/ Time Advance Directives No July 14 8 11:23am Chief Complaint and Reason for Visit Chief Complaint R hand numbness, dwight mb pain, lump on wrist NKI Reason for Referral Specialty Diagnoses / Procedures Referred By Marco A t Referred To Contact Diagnoses Type 1 diabetes mellitus with diabetic polyneuropathy (HCC) Cinthia Walls MD [address] [place] [address] [place] [address] Referral ID Status Reason Start Date Expiration Date Visits Re quested Visits Authorized [id number] Closed 1 1 Referral ID Status Reason Start Date Expiration Date Visits Re quested Visits Authorized [id number] Closed 1 1 Specialty Diagnoses / Procedures Referred By Contac t Referred To Contact Ophthalmology Diagnoses Poorly controlled type 1 diabetes mellitus (HCC) Procedures CONSULT TO OPHTHALMOLOGY OFFICE/OUTPATIENT [facility] 60-74 MINUTES Maulik Starr APRN.[facility] [address] [place] [address] Referral ID Status Reason Start Date Expiration Date Visits Requested Visits Authorized [id number] Authorized PCP Requested Referral 07/02/2022 07/02/2023 1 1 Additional Source Comments INFORMATION SOURCE (unrecogn ized section and content) DATE CREATED AUTHOR 08/25/2017 [facility] DATE CREATED AUTHOR AUTHOR'S ORGANIZ ATION 03/01/2020 [facility] DATE CREATED AUTHOR AUTHOR'S ORGANIZ ATION 07/06/2020 [facility] DATE CREATED AUTHOR AUTHOR'S ORGANIZ ATION 03/07/2022 [facility] DATE CREATED AUTHOR AUTHOR'S ORGANIZ ATION 03/23/2022 [facility] DATE CREATED AUTHOR AUTHOR'S ORGANIZ ATION 07/03/2022 [facility] DATE CREATED AUTHOR AUTHOR'S ORGANIZ ATION 05/10/2023 [facility] DATE CREATED AUTHOR AUTHOR'S ORGANIZ ATION 07/07/2023 [facility] Care Team (unrecognized sect ion and content) Team Status: Inactive Member Role Status Dates Jeovanny Griffin II MD Primary Care Provider Active Selvin Fisher APRN Emergency Provider Active Team Status: Active Member Role Status Dates Jeovanny Griffin II MD Primary Care Provider Active [employer] Relationship Specialty Start Date End Date Jeovanny Griffin II PCP - General 03/21/09 [employer] Relationship Specialty Start Date End Date Jeovanny Griffin II PCP - General 03/21/09 [employer] Relationship Specialty Start Date End Date Jeovanny Griffin II PCP - General 03/21/09 [employer] Relationship Specialty Start Date End Date Jeovanny Griffin II, MD PCP - General 03/21/09 [employer] Relationship Specialty Start Date End Date Jeovanny Griffin II, MD PCP - General 03/21/09 [employer] Relationship Specialty Start Date End Date Jeovanny Griffin II, MD PCP - General 03/21/09 [employer] Relationship Specialty Start Date End Date Jeovanny Griffin II, MD PCP - General 03/21/09 [employer] Relationship Specialty Start Date End Date Jeovanny Griffin II, MD PCP - General 03/21/09 [employer] Relationship Specialty Start Date End Date Jeovanny Griffin II, MD PCP - General 03/21/09 [employer] Relationship Specialty Start Date End Date Jeovanny Griffin II, MD PCP - General 03/21/09 Goals (unrecognized section and content) Goals may be documented in a n alternate section Source Comments (unrecognize d section and content) In the event this informatio n is protected by the Federal Confidentiality of Alcohol and Drug Abuse Patient Records regulations: The Federal rules restrict any use of the information to criminally investigate or prosecute any alcohol or drug abuse patient.[facility] the event this information is protected by the Federal Confidentiality of Alcohol and Drug Abuse Patient Records regulations: The Federal rules restrict any use of the information to criminally investigate or prosecute any alcohol or drug abuse patient.[facility] the event this information is protected by the Federal Confidentiality of Alcohol and Drug Abuse Patient Records regulations: The Federal rules restrict any use of the information to criminally investigate or prosecute any alcohol or drug abuse patient.[facility] the event this information is protected by the Federal Confidentiality of Alcohol and Drug Abuse Patient Records regulations: The Federal rules restrict any use of the information to criminally investigate or prosecute any alcohol or drug abuse patient.[facility] the event this information is protected by the Federal Confidentiality of Alcohol and Drug Abuse Patient Records regulations: The Federal rules restrict any use of the information to criminally investigate or prosecute any alcohol or drug abuse patient.[facility] the event this information is protected by the Federal Confidentiality of Alcohol and Drug Abuse Patient Records regulations: The Federal rules restrict any use of the information to criminally investigate or prosecute any alcohol or drug abuse patient.[facility] the event this information is protected by the Federal Confidentiality of Alcohol and Drug Abuse Patient Records regulations: The Federal rules restrict any use of the information to criminally investigate or prosecute any alcohol or drug abuse patient.[facility] the event this information is protected by the Federal Confidentiality of Alcohol and Drug Abuse Patient Records regulations: The Federal rules restrict any use of the information to criminally investigate or prosecute any alcohol or drug abuse patient.[facility] the event this information is protected by the Federal Confidentiality of Alcohol and Drug Abuse Patient Records regulations: The Federal rules restrict any use of the information to criminally investigate or prosecute any alcohol or drug abuse patient.[facility] the event this information is protected by the Federal Confidentiality of Alcohol and Drug Abuse Patient Records regulations: The Federal rules restrict any use of the information to criminally investigate or prosecute any alcohol or drug abuse patient.[facility] the event this information is protected by the Federal Confidentiality of Alcohol and Drug Abuse Patient Records regulations: The Federal rules restrict any use of the information to criminally investigate or prosecute any alcohol or drug abuse patient.[facility] the event this information is protected by the Federal Confidentiality of Alcohol and Drug Abuse Patient Records regulations: The Federal rules restrict any use of the information to criminally investigate or prosecute any alcohol or drug abuse patient.[facility]bleIn the event this information is protected by the Federal Confidentiality of Alcohol and Drug Abuse Patient Records regulations: The Federal rules restrict any use of the information to criminally investigate or prosecute any alcohol or drug abuse patient.[facility]bleIn the event this information is protected by the Federal Confidentiality of Alcohol and Drug Abuse Patient Records regulations: The Federal rules restrict any use of the information to criminally investigate or prosecute any alcohol or drug abuse patient.[facility]bleIn the event this information is protected by the Federal Confidentiality of Alcohol and Drug Abuse Patient Records regulations: The Federal rules restrict any use of the information to criminally investigate or prosecute any alcohol or drug abuse patient.[facility]bleIn the event this information is protected by the Federal Confidentiality of Alcohol and Drug Abuse Patient Records regulations: The Federal rules restrict any use of the information to criminally investigate or prosecute any alcohol or drug abuse patient.[facility] Reason for Visit (unrecogniz ed section and content) Reason Comments Diabetes Reason Comments lab clarification Results Reason Comments Diabetes Reason Comments Diabetes Self Management Education Reason Comments omni pod 5 Reason Comments Diabetic Eye Exam Specialty Diagnoses / Procedures Referred By Contac t Referred To Contact Ophthalmology Diagnoses Poorly controlled type 1 diabetes mellitus (HCC) Procedures CONSULT TO OPHTHALMOLOGY OFFICE/OUTPATIENT [facility] MDM 60-74 MINUTES Cinthia Walls MD [address] [place] [address] [place] [address] Referral ID Status Reason Start Date Expiration Date Visits Requested Visits Authorized [id number] Pending Review PCP Requested Referral 10/08/2022 10/08/2023 1 1 Reason Comments Insulin pump start training Reason Comments Omni pod 5 orders Reason Comments Insulin pump start follow up Reason Comments insulin pump start follow up Reason Comments Insulin pump follow up Reason Comments insulin pump start ffollow up Reason Comments New Patient Reason Comments Refill Request Reason Onset Date Comments Refill Request 05/08/2023 FOR RECORDS PERTAINING TO PATIENTS WHO ARE OR HAVE BEEN ENROLLED IN A CHEMICAL DEPENDENCY/SUBSTANCEABUSE PROGRAM, SOME INFORMATION MAY BE OMITTED. This clinical summary was aggregated from multiple sources. Caution should be exercised in using it in the provision of clinical care. This summary normalizes information from multiple sources, and as a consequence, information in this document may materially change the coding, format and clinical context of patient data. In addition, data may be omitted in some cases. CLINICAL DECISIONS SHOULD BE BASED ON THE PRIMARY CLINICAL RECORDS. [facility]. provides no warranty or guarantee of the accuracy or completeness of information in this document.
--- NOTE | 2023-09-12 15:55 | ED_ITS ---
Documented by User: Ashleigh Sorto 09/12/23 16:06 HPI HPI - General Adult General Chief complaint: Extremity Injury, Lower Stated complaint: LOWER EXTREMITY PAIN Time Seen by Provider: 09/12/23 15:50 Source: patient Mode of arrival: Wheelchair Limitations: no limitations History of Present Illness HPI narrative: pt presents to er with chief compliant of left foot pain. pt denies known injury or trauma. she states she woke with pain and swelling.she states she stepped out of bed and slipped due to pain. she states she took nothing for pain prior to arrival. no obvious deformity or swelling noted on initial exam.extremity is neurovascularly intact. she denies previous injury or foot issues in past Related Data Home Medications ?Medication ?Instructions ?Recorded ?Confirmed atorvastatin 10 mg tablet mg 01/28/23 ibuprofen 800 mg tablet mg 01/28/23 insulin pump cart,automated,BT 01/28/23 01/28/23 (Omnipod 5 G6 Pods (Gen 5) subcutaneous cartridge) lisinopril 5 mg tablet mg 01/28/23 pregabalin 300 mg capsule (Lyrica) 300 mg PO BID 01/28/23 01/28/23 Allergies Allergy/AdvReac Type Severity Reaction Status Date / Time clarithromycin [From Biaxin] Allergy Severe Verified 01/28/23 22:55 Sulfa (Sulfonamide Allergy Severe Verified 01/28/23 22:55 Antibiotics) azithromycin Allergy Verified 01/28/23 22:55 Penicillins Allergy Verified 01/28/23 22:55 Opioid HPI Opioid Management Most Recent Opioid Data: Last Pain Scale 6 09/12/23 16:00 Last MAR Pain Assessment 09/12/23 16:00 Review of Systems ROS Narrative REVIEW OF SYSTEMS: Unless otherwise stated in this report the patient's positive and negative responses for review of systems for constitutional, eyes, ENT, cardiovascular, respiratory, gastrointestinal, neurological, , musculoskeletal, and integument systems and related systems to the presenting problem are either stated in the history of present illness or were not pertinent or were negative for the symptoms and/or complaints related to the presenting medical problem. [facility] Social History Smoking status: Current every day smoker Exam Narrative Exam Narrative: vital signs reviewed and patient is not hypoxic. ? General: The patient appears well and in no apparent distress. Patient is resting comfortably on cart. Not toxic, lethargic, or listless. Skin: Warm, dry, no pallor noted. There is no rash noted. Head: Normocephalic, atraumatic Eye: Normal conjunctiva, no drainage, EOMI. PERRL. Ears, Nose, Mouth, and Throat: oral mucosa is moist. Nares patent. Mouth without vesicles. Ear canals patent. Tm's without Erythema Musculoskeletal: left foot tenderness, mild soft tissue swelling, no deformity, neurovasculary intact. The patient has full range of motion of all extremities and joints with no difficulty. Patient has no motor, no sensory deficits. Neurological: A&O x4, normal speech, no focal neurological deficits. Psychiatric: Cooperative Constitutional Vital Signs, click to edit/add: Last Vital Signs Temp 97.6 F 09/12/23 14:55 Pulse 95 H 09/12/23 14:55 Resp 18 09/12/23 14:55 BP 134/76 09/12/23 14:55 Pulse Ox 98 09/12/23 14:55 O2 Del Method Room Air 09/12/23 14:55 Course Vital Signs Vital signs: Vital Signs Temperature 97.6 F 09/12/23 14:55 Pulse Rate 95 H 09/12/23 14:55 Respiratory Rate 18 09/12/23 14:55 Blood Pressure 134/76 09/12/23 14:55 Pulse Oximetry 98 09/12/23 14:55 Oxygen Delivery Method Room Air 09/12/23 14:55 Temperature 97.6 F 09/12/23 14:55 Pulse Rate 95 H 09/12/23 14:55 Respiratory Rate 18 09/12/23 14:55 Blood Pressure 134/76 09/12/23 14:55 Pulse Oximetry 98 09/12/23 14:55 Oxygen Delivery Method Room Air 09/12/23 14:55 Medical Decision Making MDM Narrative Medical decision making narrative: pt presents for left foot pain and swelling, pt denies known injury or trauma, she states she woke with pain and swelling this morning. pt tearful during exam. xray neg by radiology. pt will be treated as foot sprain. educated on rest, ice, elevation. sarah wrap and post op shoe applied in er. pt will be referred to ortho. pt questions answered and agrees with plan of care. Differential Diagnosis Differential Diagnosis: foot fracture, foot sprain Medical Records Medical records reviewed: Yes I reviewed the patient's medical records Imaging Data foot: Radiologist's impression: ITS Impressions Foot X-Ray 09/12/23 14:59 IMPRESSION: 1. Mild soft tissue swelling of uncertain etiology. 2. No acute or suspicious bone abnormality. Electronically authenticated by: JEROME YANG Date: 09/12/2023 15:31 Discharge Plan Discharge Stand Alone Forms: Portal Instructions Chief Complaint: Extremity Injury, Lower Clinical Impression: Foot sprain Patient Disposition: Home, Self-Care Time of Disposition Decision: 15:52 Condition: Good Prescriptions / Home Meds: No Action atorvastatin 10 mg tablet ibuprofen 800 mg tablet lisinopril 5 mg tablet (DME) Omnipod 5 G6 Pods (Gen 5) Cartridge SUBCUT pregabalin [Lyrica] 300 mg capsule 300 mg PO BID Print Language: Japanese Instructions: Foot Sprain (ED), Ice Pack Application (ED) Referrals: IRENE HUERTA [Primary Care Provider] - 1 week Jerome Larios MD [Physician] - 1 week Discharge Date/Time: 09/12/23 16:13 Documented by User: Von Starks MD 09/12/23 21:46 HPI HPI - General Adult General Chief complaint: Extremity Injury, Lower Stated complaint: LOWER EXTREMITY PAIN Time Seen by Provider: 09/12/23 15:50 Related Data Home Medications ?Medication ?Instructions ?Recorded ?Confirmed atorvastatin 10 mg tablet mg 01/28/23 ibuprofen 800 mg tablet mg 01/28/23 insulin pump cart,automated,BT 01/28/23 01/28/23 (Omnipod 5 G6 Pods (Gen 5) subcutaneous cartridge) lisinopril 5 mg tablet mg 01/28/23 pregabalin 300 mg capsule (Lyrica) 300 mg PO BID 01/28/23 01/28/23 Allergies Allergy/AdvReac Type Severity Reaction Status Date / Time clarithromycin [From Biaxin] Allergy Severe Verified 01/28/23 22:55 Sulfa (Sulfonamide Allergy Severe Verified 01/28/23 22:55 Antibiotics) azithromycin Allergy Verified 01/28/23 22:55 Penicillins Allergy Verified 01/28/23 22:55 Opioid HPI Opioid Management Most Recent Opioid Data: Last Pain Scale 6 09/12/23 16:00 Last MAR Pain Assessment 09/12/23 16:00 PFSH PFS Social History Smoking status: Current every day smoker Exam Constitutional Vital Signs, click to edit/add: Last Vital Signs Temp 97.6 F 09/12/23 14:55 Pulse 95 H 09/12/23 14:55 Resp 18 09/12/23 14:55 BP 134/76 09/12/23 14:55 Pulse Ox 98 09/12/23 14:55 O2 Del Method Room Air 09/12/23 14:55 Course Vital Signs Vital signs: Vital Signs Temperature 97.6 F 09/12/23 14:55 Pulse Rate 95 H 09/12/23 14:55 Respiratory Rate 18 09/12/23 14:55 Blood Pressure 134/76 09/12/23 14:55 Pulse Oximetry 98 09/12/23 14:55 Oxygen Delivery Method Room Air 09/12/23 14:55 Temperature 97.6 F 09/12/23 14:55 Pulse Rate 95 H 09/12/23 14:55 Respiratory Rate 18 09/12/23 14:55 Blood Pressure 134/76 09/12/23 14:55 Pulse Oximetry 98 09/12/23 14:55 Oxygen Delivery Method Room Air 09/12/23 14:55 Medical Decision Making [facility] Narrative Medical decision making narrative: pt presents for left foot pain and swelling, pt denies known injury or trauma, she states she woke with pain and swelling this morning. pt tearful during exam. xray neg by radiology. pt will be treated as foot sprain. educated on rest, ice, elevation. sarah wrap and post op shoe applied in er. pt will be referred to ortho. pt questions answered and agrees with plan of care. I, Dr Starks, have reviewed the above progress note and course of action in the ER; agree with the above. I have personally seen and evaluated this patient, gone over history and physical, and discussed disposition and treatment plan with the patient. Imaging Data foot: Radiologist's impression: ITS Impressions Foot X-Ray 09/12/23 14:59
[2023-09-12] MEDS: IBUPROFEN 600 MG TABLET PO (16:00)
== END 2023-09-12 16:13 | disposition home or self-care (01) ==
PROVIDERS: Emergency Provider Emergency Medicine; PCP Internal Medicine
DX: S93.602A Unspecified sprain of left foot, initial encounter (principal); F17.210 Nicotine dependence, cigarettes, uncomplicated; X58.XXXA Exposure to other specified factors, initial encounter
CPT/HCPCS: 73630; 99283